=== PATIENT | female | born 2005 | race Caucasian/White ===

== ENCOUNTER → 2024-01-04 | Emergency (ER) | payer SELFPAY ==
[~2024-01-04] MED LIST: POTASSIUM 25 MEQ EFFERV TAB ONE
--- OUTSIDE RECORDS SUMMARY | 2024-01-04 23:36 | XMS REPORT | Continuity of Care Document ---
Author Name Unknown Address [address] [facility]. [address] [place] [address] [facility] thconnect Address [address] [facility]. [address] [place] [address] Care Team Providers Care Sericulturist Name Role Phone Pcp, Patient Does Not Have A Primary Care Physic elsy MELISSA PHAM Attending Clinician Unavailable TYRONE JAMA Attending Clinician Unavailable Tyrone Jama MD Attending Clinician [phone] Melissa Pham MD Attending Clinician [phone] Doctor Unassigned, [place] Attending Clinician U ANABEL Hood Attending Clinician UnavailAnabel Marquez Attending Clinician + [phone] Benjamin Johnson Attending Clinician [phone] BENJAMIN DELAROSA Attending Clinician Unavailable AMILCAR CHAVARRIA Attending Clinician Unavailable Amilcar Chavarria MD Attending Clinician [phone] SACHA AGUSTIN Attending Clinician Unavailable Sacha Brunson Attending Clinician [phone] ASHLEY MELENDEZ Attending Clinician Unavailab idpika Melendez MD, Ashley Attending Clinician + [phone] BALBINA MATTSON Attending Clinician UnavailBALBINA Lemus Attending Clinician UnavailFRANNY Marie Attending Clinician Unavailab Franny Cheek DO Attending Clinician + [phone] HALLIE MELISSA S Attending Clinician Unavailable Hallie Waggoner S Attending Clinician [phone] MERY LOZADA Attending Clinician Unavailable Jan Smith MD Attending Clinician [phone] Ultrasound, [facility] Attending Clinician Unavailkeith Medina MD, Diamond Attending Clinician + DIAMOND ANDERSON Attending Clinician Mery Graves PA-C Attending Clinician [phone], [facility] Attending Clinician Unavailable BITA RUSSO Attending Clinician BITA West Attending Clinician Mariel Ruvalcaba RN Attending Clinician Unavailabl EMILY Stephenson Attending Clinician Unavailable Emily Davila MD Attending Clinician [phone] WENDY GARCIA Attending Clinician Unavailable Wendy Garcia MD Attending Clinician [phone], [facility] Attending Clinician UnavailSINDY Higuera Attending Clinician Unavailabl e 1, [facility] Attending Clinician UnavailSindy Higuera MD Attending Clinician [phone] Carmita Washington RN Attending Clinician Unavailab ADRIANA Benavides Attending Clinician Unavailab Adriana Morrow Attending Clinician + [phone] Unknown, Attending Attending Clinician Unavailab MARIEL Bruce Attending Clinician Unavailable MARIEL STONE Attending Clinician Unavailable Mariel Stone MD Attending Clinician [phone] aGvin BYRD, Constance Attending Clinician Unavailabl Lyn Hernandez RN Attending Clinician Unavail able STU HERRERA Attending Clinician Unavailable Herrera MARINE STEWARD, Stu Attending Clinician [phone] Kaelyn Conner MD Attending Clinician + [phone] KAELYN CONNER Attending Clinician Unavailable Garret Diamond MD Attending Clinician [phone] [facility], [facility] Eeg Attending Clinician Unavailable GARRET DIAMOND Attending Clinician Unavail able GARRET DIAMOND Attending Clinician Unavail able Randall PRODUCT DEVELOPMENT ECOLOGIST, Radha Beyer Attending Clinician + [phone] SALDIVAR, Sendil K.H. Attending Clinician + [phone] FRANCIS ALVAREZ K.H. Attending Clinician Unavaila Iván Ortega MD Attending Clinician [phone] Ping SALDIVAR, Nathan Nelson Attending Clinician [phone] NATHAN CRESPO Attending Clinician Unavailab dipika Elena, [facility] Attending Clinician Un available THANG CONTRERAS Attending Clinician Unavaila bry ELIAS, Mary Ann Beyer Attending Clinician + [phone] MARY ANN CAMEJO Attending Clinician Unavailable Care, Julia [facility]gent Attending Clinician Unavailable UNKNOWN, ATTENDING Attending Clinician Unavailab Deya Spears PA-C Attending Clinician + [phone] DEYA SALAZAR Attending Clinician Unavailable Wilfrid Stone DO Attending Clinician [phone] OMAR RICHARDS Attending Clinician Unavailable Rodri Rodriguez MD Attending Clinician [phone] Neli Koroma Attending Clinician [phone] EMILY DAVILA Admitting Clinician Unavailable ANABEL CARD Admitting Clinician Unavaila ASHLEY Rider Admitting Clinician Unavailab MELISSA Alejandro Admitting Clinician Unavailable Melissa Pham MD Admitting Clinician [phone] BITA RUSSO Admitting Clinician Emily Castano MD Admitting Clinician [phone] STU HERRERA Admitting Clinician Unavailable AMILCAR CHAVARRIA Admitting Clinician Unavailable Payers Payer Name Policy Type Policy Number Effective Date Expirati on Date Source [facility] [id number] 2022 00:00:00 [facility] MED[facility] [id number] 2020 00:00:00 [facility] [id number] 2019 00:00:00 Problems Condition Name Condition Details Condition Category Status Onset Date Resolution Date Last Treatment Date Treating Clinician Comments Source Upper respirator y tract infection, unspecifie d type Upper respirator y tract infection, unspecifie d type Disease Active 9-06 00:00: 00 [facility] Anxiety disorder, unspecifie d type Anxiety disorder, unspecifie d type Disease Active 7-10 00:00: 00 [facility] Overweight with body mass index (BMI) of 29 to 29.9 in adult Overweight with body mass index (BMI) of 29 to 29.9 in adult Disease Active 3-30 00:00: 00 [facility] Positive depression screening Positive depression screening Disease Active 3-30 00:00: 00 [facility] Routine follow-up Routine follow-up Disease Active 3-30 00:00: 00 [facility] Moderate episode of recurrent major depressive disorder Moderate episode of recurrent major depressive disorder Disease Active 3-09 00:00: 00 [facility] Liveborn , of [place] , born in hospital by vaginal delivery Liveborn , of [place] , born in hospital by vaginal delivery Disease Active 2-15 00:00: 00 [facility] Full-term premature rupture of membranes with onset of labor within 24 hours of rupture Full-term premature rupture of membranes with onset of labor within 24 hours of rupture Disease Active 2-14 00:00: 00 [facility] 39 weeks gestation of 39 weeks gestation of Disease Active 0 2-14 00:00: 00 [facility] Decreased movements in third trimester Decreased movements in third trimester Disease Active 1-08 00:00: 00 [facility] Obesity (BMI 30-39.9) Obesity (BMI 30-39.9) Disease Active 2021-10 2-28 00:00: 00 [facility] 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 Disease Active 2021-10 2-08 00:00: 00 [facility] Round ligament pain Round ligament pain Disease Active 9-27 00:00: 00 [facility] High risk , antepartum High risk , antepartum Disease Active 7- 00:00: 00 [facility] History of anxiety History of anxiety Disease Active 7- 00:00: 00 [facility] History of depression History of depression Disease Active 7 00:00: 00 [facility] Migraine equivalent syndrome Migraine equivalent syndrome Disease Active 407 00:00: 00 [facility] Exposure to SARS-assoc iated coronaviru s Exposure to SARS-assoc iated coronaviru s Disease Active 4-07 00:00: 00 [facility] Acne vulgaris Acne vulgaris Disease Active 4 00:00: 00 [facility] Asthma Asthma Disease Active 4-13 00:00: 00 Overview: Formattin g of this note might be different from the original. ICD10 Diagnosis Term Christmas Bell Ringer Utility [facility] Allergies, Adverse Reactions, Alerts Allergy Name Allergy Type Status Severity Reaction(s) Onset Date Inactive Date Treating Clinician Comments Source NO KNOWN ALLERGIE S Drug Class Active [facility] Social History Social Habit Start Date Stop Date Quantity Comments Source ASSERTION 2022-03-28 00:00:00 [facility] History SDOH Alcohol Comment [facility] History of tobacco use Passive smoker [facility] Alcohol intake 2023-12-09 00:00:00 2023-12-09 00:00:00 Lifetime non-drinker (finding) [facility] History of Social function 2023-07-04 00:00:00 2023-07-04 00:00:00 [facility] Exposure to SARS-CoV-2 (event) 2023-03-02 00:00:00 2023-03-12 23:04:00 Not sure [facility] Tobacco use and exposure 2022-06-27 00:00:00 2022-06-27 00:00:00 Smokeless tobacco non-user [facility] Tobacco Comment 2022-06-27 00:00:00 2022-06-27 00:00:00 parents smoke outside [facility] History SDOH Alcohol Frequency 2020-11-05 00:00:00 2020-11-05 00:00:00 1 [facility] History SDOH Alcohol Std Drinks 2020-11-05 00:00:00 2020-11-05 00:00:00 99 [facility] History SDOH Alcohol Binge 2020-11-05 00:00:00 2020-11-05 00:00:00 1 [facility] Sex Assigned At 2005 00:00:00 2005 00:00:00 [facility] Smoking Status Start Date Stop Date Source Never smoked tobacco [facility] Medications Ordered Medication Name Filled Medication Name Start Date Stop Date Current Medication? Ordering Clinician Indication Dosage Frequency Signature (SIG) Comments Components Source Ibuprofen 200 mg capsule 2022-10 15:29: 16 Yes Take by mouth. [facility] Ibuprofen 200 mg capsule 2022-10 15:29: 16 Yes Take by mouth. [facility] Ibuprofen 200 mg capsule 2022-10 15:29: 16 Yes Take by mouth. [facility] Ibuprofen 200 mg capsule 2022-10 15:29: 16 Yes Take by mouth. [facility] iopamidol (ISOVUE 370-500 mL) injection 80 mL 2022-10 02:00: 00 09-13 02:00 :00 No [id number] 80mL 80 mL, Intravenou s, ONCE, 1 dose, On Sun09/12/23 at 2000, Routine [facility] NaCl 0.9% (NS) bolus infusion 1,000 mL 2022-10 00:15: 00 09-13 02:06 :00 No 1000mL at 999 mL/hr, 1,000 mL, IV Infusion, ONCE, 1 dose, On Sun09/12/23 at 1815, ADELA [facility] ondansetron (ZOFRAN-ODT ) disintegrat ing tablet 4 mg 2022-10 23:59: 00 09-13 00:09 :00 No 4mg 4 mg, Oral, ONCE, 1 dose, On Sun09/12/23 at 1800, Routine [facility] ondansetron 4 mg disintegrat ing tablet 2022-10 00:00: 00 Yes [id number] 4mg Take 1 tablet by mouth every 8 (eight) hours as needed for Nausea and Vomiting (N/V). [facility] ondansetron 4 mg disintegrat ing tablet 2022-10 00:00: 00 Yes [id number] 4mg Take 1 tablet by mouth every 8 (eight) hours as needed for Nausea and Vomiting (N/V). [facility] ondansetron 4 mg disintegrat ing tablet 2022-10 00:00: 00 Yes [id number] 4mg Take 1 tablet by mouth every 8 (eight) hours as needed for Nausea and Vomiting (N/V). [facility] ondansetron 4 mg disintegrat ing tablet 2022-10 00:00: 00 Yes [id number] 4mg Take 1 tablet by mouth every 8 (eight) hours as needed for Nausea and Vomiting (N/V). [facility] ondansetron 4 mg disintegrat ing tablet 2022-10 00:00: 00 Yes [id number] 4mg Take 1 tablet by mouth every 8 (eight) hours as needed for Nausea and Vomiting (N/V). [facility] ondansetron 4 mg disintegrat ing tablet 2022-10 00:00: 00 Yes [id number] 4mg Take 1 tablet by mouth every 8 (eight) hours as needed for Nausea and Vomiting (N/V). [facility] Ibuprofen 200 mg capsule 9 13:25: 02 Yes Take by mouth. [facility] Ibuprofen 200 mg capsule 2022-0 9- 13:25: 02 Yes Take by mouth. [facility] Ibuprofen 200 mg capsule 2022-07-04 13:25: 02 Yes Take by mouth. [facility] Ibuprofen 200 mg capsule 07-04 13:25: 02 Yes Take by mouth. [facility] buPROPion SR (WELLBUTRIN SR) 100 mg SR tablet 07-04 00:00: 00 Yes [id number] 100mg Take 1 tablet by mouth in the morning and 1 tablet in the evening. [facility] busPIRone 7.5 mg tablet 07-04 00:00: 00 Yes [id number] 7.5mg Take 1 tablet by mouth in the morning and 1 tablet in the evening. [facility] buPROPion SR (WELLBUTRIN SR) 100 mg SR tablet 07-04 00:00: 00 Yes [id number] 100mg Take 1 tablet by mouth in the morning and 1 tablet in the evening. [facility] busPIRone 7.5 mg tablet 07-04 00:00: 00 Yes [id number] 7.5mg Take 1 tablet by mouth in the morning and 1 tablet in the evening. [facility] buPROPion SR (WELLBUTRIN SR) 100 mg SR tablet 07-04 00:00: 00 Yes [id number] 100mg Take 1 tablet by mouth in the morning and 1 tablet in the evening. [facility] busPIRone 7.5 mg tablet 07-04 00:00: 00 Yes [id number] 7.5mg Take 1 tablet by mouth in the morning and 1 tablet in the evening. [facility] AZITHROMYCI N 250 mg tablet 07-04 00:00: 00 Yes [id number] 500MG on day 1, then 250mg days 2-5 [facility] buPROPion SR (WELLBUTRIN SR) 100 mg SR tablet 07-04 00:00: 00 Yes [id number] 100mg Take 1 tablet by mouth in the morning and 1 tablet in the evening. [facility] busPIRone 7.5 mg tablet 07-04 00:00: 00 Yes [id number] 7.5mg Take 1 tablet by mouth in the morning and 1 tablet in the evening. [facility] AZITHROMYCI N 250 mg tablet 07-04 00:00: 00 Yes [id number] 500MG on day 1, then 250mg days 2-5 [facility] buPROPion SR (WELLBUTRIN SR) 100 mg SR tablet 07-04 00:00: 00 Yes [id number] 100mg Take 1 tablet by mouth in the morning and 1 tablet in the evening. [facility] busPIRone 7.5 mg tablet 07-04 00:00: 00 Yes [id number] 7.5mg Take 1 tablet by mouth in the morning and 1 tablet in the evening. [facility] buPROPion SR (WELLBUTRIN SR) 100 mg SR tablet 07-04 00:00: 00 Yes [id number] 100mg Take 1 tablet by mouth in the morning and 1 tablet in the evening. [facility] busPIRone 7.5 mg tablet 07-04 00:00: 00 Yes [id number] 7.5mg Take 1 tablet by mouth in the morning and 1 tablet in the evening. [facility] buPROPion SR (WELLBUTRIN SR) 100 mg SR tablet 07-04 00:00: 00 Yes [id number] 100mg Take 1 tablet by mouth in the morning and 1 tablet in the evening. [facility] busPIRone 7.5 mg tablet 07-04 00:00: 00 Yes [id number] 7.5mg Take 1 tablet by mouth in the morning and 1 tablet in the evening. [facility] buPROPion SR (WELLBUTRIN SR) 100 mg SR tablet 07-04 00:00: 00 Yes [id number] 100mg Take 1 tablet by mouth in the morning and 1 tablet in the evening. [facility] busPIRone 7.5 mg tablet 07-04 00:00: 00 Yes [id number] 7.5mg Take 1 tablet by mouth in the morning and 1 tablet in the evening. [facility] buPROPion SR (WELLBUTRIN SR) 100 mg SR tablet 07-04 00:00: 00 Yes [id number] 100mg Take 1 tablet by mouth in the morning and 1 tablet in the evening. [facility] busPIRone 7.5 mg tablet 07-04 00:00: 00 Yes [id number] 7.5mg Take 1 tablet by mouth in the morning and 1 tablet in the evening. [facility] buPROPion SR (WELLBUTRIN SR) 100 mg SR tablet 07-04 00:00: 00 Yes [id number] 100mg Take 1 tablet by mouth in the morning and 1 tablet in the evening. [facility] busPIRone 7.5 mg tablet 07-04 00:00: 00 Yes [id number] 7.5mg Take 1 tablet by mouth in the morning and 1 tablet in the evening. [facility] AZITHROMYCI N 250 mg tablet 07-04 00:00: 00 09-12 00:00 :00 No [id number] 500MG on day 1, then 250mg days 2-5 [facility] bromphenira mine-pseudo ephedrine-D M (BROMFED DM) 2-30-10 mg/5 mL syrup 07-04 00:00: 00 07-15 04:59 :00 No [id number] 10mL Take 10 mL by mouth 4 (four) times daily as needed for Congestion /Allergies for up to 10 days. [facility] bromphenira mine-pseudo ephedrine-D M (BROMFED DM) 2-30-10 mg/5 mL syrup 07-04 00:00: 00 07-15 04:59 :00 No [id number] 10mL Take 10 mL by mouth 4 (four) times daily as needed for Congestion /Allergies for up to 10 days. [facility] ibuprofen 800 mg tablet 06-26 00:00: 00 Yes [id number] 800mg Take 1 tablet by mouth every 8 (eight) hours as needed for Pain (scale 4-6) or Temp > 38.5 C. [facility] ondansetron (ZOFRAN) 4 mg tablet 06-26 00:00: 00 Yes [id number] 4mg Take 1 tablet by mouth every 8 (eight) hours as needed for Nausea and Vomiting (N/V). [facility] ibuprofen 800 mg tablet 06-26 00:00: 00 07-04 00:00 :00 No [id number] 800mg Take 1 tablet by mouth every 8 (eight) hours as needed for Pain (scale 4-6) or Temp > 38.5 C. [facility] ondansetron (ZOFRAN) 4 mg tablet 06-26 00:00: 00 07-04 00:00 :00 No [id number] 4mg Take 1 tablet by mouth every 8 (eight) hours as needed for Nausea and Vomiting (N/V). [facility] ibuprofen 800 mg tablet 06-26 00:00: 00 07-04 00:00 :00 No [id number] 800mg Take 1 tablet by mouth every 8 (eight) hours as needed for Pain (scale 4-6) or Temp > 38.5 C. [facility] ondansetron (ZOFRAN) 4 mg tablet 06-26 00:00: 00 07-04 00:00 :00 No [id number] 4mg Take 1 tablet by mouth every 8 (eight) hours as needed for Nausea and Vomiting (N/V). [facility] busPIRone 7.5 mg tablet 05-07 00:00: 00 Yes [id number] 7.5mg Take 1 tablet by mouth in the morning and 1 tablet in the evening. [facility] buPROPion SR (WELLBUTRIN SR) 100 mg SR tablet 05-07 00:00: 00 Yes [id number] 100mg Take 1 tablet by mouth in the morning and 1 tablet in the evening. [facility] busPIRone 7.5 mg tablet 05-07 00:00: 00 Yes [id number] 7.5mg Take 1 tablet by mouth in the morning and 1 tablet in the evening. [facility] buPROPion SR (WELLBUTRIN SR) 100 mg SR tablet 2023-0 7-10 00:00: 00 Yes [id number] 100mg Take 1 tablet by mouth in the morning and 1 tablet in the evening. [facility] busPIRone 7.5 mg tablet 2022-0 7-10 00:00: 00 Yes [id number] 7.5mg Take 1 tablet by mouth in the morning and 1 tablet in the evening. [facility] buPROPion SR (WELLBUTRIN SR) 100 mg SR tablet 2022-0 7-10 00:00: 00 Yes [id number] 100mg Take 1 tablet by mouth in the morning and 1 tablet in the evening. [facility] busPIRone 7.5 mg tablet 2022-0 7-10 00:00: 00 Yes [id number] 7.5mg Take 1 tablet by mouth in the morning and 1 tablet in the evening. [facility] buPROPion SR (WELLBUTRIN SR) 100 mg SR tablet 2022-0 7-10 00:00: 00 Yes [id number] 100mg Take 1 tablet by mouth in the morning and 1 tablet in the evening. [facility] busPIRone 7.5 mg tablet 2022-0 7-10 00:00: 00 07-04 00:00 :00 No [id number] 7.5mg Take 1 tablet by mouth in the morning and 1 tablet in the evening. [facility] buPROPion SR (WELLBUTRIN SR) 100 mg SR tablet 0 7-10 00:00: 00 07-04 00:00 :00 No [id number] 100mg Take 1 tablet by mouth in the morning and 1 tablet in the evening. [facility] busPIRone 7.5 mg tablet 2022-0 7-10 00:00: 00 07-04 00:00 :00 No [id number] 7.5mg Take 1 tablet by mouth in the morning and 1 tablet in the evening. [facility] buPROPion SR (WELLBUTRIN SR) 100 mg SR tablet 2022-0 7-10 00:00: 00 07-04 00:00 :00 No [id number] 100mg Take 1 tablet by mouth in the morning and 1 tablet in the evening. [facility] predniSONE (DELTASONE) tablet 60 mg 05-01 02:45: 00 05-01 02:45 :00 No 60mg 60 mg, Oral, ONCE, 1 dose, On Sun04/30/23 at 2145, [facility] predniSONE 20 mg tablet 04-30 00:00: 00 05-04 04:59 :00 No [id number] 40mg Take 2 tablets by mouth in the morning for 3 days. [facility] predniSONE 20 mg tablet 04-30 00:00: 00 05-04 04:59 :00 No [id number] 40mg Take 2 tablets by mouth in the morning for 3 days. [facility] ketorolac (TORADOL) injection 30 mg 03-13 06:00: 00 03-13 05:17 :00 No 30mg 30 mg, Slow IV Push, ONCE, 1 dose, On Sun03/13/23 at 0100, [facility] NaCl 0.9% (NS) bolus infusion 1,000 mL 03-13 05:45: 00 03-13 06:59 :00 No 1000mL at 999 mL/hr, 1,000 mL, IV Infusion, ONCE, 1 dose, On Sun03/13/23 at 0045, [facility] diphenhydrA MINE (BENADRYL) injection 25 mg 03-13 05:00: 00 03-13 05:16 :00 No 25mg 25 mg, Slow IV Push, ONCE, 1 dose, On Sun03/13/23 at 0000, STAT [facility] metoclopram nii HCl (REGLAN) injection 10 mg 03-13 05:00: 00 03-13 05:15 :00 No 10mg 10 mg, Slow IV Push, ONCE, 1 dose, On Sun03/13/23 at 0000, [facility] famotidine (PEPCID (PF)) injection 20 mg 03-13 05:00: 00 03-13 05:16 :00 No 20mg 20 mg, Slow IV Push, ONCE, 1 dose, On Sun03/13/23 at 0000, ADELA [facility] buPROPion 200 mg 12 hr tablet 3-0 4-21 00:00: 00 Yes [id number] 200mg Take 1 tablet by mouth in the morning and 1 tablet in the evening. [facility] buPROPion 200 mg 12 hr tablet 3-0 4-21 00:00: 00 Yes [id number] 200mg Take 1 tablet by mouth in the morning and 1 tablet in the evening. [facility] buPROPion 200 mg 12 hr tablet 3-0 4-21 00:00: 00 Yes [id number] 200mg Take 1 tablet by mouth in the morning and 1 tablet in the evening. [facility] buPROPion 200 mg 12 hr tablet 3-0 4-21 00:00: 00 Yes [id number] 200mg Take 1 tablet by mouth in the morning and 1 tablet in the evening. [facility] buPROPion 200 mg 12 hr tablet 3-0 4-21 00:00: 00 Yes [id number] 200mg Take 1 tablet by mouth in the morning and 1 tablet in the evening. [facility] buPROPion 200 mg 12 hr tablet 3-0 -21 00:00: 00 Yes [id number] 200mg Take 1 tablet by mouth in the morning and 1 tablet in the evening. [facility] buPROPion 200 mg 12 hr tablet 3-0 421 00:00: 00 Yes [id number] 200mg Take 1 tablet by mouth in the morning and 1 tablet in the evening. [facility] buPROPion 200 mg 12 hr tablet 3-0 4-21 00:00: 00 05-07 00:00 :00 No [id number] 200mg Take 1 tablet by mouth in the morning and 1 tablet in the evening. [facility] buPROPion 200 mg 12 hr tablet 3-0 4-21 00:00: 00 05-07 00:00 :00 No [id number] 200mg Take 1 tablet by mouth in the morning and 1 tablet in the evening. [facility] buPROPion 200 mg 12 hr tablet 3 00:00: 00 Yes [id number] 200mg Take 1 tablet by mouth in the morning and 1 tablet in the evening. [facility] buPROPion 200 mg 12 hr tablet 30 00:00: 00 02-16 00:00 :00 No [id number] 200mg Take 1 tablet by mouth in the morning and 1 tablet in the evening. [facility] buPROPion 200 mg 12 hr tablet 01-25 00:00: 00 02-16 00:00 :00 No [id number] 200mg Take 1 tablet by mouth in the morning and 1 tablet in the evening. [facility] acetaminoph en (TYLENOL) tablet 650 mg 3 06:15: 00 12-31 06:11 :00 No 650mg 650 mg, Oral, ONCE, 1 dose, On 12/31/22 at 0015, ADELA [facility] buPROPion SR (WELLBUTRIN SR) 100 mg SR tablet 24 00:00: 00 Yes [id number] 100mg Take 1 tablet by mouth in the morning and 1 tablet in the evening. [facility] buPROPion SR (WELLBUTRIN SR) 100 mg SR tablet 224 00:00: 00 Yes [id number] 100mg Take 1 tablet by mouth in the morning and 1 tablet in the evening. [facility] buPROPion SR (WELLBUTRIN SR) 100 mg SR tablet 2-24 00:00: 00 Yes [id number] 100mg Take 1 tablet by mouth in the morning and 1 tablet in the evening. [facility] buPROPion SR (WELLBUTRIN SR) 100 mg SR tablet 24 00:00: 00 01-25 00:00 :00 No [id number] 100mg Take 1 tablet by mouth in the morning and 1 tablet in the evening. [facility] dicyclomine (BENTYL) tablet 20 mg 12-15 17:45: 00 12-15 17:02 :00 No 20mg 20 mg, Oral, ONCE, 1 dose, On Sun12/15/22 at 1145, Routine [facility] NaCl 0.9% (NS) bolus infusion 1,000 mL 12-15 17:45: 00 12-15 18:16 :00 No 1000mL at 999 mL/hr, 1,000 mL, IV Infusion, ONCE, 1 dose, On Sun12/15/22 at 1145, STAT [facility] ondansetron (ZOFRAN (PF)) injection 4 mg 12-15 16:45: 00 12-15 17:00 :00 No 4mg 4 mg, Slow IV Push, ONCE, 1 dose, On Sun12/15/22 at 1045, ADELA [facility] dicyclomine 10 mg capsule 12-15 00:00: 00 Yes [id number] 10mg Take 1 capsule by mouth 4 (four) times daily as needed for Abdominal pain. [facility] ondansetron 4 mg disintegrat ing tablet 12-15 00:00: 00 Yes [id number] 4mg Take 1 tablet by mouth every 8 (eight) hours as needed for Nausea and Vomiting (N/V). [facility] dicyclomine 10 mg capsule 0 12-15 00:00: 00 Yes [id number] 10mg Take 1 capsule by mouth 4 (four) times daily as needed for Abdominal pain. [facility] ondansetron 4 mg disintegrat ing tablet 0 12-15 00:00: 00 Yes [id number] 4mg Take 1 tablet by mouth every 8 (eight) hours as needed for Nausea and Vomiting (N/V). [facility] dicyclomine 10 mg capsule 0 12-15 00:00: 00 Yes [id number] 10mg Take 1 capsule by mouth 4 (four) times daily as needed for Abdominal pain. [facility] ondansetron 4 mg disintegrat ing tablet 2022-0 12-15 00:00: 00 Yes [id number] 4mg Take 1 tablet by mouth every 8 (eight) hours as needed for Nausea and Vomiting (N/V). [facility] dicyclomine 10 mg capsule 3-0 2-17 00:00: 00 Yes [id number] 10mg Take 1 capsule by mouth 4 (four) times daily as needed for Abdominal pain. [facility] ondansetron 4 mg disintegrat ing tablet 2022-0 2-17 00:00: 00 Yes [id number] 4mg Take 1 tablet by mouth every 8 (eight) hours as needed for Nausea and Vomiting (N/V). [facility] dicyclomine 10 mg capsule 2022-0 2-17 00:00: 00 Yes [id number] 10mg Take 1 capsule by mouth 4 (four) times daily as needed for Abdominal pain. [facility] ondansetron 4 mg disintegrat ing tablet 2022-0 2-17 00:00: 00 Yes [id number] 4mg Take 1 tablet by mouth every 8 (eight) hours as needed for Nausea and Vomiting (N/V). [facility] dicyclomine 10 mg capsule 2022-0 2-17 00:00: 00 02-16 00:00 :00 No [id number] 10mg Take 1 capsule by mouth 4 (four) times daily as needed for Abdominal pain. [facility] ondansetron 4 mg disintegrat ing tablet 2022-0 2-17 00:00: 00 02-16 00:00 :00 No [id number] 4mg Take 1 tablet by mouth every 8 (eight) hours as needed for Nausea and Vomiting (N/V). [facility] dicyclomine 10 mg capsule 2022-0 2-17 00:00: 00 02-16 00:00 :00 No [id number] 10mg Take 1 capsule by mouth 4 (four) times daily as needed for Abdominal pain. [facility] ondansetron 4 mg disintegrat ing tablet 2022-0 2-17 00:00: 00 02-16 00:00 :00 No [id number] 4mg Take 1 tablet by mouth every 8 (eight) hours as needed for Nausea and Vomiting (N/V). [facility] topiramate 25 mg tablet 12-14 07:49: 13 12-14 00:00 :00 No 25mg Take 25 mg by mouth. [facility] 25/iron fum/folic/d [place] (-1 ORAL) 16 07:49: 13 12-14 00:00 :00 No Take by mouth. [facility] vitamin w/FA tablet 12-14 00:00: 00 Yes [id number] 1{tbl} Take 1 tablet by mouth in the morning. [facility] docusate 100 mg capsule 12-14 00:00: 00 Yes [id number] 200mg Take 2 capsules by mouth once daily as needed for Constipati on. [facility] ferrous sulfate 325 mg (65 mg iron) tablet 12-14 00:00: 00 Yes [id number] 325mg Take 1 tablet by mouth in the morning and 1 tablet in the evening. [facility] ibuprofen 600 mg tablet 12-14 00:00: 00 Yes [id number] 600mg Take 1 tablet by mouth every 6 (six) hours as needed (Pain). Take with food or milk. [facility] vitamin w/FA tablet 12-14 00:00: 00 Yes [id number] 1{tbl} Take 1 tablet by mouth in the morning. [facility] docusate 100 mg capsule 12-14 00:00: 00 Yes [id number] 200mg Take 2 capsules by mouth once daily as needed for Constipati on. [facility] ferrous sulfate 325 mg (65 mg iron) tablet 12-14 00:00: 00 Yes [id number] 325mg Take 1 tablet by mouth in the morning and 1 tablet in the evening. [facility] ibuprofen 600 mg tablet 12-14 00:00: 00 Yes [id number] 600mg Take 1 tablet by mouth every 6 (six) hours as needed (Pain). Take with food or milk. [facility] vitamin w/FA tablet 16 00:00: 00 Yes [id number] 1{tbl} Take 1 tablet by mouth in the morning. [facility] docusate 100 mg capsule 2022-0 2-16 00:00: 00 Yes [id number] 200mg Take 2 capsules by mouth once daily as needed for Constipati on. [facility] ferrous sulfate 325 mg (65 mg iron) tablet 2022-0 2-16 00:00: 00 Yes [id number] 325mg Take 1 tablet by mouth in the morning and 1 tablet in the evening. [facility] ibuprofen 600 mg tablet 2022-0 2-16 00:00: 00 Yes [id number] 600mg Take 1 tablet by mouth every 6 (six) hours as needed (Pain). Take with food or milk. [facility] vitamin w/FA tablet 2022-0 2-16 00:00: 00 Yes [id number] 1{tbl} Take 1 tablet by mouth in the morning. [facility] docusate 100 mg capsule 2022-0 2-16 00:00: 00 Yes [id number] 200mg Take 2 capsules by mouth once daily as needed for Constipati on. [facility] ferrous sulfate 325 mg (65 mg iron) tablet 2022-0 2-16 00:00: 00 Yes [id number] 325mg Take 1 tablet by mouth in the morning and 1 tablet in the evening. [facility] ibuprofen 600 mg tablet 2022-0 2-16 00:00: 00 Yes [id number] 600mg Take 1 tablet by mouth every 6 (six) hours as needed (Pain). Take with food or milk. [facility] vitamin w/FA tablet 2022-0 2-16 00:00: 00 Yes [id number] 1{tbl} Take 1 tablet by mouth in the morning. [facility] docusate 100 mg capsule 2022-0 2-16 00:00: 00 Yes [id number] 200mg Take 2 capsules by mouth once daily as needed for Constipati on. [facility] ferrous sulfate 325 mg (65 mg iron) tablet 3-0 2-16 00:00: 00 Yes [id number] 325mg Take 1 tablet by mouth in the morning and 1 tablet in the evening. [facility] ibuprofen 600 mg tablet 2022-0 2-16 00:00: 00 Yes [id number] 600mg Take 1 tablet by mouth every 6 (six) hours as needed (Pain). Take with food or milk. [facility] vitamin w/FA tablet 3-0 2-16 00:00: 00 Yes [id number] 1{tbl} Take 1 tablet by mouth in the morning. [facility] docusate 100 mg capsule 2022-0 2-16 00:00: 00 Yes [id number] 200mg Take 2 capsules by mouth once daily as needed for Constipati on. [facility] ferrous sulfate 325 mg (65 mg iron) tablet 2022-0 2-16 00:00: 00 Yes [id number] 325mg Take 1 tablet by mouth in the morning and 1 tablet in the evening. [facility] ibuprofen 600 mg tablet 2022-0 2-16 00:00: 00 Yes [id number] 600mg Take 1 tablet by mouth every 6 (six) hours as needed (Pain). Take with food or milk. [facility] vitamin w/FA tablet 2022-0 2-16 00:00: 00 Yes [id number] 1{tbl} Take 1 tablet by mouth in the morning. [facility] docusate 100 mg capsule 2022-0 2-16 00:00: 00 Yes [id number] 200mg Take 2 capsules by mouth once daily as needed for Constipati on. [facility] ferrous sulfate 325 mg (65 mg iron) tablet 2022-0 2-16 00:00: 00 Yes [id number] 325mg Take 1 tablet by mouth in the morning and 1 tablet in the evening. [facility] ibuprofen 600 mg tablet 3-0 2-16 00:00: 00 Yes [id number] 600mg Take 1 tablet by mouth every 6 (six) hours as needed (Pain). Take with food or milk. [facility] vitamin w/FA tablet 3-0 2-16 00:00: 00 Yes [id number] 1{tbl} Take 1 tablet by mouth in the morning. [facility] ferrous sulfate 325 mg (65 mg iron) tablet 2022-0 2-16 00:00: 00 Yes [id number] 325mg Take 1 tablet by mouth in the morning and 1 tablet in the evening. [facility] vitamin w/FA tablet 2022-0 2-16 00:00: 00 Yes [id number] 1{tbl} Take 1 tablet by mouth in the morning. [facility] ferrous sulfate 325 mg (65 mg iron) tablet 2022-0 2-16 00:00: 00 Yes [id number] 325mg Take 1 tablet by mouth in the morning and 1 tablet in the evening. [facility] vitamin w/FA tablet 2022-0 2-16 00:00: 00 Yes [id number] 1{tbl} Take 1 tablet by mouth in the morning. [facility] ferrous sulfate 325 mg (65 mg iron) tablet 2022-0 2-16 00:00: 00 Yes [id number] 325mg Take 1 tablet by mouth in the morning and 1 tablet in the evening. [facility] vitamin w/FA tablet 2022-0 2-16 00:00: 00 Yes [id number] 1{tbl} Take 1 tablet by mouth in the morning. [facility] ferrous sulfate 325 mg (65 mg iron) tablet 0 2-16 00:00: 00 Yes [id number] 325mg Take 1 tablet by mouth in the morning and 1 tablet in the evening. [facility] vitamin w/FA tablet 2022-0 2-16 00:00: 00 Yes [id number] 1{tbl} Take 1 tablet by mouth in the morning. [facility] ferrous sulfate 325 mg (65 mg iron) tablet 2022-0 2-16 00:00: 00 Yes [id number] 325mg Take 1 tablet by mouth in the morning and 1 tablet in the evening. [facility] vitamin w/FA tablet 2022-0 2-16 00:00: 00 Yes [id number] 1{tbl} Take 1 tablet by mouth in the morning. [facility] ferrous sulfate 325 mg (65 mg iron) tablet 2022-0 2-16 00:00: 00 Yes [id number] 325mg Take 1 tablet by mouth in the morning and 1 tablet in the evening. [facility] vitamin w/FA tablet 2022-0 2-16 00:00: 00 Yes [id number] 1{tbl} Take 1 tablet by mouth in the morning. [facility] ferrous sulfate 325 mg (65 mg iron) tablet 2022-0 2-16 00:00: 00 Yes [id number] 325mg Take 1 tablet by mouth in the morning and 1 tablet in the evening. [facility] vitamin w/FA tablet 2022-0 2-16 00:00: 00 Yes [id number] 1{tbl} Take 1 tablet by mouth in the morning. [facility] ferrous sulfate 325 mg (65 mg iron) tablet 2022-0 -16 00:00: 00 Yes [id number] 325mg Take 1 tablet by mouth in the morning and 1 tablet in the evening. [facility] vitamin w/FA tablet 2022-0 2-16 00:00: 00 Yes [id number] 1{tbl} Take 1 tablet by mouth in the morning. [facility] ferrous sulfate 325 mg (65 mg iron) tablet 2022-0 2-16 00:00: 00 Yes [id number] 325mg Take 1 tablet by mouth in the morning and 1 tablet in the evening. [facility] vitamin w/FA tablet 2022-0 2-16 00:00: 00 Yes [id number] 1{tbl} Take 1 tablet by mouth in the morning. [facility] ferrous sulfate 325 mg (65 mg iron) tablet 2022-0 2-16 00:00: 00 Yes [id number] 325mg Take 1 tablet by mouth in the morning and 1 tablet in the evening. [facility] vitamin w/FA tablet 2022-0 2-16 00:00: 00 Yes [id number] 1{tbl} Take 1 tablet by mouth in the morning. [facility] ferrous sulfate 325 mg (65 mg iron) tablet 2022-0 2-16 00:00: 00 Yes [id number] 325mg Take 1 tablet by mouth in the morning and 1 tablet in the evening. [facility] vitamin w/FA tablet 2-16 00:00: 00 07-04 00:00 :00 No [id number] 1{tbl} Take 1 tablet by mouth in the morning. [facility] ferrous sulfate 325 mg (65 mg iron) tablet 216 00:00: 00 07-04 00:00 :00 No [id number] 325mg Take 1 tablet by mouth in the morning and 1 tablet in the evening. [facility] vitamin w/FA tablet 16 00:00: 00 07-04 00:00 :00 No [id number] 1{tbl} Take 1 tablet by mouth in the morning. [facility] ferrous sulfate 325 mg (65 mg iron) tablet 16 00:00: 00 07-04 00:00 :00 No [id number] 325mg Take 1 tablet by mouth in the morning and 1 tablet in the evening. [facility] docusate 100 mg capsule 16 00:00: 00 02-16 00:00 :00 No [id number] 200mg Take 2 capsules by mouth once daily as needed for Constipati on. [facility] ibuprofen 600 mg tablet 16 00:00: 00 02-16 00:00 :00 No [id number] 600mg Take 1 tablet by mouth every 6 (six) hours as needed (Pain). Take with food or milk. [facility] docusate 100 mg capsule 16 00:00: 00 02-16 00:00 :00 No [id number] 200mg Take 2 capsules by mouth once daily as needed for Constipati on. [facility] ibuprofen 600 mg tablet -16 00:00: 00 02-16 00:00 :00 No [id number] 600mg Take 1 tablet by mouth every 6 (six) hours as needed (Pain). Take with food or milk. [facility] methylergon ovine (METHERGINE ) injection 0.2 mg 12-13 10:00: 00 12-13 09:16 :10 No .2mg 0.2 mg, Intramuscu lar, Q4H, First dose on Sun12/13/22 at 0400, Until Discontinu ed, Routine [facility] ceFAZolin (ANCEF) 2,000 mg in NaCl 0.9% (NS) 100 mL MINI-BAG 12-13 09:52: 00 12-13 10:24 :00 No 2000mg 2,000 mg, IV Piggyback, ONCE, 1 dose, On Sun12/13/22 at 0400, Administer over 30 Minutes, 100 mL
Reas on for Anti-Infec tive: Empiric Non-Surgic al Prophylaxi s
Durat ion of therapy: 72 hours [facility] tranexamic acid (CYKLOKAPRO N) 1,000 mg in NaCl 0.9% (NS) 250 mL piggyback 12-13 09:45: 00 12-13 09:16 :10 No 1000mg 1,000 mg, IV Piggyback, ONCE, 1 dose, On Sun12/13/22 at 0345, Administer over 60 Minutes, 250 mL [facility] rho(D) immune globulin (RHOGAM) syringe 300 mcg 12-13 09:16: 12 Yes 300ug 300 mcg, Intramuscu lar, ONCE, For 1 dose, Conditiona l, Routine [facility] witch Oswald (TUCKS) 50 % topical pad 12-13 09:16: 07 Yes Topical, Q4HPRN, Starting on Sun12/13/22 at 0316, Until Discontinu ed, Routine, rectal/hem orrhoidal [facility] HYDROcodone -acetaminop hen (NORCO 5) 5-325 mg tablet 1 tablet 12-13 09:16: 07 Yes 1{tbl} 1 tablet, Oral, Q6HPRN, Starting on Sun12/13/22 at 0316, Until Discontinu ed, Routine, Pain (scale 7-10) [facility] ibuprofen (IBU) tablet 600 mg 12-13 09:16: 07 Yes 600mg 600 mg, Oral, Q6HPRN, Starting on Sun12/13/22 at 315, Until Discontinu ed, Routine, Pain (scale 4-6) [facility] acetaminoph en (TYLENOL) tablet 650 mg 12-13 09:16: 07 Yes 650mg 650 mg, Oral, Q6HPRN, Starting on Sun12/13/22 at 315, Until Discontinu ed, Routine, Pain (scale 1-3) [facility] diphenhydrA MINE (BENADRYL) tablet 25 mg 12-13 09:16: 07 Yes 25mg 25 mg, Oral, Q6HPRN, Starting on Sun12/13/22 at 315, Until Discontinu ed, Routine, Sleep, Itching [facility] ondansetron (ZOFRAN (PF)) injection 4 mg 12-13 09:16: 07 Yes 4mg 4 mg, Slow IV Push, Q8HPRN, Starting on Sun12/13/22 at 315, Until Discontinu ed, Routine, Nausea and Vomiting (N/V) [facility] simethicone (GAS RELIEF (SIMETHICON E)) chewable tablet 160 mg 12-13 09:16: 07 Yes 160mg 160 mg, Oral, PC+HSPRN, Starting on Sun12/13/22 at 315, Until Discontinu ed, Routine, Gas [facility] docusate (COLACE) capsule 200 mg 12-13 09:16: 07 Yes 200mg 200 mg, Oral, QDAILYPRN, Starting on Sun12/13/22 at 315, Until Discontinu ed, Routine, Constipati on [facility] magnesium hydroxide (MILK OF MAGNESIA) 400 mg/5 mL suspension 30 mL 12-13 09:16: 07 Yes 30mL 30 mL, Oral, QDAILYPRN, Starting on Sun12/13/22 at 315, Until Discontinu ed, Routine, Constipati on [facility] benzocaine- menthol (DERMOPLAST ) 20-0.5 % topical spray 12-13 09:16: 07 Yes Topical, PRN, Starting on Sun12/13/22 at 0316, Until Discontinu ed, Routine, Perineum discomfort [facility] diphenhydrA MINE (BENADRYL) injection 25 mg 12-13 05:24: 19 12-13 09:16 :10 No 25mg 25 mg, Intravenou s, Q6HPRN, Starting on Sun12/12/22 at 2324, Until Sun12/13/22 at 0316, Routine, Itching [facility] topiramate 25 mg tablet 12-13 03:01: 01 Yes 25mg Take 25 mg by mouth. [facility] 25/iron fum/folic/d [place] (-1 ORAL) 12-13 03:01: 01 Yes Take by mouth. [facility] fentaNYL-ro pivacaine 2 mcg/mL-0.1 % (PF) in NS 200 mL epidural infusion RTU 12-13 02:43: 00 12-13 15:36 :30 No Epidural, CONTINUOUS PRN, Starting on Sun12/12/22 at 2043, Until Sun12/13/22 at 0936, Routine, Intra-op [facility] lidocaine-e pinephrine (XYLOCAINE W/EPINEPHRI NE) 1.5 %-1:200,000 injection 12-13 02:38: 00 12-13 15:36 :30 No Intraderma l, ONCE INTRA PROCEDURE, Starting on Sun12/12/22 at 2038, Until Sun12/13/22 at 0936, Routine, Intra-op [facility] oxytocin (PITOCIN) 30 units in NS 500 mL IV infusion 12-12 22:41: 57 12-13 09:16 :10 No 2mU/min at 2-40 mL/hr, IV Infusion, TITRATE, Starting on Sun12/12/22 at 1641, Until Sun12/13/22 at 0316, ADELA [facility] proMETHazin e (PHENERGAN) 25 mg in NaCl 0.9% (NS) 50 mL IV piggyback 12-12 20:04: 17 12-13 09:16 :10 No 25mg 25 mg, IV Piggyback, Q4HPRN, Starting on Sun12/12/22 at 1404, Until Sun12/13/22 at 0316, Routine, Nausea and Vomiting (N/V) [facility] FENTanyl PF (SUBLIMAZE (PF)) injection 100 mcg 12-12 20:03: 50 12-13 09:16 :10 No 100ug 100 mcg, Slow IV Push, Q1HPRN, Starting on Sun12/12/22 at 1403, Until Sun12/13/22 at 0316, Routine, Pain (scale 4-6) [facility] lactated ringers IV infusion 500 mL 12-12 17:35: 06 12-13 09:16 :10 No 500mL at 999 mL/hr, 500 mL, IV Infusion, PRN - SEE INSTRUCTIO NS, Starting on Sun12/12/22 at 1135, Until Sun12/13/22 at 0316, Routine [facility] D5W-LR IV infusion 1,000 mL 12-12 17:35: 06 12-13 09:16 :10 No 1000mL at 1-125 mL/hr, IV Infusion, TITRATE, Starting on Sun12/12/22 at 1135, Until Sun12/13/22 at 0316, Routine [facility] topiramate 25 mg tablet 12-07 13:22: 36 Yes 25mg Take 25 mg by mouth. [facility] topiramate 25 mg tablet 12-07 13:22: 36 Yes 25mg Take 25 mg by mouth. [facility] cephALEXin 500 mg capsule 12-07 00:00: 00 12-15 05:59 :00 No [id number] 500mg Take 1 capsule by mouth 4 (four) times daily for 7 days. [facility] cephALEXin 500 mg capsule 12-07 00:00: 00 12-15 05:59 :00 No [id number] 500mg Take 1 capsule by mouth 4 (four) times daily for 7 days. [facility] cephALEXin 500 mg capsule 2022-0 2-09 00:00: 00 12-15 05:59 :00 No [id number] 500mg Take 1 capsule by mouth 4 (four) times daily for 7 days. [facility] cephALEXin 500 mg capsule 2022-0 2-09 00:00: 00 12-14 00:00 :00 No [id number] 500mg Take 1 capsule by mouth 4 (four) times daily for 7 days. [facility] topiramate 25 mg tablet 2022-0 2- 13:49: 43 Yes 25mg Take 25 mg by mouth. [facility] famotidine 20 mg tablet 2022-0 -12 00:00: 00 Yes [id number] 20mg Take 1 tablet by mouth in the morning and 1 tablet in the evening. [facility] famotidine 20 mg tablet 3-0 -12 00:00: 00 Yes [id number] 20mg Take 1 tablet by mouth in the morning and 1 tablet in the evening. [facility] famotidine 20 mg tablet 3-0 -12 00:00: 00 Yes [id number] 20mg Take 1 tablet by mouth in the morning and 1 tablet in the evening. [facility] famotidine 20 mg tablet 3-0 -12 00:00: 00 Yes [id number] 20mg Take 1 tablet by mouth in the morning and 1 tablet in the evening. [facility] famotidine 20 mg tablet 3-0 -12 00:00: 00 Yes [id number] 20mg Take 1 tablet by mouth in the morning and 1 tablet in the evening. [facility] famotidine 20 mg tablet 3-0 -12 00:00: 00 Yes [id number] 20mg Take 1 tablet by mouth in the morning and 1 tablet in the evening. [facility] famotidine 20 mg tablet 3-0 -12 00:00: 00 Yes [id number] 20mg Take 1 tablet by mouth in the morning and 1 tablet in the evening. [facility] famotidine 20 mg tablet 11-09 00:00: 00 Yes [id number] 20mg Take 1 tablet by mouth in the morning and 1 tablet in the evening. [facility] famotidine 20 mg tablet 11-09 00:00: 00 Yes [id number] 20mg Take 1 tablet by mouth in the morning and 1 tablet in the evening. [facility] famotidine 20 mg tablet 11-09 00:00: 00 12-14 00:00 :00 No [id number] 20mg Take 1 tablet by mouth in the morning and 1 tablet in the evening. [facility] polycarboph il (FIBERCON) 625 mg tablet 11-06 00:00: 00 Yes [id number] 625mg Take 1 tablet by mouth in the morning. [facility] docusate (COLACE) 100 mg capsule 11-06 00:00: 00 Yes [id number] 100mg Take 1 capsule by mouth once daily as needed for Constipati on. [facility] polyethylen e glycol 3350 (MIRALAX) 17 gram/dose powder 11-06 00:00: 00 Yes [id number] 17g Take 17 g by mouth as needed for Constipati on. [facility] ferrous sulfate (IRON, FERROUS SULFATE,) 325 mg (65 mg iron) tablet 11-06 00:00: 00 Yes [id number] 325mg Take 1 tablet by mouth in the morning and 1 tablet in the evening. [facility] polycarboph il (FIBERCON) 625 mg tablet 11-06 00:00: 00 Yes [id number] 625mg Take 1 tablet by mouth in the morning. [facility] docusate (COLACE) 100 mg capsule 11-06 00:00: 00 Yes [id number] 100mg Take 1 capsule by mouth once daily as needed for Constipati on. [facility] polyethylen e glycol 3350 (MIRALAX) 17 gram/dose powder 11-06 00:00: 00 Yes [id number] 17g Take 17 g by mouth as needed for Constipati on. [facility] ferrous sulfate (IRON, FERROUS SULFATE,) 325 mg (65 mg iron) tablet 11-06 00:00: 00 Yes [id number] 325mg Take 1 tablet by mouth in the morning and 1 tablet in the evening. [facility] polycarboph il (FIBERCON) 625 mg tablet 11-06 00:00: 00 Yes [id number] 625mg Take 1 tablet by mouth in the morning. [facility] docusate (COLACE) 100 mg capsule 11-06 00:00: 00 Yes [id number] 100mg Take 1 capsule by mouth once daily as needed for Constipati on. [facility] polyethylen e glycol 3350 (MIRALAX) 17 gram/dose powder 11-06 00:00: 00 Yes [id number] 17g Take 17 g by mouth as needed for Constipati on. [facility] ferrous sulfate (IRON, FERROUS SULFATE,) 325 mg (65 mg iron) tablet 11-06 00:00: 00 Yes [id number] 325mg Take 1 tablet by mouth in the morning and 1 tablet in the evening. [facility] polycarboph il (FIBERCON) 625 mg tablet 11-06 00:00: 00 Yes [id number] 625mg Take 1 tablet by mouth in the morning. [facility] docusate (COLACE) 100 mg capsule 11-06 00:00: 00 Yes [id number] 100mg Take 1 capsule by mouth once daily as needed for Constipati on. [facility] polyethylen e glycol 3350 (MIRALAX) 17 gram/dose powder 11-06 00:00: 00 Yes [id number] 17g Take 17 g by mouth as needed for Constipati on. [facility] ferrous sulfate (IRON, FERROUS SULFATE,) 325 mg (65 mg iron) tablet 11-06 00:00: 00 Yes [id number] 325mg Take 1 tablet by mouth in the morning and 1 tablet in the evening. [facility] polycarboph il (FIBERCON) 625 mg tablet 11-06 00:00: 00 Yes [id number] 625mg Take 1 tablet by mouth in the morning. [facility] docusate (COLACE) 100 mg capsule 11-06 00:00: 00 Yes [id number] 100mg Take 1 capsule by mouth once daily as needed for Constipati on. [facility] polyethylen e glycol 3350 (MIRALAX) 17 gram/dose powder 11-06 00:00: 00 Yes [id number] 17g Take 17 g by mouth as needed for Constipati on. [facility] ferrous sulfate (IRON, FERROUS SULFATE,) 325 mg (65 mg iron) tablet 11-06 00:00: 00 Yes [id number] 325mg Take 1 tablet by mouth in the morning and 1 tablet in the evening. [facility] polycarboph il (FIBERCON) 625 mg tablet 11-06 00:00: 00 Yes [id number] 625mg Take 1 tablet by mouth in the morning. [facility] docusate (COLACE) 100 mg capsule 11-06 00:00: 00 Yes [id number] 100mg Take 1 capsule by mouth once daily as needed for Constipati on. [facility] polyethylen e glycol 3350 (MIRALAX) 17 gram/dose powder 11-06 00:00: 00 Yes [id number] 17g Take 17 g by mouth as needed for Constipati on. [facility] ferrous sulfate (IRON, FERROUS SULFATE,) 325 mg (65 mg iron) tablet 11-06 00:00: 00 Yes [id number] 325mg Take 1 tablet by mouth in the morning and 1 tablet in the evening. [facility] polycarboph il (FIBERCON) 625 mg tablet 11-06 00:00: 00 Yes [id number] 625mg Take 1 tablet by mouth in the morning. [facility] docusate (COLACE) 100 mg capsule 11-06 00:00: 00 Yes [id number] 100mg Take 1 capsule by mouth once daily as needed for Constipati on. [facility] polyethylen e glycol 3350 (MIRALAX) 17 gram/dose powder 11-06 00:00: 00 Yes [id number] 17g Take 17 g by mouth as needed for Constipati on. [facility] ferrous sulfate (IRON, FERROUS SULFATE,) 325 mg (65 mg iron) tablet 11-06 00:00: 00 Yes [id number] 325mg Take 1 tablet by mouth in the morning and 1 tablet in the evening. [facility] polycarboph il (FIBERCON) 625 mg tablet 11-06 00:00: 00 Yes [id number] 625mg Take 1 tablet by mouth in the morning. [facility] docusate (COLACE) 100 mg capsule 11-06 00:00: 00 Yes [id number] 100mg Take 1 capsule by mouth once daily as needed for Constipati on. [facility] polyethylen e glycol 3350 (MIRALAX) 17 gram/dose powder 11-06 00:00: 00 Yes [id number] 17g Take 17 g by mouth as needed for Constipati on. [facility] ferrous sulfate (IRON, FERROUS SULFATE,) 325 mg (65 mg iron) tablet 11-06 00:00: 00 Yes [id number] 325mg Take 1 tablet by mouth in the morning and 1 tablet in the evening. [facility] polycarboph il (FIBERCON) 625 mg tablet 11-06 00:00: 00 Yes [id number] 625mg Take 1 tablet by mouth in the morning. [facility] docusate (COLACE) 100 mg capsule 11-06 00:00: 00 Yes [id number] 100mg Take 1 capsule by mouth once daily as needed for Constipati on. [facility] polyethylen e glycol 3350 (MIRALAX) 17 gram/dose powder 11-06 00:00: 00 Yes [id number] 17g Take 17 g by mouth as needed for Constipati on. [facility] ferrous sulfate (IRON, FERROUS SULFATE,) 325 mg (65 mg iron) tablet 11-06 00:00: 00 Yes [id number] 325mg Take 1 tablet by mouth in the morning and 1 tablet in the evening. [facility] polycarboph il (FIBERCON) 625 mg tablet 11-06 00:00: 00 Yes [id number] 625mg Take 1 tablet by mouth in the morning. [facility] docusate (COLACE) 100 mg capsule 11-06 00:00: 00 Yes [id number] 100mg Take 1 capsule by mouth once daily as needed for Constipati on. [facility] polyethylen e glycol 3350 (MIRALAX) 17 gram/dose powder 11-06 00:00: 00 Yes [id number] 17g Take 17 g by mouth as needed for Constipati on. [facility] ferrous sulfate (IRON, FERROUS SULFATE,) 325 mg (65 mg iron) tablet 11-06 00:00: 00 Yes [id number] 325mg Take 1 tablet by mouth in the morning and 1 tablet in the evening. [facility] polycarboph il (FIBERCON) 625 mg tablet 11-06 00:00: 00 Yes [id number] 625mg Take 1 tablet by mouth in the morning. [facility] docusate (COLACE) 100 mg capsule 11-06 00:00: 00 Yes [id number] 100mg Take 1 capsule by mouth once daily as needed for Constipati on. [facility] polyethylen e glycol 3350 (MIRALAX) 17 gram/dose powder 11-06 00:00: 00 Yes [id number] 17g Take 17 g by mouth as needed for Constipati on. [facility] ferrous sulfate (IRON, FERROUS SULFATE,) 325 mg (65 mg iron) tablet 11-06 00:00: 00 Yes [id number] 325mg Take 1 tablet by mouth in the morning and 1 tablet in the evening. [facility] polycarboph il (FIBERCON) 625 mg tablet 11-06 00:00: 00 Yes [id number] 625mg Take 1 tablet by mouth in the morning. [facility] docusate (COLACE) 100 mg capsule 11-06 00:00: 00 Yes [id number] 100mg Take 1 capsule by mouth once daily as needed for Constipati on. [facility] polyethylen e glycol 3350 (MIRALAX) 17 gram/dose powder 11-06 00:00: 00 Yes [id number] 17g Take 17 g by mouth as needed for Constipati on. [facility] ferrous sulfate (IRON, FERROUS SULFATE,) 325 mg (65 mg iron) tablet 11-06 00:00: 00 Yes [id number] 325mg Take 1 tablet by mouth in the morning and 1 tablet in the evening. [facility] polycarboph il (FIBERCON) 625 mg tablet 11-06 00:00: 00 12-14 00:00 :00 No [id number] 625mg Take 1 tablet by mouth in the morning. [facility] docusate (COLACE) 100 mg capsule 11-06 00:00: 00 12-14 00:00 :00 No [id number] 100mg Take 1 capsule by mouth once daily as needed for Constipati on. [facility] polyethylen e glycol 3350 (MIRALAX) 17 gram/dose powder 11-06 00:00: 00 12-14 00:00 :00 No [id number] 17g Take 17 g by mouth as needed for Constipati on. [facility] ferrous sulfate (IRON, FERROUS SULFATE,) 325 mg (65 mg iron) tablet 11-06 00:00: 00 12-14 00:00 :00 No [id number] 325mg Take 1 tablet by mouth in the morning and 1 tablet in the evening. [facility] topiramate 25 mg tablet 11-05 01:37: 16 Yes 25mg Take 25 mg by mouth. [facility] 25/iron fum/folic/d [place] (-1 ORAL) 11-05 01:37: 16 Yes Take by mouth. [facility] topiramate 25 mg tablet 11-05 01:37: 16 Yes 25mg Take 25 mg by mouth. [facility] 25/iron fum/folic/d [place] (-1 ORAL) 11-05 01:37: 16 Yes Take by mouth. [facility] topiramate 25 mg tablet 11-05 01:37: 16 Yes 25mg Take 25 mg by mouth. [facility] 25/iron fum/folic/d [place] (-1 ORAL) 11-05 01:37: 16 Yes Take by mouth. [facility] 11-05 01:37: 16 Yes 25mg Take 25 mg by mouth. [facility] 25/iron fum/folic/d [place] (-1 ORAL) 11-05 01:37: 16 Yes Take by mouth. [facility] top[facility] mg tablet 11-05 01:37: 16 Yes 25mg Take 25 mg by mouth. [facility] 25/iron fum/folic/d [place] (-1 ORAL) 11-05 01:37: 16 Yes Take by mouth. [facility] topiramate 25 mg tablet 11-05 01:37: 16 Yes 25mg Take 25 mg by mouth. [facility] 25/iron fum/folic/d [place] (-1 ORAL) 11-05 01:37: 16 Yes Take by mouth. [facility] topiramate 25 mg tablet 11-05 01:37: 16 Yes 25mg Take 25 mg by mouth. [facility] 25/iron fum/folic/d [place] (-1 ORAL) 11-05 01:37: 16 Yes Take by mouth. [facility] topiramate 25 mg tablet 11-05 01:37: 16 Yes 25mg Take 25 mg by mouth. [facility] 25/iron fum/folic/d [place] (-1 ORAL) 11-05 01:37: 16 Yes Take by mouth. [facility] topiramate 25 mg tablet 11-05 01:37: 16 Yes 25mg Take 25 mg by mouth. [facility] 25/iron fum/folic/d [place] (-1 ORAL) 11-05 01:37: 16 Yes Take by mouth. [facility] 25/iron fum/folic/d [place] (-1 ORAL) 11-05 01:37: 16 Yes Take by mouth. [facility] 25/iron fum/folic/d [place] (-1 ORAL) 11-05 01:37: 16 Yes Take by mouth. [facility] 25/iron fum/folic/d [place] (-1 ORAL) 11-05 01:37: 16 Yes Take by mouth. [facility] fluconazole 200 mg tablet 10-30 00:00: 00 11-01 05:59 :00 No [id number] 200mg Take 1 tablet by mouth in the morning for 1 day. [facility] topiramate 25 mg tablet 2021-10 21:48: 41 Yes 25mg Take 25 mg by mouth. [facility] 25/iron fum/folic/d [place] (-1 ORAL) 2021-10 21:48: 41 Yes Take by mouth. [facility] topiramate 25 mg tablet 2021-10 21:48: 41 Yes 25mg Take 25 mg by mouth. [facility] 25/iron fum/folic/d [place] (-1 ORAL) 2021-10 21:48: 41 Yes Take by mouth. [facility] topiramate 25 mg tablet 2021-10 21:48: 41 Yes 25mg Take 25 mg by mouth. [facility] 25/iron fum/folic/d [place] (-1 ORAL) 2021-10 21:48: 41 Yes Take by mouth. [facility] topiramate 25 mg tablet 2021-10 21:48: 41 Yes 25mg Take 25 mg by mouth. [facility] 25/iron fum/folic/d [place] (-1 ORAL) 2021-10 21:48: 41 Yes Take by mouth. [facility] topiramate 25 mg tablet 2021-10 21:48: 41 Yes 25mg Take 25 mg by mouth. [facility] 25/iron fum/folic/d [place] (-1 ORAL) 2021-10 21:48: 41 Yes Take by mouth. [facility] topiramate 25 mg tablet 2021-10 21:48: 41 Yes 25mg Take 25 mg by mouth. [facility] 25/iron fum/folic/d [place] (-1 ORAL) 2021-10 21:48: 41 Yes Take by mouth. [facility] topiramate 25 mg tablet 2021-10 21:48: 41 Yes 25mg Take 25 mg by mouth. [facility] 25/iron fum/folic/d [place] (-1 ORAL) 2021-10 21:48: 41 Yes Take by mouth. [facility] 25/iron fum/folic/d [place] (-1 ORAL) 2021-10 15:04: 45 Yes Take by mouth. [facility] 25/iron fum/folic/d [place] (-1 ORAL) 2021-10 15:04: 45 Yes Take by mouth. [facility] 25/iron fum/folic/d [place] (-1 ORAL) 2021-10 15:04: 45 Yes Take by mouth. [facility] 25/iron fum/folic/d [place] (-1 ORAL) 2021-10 15:04: 45 Yes Take by mouth. [facility] topiramate 25 mg tablet 2021-10 15:03: 21 Yes 25mg Take 25 mg by mouth. [facility] topiramate 25 mg tablet 2021-10 15:03: 21 Yes 25mg Take 25 mg by mouth. [facility] topiramate 25 mg tablet 2021-10 15:03: 21 Yes 25mg Take 25 mg by mouth. [facility] topiramate 25 mg tablet 2021-10 15:03: 21 Yes 25mg Take 25 mg by mouth. [facility] 25/iron fum/folic/d [place] (-1 ORAL) 2021-10 14:44: 38 09-20 00:00 :00 No Take by mouth. [facility] guaifenesin (COUGH SYRUP ORAL) 2021-10 14:44: 32 09-20 00:00 :00 No Take by mouth. [facility] ferrous sulfate (IRON, FERROUS SULFATE,) 325 mg (65 mg iron) tablet 2021-10 00:00: 00 Yes [id number] 325mg Take 1 tablet by mouth in the morning and 1 tablet in the evening. [facility] ferrous sulfate (IRON, FERROUS SULFATE,) 325 mg (65 mg iron) tablet 2021-10 00:00: 00 Yes [id number] 325mg Take 1 tablet by mouth in the morning and 1 tablet in the evening. [facility] ferrous sulfate (IRON, FERROUS SULFATE,) 325 mg (65 mg iron) tablet 2021-10 00:00: 00 Yes [id number] 325mg Take 1 tablet by mouth in the morning and 1 tablet in the evening. [facility] ferrous sulfate (IRON, FERROUS SULFATE,) 325 mg (65 mg iron) tablet 2021-10 00:00: 00 Yes [id number] 325mg Take 1 tablet by mouth in the morning and 1 tablet in the evening. [facility] ferrous sulfate (IRON, FERROUS SULFATE,) 325 mg (65 mg iron) tablet 2021-10 00:00: 00 Yes [id number] 325mg Take 1 tablet by mouth in the morning and 1 tablet in the evening. [facility] ferrous sulfate (IRON, FERROUS SULFATE,) 325 mg (65 mg iron) tablet 2021-10 00:00: 00 Yes [id number] 325mg Take 1 tablet by mouth in the morning and 1 tablet in the evening. [facility] ferrous sulfate (IRON, FERROUS SULFATE,) 325 mg (65 mg iron) tablet 2021-10 00:00: 00 Yes [id number] 325mg Take 1 tablet by mouth in the morning and 1 tablet in the evening. [facility] ferrous sulfate (IRON, FERROUS SULFATE,) 325 mg (65 mg iron) tablet 2021-10 00:00: 00 Yes [id number] 325mg Take 1 tablet by mouth in the morning and 1 tablet in the evening. [facility] ferrous sulfate (IRON, FERROUS SULFATE,) 325 mg (65 mg iron) tablet 2021-10 00:00: 00 Yes [id number] 325mg Take 1 tablet by mouth in the morning and 1 tablet in the evening. [facility] ferrous sulfate (IRON, FERROUS SULFATE,) 325 mg (65 mg iron) tablet 2021-10 00:00: 00 Yes [id number] 325mg Take 1 tablet by mouth in the morning and 1 tablet in the evening. [facility] ferrous sulfate (IRON, FERROUS SULFATE,) 325 mg (65 mg iron) tablet 2021-10 00:00: 00 Yes [id number] 325mg Take 1 tablet by mouth in the morning and 1 tablet in the evening. [facility] ferrous sulfate (IRON, FERROUS SULFATE,) 325 mg (65 mg iron) tablet 2021-10 00:00: 00 Yes [id number] 325mg Take 1 tablet by mouth in the morning and 1 tablet in the evening. [facility] ferrous sulfate (IRON, FERROUS SULFATE,) 325 mg (65 mg iron) tablet 2021-10 00:00: 00 Yes [id number] 325mg Take 1 tablet by mouth in the morning and 1 tablet in the evening. [facility] ferrous sulfate (IRON, FERROUS SULFATE,) 325 mg (65 mg iron) tablet 2021-10 00:00: 00 Yes [id number] 325mg Take 1 tablet by mouth in the morning and 1 tablet in the evening. [facility] ferrous sulfate (IRON, FERROUS SULFATE,) 325 mg (65 mg iron) tablet 2021-10 00:00: 00 Yes [id number] 325mg Take 1 tablet by mouth in the morning and 1 tablet in the evening. [facility] ferrous sulfate (IRON, FERROUS SULFATE,) 325 mg (65 mg iron) tablet 2021-10 00:00: 00 Yes [id number] 325mg Take 1 tablet by mouth in the morning and 1 tablet in the evening. [facility] ferrous sulfate (IRON, FERROUS SULFATE,) 325 mg (65 mg iron) tablet 2021-10 00:00: 00 Yes [id number] 325mg Take 1 tablet by mouth in the morning and 1 tablet in the evening. [facility] ferrous sulfate (IRON, FERROUS SULFATE,) 325 mg (65 mg iron) tablet 2021-10 00:00: 00 Yes [id number] 325mg Take 1 tablet by mouth in the morning and 1 tablet in the evening. [facility] ferrous sulfate (IRON, FERROUS SULFATE,) 325 mg (65 mg iron) tablet 2021-10 00:00: 00 11-02 00:00 :00 No [id number] 325mg Take 1 tablet by mouth in the morning and 1 tablet in the evening. [facility] guaifenesin (COUGH SYRUP ORAL) 2021-10 0 11:11: 15 Yes Take by mouth. [facility] guaifenesin (COUGH SYRUP ORAL) 2021-10 0 11:11: 15 Yes Take by mouth. [facility] guaifenesin (COUGH SYRUP ORAL) 2021-10 0 11:11: 15 Yes Take by mouth. [facility] guaifenesin (COUGH SYRUP ORAL) 2021-10 0 11:11: 15 Yes Take by mouth. [facility] guaifenesin (COUGH SYRUP ORAL) 2021-10 0 11:11: 15 Yes Take by mouth. [facility] guaifenesin (COUGH SYRUP ORAL) 2021-10 0 11:11: 15 Yes Take by mouth. [facility] guaifenesin (COUGH SYRUP ORAL) 2021-10 0 11:11: 15 Yes Take by mouth. [facility] guaifenesin (COUGH SYRUP ORAL) 2021-10 0 11:11: 15 Yes Take by mouth. [facility] 25/iron fum/folic/d [place] (-1 ORAL) 2021-10 0-16 19:06: 18 Yes Take by mouth. [facility] 25/iron fum/folic/d [place] (-1 ORAL) 2021-10 0-16 19:06: 18 Yes Take by mouth. [facility] 25/iron fum/folic/d [place] (-1 ORAL) 2021-10 0-16 19:06: 18 Yes Take by mouth. [facility] 25/iron fum/folic/d [place] (-1 ORAL) 2021-10 0-16 19:06: 18 Yes Take by mouth. [facility] 25/iron fum/folic/d [place] (-1 ORAL) 2021-10 0-16 19:06: 18 Yes Take by mouth. [facility] 25/iron fum/folic/d [place] (-1 ORAL) 2021-10 0-16 19:06: 18 Yes Take by mouth. [facility] 25/iron fum/folic/d [place] (-1 ORAL) 2021-10 016 19:06: 18 Yes Take by mouth. [facility] 25/iron fum/folic/d [place] (-1 ORAL) 2021-10 0-16 19:06: 18 Yes Take by mouth. [facility] 25/iron fum/folic/d [place] (-1 ORAL) 2021-10 0-16 19:06: 18 Yes Take by mouth. [facility] 25/iron fum/folic/d [place] (-1 ORAL) 2021-10 0-16 19:06: 18 Yes Take by mouth. [facility] 25/iron fum/folic/d [place] (-1 ORAL) 2021-10 0-16 19:06: 18 Yes Take by mouth. [facility] 25/iron fum/folic/d [place] (-1 ORAL) 2021-10 0-16 19:06: 18 Yes Take by mouth. [facility] polycarboph il (FIBERCON) 625 mg tablet 9 00:00: 00 Yes [id number] 625mg Take 1 tablet by mouth in the morning. [facility] docusate (COLACE) 100 mg capsule 07-25 00:00: 00 Yes [id number] 100mg Take 1 capsule by mouth once daily as needed for Constipati on. [facility] polyethylen e glycol 3350 (MIRALAX) 17 gram/dose powder 07-25 00:00: 00 Yes [id number] 17g Take 17 g by mouth as needed for Constipati on. [facility] polycarboph il (FIBERCON) 625 mg tablet 07-25 00:00: 00 Yes [id number] 625mg Take 1 tablet by mouth in the morning. [facility] docusate (COLACE) 100 mg capsule 07-25 00:00: 00 Yes [id number] 100mg Take 1 capsule by mouth once daily as needed for Constipati on. [facility] polyethylen e glycol 3350 (MIRALAX) 17 gram/dose powder 07-25 00:00: 00 Yes [id number] 17g Take 17 g by mouth as needed for Constipati on. [facility] polycarboph il (FIBERCON) 625 mg tablet 07-25 00:00: 00 Yes [id number] 625mg Take 1 tablet by mouth in the morning. [facility] docusate (COLACE) 100 mg capsule 07-25 00:00: 00 Yes [id number] 100mg Take 1 capsule by mouth once daily as needed for Constipati on. [facility] polyethylen e glycol 3350 (MIRALAX) 17 gram/dose powder 07-25 00:00: 00 Yes [id number] 17g Take 17 g by mouth as needed for Constipati on. [facility] polycarboph il (FIBERCON) 625 mg tablet 0 07-25 00:00: 00 Yes [id number] 625mg Take 1 tablet by mouth in the morning. [facility] docusate (COLACE) 100 mg capsule 0 07-25 00:00: 00 Yes [id number] 100mg Take 1 capsule by mouth once daily as needed for Constipati on. [facility] polyethylen e glycol 3350 (MIRALAX) 17 gram/dose powder 07-25 00:00: 00 Yes [id number] 17g Take 17 g by mouth as needed for Constipati on. [facility] polycarboph il (FIBERCON) 625 mg tablet 07-25 00:00: 00 Yes [id number] 625mg Take 1 tablet by mouth in the morning. [facility] docusate (COLACE) 100 mg capsule 07-25 00:00: 00 Yes [id number] 100mg Take 1 capsule by mouth once daily as needed for Constipati on. [facility] polyethylen e glycol 3350 (MIRALAX) 17 gram/dose powder 07-25 00:00: 00 Yes [id number] 17g Take 17 g by mouth as needed for Constipati on. [facility] polycarboph il (FIBERCON) 625 mg tablet 07-25 00:00: 00 Yes [id number] 625mg Take 1 tablet by mouth in the morning. [facility] docusate (COLACE) 100 mg capsule 07-25 00:00: 00 Yes [id number] 100mg Take 1 capsule by mouth once daily as needed for Constipati on. [facility] polyethylen e glycol 3350 (MIRALAX) 17 gram/dose powder 07-25 00:00: 00 Yes [id number] 17g Take 17 g by mouth as needed for Constipati on. [facility] polycarboph il (FIBERCON) 625 mg tablet 07-25 00:00: 00 Yes [id number] 625mg Take 1 tablet by mouth in the morning. [facility] docusate (COLACE) 100 mg capsule 0 07-25 00:00: 00 Yes [id number] 100mg Take 1 capsule by mouth once daily as needed for Constipati on. [facility] polyethylen e glycol 3350 (MIRALAX) 17 gram/dose powder 0 07-25 00:00: 00 Yes [id number] 17g Take 17 g by mouth as needed for Constipati on. [facility] polycarboph il (FIBERCON) 625 mg tablet 07-25 00:00: 00 Yes [id number] 625mg Take 1 tablet by mouth in the morning. [facility] docusate (COLACE) 100 mg capsule 07-25 00:00: 00 Yes [id number] 100mg Take 1 capsule by mouth once daily as needed for Constipati on. [facility] polyethylen e glycol 3350 (MIRALAX) 17 gram/dose powder 07-25 00:00: 00 Yes [id number] 17g Take 17 g by mouth as needed for Constipati on. [facility] polycarboph il (FIBERCON) 625 mg tablet 07-25 00:00: 00 Yes [id number] 625mg Take 1 tablet by mouth in the morning. [facility] docusate (COLACE) 100 mg capsule 07-25 00:00: 00 Yes [id number] 100mg Take 1 capsule by mouth once daily as needed for Constipati on. [facility] polyethylen e glycol 3350 (MIRALAX) 17 gram/dose powder 07-25 00:00: 00 Yes [id number] 17g Take 17 g by mouth as needed for Constipati on. [facility] polycarboph il (FIBERCON) 625 mg tablet 07-25 00:00: 00 Yes [id number] 625mg Take 1 tablet by mouth in the morning. [facility] docusate (COLACE) 100 mg capsule 07-25 00:00: 00 Yes [id number] 100mg Take 1 capsule by mouth once daily as needed for Constipati on. [facility] polyethylen e glycol 3350 (MIRALAX) 17 gram/dose powder 07-25 00:00: 00 Yes [id number] 17g Take 17 g by mouth as needed for Constipati on. [facility] polycarboph il (FIBERCON) 625 mg tablet 07-25 00:00: 00 Yes [id number] 625mg Take 1 tablet by mouth in the morning. [facility] docusate (COLACE) 100 mg capsule 07-25 00:00: 00 Yes [id number] 100mg Take 1 capsule by mouth once daily as needed for Constipati on. [facility] polyethylen e glycol 3350 (MIRALAX) 17 gram/dose powder 07-25 00:00: 00 Yes [id number] 17g Take 17 g by mouth as needed for Constipati on. [facility] polycarboph il (FIBERCON) 625 mg tablet 07-25 00:00: 00 Yes [id number] 625mg Take 1 tablet by mouth in the morning. [facility] docusate (COLACE) 100 mg capsule 07-25 00:00: 00 Yes [id number] 100mg Take 1 capsule by mouth once daily as needed for Constipati on. [facility] polyethylen e glycol 3350 (MIRALAX) 17 gram/dose powder 07-25 00:00: 00 Yes [id number] 17g Take 17 g by mouth as needed for Constipati on. [facility] polycarboph il (FIBERCON) 625 mg tablet 07-25 00:00: 00 Yes [id number] 625mg Take 1 tablet by mouth in the morning. [facility] docusate (COLACE) 100 mg capsule 07-25 00:00: 00 Yes [id number] 100mg Take 1 capsule by mouth once daily as needed for Constipati on. [facility] polyethylen e glycol 3350 (MIRALAX) 17 gram/dose powder 07-25 00:00: 00 Yes [id number] 17g Take 17 g by mouth as needed for Constipati on. [facility] polycarboph il (FIBERCON) 625 mg tablet 07-25 00:00: 00 Yes [id number] 625mg Take 1 tablet by mouth in the morning. [facility] docusate (COLACE) 100 mg capsule 07-25 00:00: 00 Yes [id number] 100mg Take 1 capsule by mouth once daily as needed for Constipati on. [facility] polyethylen e glycol 3350 (MIRALAX) 17 gram/dose powder 07-25 00:00: 00 Yes [id number] 17g Take 17 g by mouth as needed for Constipati on. [facility] polycarboph il (FIBERCON) 625 mg tablet 07-25 00:00: 00 Yes [id number] 625mg Take 1 tablet by mouth in the morning. [facility] docusate (COLACE) 100 mg capsule 07-25 00:00: 00 Yes [id number] 100mg Take 1 capsule by mouth once daily as needed for Constipati on. [facility] polyethylen e glycol 3350 (MIRALAX) 17 gram/dose powder 07-25 00:00: 00 Yes [id number] 17g Take 17 g by mouth as needed for Constipati on. [facility] polycarboph il (FIBERCON) 625 mg tablet 07-25 00:00: 00 Yes [id number] 625mg Take 1 tablet by mouth in the morning. [facility] docusate (COLACE) 100 mg capsule 07-25 00:00: 00 Yes [id number] 100mg Take 1 capsule by mouth once daily as needed for Constipati on. [facility] polyethylen e glycol 3350 (MIRALAX) 17 gram/dose powder 07-25 00:00: 00 Yes [id number] 17g Take 17 g by mouth as needed for Constipati on. [facility] polycarboph il (FIBERCON) 625 mg tablet 07-25 00:00: 00 Yes [id number] 625mg Take 1 tablet by mouth in the morning. [facility] docusate (COLACE) 100 mg capsule 07-25 00:00: 00 Yes [id number] 100mg Take 1 capsule by mouth once daily as needed for Constipati on. [facility] polyethylen e glycol 3350 (MIRALAX) 17 gram/dose powder 07-25 00:00: 00 Yes [id number] 17g Take 17 g by mouth as needed for Constipati on. [facility] polycarboph il (FIBERCON) 625 mg tablet 07-25 00:00: 00 Yes [id number] 625mg Take 1 tablet by mouth in the morning. [facility] docusate (COLACE) 100 mg capsule 0 07-25 00:00: 00 Yes [id number] 100mg Take 1 capsule by mouth once daily as needed for Constipati on. [facility] polyethylen e glycol 3350 (MIRALAX) 17 gram/dose powder 0 07-25 00:00: 00 Yes [id number] 17g Take 17 g by mouth as needed for Constipati on. [facility] polycarboph il (FIBERCON) 625 mg tablet 07-25 00:00: 00 Yes [id number] 625mg Take 1 tablet by mouth in the morning. [facility] docusate (COLACE) 100 mg capsule 07-25 00:00: 00 Yes [id number] 100mg Take 1 capsule by mouth once daily as needed for Constipati on. [facility] polyethylen e glycol 3350 (MIRALAX) 17 gram/dose powder 07-25 00:00: 00 Yes [id number] 17g Take 17 g by mouth as needed for Constipati on. [facility] polycarboph il (FIBERCON) 625 mg tablet 07-25 00:00: 00 Yes [id number] 625mg Take 1 tablet by mouth in the morning. [facility] docusate (COLACE) 100 mg capsule 07-25 00:00: 00 Yes [id number] 100mg Take 1 capsule by mouth once daily as needed for Constipati on. [facility] polyethylen e glycol 3350 (MIRALAX) 17 gram/dose powder 0 07-25 00:00: 00 Yes [id number] 17g Take 17 g by mouth as needed for Constipati on. [facility] polycarboph il (FIBERCON) 625 mg tablet 07-25 00:00: 00 Yes [id number] 625mg Take 1 tablet by mouth in the morning. [facility] docusate (COLACE) 100 mg capsule 0 07-25 00:00: 00 Yes [id number] 100mg Take 1 capsule by mouth once daily as needed for Constipati on. [facility] polyethylen e glycol 3350 (MIRALAX) 17 gram/dose powder 0 07-25 00:00: 00 Yes [id number] 17g Take 17 g by mouth as needed for Constipati on. [facility] polycarboph il (FIBERCON) 625 mg tablet 07-25 00:00: 00 Yes [id number] 625mg Take 1 tablet by mouth in the morning. [facility] docusate (COLACE) 100 mg capsule 07-25 00:00: 00 Yes [id number] 100mg Take 1 capsule by mouth once daily as needed for Constipati on. [facility] polyethylen e glycol 3350 (MIRALAX) 17 gram/dose powder 07-25 00:00: 00 Yes [id number] 17g Take 17 g by mouth as needed for Constipati on. [facility] polycarboph il (FIBERCON) 625 mg tablet 07-25 00:00: 00 Yes [id number] 625mg Take 1 tablet by mouth in the morning. [facility] docusate (COLACE) 100 mg capsule 0 07-25 00:00: 00 Yes [id number] 100mg Take 1 capsule by mouth once daily as needed for Constipati on. [facility] polyethylen e glycol 3350 (MIRALAX) 17 gram/dose powder 07-25 00:00: 00 Yes [id number] 17g Take 17 g by mouth as needed for Constipati on. [facility] polycarboph il (FIBERCON) 625 mg tablet 0 07-25 00:00: 00 Yes [id number] 625mg Take 1 tablet by mouth in the morning. [facility] docusate (COLACE) 100 mg capsule 0 07-25 00:00: 00 Yes [id number] 100mg Take 1 capsule by mouth once daily as needed for Constipati on. [facility] polyethylen e glycol 3350 (MIRALAX) 17 gram/dose powder 0 07-25 00:00: 00 Yes [id number] 17g Take 17 g by mouth as needed for Constipati on. [facility] polycarboph il (FIBERCON) 625 mg tablet 07-25 00:00: 00 Yes [id number] 625mg Take 1 tablet by mouth in the morning. [facility] docusate (COLACE) 100 mg capsule 07-25 00:00: 00 Yes [id number] 100mg Take 1 capsule by mouth once daily as needed for Constipati on. [facility] polyethylen e glycol 3350 (MIRALAX) 17 gram/dose powder 07-25 00:00: 00 Yes [id number] 17g Take 17 g by mouth as needed for Constipati on. [facility] polycarboph il (FIBERCON) 625 mg tablet 07-25 00:00: 00 Yes [id number] 625mg Take 1 tablet by mouth in the morning. [facility] docusate (COLACE) 100 mg capsule 07-25 00:00: 00 Yes [id number] 100mg Take 1 capsule by mouth once daily as needed for Constipati on. [facility] polyethylen e glycol 3350 (MIRALAX) 17 gram/dose powder 07-25 00:00: 00 Yes [id number] 17g Take 17 g by mouth as needed for Constipati on. [facility] polycarboph il (FIBERCON) 625 mg tablet 07-25 00:00: 00 11-02 00:00 :00 No [id number] 625mg Take 1 tablet by mouth in the morning. [facility] docusate (COLACE) 100 mg capsule 07-25 00:00: 00 11-02 00:00 :00 No [id number] 100mg Take 1 capsule by mouth once daily as needed for Constipati on. [facility] polyethylen e glycol 3350 (MIRALAX) 17 gram/dose powder 07-25 00:00: 00 11-02 00:00 :00 No [id number] 17g Take 17 g by mouth as needed for Constipati on. [facility] polycarboph il (FIBERCON) 625 mg tablet 07-25 00:00: 07-25 00:00 :00 No [id number] 625mg Take 1 tablet by mouth in the morning. [facility] polyethylen e glycol 3350 (MIRALAX) 17 gram powder 07-25 00:00: 00 07-25 00:00 :00 No [id number] 1{packe t} Take 1 Packet by mouth as needed for Constipati on. [facility] docusate (COLACE) 100 mg capsule 07-25 00:00: 00 07-25 00:00 :00 No [id number] 100mg Take 1 capsule by mouth once daily as needed for Constipati on. [facility] NaCl 0.9% (NS) bolus infusion 1,000 mL 06-25 23:30: 00 06-25 23:25 :00 No 1000mL at 999 mL/hr, 1,000 mL, IV Infusion, ONCE, 1 dose, On Sun06/25/22 at 1830, ADELA [facility] maalox:diph enhydrAMINE :lidocaine 2 % viscous 1:1:1 (FIRST-MOUT HWASH BLM) oral suspension 15 mL 06-25 23:30: 00 06-25 23:25 :00 No 15mL 15 mL, Oral, ONCE, 1 dose, On Sun06/25/22 at 1830, Routine [facility] NaCl 0.9% (NS) bolus infusion 1,000 mL 06-25 20:45: 00 06-25 22:49 :00 No 1000mL at 999 mL/hr, 1,000 mL, IV Infusion, ONCE, 1 dose, On Sun06/25/22 at 1545, ADELA [facility] proMETHazin e (PHENERGAN) 12.5 mg in NaCl 0.9% (NS) 50 mL IV piggyback 06-25 20:00: 00 06-25 20:45 :00 No 12.5mg 12.5 mg, IV Piggyback, ONCE, 1 dose, On Sun06/25/22 at 1500, ADELA [facility] proMETHazin e 25 mg suppository 06-25 00:00: 00 Yes [id number] 25mg Insert 1 Suppositor y into rectum every 4 (four) hours as needed for Nausea and Vomiting (N/V). [facility] proMETHazin e 25 mg suppository 06-25 00:00: 00 Yes [id number] 25mg Insert 1 Suppositor y into rectum every 4 (four) hours as needed for Nausea and Vomiting (N/V). [facility] proMETHazin e 25 mg suppository 06-25 00:00: 00 Yes [id number] 25mg Insert 1 Suppositor y into rectum every 4 (four) hours as needed for Nausea and Vomiting (N/V). [facility] proMETHazin e 25 mg suppository 06-25 00:00: 00 Yes [id number] 25mg Insert 1 Suppositor y into rectum every 4 (four) hours as needed for Nausea and Vomiting (N/V). [facility] proMETHazin e 25 mg suppository 06-25 00:00: 00 Yes [id number] 25mg Insert 1 Suppositor y into rectum every 4 (four) hours as needed for Nausea and Vomiting (N/V). [facility] proMETHazin e 25 mg suppository 06-25 00:00: 00 Yes [id number] 25mg Insert 1 Suppositor y into rectum every 4 (four) hours as needed for Nausea and Vomiting (N/V). [facility] proMETHazin e 25 mg suppository 06-25 00:00: 00 Yes [id number] 25mg Insert 1 Suppositor y into rectum every 4 (four) hours as needed for Nausea and Vomiting (N/V). [facility] proMETHazin e 25 mg suppository 06-25 00:00: 00 Yes [id number] 25mg Insert 1 Suppositor y into rectum every 4 (four) hours as needed for Nausea and Vomiting (N/V). [facility] proMETHazin e 25 mg suppository 06-25 00:00: 00 Yes [id number] 25mg Insert 1 Suppositor y into rectum every 4 (four) hours as needed for Nausea and Vomiting (N/V). [facility] proMETHazin e 25 mg suppository 06-25 00:00: 00 Yes [id number] 25mg Insert 1 Suppositor y into rectum every 4 (four) hours as needed for Nausea and Vomiting (N/V). [facility] proMETHazin e 25 mg suppository 06-25 00:00: 00 Yes [id number] 25mg Insert 1 Suppositor y into rectum every 4 (four) hours as needed for Nausea and Vomiting (N/V). [facility] proMETHazin e 25 mg suppository 06-25 00:00: 00 Yes [id number] 25mg Insert 1 Suppositor y into rectum every 4 (four) hours as needed for Nausea and Vomiting (N/V). [facility] proMETHazin e 25 mg suppository 06-25 00:00: 00 Yes [id number] 25mg Insert 1 Suppositor y into rectum every 4 (four) hours as needed for Nausea and Vomiting (N/V). [facility] proMETHazin e 25 mg suppository 06-25 00:00: 00 Yes [id number] 25mg Insert 1 Suppositor y into rectum every 4 (four) hours as needed for Nausea and Vomiting (N/V). [facility] proMETHazin e 25 mg suppository 06-25 00:00: 00 Yes [id number] 25mg Insert 1 Suppositor y into rectum every 4 (four) hours as needed for Nausea and Vomiting (N/V). [facility] proMETHazin e 25 mg suppository 06-25 00:00: 00 Yes [id number] 25mg Insert 1 Suppositor y into rectum every 4 (four) hours as needed for Nausea and Vomiting (N/V). [facility] proMETHazin e 25 mg suppository 06-25 00:00: 00 Yes [id number] 25mg Insert 1 Suppositor y into rectum every 4 (four) hours as needed for Nausea and Vomiting (N/V). [facility] proMETHazin e 25 mg suppository 06-25 00:00: 00 Yes [id number] 25mg Insert 1 Suppositor y into rectum every 4 (four) hours as needed for Nausea and Vomiting (N/V). [facility] proMETHazin e 25 mg suppository 06-25 00:00: 00 09-20 00:00 :00 No [id number] 25mg Insert 1 Suppositor y into rectum every 4 (four) hours as needed for Nausea and Vomiting (N/V). [facility] proMETHazin e 25 mg tablet 06-17 00:00: 00 Yes [id number] 25mg Take 1 tablet by mouth every 6 (six) hours as needed for Nausea and Vomiting (N/V). [facility] proMETHazin e 25 mg tablet 06-17 00:00: 00 06-25 00:00 :00 No [id number] 25mg Take 1 tablet by mouth every 6 (six) hours as needed for Nausea and Vomiting (N/V). [facility] 25/iron fum/folic/d [place] (-1 ORAL) 8 09:47: 32 Yes Take by mouth. [facility] 25/iron fum/folic/d [place] (-1 ORAL) 802 09:47: 32 Yes Take by mouth. [facility] 25/iron fum/folic/d [place] (-1 ORAL) 802 09:47: 32 Yes Take by mouth. [facility] 25/iron fum/folic/d [place] (-1 ORAL) 8 09:47: 32 Yes Take by mouth. [facility] 25/iron fum/folic/d [place] (-1 ORAL) 8-02 09:47: 32 Yes Take by mouth. [facility] 25/iron fum/folic/d [place] (-1 ORAL) 802 09:47: 32 Yes Take by mouth. [facility] 25/iron fum/folic/d [place] (-1 ORAL) 8 09:47: 32 Yes Take by mouth. [facility] 25/iron fum/folic/d [place] (-1 ORAL) 8 09:47: 32 Yes Take by mouth. [facility] ondansetron (ZOFRAN) 4 mg tablet 01-26 00:00: 00 Yes [id number] 4mg Take 1 tablet by mouth every 8 (eight) hours as needed for Nausea and Vomiting (N/V). [facility] ondansetron (ZOFRAN) 4 mg tablet 01-26 00:00: 00 Yes [id number] 4mg Take 1 tablet by mouth every 8 (eight) hours as needed for Nausea and Vomiting (N/V). [facility] ondansetron (ZOFRAN) 4 mg tablet 01-26 00:00: 00 Yes [id number] 4mg Take 1 tablet by mouth every 8 (eight) hours as needed for Nausea and Vomiting (N/V). [facility] ondansetron (ZOFRAN) 4 mg tablet 01-26 00:00: 00 Yes [id number] 4mg Take 1 tablet by mouth every 8 (eight) hours as needed for Nausea and Vomiting (N/V). [facility] ondansetron (ZOFRAN) 4 mg tablet 01-26 00:00: 00 Yes [id number] 4mg Take 1 tablet by mouth every 8 (eight) hours as needed for Nausea and Vomiting (N/V). [facility] ondansetron (ZOFRAN) 4 mg tablet 01-26 00:00: 00 Yes [id number] 4mg Take 1 tablet by mouth every 8 (eight) hours as needed for Nausea and Vomiting (N/V). [facility] ondansetron (ZOFRAN) 4 mg tablet 01-26 00:00: 00 Yes [id number] 4mg Take 1 tablet by mouth every 8 (eight) hours as needed for Nausea and Vomiting (N/V). [facility] ondansetron (ZOFRAN) 4 mg tablet 01-26 00:00: 00 Yes [id number] 4mg Take 1 tablet by mouth every 8 (eight) hours as needed for Nausea and Vomiting (N/V). [facility] ondansetron (ZOFRAN) 4 mg tablet 01-26 00:00: 00 Yes [id number] 4mg Take 1 tablet by mouth every 8 (eight) hours as needed for Nausea and Vomiting (N/V). [facility] ondansetron (ZOFRAN) 4 mg tablet 01-26 00:00: 00 Yes [id number] 4mg Take 1 tablet by mouth every 8 (eight) hours as needed for Nausea and Vomiting (N/V). [facility] ondansetron (ZOFRAN) 4 mg tablet 01-26 00:00: 00 Yes [id number] 4mg Take 1 tablet by mouth every 8 (eight) hours as needed for Nausea and Vomiting (N/V). [facility] ondansetron (ZOFRAN) 4 mg tablet 01-26 00:00: 00 Yes [id number] 4mg Take 1 tablet by mouth every 8 (eight) hours as needed for Nausea and Vomiting (N/V). [facility] ondansetron (ZOFRAN) 4 mg tablet 01-26 00:00: 00 Yes [id number] 4mg Take 1 tablet by mouth every 8 (eight) hours as needed for Nausea and Vomiting (N/V). [facility] ondansetron (ZOFRAN) 4 mg tablet 0 01-26 00:00: 00 Yes [id number] 4mg Take 1 tablet by mouth every 8 (eight) hours as needed for Nausea and Vomiting (N/V). [facility] ondansetron (ZOFRAN) 4 mg tablet 2021-0 01-26 00:00: 00 Yes [id number] 4mg Take 1 tablet by mouth every 8 (eight) hours as needed for Nausea and Vomiting (N/V). [facility] ondansetron (ZOFRAN) 4 mg tablet 01-26 00:00: 00 Yes [id number] 4mg Take 1 tablet by mouth every 8 (eight) hours as needed for Nausea and Vomiting (N/V). [facility] ondansetron (ZOFRAN) 4 mg tablet 01-26 00:00: 00 Yes [id number] 4mg Take 1 tablet by mouth every 8 (eight) hours as needed for Nausea and Vomiting (N/V). [facility] ondansetron (ZOFRAN) 4 mg tablet 01-26 00:00: 00 Yes [id number] 4mg Take 1 tablet by mouth every 8 (eight) hours as needed for Nausea and Vomiting (N/V). [facility] ondansetron (ZOFRAN) 4 mg tablet 01-26 00:00: 00 Yes [id number] 4mg Take 1 tablet by mouth every 8 (eight) hours as needed for Nausea and Vomiting (N/V). [facility] ondansetron (ZOFRAN) 4 mg tablet 01-26 00:00: 00 Yes [id number] 4mg Take 1 tablet by mouth every 8 (eight) hours as needed for Nausea and Vomiting (N/V). [facility] ondansetron (ZOFRAN) 4 mg tablet 01-26 00:00: 00 09-20 00:00 :00 No [id number] 4mg Take 1 tablet by mouth every 8 (eight) hours as needed for Nausea and Vomiting (N/V). [facility] topiramate 25 mg tablet 2020-10 2- 00:00: 00 Yes [id number] TAKE 1 TABLET BY MOUTH TWICE DAILY FOR 7 DAYS THEN TAKE 2 TABLETS BY MOUTH TWICE DAILY THEREAFTER [facility] topiramate 25 mg tablet 2020-10 2-15 00:00: 00 Yes [id number] TAKE 1 TABLET BY MOUTH TWICE DAILY FOR 7 DAYS THEN TAKE 2 TABLETS BY MOUTH TWICE DAILY THEREAFTER [facility] topiramate 25 mg tablet 2020-10 2-15 00:00: 00 Yes [id number] TAKE 1 TABLET BY MOUTH TWICE DAILY FOR 7 DAYS THEN TAKE 2 TABLETS BY MOUTH TWICE DAILY [facility]AFTER [facility] topiramate 25 mg tablet 2020- 2-15 00:00: 00 Yes [id number] TAKE 1 TABLET BY MOUTH TWICE DAILY FOR 7 DAYS THEN TAKE 2 TABLETS BY MOUTH TWICE DAILY THEREAFTER [facility] topiramate 25 mg tablet 2020- 2-15 00:00: 00 Yes [id number] TAKE 1 TABLET BY MOUTH TWICE DAILY FOR 7 DAYS THEN TAKE 2 TABLETS BY MOUTH TWICE DAILY THEREAFTER [facility] topiramate 25 mg tablet 2020- 2-15 00:00: 00 Yes [id number] TAKE 1 TABLET BY MOUTH TWICE DAILY FOR 7 DAYS THEN TAKE 2 TABLETS BY MOUTH TWICE DAILY [facility]- 2-15 00:00: 00 Yes [id number] TAKE 1 TABLET BY MOUTH TWICE DAILY FOR 7 DAYS THEN TAKE 2 TABLETS BY MOUTH TWICE DAILY [facility]AFTER [facility] 2020- 2-15 00:00: 00 Yes [id number] TAKE 1 TABLET BY MOUTH TWICE DAILY FOR 7 DAYS THEN TAKE 2 TABLETS BY MOUTH TWICE DAILY [facility]TER [facility] 2020- 2-15 00:00: 00 Yes [id number] TAKE 1 TABLET BY MOUTH TWICE DAILY FOR 7 DAYS THEN TAKE 2 TABLETS BY MOUTH TWICE DAILY [facility]TER [facility] tablet 2020- 2-15 00:00: 00 Yes [id number] TAKE 1 TABLET BY MOUTH TWICE DAILY FOR 7 DAYS THEN TAKE 2 TABLETS BY MOUTH TWICE DAILY THEREAFTER [facility] topiramate 25 mg tablet 2020- 2-15 00:00: 00 Yes [id number] TAKE 1 TABLET BY MOUTH TWICE DAILY FOR 7 DAYS THEN TAKE 2 TABLETS BY MOUTH TWICE DAILY THEREAFTER [facility] topiramate 25 mg tablet 2020- 2-15 00:00: 00 Yes [id number] TAKE 1 TABLET BY MOUTH TWICE DAILY FOR 7 DAYS THEN TAKE 2 TABLETS BY MOUTH TWICE DAILY [facility] 2020- 2-15 00:00: 00 Yes [id number] TAKE 1 TABLET BY MOUTH TWICE DAILY FOR 7 DAYS THEN TAKE 2 TABLETS BY MOUTH TWICE DAILY THEREAFTER [facility] topiramate 25 mg tablet 2020- 2-15 00:00: 00 Yes [id number] TAKE 1 TABLET BY MOUTH TWICE DAILY FOR 7 DAYS THEN TAKE 2 TABLETS BY MOUTH TWICE DAILY [facility] 2020-10 2-15 00:00: 00 Yes [id number] TAKE 1 TABLET BY MOUTH TWICE DAILY FOR 7 DAYS THEN TAKE 2 TABLETS BY MOUTH TWICE DAILY THEREAFTER [facility] topiramate 25 mg tablet 2020-10 2-15 00:00: 00 Yes [id number] TAKE 1 TABLET BY MOUTH TWICE DAILY FOR 7 DAYS THEN TAKE 2 TABLETS BY MOUTH TWICE DAILY THEREAFTER [facility] topiramate 25 mg tablet 2020-10 2-15 00:00: 00 Yes [id number] TAKE 1 TABLET BY MOUTH TWICE DAILY FOR 7 DAYS THEN TAKE 2 TABLETS BY MOUTH TWICE DAILY THEREAFTER [facility] topiramate 25 mg tablet 2020-10 2- 00:00: 00 Yes [id number] TAKE 1 TABLET BY MOUTH TWICE DAILY FOR 7 DAYS THEN TAKE 2 TABLETS BY MOUTH TWICE DAILY THEREAFTER [facility] topiramate 25 mg tablet 2020-10 2-15 00:00: 00 Yes [id number] TAKE 1 TABLET BY MOUTH TWICE DAILY FOR 7 DAYS THEN TAKE 2 TABLETS BY MOUTH TWICE DAILY THEREAFTER [facility] topiramate 25 mg tablet 2020-10 2-15 00:00: 00 Yes [id number] TAKE 1 TABLET BY MOUTH TWICE DAILY FOR 7 DAYS THEN TAKE 2 TABLETS BY MOUTH TWICE DAILY THEREAFTER [facility] topiramate 25 mg tablet 2020-10 2-15 00:00: 00 09-20 00:00 :00 No [id number] TAKE 1 TABLET BY MOUTH TWICE DAILY FOR 7 DAYS THEN TAKE 2 TABLETS BY MOUTH TWICE DAILY THEREAFTER [facility] PROAIR HFA 90 mcg/actuati on inhaler 2020-10 0-04 00:00: 00 Yes [id number] 2{puff} Inhale 2 Puffs every 4 (four) hours as needed for Wheezing or Shortness of Breath. [facility] mcg/actuati on inhaler 2020-10 0-04 00:00: 00 Yes [id number] 2{puff} Inhale 2 Puffs every 4 (four) hours as needed for Wheezing or Shortness of Breath. [facility] PROAIR HFA 90 mcg/actuati on inhaler 2020-10 0-04 00:00: 00 Yes [id number] 2{puff} Inhale 2 Puffs every 4 (four) hours as needed for Wheezing or Shortness of Breath. [facility] PROAIR HFA 90 mcg/actuati on inhaler 2020-10 0-04 00:00: 00 Yes [id number] 2{puff} Inhale 2 Puffs every 4 (four) hours as needed for Wheezing or Shortness of Breath. [facility] PROAIR HFA 90 mcg/actuati on inhaler 2020-10 0-04 00:00: 00 Yes [id number] 2{puff} Inhale 2 Puffs every 4 (four) hours as needed for Wheezing or Shortness of Breath. [facility] PROAIR HFA 90 mcg/actuati on inhaler 2020-10 0-04 00:00: 00 Yes [id number] 2{puff} Inhale 2 Puffs every 4 (four) hours as needed for Wheezing or Shortness of Breath. [facility] PROAIR HFA 90 mcg/actuati on inhaler 2020-10 0-04 00:00: 00 Yes [id number] 2{puff} Inhale 2 Puffs every 4 (four) hours as needed for Wheezing or Shortness of Breath. [facility] PROAIR HFA 90 mcg/actuati on inhaler 2020-10 0-04 00:00: 00 Yes [id number] 2{puff} Inhale 2 Puffs every 4 (four) hours as needed for Wheezing or Shortness of Breath. [facility] PROAIR HFA 90 mcg/actuati on inhaler 2020-10 0-04 00:00: 00 Yes [id number] 2{puff} Inhale 2 Puffs every 4 (four) hours as needed for Wheezing or Shortness of Breath. [facility] PROAIR HFA 90 mcg/actuati on inhaler 2020-10 0-04 00:00: 00 Yes [id number] 2{puff} Inhale 2 Puffs every 4 (four) hours as needed for Wheezing or Shortness of Breath. [facility] PROAIR HFA 90 mcg/actuati on inhaler 2020-10 0-04 00:00: 00 Yes [id number] 2{puff} Inhale 2 Puffs every 4 (four) hours as needed for Wheezing or Shortness of Breath. [facility] PROAIR HFA 90 mcg/actuati on inhaler 2020-10 0-04 00:00: 00 Yes [id number] 2{puff} Inhale 2 Puffs every 4 (four) hours as needed for Wheezing or Shortness of Breath. [facility] PROAIR HFA 90 mcg/actuati on inhaler 2020-10 0-04 00:00: 00 Yes [id number] 2{puff} Inhale 2 Puffs every 4 (four) hours as needed for Wheezing or Shortness of Breath. [facility] PROAIR HFA 90 mcg/actuati on inhaler 2020-10 0-04 00:00: 00 Yes [id number] 2{puff} Inhale 2 Puffs every 4 (four) hours as needed for Wheezing or Shortness of Breath. [facility] PROAIR HFA 90 mcg/actuati on inhaler 2020-10 0-04 00:00: 00 Yes [id number] 2{puff} Inhale 2 Puffs every 4 (four) hours as needed for Wheezing or Shortness of Breath. [facility] PROAIR HFA 90 mcg/actuati on inhaler 2020-10 0-04 00:00: 00 Yes [id number] 2{puff} Inhale 2 Puffs every 4 (four) hours as needed for Wheezing or Shortness of Breath. [facility] PROAIR HFA 90 mcg/actuati on inhaler 2020-10 0-04 00:00: 00 Yes [id number] 2{puff} Inhale 2 Puffs every 4 (four) hours as needed for Wheezing or Shortness of Breath. [facility] PROAIR HFA 90 mcg/actuati on inhaler 2020-10 0-04 00:00: 00 Yes [id number] 2{puff} Inhale 2 Puffs every 4 (four) hours as needed for Wheezing or Shortness of Breath. [facility] PROAIR HFA 90 mcg/actuati on inhaler 2020-10 0-04 00:00: 00 Yes [id number] 2{puff} Inhale 2 Puffs every 4 (four) hours as needed for Wheezing or Shortness of Breath. [facility] PROAIR HFA 90 mcg/actuati on inhaler 2020-10 004 00:00: 00 Yes [id number] 2{puff} Inhale 2 Puffs every 4 (four) hours as needed for Wheezing or Shortness of Breath. [facility] PROAIR HFA 90 mcg/actuati on inhaler 2020-10 0 00:00: 00 09-20 00:00 :00 No [id number] 2{puff} Inhale 2 Puffs every 4 (four) hours as needed for Wheezing or Shortness of Breath. [facility] Immunizations Ordered Immunization Name Filled Immunization Name Date Status Comments Source Influenza Virus Vaccine Quad .5 mL IM 6+ MO 2020-11-05 00:00:00 Completed [facility] Meningococcal Polysaccharide (groups A, C, Y and W-135) conjugate vaccine (MCV4P) 2020-11-05 00:00:00 Completed [facility] Meningococcal B, OMV 2020-11-05 00:00:00 Completed [facility] Influenza Virus Vaccine Quad .5 mL IM 6+ MO 2020-11-05 00:00:00 Completed [facility] Meningococcal Polysaccharide (groups A, C, Y and W-135) conjugate vaccine (MCV4P) 2020-11-05 00:00:00 Completed [facility] Meningococcal B, OMV 2020-11-05 00:00:00 Completed [facility] Influenza Virus Vaccine Quad .5 mL IM 6+ MO 2020-11-05 00:00:00 Completed [facility] Meningococcal Polysaccharide (groups A, C, Y and W-135) conjugate vaccine (MCV4P) 2020-11-05 00:00:00 Completed [facility] Meningococcal B, OMV 2020-11-05 00:00:00 Completed [facility] Influenza Virus Vaccine Quad .5 mL IM 6+ MO 2020-11-05 00:00:00 Completed [facility] Meningococcal Polysaccharide (groups A, C, Y and W-135) conjugate vaccine (MCV4P) 2020-11-05 00:00:00 Completed [facility] Meningococcal B, OMV 2020-11-05 00:00:00 Completed [facility] Influenza Virus Vaccine Quad .5 mL IM 6+ MO 2020-11-05 00:00:00 Completed [facility] Meningococcal Polysaccharide (groups A, C, Y and W-135) conjugate vaccine (MCV4P) 2020-11-05 00:00:00 Completed [facility] Meningococcal B, OMV 2020-11-05 00:00:00 Completed [facility] Influenza Virus Vaccine Quad .5 mL IM 6+ MO 2020-11-05 00:00:00 Completed [facility] Meningococcal Polysaccharide (groups A, C, Y and W-135) conjugate vaccine (MCV4P) 2020-11-05 00:00:00 Completed [facility] Meningococcal B, OMV 2020-11-05 00:00:00 Completed [facility] Influenza Virus Vaccine Quad .5 mL IM 6+ MO 2020-11-05 00:00:00 Completed [facility] Meningococcal Polysaccharide (groups A, C, Y and W-135) conjugate vaccine (MCV4P) 2020-11-05 00:00:00 Completed [facility] Meningococcal B, OMV 2020-11-05 00:00:00 Completed [facility] Influenza Virus Vaccine Quad .5 mL IM 6+ MO 2020-11-05 00:00:00 Completed [facility] Meningococcal Polysaccharide (groups A, C, Y and W-135) conjugate vaccine (MCV4P) 2020-11-05 00:00:00 Completed [facility] Meningococcal B, OMV 2020-11-05 00:00:00 Completed [facility] Influenza Virus Vaccine Quad .5 mL IM 6+ MO 2020-11-05 00:00:00 Completed [facility] Meningococcal Polysaccharide (groups A, C, Y and W-135) conjugate vaccine (MCV4P) 2020-11-05 00:00:00 Completed [facility] Meningococcal B, OMV 2020-11-05 00:00:00 Completed [facility] Influenza Virus Vaccine Quad .5 mL IM 6+ MO 2020-11-05 00:00:00 Completed [facility] Meningococcal Polysaccharide (groups A, C, Y and W-135) conjugate vaccine (MCV4P) 2020-11-05 00:00:00 Completed [facility] Meningococcal B, OMV 2020-11-05 00:00:00 Completed [facility] Influenza Virus Vaccine Quad .5 mL IM 6+ MO 2020-11-05 00:00:00 Completed [facility] Meningococcal Polysaccharide (groups A, C, Y and W-135) conjugate vaccine (MCV4P) 2020-11-05 00:00:00 Completed [facility] Meningococcal B, OMV 2020-11-05 00:00:00 Completed [facility] Influenza Virus Vaccine Quad .5 mL IM 6+ MO 2020-11-05 00:00:00 Completed [facility] Meningococcal Polysaccharide (groups A, C, Y and W-135) conjugate vaccine (MCV4P) 2020-11-05 00:00:00 Completed [facility] Meningococcal B, OMV 2020-11-05 00:00:00 Completed [facility] Influenza Virus Vaccine Quad .5 mL IM 6+ MO 2020-11-05 00:00:00 Completed [facility] Meningococcal Polysaccharide (groups A, C, Y and W-135) conjugate vaccine (MCV4P) 2020-11-05 00:00:00 Completed [facility] Meningococcal B, OMV 2020-11-05 00:00:00 Completed [facility] Influenza Virus Vaccine Quad .5 mL IM 6+ MO 2020-11-05 00:00:00 Completed [facility] Meningococcal Polysaccharide (groups A, C, Y and W-135) conjugate vaccine (MCV4P) 2020-11-05 00:00:00 Completed [facility] Meningococcal B, OMV 2020-11-05 00:00:00 Completed [facility] Influenza Virus Vaccine Quad .5 mL IM 6+ MO 2020-11-05 00:00:00 Completed [facility] Meningococcal Polysaccharide (groups A, C, Y and W-135) conjugate vaccine (MCV4P) 2020-11-05 00:00:00 Completed [facility] Meningococcal B, OMV 2020-11-05 00:00:00 Completed [facility] Influenza Virus Vaccine Quad .5 mL IM 6+ MO 2020-11-05 00:00:00 Completed [facility] Meningococcal Polysaccharide (groups A, C, Y and W-135) conjugate vaccine (MCV4P) 2020-11-05 00:00:00 Completed [facility] Meningococcal B, OMV 2020-11-05 00:00:00 Completed [facility] Influenza Virus Vaccine Quad .5 mL IM 6+ MO 2020-11-05 00:00:00 Completed [facility] Meningococcal Polysaccharide (groups A, C, Y and W-135) conjugate vaccine (MCV4P) 2020-11-05 00:00:00 Completed [facility] Meningococcal B, OMV 2020-11-05 00:00:00 Completed [facility] Influenza Virus Vaccine Quad .5 mL IM 6+ MO 2020-11-05 00:00:00 Completed [facility] Meningococcal Polysaccharide (groups A, C, Y and W-135) conjugate vaccine (MCV4P) 2020-11-05 00:00:00 Completed [facility] Meningococcal B, OMV 2020-11-05 00:00:00 Completed [facility] Influenza Virus Vaccine Quad .5 mL IM 6+ MO 2020-11-05 00:00:00 Completed [facility] Meningococcal Polysaccharide (groups A, C, Y and W-135) conjugate vaccine (MCV4P) 2020-11-05 00:00:00 Completed [facility] Meningococcal B, OMV 2020-11-05 00:00:00 Completed [facility] Influenza Virus Vaccine Quad .5 mL IM 6+ MO 2020-11-05 00:00:00 Completed [facility] Meningococcal Polysaccharide (groups A, C, Y and W-135) conjugate vaccine (MCV4P) 2020-11-05 00:00:00 Completed [facility] Meningococcal B, OMV 2020-11-05 00:00:00 Completed [facility] Influenza Virus Vaccine Quad .5 mL IM 6+ MO 2020-11-05 00:00:00 Completed [facility] Meningococcal Polysaccharide (groups A, C, Y and W-135) conjugate vaccine (MCV4P) 2020-11-05 00:00:00 Completed [facility] Meningococcal B, OMV 2020-11-05 00:00:00 Completed [facility] Influenza Virus Vaccine Quad .5 mL IM 6+ MO 2020-11-05 00:00:00 Completed [facility] Meningococcal Polysaccharide (groups A, C, Y and W-135) conjugate vaccine (MCV4P) 2020-11-05 00:00:00 Completed [facility] Meningococcal B, OMV 2020-11-05 00:00:00 Completed [facility] Influenza Virus Vaccine Quad .5 mL IM 6+ MO 2020-11-05 00:00:00 Completed [facility] Meningococcal Polysaccharide (groups A, C, Y and W-135) conjugate vaccine (MCV4P) 2020-11-05 00:00:00 Completed [facility] Meningococcal B, OMV 2020-11-05 00:00:00 Completed [facility] Influenza Virus Vaccine Quad .5 mL IM 6+ MO 2020-11-05 00:00:00 Completed [facility] Meningococcal Polysaccharide (groups A, C, Y and W-135) conjugate vaccine (MCV4P) 2020-11-05 00:00:00 Completed [facility] Meningococcal B, OMV 2020-11-05 00:00:00 Completed [facility] Influenza Virus Vaccine Quad .5 mL IM 6+ MO 2020-11-05 00:00:00 Completed [facility] Meningococcal Polysaccharide (groups A, C, Y and W-135) conjugate vaccine (MCV4P) 2020-11-05 00:00:00 Completed [facility] Meningococcal B, OMV 2020-11-05 00:00:00 Completed [facility] Influenza Virus Vaccine Quad .5 mL IM 6+ MO 2020-11-05 00:00:00 Completed [facility] Meningococcal Polysaccharide (groups A, C, Y and W-135) conjugate vaccine (MCV4P) 2020-11-05 00:00:00 Completed [facility] Meningococcal B, OMV 2020-11-05 00:00:00 Completed [facility] Influenza Virus Vaccine Quad .5 mL IM 6+ MO 2020-11-05 00:00:00 Completed [facility] Meningococcal Polysaccharide (groups A, C, Y and W-135) conjugate vaccine (MCV4P) 2020-11-05 00:00:00 Completed [facility] Meningococcal B, OMV 2020-11-05 00:00:00 Completed [facility] Influenza Virus Vaccine Quad .5 mL IM 6+ MO 2020-11-05 00:00:00 Completed [facility] Meningococcal Polysaccharide (groups A, C, Y and W-135) conjugate vaccine (MCV4P) 2020-11-05 00:00:00 Completed [facility] Meningococcal B, OMV 2020-11-05 00:00:00 Completed [facility] Influenza Virus Vaccine Quad .5 mL IM 6+ MO 2020-11-05 00:00:00 Completed [facility] Meningococcal Polysaccharide (groups A, C, Y and W-135) conjugate vaccine (MCV4P) 2020-11-05 00:00:00 Completed [facility] Meningococcal B, OMV 2020-11-05 00:00:00 Completed [facility] Influenza Virus Vaccine Quad .5 mL IM 6+ MO 2020-11-05 00:00:00 Completed [facility] Meningococcal Polysaccharide (groups A, C, Y and W-135) conjugate vaccine (MCV4P) 2020-11-05 00:00:00 Completed [facility] Meningococcal B, OMV 2020-11-05 00:00:00 Completed [facility] Influenza Virus Vaccine Quad .5 mL IM 6+ MO 2020-11-05 00:00:00 Completed [facility] Meningococcal Polysaccharide (groups A, C, Y and W-135) conjugate vaccine (MCV4P) 2020-11-05 00:00:00 Completed [facility] Meningococcal B, OMV 2020-11-05 00:00:00 Completed [facility] Influenza Virus Vaccine Quad .5 mL IM 6+ MO 2020-11-05 00:00:00 Completed [facility] Meningococcal Polysaccharide (groups A, C, Y and W-135) conjugate vaccine (MCV4P) 2020-11-05 00:00:00 Completed [facility] Meningococcal B, OMV 2020-11-05 00:00:00 Completed [facility] Influenza Virus Vaccine Quad .5 mL IM 6+ MO 2020-11-05 00:00:00 Completed [facility] Meningococcal Polysaccharide (groups A, C, Y and W-135) conjugate vaccine (MCV4P) 2020-11-05 00:00:00 Completed [facility] Meningococcal B, OMV 2020-11-05 00:00:00 Completed [facility] Influenza Virus Vaccine Quad .5 mL IM 6+ MO 2020-11-05 00:00:00 Completed [facility] Meningococcal Polysaccharide (groups A, C, Y and W-135) conjugate vaccine (MCV4P) 2020-11-05 00:00:00 Completed [facility] Meningococcal B, OMV 2020-11-05 00:00:00 Completed [facility] Influenza Virus Vaccine Quad .5 mL IM 6+ MO 2020-11-05 00:00:00 Completed [facility] Meningococcal Polysaccharide (groups A, C, Y and W-135) conjugate vaccine (MCV4P) 2020-11-05 00:00:00 Completed [facility] Meningococcal B, OMV 2020-11-05 00:00:00 Completed [facility] Influenza Virus Vaccine Quad .5 mL IM 6+ MO 2020-11-05 00:00:00 Completed [facility] Meningococcal Polysaccharide (groups A, C, Y and W-135) conjugate vaccine (MCV4P) 2020-11-05 00:00:00 Completed [facility] Meningococcal B, OMV 2020-11-05 00:00:00 Completed [facility] Influenza Virus Vaccine Quad .5 mL IM 6+ MO 2020-11-05 00:00:00 Completed [facility] Meningococcal Polysaccharide (groups A, C, Y and W-135) conjugate vaccine (MCV4P) 2020-11-05 00:00:00 Completed [facility] Meningococcal B, OMV 2020-11-05 00:00:00 Completed [facility] Influenza Virus Vaccine Quad .5 mL IM 6+ MO 2020-11-05 00:00:00 Completed [facility] Meningococcal Polysaccharide (groups A, C, Y and W-135) conjugate vaccine (MCV4P) 2020-11-05 00:00:00 Completed [facility] Meningococcal B, OMV 2020-11-05 00:00:00 Completed [facility] Influenza Virus Vaccine Quad .5 mL IM 6+ MO 2020-11-05 00:00:00 Completed [facility] Meningococcal Polysaccharide (groups A, C, Y and W-135) conjugate vaccine (MCV4P) 2020-11-05 00:00:00 Completed [facility] Meningococcal B, OMV 2020-11-05 00:00:00 Completed [facility] Influenza Virus Vaccine Quad .5 mL IM 6+ MO 2020-11-05 00:00:00 Completed [facility] Meningococcal Polysaccharide (groups A, C, Y and W-135) conjugate vaccine (MCV4P) 2020-11-05 00:00:00 Completed [facility] Meningococcal B, OMV 2020-11-05 00:00:00 Completed [facility] Influenza Virus Vaccine Quad .5 mL IM 6+ MO 2020-11-05 00:00:00 Completed [facility] Meningococcal Polysaccharide (groups A, C, Y and W-135) conjugate vaccine (MCV4P) 2020-11-05 00:00:00 Completed [facility] Meningococcal B, OMV 2020-11-05 00:00:00 Completed [facility] Influenza Virus Vaccine Quad .5 mL IM 6+ MO 2020-11-05 00:00:00 Completed [facility] Meningococcal Polysaccharide (groups A, C, Y and W-135) conjugate vaccine (MCV4P) 2020-11-05 00:00:00 Completed [facility] Meningococcal B, OMV 2020-11-05 00:00:00 Completed [facility] Influenza Virus Vaccine Quad .5 mL IM 6+ MO 2020-11-05 00:00:00 Completed [facility] Meningococcal Polysaccharide (groups A, C, Y and W-135) conjugate vaccine (MCV4P) 2020-11-05 00:00:00 Completed [facility] Meningococcal B, OMV 2020-11-05 00:00:00 Completed [facility] Influenza Virus Vaccine Quad .5 mL IM 6+ MO 2020-11-05 00:00:00 Completed [facility] Meningococcal Polysaccharide (groups A, C, Y and W-135) conjugate vaccine (MCV4P) 2020-11-05 00:00:00 Completed [facility] Meningococcal B, OMV 2020-11-05 00:00:00 Completed [facility] Influenza Virus Vaccine Quad .5 mL IM 6+ MO 2020-11-05 00:00:00 Completed [facility] Meningococcal Polysaccharide (groups A, C, Y and W-135) conjugate vaccine (MCV4P) 2020-11-05 00:00:00 Completed [facility] Meningococcal B, OMV 2020-11-05 00:00:00 Completed [facility] Influenza Virus Vaccine Quad .5 mL IM 6+ MO 2020-11-05 00:00:00 Completed [facility] Meningococcal Polysaccharide (groups A, C, Y and W-135) conjugate vaccine (MCV4P) 2020-11-05 00:00:00 Completed [facility] Meningococcal B, OMV 2020-11-05 00:00:00 Completed [facility] Influenza Virus Vaccine Quad .5 mL IM 6+ MO 2020-11-05 00:00:00 Completed [facility] Meningococcal Polysaccharide (groups A, C, Y and W-135) conjugate vaccine (MCV4P) 2020-11-05 00:00:00 Completed [facility] Meningococcal B, OMV 2020-11-05 00:00:00 Completed [facility] Influenza Virus Vaccine Quad .5 mL IM 6+ MO 2020-11-05 00:00:00 Completed [facility] Meningococcal Polysaccharide (groups A, C, Y and W-135) conjugate vaccine (MCV4P) 2020-11-05 00:00:00 Completed [facility] Meningococcal B, OMV 2020-11-05 00:00:00 Completed [facility] Influenza Virus Vaccine Quad .5 mL IM 6+ MO 2020-11-05 00:00:00 Completed [facility] Meningococcal Polysaccharide (groups A, C, Y and W-135) conjugate vaccine (MCV4P) 2020-11-05 00:00:00 Completed [facility] Meningococcal B, OMV 2020-11-05 00:00:00 Completed [facility] Influenza Virus Vaccine Quad .5 mL IM 6+ MO 2020-11-05 00:00:00 Completed [facility] Meningococcal Polysaccharide (groups A, C, Y and W-135) conjugate vaccine (MCV4P) 2020-11-05 00:00:00 Completed [facility] Meningococcal B, OMV 2020-11-05 00:00:00 Completed [facility] Influenza Virus Vaccine Quad .5 mL IM 6+ MO 2020-11-05 00:00:00 Completed [facility] Meningococcal Polysaccharide (groups A, C, Y and W-135) conjugate vaccine (MCV4P) 2020-11-05 00:00:00 Completed [facility] Meningococcal B, OMV 2020-11-05 00:00:00 Completed [facility] Influenza Virus Vaccine Quad .5 mL IM 6+ MO 2020-11-05 00:00:00 Completed [facility] Meningococcal Polysaccharide (groups A, C, Y and W-135) conjugate vaccine (MCV4P) 2020-11-05 00:00:00 Completed [facility] Meningococcal B, OMV 2020-11-05 00:00:00 Completed [facility] Influenza Virus Vaccine Quad .5 mL IM 6+ MO 2020-11-05 00:00:00 Completed [facility] Meningococcal Polysaccharide (groups A, C, Y and W-135) conjugate vaccine (MCV4P) 2020-11-05 00:00:00 Completed [facility] Meningococcal B, OMV 2020-11-05 00:00:00 Completed [facility] Influenza Virus Vaccine Quad .5 mL IM 6+ MO 2020-11-05 00:00:00 Completed [facility] Meningococcal Polysaccharide (groups A, C, Y and W-135) conjugate vaccine (MCV4P) 2020-11-05 00:00:00 Completed [facility] Meningococcal B, OMV 2020-11-05 00:00:00 Completed [facility] Influenza Virus Vaccine Quad .5 mL IM 6+ MO 2020-11-05 00:00:00 Completed [facility] Meningococcal Polysaccharide (groups A, C, Y and W-135) conjugate vaccine (MCV4P) 2020-11-05 00:00:00 Completed [facility] Meningococcal B, OMV 2020-11-05 00:00:00 Completed [facility] Influenza Virus Vaccine Quad .5 mL IM 6+ MO 2020-11-05 00:00:00 Completed [facility] Meningococcal Polysaccharide (groups A, C, Y and W-135) conjugate vaccine (MCV4P) 2020-11-05 00:00:00 Completed [facility] Meningococcal B, OMV 2020-11-05 00:00:00 Completed [facility] Influenza Virus Vaccine Quad .5 mL IM 6+ MO 2020-11-05 00:00:00 Completed [facility] Meningococcal Polysaccharide (groups A, C, Y and W-135) conjugate vaccine (MCV4P) 2020-11-05 00:00:00 Completed [facility] Meningococcal B, OMV 2020-11-05 00:00:00 Completed [facility] Influenza Virus Vaccine Quad .5 mL IM 6+ MO 2020-11-05 00:00:00 Completed [facility] Meningococcal Polysaccharide (groups A, C, Y and W-135) conjugate vaccine (MCV4P) 2020-11-05 00:00:00 Completed [facility] Meningococcal B, OMV 2020-11-05 00:00:00 Completed [facility] Influenza Virus Vaccine Quad .5 mL IM 6+ MO 2020-11-05 00:00:00 Completed [facility] Meningococcal Polysaccharide (groups A, C, Y and W-135) conjugate vaccine (MCV4P) 2020-11-05 00:00:00 Completed [facility] Meningococcal B, OMV 2020-11-05 00:00:00 Completed [facility] Influenza Virus Vaccine Quad .5 mL IM 6+ MO 2020-11-05 00:00:00 Completed [facility] Meningococcal Polysaccharide (groups A, C, Y and W-135) conjugate vaccine (MCV4P) 2020-11-05 00:00:00 Completed [facility] Meningococcal B, OMV 2020-11-05 00:00:00 Completed [facility] Influenza Virus Vaccine Quad .5 mL IM 6+ MO 2020-11-05 00:00:00 Completed [facility] Meningococcal Polysaccharide (groups A, C, Y and W-135) conjugate vaccine (MCV4P) 2020-11-05 00:00:00 Completed [facility] Meningococcal B, OMV 2020-11-05 00:00:00 Completed [facility] Influenza Virus Vaccine Quad .5 mL IM 6+ MO 2020-11-05 00:00:00 Completed [facility] Meningococcal Polysaccharide (groups A, C, Y and W-135) conjugate vaccine (MCV4P) 2020-11-05 00:00:00 Completed [facility] Meningococcal B, OMV 2020-11-05 00:00:00 Completed [facility] Influenza Virus Vaccine Quad .5 mL IM 6+ MO (FLUZONE/FLULAVAL/FLU ARIX) 2020-11-05 00:00:00 Completed [facility] Meningococcal Polysaccharide (groups A, C, Y and W-135) conjugate vaccine (MCV4P) 2020-11-05 00:00:00 Completed [facility] Meningococcal B, OMV 2020-11-05 00:00:00 Completed [facility] Influenza Virus Vaccine Quad .5 mL IM 6+ MO (FLUZONE/FLULAVAL/FLU ARIX) 2020-11-05 00:00:00 Completed [facility] Meningococcal Polysaccharide (groups A, C, Y and W-135) conjugate vaccine (MCV4P) 2020-11-05 00:00:00 Completed [facility] Meningococcal B, OMV 2020-11-05 00:00:00 Completed [facility] Influenza Virus Vaccine Quad .5 mL IM 6+ MO (FLUZONE/FLULAVAL/FLU ARIX) 2020-11-05 00:00:00 Completed [facility] Meningococcal Polysaccharide (groups A, C, Y and W-135) conjugate vaccine (MCV4P) 2020-11-05 00:00:00 Completed [facility] Meningococcal B, OMV 2020-11-05 00:00:00 Completed [facility] Influenza Virus Vaccine Quad .5 mL IM 6+ MO (FLUZONE/FLULAVAL/FLU ARIX) 2020-11-05 00:00:00 Completed [facility] Meningococcal Polysaccharide (groups A, C, Y and W-135) conjugate vaccine (MCV4P) 2020-11-05 00:00:00 Completed [facility] Meningococcal B, OMV 2020-11-05 00:00:00 Completed [facility] TDAP 2014-05-18 00:00:00 Completed [facility] Meningococcal Oligosaccharide (groups A, C, Y and W-135) conjugate vaccine (MCV4O) 2014-05-18 00:00:00 Completed [facility] TDAP 2014-05-18 00:00:00 Completed [facility] Meningococcal Oligosaccharide (groups A, C, Y and W-135) conjugate vaccine (MCV4O) 2014-05-18 00:00:00 Completed [facility] TDAP 2014-05-18 00:00:00 Completed [facility] Meningococcal Oligosaccharide (groups A, C, Y and W-135) conjugate vaccine (MCV4O) 2014-05-18 00:00:00 Completed [facility] TDAP 2014-05-18 00:00:00 Completed [facility] Meningococcal Oligosaccharide (groups A, C, Y and W-135) conjugate vaccine (MCV4O) 2014-05-18 00:00:00 Completed [facility] TDAP 2014-05-18 00:00:00 Completed [facility] Meningococcal Oligosaccharide (groups A, C, Y and W-135) conjugate vaccine (MCV4O) 2014-05-18 00:00:00 Completed [facility] TDAP 2014-05-18 00:00:00 Completed [facility] Meningococcal Oligosaccharide (groups A, C, Y and W-135) conjugate vaccine (MCV4O) 2014-05-18 00:00:00 Completed [facility] TDAP 2014-05-18 00:00:00 Completed [facility] Meningococcal Oligosaccharide (groups A, C, Y and W-135) conjugate vaccine (MCV4O) 2014-05-18 00:00:00 Completed [facility] TDAP 2014-05-18 00:00:00 Completed [facility] Meningococcal Oligosaccharide (groups A, C, Y and W-135) conjugate vaccine (MCV4O) 2014-05-18 00:00:00 Completed [facility] TDAP 2014-05-18 00:00:00 Completed [facility] Meningococcal Oligosaccharide (groups A, C, Y and W-135) conjugate vaccine (MCV4O) 2014-05-18 00:00:00 Completed [facility] TDAP 2014-05-18 00:00:00 Completed [facility] Meningococcal Oligosaccharide (groups A, C, Y and W-135) conjugate vaccine (MCV4O) 2014-05-18 00:00:00 Completed [facility] TDAP 2014-05-18 00:00:00 Completed [facility] Meningococcal Oligosaccharide (groups A, C, Y and W-135) conjugate vaccine (MCV4O) 2014-05-18 00:00:00 Completed [facility] TDAP 2014-05-18 00:00:00 Completed [facility] Meningococcal Oligosaccharide (groups A, C, Y and W-135) conjugate vaccine (MCV4O) 2014-05-18 00:00:00 Completed [facility] TDAP 2014-05-18 00:00:00 Completed [facility] Meningococcal Oligosaccharide (groups A, C, Y and W-135) conjugate vaccine (MCV4O) 2014-05-18 00:00:00 Completed [facility] TDAP 2014-05-18 00:00:00 Completed [facility] Meningococcal Oligosaccharide (groups A, C, Y and W-135) conjugate vaccine (MCV4O) 2014-05-18 00:00:00 Completed [facility] TDAP 2014-05-18 00:00:00 Completed [facility] Meningococcal Oligosaccharide (groups A, C, Y and W-135) conjugate vaccine (MCV4O) 2014-05-18 00:00:00 Completed [facility] TDAP 2014-05-18 00:00:00 Completed [facility] Meningococcal Oligosaccharide (groups A, C, Y and W-135) conjugate vaccine (MCV4O) 2014-05-18 00:00:00 Completed [facility] TDAP 2014-05-18 00:00:00 Completed [facility] Meningococcal Oligosaccharide (groups A, C, Y and W-135) conjugate vaccine (MCV4O) 2014-05-18 00:00:00 Completed [facility] TDAP 2014-05-18 00:00:00 Completed [facility] Meningococcal Oligosaccharide (groups A, C, Y and W-135) conjugate vaccine (MCV4O) 2014-05-18 00:00:00 Completed [facility] TDAP 2014-05-18 00:00:00 Completed [facility] Meningococcal Oligosaccharide (groups A, C, Y and W-135) conjugate vaccine (MCV4O) 2014-05-18 00:00:00 Completed [facility] TDAP 2014-05-18 00:00:00 Completed [facility] Meningococcal Oligosaccharide (groups A, C, Y and W-135) conjugate vaccine (MCV4O) 2014-05-18 00:00:00 Completed [facility] TDAP 2014-05-18 00:00:00 Completed [facility] Meningococcal Oligosaccharide (groups A, C, Y and W-135) conjugate vaccine (MCV4O) 2014-05-18 00:00:00 Completed [facility] TDAP 2014-05-18 00:00:00 Completed [facility] Meningococcal Oligosaccharide (groups A, C, Y and W-135) conjugate vaccine (MCV4O) 2014-05-18 00:00:00 Completed [facility] TDAP 2014-05-18 00:00:00 Completed [facility] Meningococcal Oligosaccharide (groups A, C, Y and W-135) conjugate vaccine (MCV4O) 2014-05-18 00:00:00 Completed [facility] TDAP 2014-05-18 00:00:00 Completed [facility] Meningococcal Oligosaccharide (groups A, C, Y and W-135) conjugate vaccine (MCV4O) 2014-05-18 00:00:00 Completed [facility] TDAP 2014-05-18 00:00:00 Completed [facility] Meningococcal Oligosaccharide (groups A, C, Y and W-135) conjugate vaccine (MCV4O) 2014-05-18 00:00:00 Completed [facility] TDAP 2014-05-18 00:00:00 Completed [facility] Meningococcal Oligosaccharide (groups A, C, Y and W-135) conjugate vaccine (MCV4O) 2014-05-18 00:00:00 Completed [facility] TDAP 2014-05-18 00:00:00 Completed [facility] Meningococcal Oligosaccharide (groups A, C, Y and W-135) conjugate vaccine (MCV4O) 2014-05-18 00:00:00 Completed [facility] TDAP 2014-05-18 00:00:00 Completed [facility] Meningococcal Oligosaccharide (groups A, C, Y and W-135) conjugate vaccine (MCV4O) 2014-05-18 00:00:00 Completed [facility] TDAP 2014-05-18 00:00:00 Completed [facility] Meningococcal Oligosaccharide (groups A, C, Y and W-135) conjugate vaccine (MCV4O) 2014-05-18 00:00:00 Completed [facility] TDAP 2014-05-18 00:00:00 Completed [facility] Meningococcal Oligosaccharide (groups A, C, Y and W-135) conjugate vaccine (MCV4O) 2014-05-18 00:00:00 Completed [facility] TDAP 2014-05-18 00:00:00 Completed [facility] Meningococcal Oligosaccharide (groups A, C, Y and W-135) conjugate vaccine (MCV4O) 2014-05-18 00:00:00 Completed [facility] TDAP 2014-05-18 00:00:00 Completed [facility] Meningococcal Oligosaccharide (groups A, C, Y and W-135) conjugate vaccine (MCV4O) 2014-05-18 00:00:00 Completed [facility] TDAP 2014-05-18 00:00:00 Completed [facility] Meningococcal Oligosaccharide (groups A, C, Y and W-135) conjugate vaccine (MCV4O) 2014-05-18 00:00:00 Completed [facility] TDAP 2014-05-18 00:00:00 Completed [facility] Meningococcal Oligosaccharide (groups A, C, Y and W-135) conjugate vaccine (MCV4O) 2014-05-18 00:00:00 Completed [facility] TDAP 2014-05-18 00:00:00 Completed [facility] Meningococcal Oligosaccharide (groups A, C, Y and W-135) conjugate vaccine (MCV4O) 2014-05-18 00:00:00 Completed [facility] TDAP 2014-05-18 00:00:00 Completed [facility] Meningococcal Oligosaccharide (groups A, C, Y and W-135) conjugate vaccine (MCV4O) 2014-05-18 00:00:00 Completed [facility] TDAP 2014-05-18 00:00:00 Completed [facility] Meningococcal Oligosaccharide (groups A, C, Y and W-135) conjugate vaccine (MCV4O) 2014-05-18 00:00:00 Completed [facility] TDAP 2014-05-18 00:00:00 Completed [facility] Meningococcal Oligosaccharide (groups A, C, Y and W-135) conjugate vaccine (MCV4O) 2014-05-18 00:00:00 Completed [facility] TDAP 2014-05-18 00:00:00 Completed [facility] Meningococcal Oligosaccharide (groups A, C, Y and W-135) conjugate vaccine (MCV4O) 2014-05-18 00:00:00 Completed [facility] TDAP 2014-05-18 00:00:00 Completed [facility] Meningococcal Oligosaccharide (groups A, C, Y and W-135) conjugate vaccine (MCV4O) 2014-05-18 00:00:00 Completed [facility] TDAP 2014-05-18 00:00:00 Completed [facility] Meningococcal Oligosaccharide (groups A, C, Y and W-135) conjugate vaccine (MCV4O) 2014-05-18 00:00:00 Completed [facility] TDAP 2014-05-18 00:00:00 Completed [facility] Meningococcal Oligosaccharide (groups A, C, Y and W-135) conjugate vaccine (MCV4O) 2014-05-18 00:00:00 Completed [facility] TDAP 2014-05-18 00:00:00 Completed [facility] Meningococcal Oligosaccharide (groups A, C, Y and W-135) conjugate vaccine (MCV4O) 2014-05-18 00:00:00 Completed [facility] TDAP 2014-05-18 00:00:00 Completed [facility] Meningococcal Oligosaccharide (groups A, C, Y and W-135) conjugate vaccine (MCV4O) 2014-05-18 00:00:00 Completed [facility] TDAP 2014-05-18 00:00:00 Completed [facility] Meningococcal Oligosaccharide (groups A, C, Y and W-135) conjugate vaccine (MCV4O) 2014-05-18 00:00:00 Completed [facility] TDAP 2014-05-18 00:00:00 Completed [facility] Meningococcal Oligosaccharide (groups A, C, Y and W-135) conjugate vaccine (MCV4O) 2014-05-18 00:00:00 Completed [facility] TDAP 2014-05-18 00:00:00 Completed [facility] Meningococcal Oligosaccharide (groups A, C, Y and W-135) conjugate vaccine (MCV4O) 2014-05-18 00:00:00 Completed [facility] TDAP 2014-05-18 00:00:00 Completed [facility] Meningococcal Oligosaccharide (groups A, C, Y and W-135) conjugate vaccine (MCV4O) 2014-05-18 00:00:00 Completed [facility] TDAP 2014-05-18 00:00:00 Completed [facility] Meningococcal Oligosaccharide (groups A, C, Y and W-135) conjugate vaccine (MCV4O) 2014-05-18 00:00:00 Completed [facility] TDAP 2014-05-18 00:00:00 Completed [facility] Meningococcal Oligosaccharide (groups A, C, Y and W-135) conjugate vaccine (MCV4O) 2014-05-18 00:00:00 Completed [facility] TDAP 2014-05-18 00:00:00 Completed [facility] Meningococcal Oligosaccharide (groups A, C, Y and W-135) conjugate vaccine (MCV4O) 2014-05-18 00:00:00 Completed [facility] TDAP 2014-05-18 00:00:00 Completed [facility] Meningococcal Oligosaccharide (groups A, C, Y and W-135) conjugate vaccine (MCV4O) 2014-05-18 00:00:00 Completed [facility] TDAP 2014-05-18 00:00:00 Completed [facility] Meningococcal Oligosaccharide (groups A, C, Y and W-135) conjugate vaccine (MCV4O) 2014-05-18 00:00:00 Completed [facility] TDAP 2014-05-18 00:00:00 Completed [facility] Meningococcal Oligosaccharide (groups A, C, Y and W-135) conjugate vaccine (MCV4O) 2014-05-18 00:00:00 Completed [facility] TDAP 2014-05-18 00:00:00 Completed [facility] Meningococcal Oligosaccharide (groups A, C, Y and W-135) conjugate vaccine (MCV4O) 2014-05-18 00:00:00 Completed [facility] Meningococcal Polysaccharide (groups A, C, Y and W-135) conjugate vaccine (MCV4P) 2014-05-18 00:00:00 Completed [facility] TDAP 2014-05-18 00:00:00 Completed [facility] Meningococcal Oligosaccharide (groups A, C, Y and W-135) conjugate vaccine (MCV4O) 2014-05-18 00:00:00 Completed [facility] Meningococcal Polysaccharide (groups A, C, Y and W-135) conjugate vaccine (MCV4P) 2014-05-18 00:00:00 Completed [facility] TDAP 2014-05-18 00:00:00 Completed [facility] Meningococcal Oligosaccharide (groups A, C, Y and W-135) conjugate vaccine (MCV4O) 2014-05-18 00:00:00 Completed [facility] Meningococcal Polysaccharide (groups A, C, Y and W-135) conjugate vaccine (MCV4P) 2014-05-18 00:00:00 Completed [facility] TDAP 2014-05-18 00:00:00 Completed [facility] Meningococcal Oligosaccharide (groups A, C, Y and W-135) conjugate vaccine (MCV4O) 2014-05-18 00:00:00 Completed [facility] Meningococcal Polysaccharide (groups A, C, Y and W-135) conjugate vaccine (MCV4P) 2014-05-18 00:00:00 Completed [facility] TDAP 2014-05-18 00:00:00 Completed [facility] Meningococcal Oligosaccharide (groups A, C, Y and W-135) conjugate vaccine (MCV4O) 2014-05-18 00:00:00 Completed [facility] Meningococcal Polysaccharide (groups A, C, Y and W-135) conjugate vaccine (MCV4P) 2014-05-18 00:00:00 Completed [facility] TDAP 2014-05-18 00:00:00 Completed [facility] Meningococcal Oligosaccharide (groups A, C, Y and W-135) conjugate vaccine (MCV4O) 2014-05-18 00:00:00 Completed [facility] Meningococcal Polysaccharide (groups A, C, Y and W-135) conjugate vaccine (MCV4P) 2014-05-18 00:00:00 Completed [facility] TDAP 2014-05-18 00:00:00 Completed [facility] Meningococcal Oligosaccharide (groups A, C, Y and W-135) conjugate vaccine (MCV4O) 2014-05-18 00:00:00 Completed [facility] Meningococcal Polysaccharide (groups A, C, Y and W-135) conjugate vaccine (MCV4P) 2014-05-18 00:00:00 Completed [facility] TDAP 2014-05-18 00:00:00 Completed [facility] Meningococcal Oligosaccharide (groups A, C, Y and W-135) conjugate vaccine (MCV4O) 2014-05-18 00:00:00 Completed [facility] Meningococcal Polysaccharide (groups A, C, Y and W-135) conjugate vaccine (MCV4P) 2014-05-18 00:00:00 Completed [facility] TDAP 2014-05-18 00:00:00 Completed [facility] Meningococcal Oligosaccharide (groups A, C, Y and W-135) conjugate vaccine (MCV4O) 2014-05-18 00:00:00 Completed [facility] Meningococcal Polysaccharide (groups A, C, Y and W-135) conjugate vaccine (MCV4P) 2014-05-18 00:00:00 Completed [facility] TDAP 2014-05-18 00:00:00 Completed [facility] Meningococcal Oligosaccharide (groups A, C, Y and W-135) conjugate vaccine (MCV4O) 2014-05-18 00:00:00 Completed [facility] Meningococcal Polysaccharide (groups A, C, Y and W-135) conjugate vaccine (MCV4P) 2014-05-18 00:00:00 Completed [facility] TDAP 2014-05-18 00:00:00 Completed [facility] Meningococcal Oligosaccharide (groups A, C, Y and W-135) conjugate vaccine (MCV4O) 2014-05-18 00:00:00 Completed [facility] Meningococcal Polysaccharide (groups A, C, Y and W-135) conjugate vaccine (MCV4P) 2014-05-18 00:00:00 Completed [facility] TDAP 2014-05-18 00:00:00 Completed [facility] Meningococcal Oligosaccharide (groups A, C, Y and W-135) conjugate vaccine (MCV4O) 2014-05-18 00:00:00 Completed [facility] Meningococcal Polysaccharide (groups A, C, Y and W-135) conjugate vaccine (MCV4P) 2014-05-18 00:00:00 Completed [facility] Varicella (varivax)(chicken pox) 2011-08-16 00:00:00 Completed [facility] Varicella (varivax)(chicken pox) 2011-08-16 00:00:00 Completed [facility] Varicella (varivax)(chicken pox) 2011-08-16 00:00:00 Completed [facility] Varicella (varivax)(chicken pox) 2011-08-16 00:00:00 Completed [facility] Varicella (varivax)(chicken pox) 2011-08-16 00:00:00 Completed [facility] Varicella (varivax)(chicken pox) 2011-08-16 00:00:00 Completed [facility] Varicella (varivax)(chicken pox) 2011-08-16 00:00:00 Completed [facility] Varicella (varivax)(chicken pox) 2011-08-16 00:00:00 Completed [facility] Varicella (varivax)(chicken pox) 2011-08-16 00:00:00 Completed [facility] Varicella (varivax)(chicken pox) 2011-08-16 00:00:00 Completed [facility] Varicella (varivax)(chicken pox) 2011-08-16 00:00:00 Completed [facility] Varicella (varivax)(chicken pox) 2011-08-16 00:00:00 Completed [facility] Varicella (varivax)(chicken pox) 2011-08-16 00:00:00 Completed [facility] Varicella (varivax)(chicken pox) 2011-08-16 00:00:00 Completed [facility] Varicella (varivax)(chicken pox) 2011-08-16 00:00:00 Completed [facility] Varicella (varivax)(chicken pox) 2011-08-16 00:00:00 Completed [facility] Varicella (varivax)(chicken pox) 2011-08-16 00:00:00 Completed [facility] Varicella (varivax)(chicken pox) 2011-08-16 00:00:00 Completed [facility] Varicella (varivax)(chicken pox) 2011-08-16 00:00:00 Completed [facility] Varicella (varivax)(chicken pox) 2011-08-16 00:00:00 Completed [facility] Varicella (varivax)(chicken pox) 2011-08-16 00:00:00 Completed [facility] Varicella (varivax)(chicken pox) 2011-08-16 00:00:00 Completed [facility] Varicella (varivax)(chicken pox) 2011-08-16 00:00:00 Completed [facility] Varicella (varivax)(chicken pox) 2011-08-16 00:00:00 Completed [facility] Varicella (varivax)(chicken pox) 2011-08-16 00:00:00 Completed [facility] Varicella (varivax)(chicken pox) 2011-08-16 00:00:00 Completed [facility] Varicella (varivax)(chicken pox) 2011-08-16 00:00:00 Completed [facility] Varicella (varivax)(chicken pox) 2011-08-16 00:00:00 Completed [facility] Varicella (varivax)(chicken pox) 2011-08-16 00:00:00 Completed [facility] Varicella (varivax)(chicken pox) 2011-08-16 00:00:00 Completed [facility] Varicella (varivax)(chicken pox) 2011-08-16 00:00:00 Completed [facility] Varicella (varivax)(chicken pox) 2011-08-16 00:00:00 Completed [facility] Varicella (varivax)(chicken pox) 2011-08-16 00:00:00 Completed [facility] Varicella (varivax)(chicken pox) 2011-08-16 00:00:00 Completed [facility] Varicella (varivax)(chicken pox) 2011-08-16 00:00:00 Completed [facility] Varicella (varivax)(chicken pox) 2011-08-16 00:00:00 Completed [facility] Varicella (varivax)(chicken pox) 2011-08-16 00:00:00 Completed [facility] Varicella (varivax)(chicken pox) 2011-08-16 00:00:00 Completed [facility] Varicella (varivax)(chicken pox) 2011-08-16 00:00:00 Completed [facility] Varicella (varivax)(chicken pox) 2011-08-16 00:00:00 Completed [facility] Varicella (varivax)(chicken pox) 2011-08-16 00:00:00 Completed [facility] Varicella (varivax)(chicken pox) 2011-08-16 00:00:00 Completed [facility] Varicella (varivax)(chicken pox) 2011-08-16 00:00:00 Completed [facility] Varicella (varivax)(chicken pox) 2011-08-16 00:00:00 Completed [facility] Varicella (varivax)(chicken pox) 2011-08-16 00:00:00 Completed [facility] Varicella (varivax)(chicken pox) 2011-08-16 00:00:00 Completed [facility] Varicella (varivax)(chicken pox) 2011-08-16 00:00:00 Completed [facility] Varicella (varivax)(chicken pox) 2011-08-16 00:00:00 Completed [facility] Varicella (varivax)(chicken pox) 2011-08-16 00:00:00 Completed [facility] Varicella (varivax)(chicken pox) 2011-08-16 00:00:00 Completed [facility] Varicella (varivax)(chicken pox) 2011-08-16 00:00:00 Completed [facility] Varicella (varivax)(chicken pox) 2011-08-16 00:00:00 Completed [facility] Varicella (varivax)(chicken pox) 2011-08-16 00:00:00 Completed [facility] Varicella (varivax)(chicken pox) 2011-08-16 00:00:00 Completed [facility] Varicella (varivax)(chicken pox) 2011-08-16 00:00:00 Completed [facility] Varicella (varivax)(chicken pox) 2011-08-16 00:00:00 Completed [facility] Varicella (varivax)(chicken pox) 2011-08-16 00:00:00 Completed [facility] Varicella (varivax)(chicken pox) 2011-08-16 00:00:00 Completed [facility] Varicella (varivax)(chicken pox) 2011-08-16 00:00:00 Completed [facility] Varicella (varivax)(chicken pox) 2011-08-16 00:00:00 Completed [facility] Varicella (varivax)(chicken pox) 2011-08-16 00:00:00 Completed [facility] Varicella (varivax)(chicken pox) 2011-08-16 00:00:00 Completed [facility] Varicella (varivax)(chicken pox) 2011-08-16 00:00:00 Completed [facility] Varicella (varivax)(chicken pox) 2011-08-16 00:00:00 Completed [facility] Varicella (varivax)(chicken pox) 2011-08-16 00:00:00 Completed [facility] Varicella (varivax)(chicken pox) 2011-08-16 00:00:00 Completed [facility] DTAP 2010-04-26 00:00:00 Completed [facility] MMR 2010-04-26 00:00:00 Completed [facility] Polio (IPV/OPV) 2010-04-26 00:00:00 Completed [facility] Varicella (varivax)(chicken pox) 2010-04-26 00:00:00 Completed [facility] DTAP 2010-04-26 00:00:00 Completed [facility] MMR 2010-04-26 00:00:00 Completed [facility] Polio (IPV/OPV) 2010-04-26 00:00:00 Completed [facility] Varicella (varivax)(chicken pox) 2010-04-26 00:00:00 Completed [facility] DTAP 2010-04-26 00:00:00 Completed [facility] MMR 2010-04-26 00:00:00 Completed [facility] Polio (IPV/OPV) 2010-04-26 00:00:00 Completed [facility] Varicella (varivax)(chicken pox) 2010-04-26 00:00:00 Completed [facility] DTAP 2010-04-26 00:00:00 Com[facility] [place] [facility] 2010-04-26 00:00:00 Completed [facility] Polio (IPV/OPV) 2010-04-26 00:00:00 Completed [facility] Varicella (varivax)(chicken pox) 2010-04-26 00:00:00 Completed [facility] DTAP 2010-04-26 00:00:00 Completed [facility] MMR 2010-04-26 00:00:00 Completed [facility] Polio (IPV/OPV) 2010-04-26 00:00:00 Completed [facility] Varicella (varivax)(chicken pox) 2010-04-26 00:00:00 Completed [facility] DTAP 2010-04-26 00:00:00 Completed [facility] MMR 2010-04-26 00:00:00 Completed [facility] Polio (IPV/OPV) 2010-04-26 00:00:00 Completed [facility] Varicella (varivax)(chicken pox) 2010-04-26 00:00:00 Completed [facility] DTAP 2010-04-26 00:00:00 Completed [facility] MMR 2010-04-26 00:00:00 Completed [facility] Polio (IPV/OPV) 2010-04-26 00:00:00 Completed [facility] Varicella (varivax)(chicken pox) 2010-04-26 00:00:00 Completed [facility] DTAP 2010-04-26 00:00:00 Completed [facility] MMR 2010-04-26 00:00:00 Completed [facility] Polio (IPV/OPV) 2010-04-26 00:00:00 Completed [facility] Varicella (varivax)(chicken pox) 2010-04-26 00:00:00 Completed [facility] DTAP 2010-04-26 00:00:00 Completed [facility] MMR 2010-04-26 00:00:00 Completed [facility] Polio (IPV/OPV) 2010-04-26 00:00:00 Completed [facility] Varicella (varivax)(chicken pox) 2010-04-26 00:00:00 Completed [facility] DTAP 2010-04-26 00:00:00 Completed [facility] MMR 2010-04-26 00:00:00 Completed [facility] Polio (IPV/OPV) 2010-04-26 00:00:00 Completed [facility] Varicella (varivax)(chicken pox) 2010-04-26 00:00:00 Completed [facility] DTAP 2010-04-26 00:00:00 Completed [facility] MMR 2010-04-26 00:00:00 Completed [facility] Polio (IPV/OPV) 2010-04-26 00:00:00 Completed [facility] Varicella (varivax)(chicken pox) 2010-04-26 00:00:00 Completed [facility] DTAP 2010-04-26 00:00:00 Completed [facility] MMR 2010-04-26 00:00:00 Completed [facility] Polio (IPV/OPV) 2010-04-26 00:00:00 Completed [facility] Varicella (varivax)(chicken pox) 2010-04-26 00:00:00 Completed [facility] DTAP 2010-04-26 00:00:00 Completed [facility] MMR 2010-04-26 00:00:00 Completed [facility] Polio (IPV/OPV) 2010-04-26 00:00:00 Completed [facility] Varicella (varivax)(chicken pox) 2010-04-26 00:00:00 Completed [facility] DTAP 2010-04-26 00:00:00 Completed [facility] MMR 2010-04-26 00:00:00 Completed [facility] Polio (IPV/OPV) 2010-04-26 00:00:00 Completed [facility] Varicella (varivax)(chicken pox) 2010-04-26 00:00:00 Completed [facility] DTAP 2010-04-26 00:00:00 Completed [facility] MMR 2010-04-26 00:00:00 Completed [facility] Polio (IPV/OPV) 2010-04-26 00:00:00 Completed [facility] Varicella (varivax)(chicken pox) 2010-04-26 00:00:00 Completed [facility] DTAP 2010-04-26 00:00:00 Completed [facility] MMR 2010-04-26 00:00:00 Completed [facility] Polio (IPV/OPV) 2010-04-26 00:00:00 Completed [facility] Varicella (varivax)(chicken pox) 2010-04-26 00:00:00 Completed [facility] DTAP 2010-04-26 00:00:00 Completed [facility] MMR 2010-04-26 00:00:00 Completed [facility] Polio (IPV/OPV) 2010-04-26 00:00:00 Completed [facility] Varicella (varivax)(chicken pox) 2010-04-26 00:00:00 Completed [facility] DTAP 2010-04-26 00:00:00 Completed [facility] MMR 2010-04-26 00:00:00 Completed [facility] Polio (IPV/OPV) 2010-04-26 00:00:00 Completed [facility] Varicella (varivax)(chicken pox) 2010-04-26 00:00:00 Completed [facility] DTAP 2010-04-26 00:00:00 Completed [facility] MMR 2010-04-26 00:00:00 Completed [facility] Polio (IPV/OPV) 2010-04-26 00:00:00 Completed [facility] Varicella (varivax)(chicken pox) 2010-04-26 00:00:00 Completed [facility] DTAP 2010-04-26 00:00:00 Completed [facility] MMR 2010-04-26 00:00:00 Completed [facility] Polio (IPV/OPV) 2010-04-26 00:00:00 Completed [facility] Varicella (varivax)(chicken pox) 2010-04-26 00:00:00 Completed [facility] DTAP 2010-04-26 00:00:00 Completed [facility] MMR 2010-04-26 00:00:00 Completed [facility] Polio (IPV/OPV) 2010-04-26 00:00:00 Completed [facility] Varicella (varivax)(chicken pox) 2010-04-26 00:00:00 Completed [facility] DTAP 2010-04-26 00:00:00 Completed [facility] MMR 2010-04-26 00:00:00 Completed [facility] Polio (IPV/OPV) 2010-04-26 00:00:00 Completed [facility] Varicella (varivax)(chicken pox) 2010-04-26 00:00:00 Completed [facility] DTAP 2010-04-26 00:00:00 Completed [facility] MMR 2010-04-26 00:00:00 Completed [facility] Polio (IPV/OPV) 2010-04-26 00:00:00 Completed [facility] Varicella (varivax)(chicken pox) 2010-04-26 00:00:00 Completed [facility] DTAP 2010-04-26 00:00:00 Completed [facility] MMR 2010-04-26 00:00:00 Completed [facility] Polio (IPV/OPV) 2010-04-26 00:00:00 Completed [facility] Varicella (varivax)(chicken pox) 2010-04-26 00:00:00 Completed [facility] DTAP 2010-04-26 00:00:00 Completed [facility] MMR 2010-04-26 00:00:00 Completed [facility] Polio (IPV/OPV) 2010-04-26 00:00:00 Completed [facility] Varicella (varivax)(chicken pox) 2010-04-26 00:00:00 Completed [facility] DTAP 2010-04-26 00:00:00 Completed [facility] MMR 2010-04-26 00:00:00 Completed [facility] Polio (IPV/OPV) 2010-04-26 00:00:00 Completed [facility] Varicella (varivax)(chicken pox) 2010-04-26 00:00:00 Completed [facility] DTAP 2010-04-26 00:00:00 Completed [facility] MMR 2010-04-26 00:00:00 Completed [facility] Polio (IPV/OPV) 2010-04-26 00:00:00 Completed [facility] Varicella (varivax)(chicken pox) 2010-04-26 00:00:00 Completed [facility] DTAP 2010-04-26 00:00:00 Completed [facility] MMR 2010-04-26 00:00:00 Completed [facility] Polio (IPV/OPV) 2010-04-26 00:00:00 Completed [facility] Varicella (varivax)(chicken pox) 2010-04-26 00:00:00 Completed [facility] DTAP 2010-04-26 00:00:00 Completed [facility] MMR 2010-04-26 00:00:00 Completed [facility] Polio (IPV/OPV) 2010-04-26 00:00:00 Completed [facility] Varicella (varivax)(chicken pox) 2010-04-26 00:00:00 Completed [facility] DTAP 2010-04-26 00:00:00 Completed [facility] MMR 2010-04-26 00:00:00 Completed [facility] Polio (IPV/OPV) 2010-04-26 00:00:00 Completed [facility] Varicella (varivax)(chicken pox) 2010-04-26 00:00:00 Completed [facility] DTAP 2010-04-26 00:00:00 Completed [facility] MMR 2010-04-26 00:00:00 Completed [facility] Polio (IPV/OPV) 2010-04-26 00:00:00 Completed [facility] Varicella (varivax)(chicken pox) 2010-04-26 00:00:00 Completed [facility] DTAP 2010-04-26 00:00:00 Completed [facility] MMR 2010-04-26 00:00:00 Completed [facility] Polio (IPV/OPV) 2010-04-26 00:00:00 Completed [facility] Varicella (varivax)(chicken pox) 2010-04-26 00:00:00 Completed [facility] DTAP 2010-04-26 00:00:00 Completed [facility] MMR 2010-04-26 00:00:00 Completed [facility] Polio (IPV/OPV) 2010-04-26 00:00:00 Completed [facility] Varicella (varivax)(chicken pox) 2010-04-26 00:00:00 Completed [facility] DTAP 2010-04-26 00:00:00 Completed [facility] MMR 2010-04-26 00:00:00 Completed [facility] Polio (IPV/OPV) 2010-04-26 00:00:00 Completed [facility] Varicella (varivax)(chicken pox) 2010-04-26 00:00:00 Completed [facility] DTAP 2010-04-26 00:00:00 Completed [facility] MMR 2010-04-26 00:00:00 Completed [facility] Polio (IPV/OPV) 2010-04-26 00:00:00 Completed [facility] Varicella (varivax)(chicken pox) 2010-04-26 00:00:00 Completed [facility] DTAP 2010-04-26 00:00:00 Completed [facility] MMR 2010-04-26 00:00:00 Completed [facility] Polio (IPV/OPV) 2010-04-26 00:00:00 Completed [facility] Varicella (varivax)(chicken pox) 2010-04-26 00:00:00 Completed [facility] DTAP 2010-04-26 00:00:00 Completed [facility] MMR 2010-04-26 00:00:00 Completed [facility] Polio (IPV/OPV) 2010-04-26 00:00:00 Completed [facility] Varicella (varivax)(chicken pox) 2010-04-26 00:00:00 Completed [facility] DTAP 2010-04-26 00:00:00 Completed [facility] MMR 2010-04-26 00:00:00 Completed [facility] Polio (IPV/OPV) 2010-04-26 00:00:00 Completed [facility] Varicella (varivax)(chicken pox) 2010-04-26 00:00:00 Completed [facility] DTAP 2010-04-26 00:00:00 Completed [facility] MMR 2010-04-26 00:00:00 Completed [facility] Polio (IPV/OPV) 2010-04-26 00:00:00 Completed [facility] Varicella (varivax)(chicken pox) 2010-04-26 00:00:00 Completed [facility] DTAP 2010-04-26 00:00:00 Completed [facility] MMR 2010-04-26 00:00:00 Completed [facility] Polio (IPV/OPV) 2010-04-26 00:00:00 Completed [facility] Varicella (varivax)(chicken pox) 2010-04-26 00:00:00 Completed [facility] DTAP 2010-04-26 00:00:00 Completed [facility] MMR 2010-04-26 00:00:00 Completed [facility] Polio (IPV/OPV) 2010-04-26 00:00:00 Completed [facility] Varicella (varivax)(chicken pox) 2010-04-26 00:00:00 Completed [facility] DTAP 2010-04-26 00:00:00 Completed [facility] MMR 2010-04-26 00:00:00 Completed [facility] Polio (IPV/OPV) 2010-04-26 00:00:00 Completed [facility] Varicella (varivax)(chicken pox) 2010-04-26 00:00:00 Completed [facility] DTAP 2010-04-26 00:00:00 Completed [facility] MMR 2010-04-26 00:00:00 Completed [facility] Polio (IPV/OPV) 2010-04-26 00:00:00 Completed [facility] Varicella (varivax)(chicken pox) 2010-04-26 00:00:00 Completed [facility] DTAP 2010-04-26 00:00:00 Completed [facility] MMR 2010-04-26 00:00:00 Completed [facility] Polio (IPV/OPV) 2010-04-26 00:00:00 Completed [facility] Varicella (varivax)(chicken pox) 2010-04-26 00:00:00 Completed [facility] DTAP 2010-04-26 00:00:00 Completed [facility] MMR 2010-04-26 00:00:00 Completed [facility] Polio (IPV/OPV) 2010-04-26 00:00:00 Completed [facility] Varicella (varivax)(chicken pox) 2010-04-26 00:00:00 Completed [facility] DTAP 2010-04-26 00:00:00 Completed [facility] MMR 2010-04-26 00:00:00 Completed [facility] Polio (IPV/OPV) 2010-04-26 00:00:00 Completed [facility] Varicella (varivax)(chicken pox) 2010-04-26 00:00:00 Completed [facility] DTAP 2010-04-26 00:00:00 Completed [facility] MMR 2010-04-26 00:00:00 Completed [facility] Polio (IPV/OPV) 2010-04-26 00:00:00 Completed [facility] Varicella (varivax)(chicken pox) 2010-04-26 00:00:00 Completed [facility] DTAP 2010-04-26 00:00:00 Completed [facility] MMR 2010-04-26 00:00:00 Completed [facility] Polio (IPV/OPV) 2010-04-26 00:00:00 Completed [facility] Varicella (varivax)(chicken pox) 2010-04-26 00:00:00 Completed [facility] DTAP 2010-04-26 00:00:00 Completed [facility] MMR 2010-04-26 00:00:00 Completed [facility] Polio (IPV/OPV) 2010-04-26 00:00:00 Completed [facility] Varicella (varivax)(chicken pox) 2010-04-26 00:00:00 Completed [facility] DTAP 2010-04-26 00:00:00 Completed [facility] MMR 2010-04-26 00:00:00 Completed [facility] Polio (IPV/OPV) 2010-04-26 00:00:00 Completed [facility] Varicella (varivax)(chicken pox) 2010-04-26 00:00:00 Completed [facility] DTAP 2010-04-26 00:00:00 Completed [facility] MMR 2010-04-26 00:00:00 Completed [facility] Polio (IPV/OPV) 2010-04-26 00:00:00 Completed [facility] Varicella (varivax)(chicken pox) 2010-04-26 00:00:00 Completed [facility] DTAP 2010-04-26 00:00:00 Completed [facility] MMR 2010-04-26 00:00:00 Completed [facility] Polio (IPV/OPV) 2010-04-26 00:00:00 Completed [facility] Varicella (varivax)(chicken pox) 2010-04-26 00:00:00 Completed [facility] DTAP 2010-04-26 00:00:00 Completed [facility] MMR 2010-04-26 00:00:00 Completed [facility] Polio (IPV/OPV) 2010-04-26 00:00:00 Completed [facility] Varicella (varivax)(chicken pox) 2010-04-26 00:00:00 Completed [facility] DTAP 2010-04-26 00:00:00 Completed [facility] MMR 2010-04-26 00:00:00 Completed [facility] Polio (IPV/OPV) 2010-04-26 00:00:00 Completed [facility] Varicella (varivax)(chicken pox) 2010-04-26 00:00:00 Completed [facility] DTAP 2010-04-26 00:00:00 Completed [facility] MMR 2010-04-26 00:00:00 Completed [facility] Polio (IPV/OPV) 2010-04-26 00:00:00 Completed [facility] Varicella (varivax)(chicken pox) 2010-04-26 00:00:00 Completed [facility] DTaP, Unspecified Formulation 2010-04-26 00:00:00 Completed [facility] IPV 2010-04-26 00:00:00 Completed [facility] DTAP 2010-04-26 00:00:00 Completed [facility] MMR 2010-04-26 00:00:00 Completed [facility] Polio (IPV/OPV) 2010-04-26 00:00:00 Completed [facility] Varicella (varivax)(chicken pox) 2010-04-26 00:00:00 Completed [facility] DTaP, Unspecified Formulation 2010-04-26 00:00:00 Completed [facility] IPV 2010-04-26 00:00:00 Completed [facility] DTAP 2010-04-26 00:00:00 Completed [facility] MMR 2010-04-26 00:00:00 Completed [facility] Polio (IPV/OPV) 2010-04-26 00:00:00 Completed [facility] Varicella (varivax)(chicken pox) 2010-04-26 00:00:00 Completed [facility] DTaP, Unspecified Formulation 2010-04-26 00:00:00 Completed [facility] IPV 2010-04-26 00:00:00 Completed [facility] DTAP 2010-04-26 00:00:00 Completed [facility] MMR 2010-04-26 00:00:00 Completed [facility] Polio (IPV/OPV) 2010-04-26 00:00:00 Completed [facility] Varicella (varivax)(chicken pox) 2010-04-26 00:00:00 Completed [facility] DTaP, Unspecified Formulation 2010-04-26 00:00:00 Completed [facility] IPV 2010-04-26 00:00:00 Completed [facility] DTAP 2010-04-26 00:00:00 Completed [facility] MMR 2010-04-26 00:00:00 Completed [facility] Polio (IPV/OPV) 2010-04-26 00:00:00 Completed [facility] Varicella (varivax)(chicken pox) 2010-04-26 00:00:00 Completed [facility] DTaP, Unspecified Formulation 2010-04-26 00:00:00 Completed [facility] IPV 2010-04-26 00:00:00 Completed [facility] DTAP 2010-04-26 00:00:00 Completed [facility] MMR 2010-04-26 00:00:00 Completed [facility] Polio (IPV/OPV) 2010-04-26 00:00:00 Completed [facility] Varicella (varivax)(chicken pox) 2010-04-26 00:00:00 Completed [facility] DTaP, Unspecified Formulation 2010-04-26 00:00:00 Completed [facility] IPV 2010-04-26 00:00:00 Completed [facility] DTAP 2010-04-26 00:00:00 Completed [facility] MMR 2010-04-26 00:00:00 Completed [facility] Polio (IPV/OPV) 2010-04-26 00:00:00 Completed [facility] Varicella (varivax)(chicken pox) 2010-04-26 00:00:00 Completed [facility] DTaP, Unspecified Formulation 2010-04-26 00:00:00 Completed [facility] IPV 2010-04-26 00:00:00 Completed [facility] DTAP 2010-04-26 00:00:00 Completed [facility] MMR 2010-04-26 00:00:00 Completed [facility] Polio (IPV/OPV) 2010-04-26 00:00:00 Completed [facility] Varicella (varivax)(chicken pox) 2010-04-26 00:00:00 Completed [facility] DTaP, Unspecified Formulation 2010-04-26 00:00:00 Completed [facility] IPV 2010-04-26 00:00:00 Completed [facility] DTAP 2010-04-26 00:00:00 Completed [facility] MMR 2010-04-26 00:00:00 Completed [facility] Polio (IPV/OPV) 2010-04-26 00:00:00 Completed [facility] Varicella (varivax)(chicken pox) 2010-04-26 00:00:00 Completed [facility] DTaP, Unspecified Formulation 2010-04-26 00:00:00 Completed [facility] IPV 2010-04-26 00:00:00 Completed [facility] DTAP 2010-04-26 00:00:00 Completed [facility] MMR 2010-04-26 00:00:00 Completed [facility] Polio (IPV/OPV) 2010-04-26 00:00:00 Completed [facility] Varicella (varivax)(chicken pox) 2010-04-26 00:00:00 Completed [facility] DTaP, Unspecified Formulation 2010-04-26 00:00:00 Completed [facility] IPV 2010-04-26 00:00:00 Completed [facility] DTAP 2010-04-26 00:00:00 Completed [facility] MMR 2010-04-26 00:00:00 Completed [facility] Polio (IPV/OPV) 2010-04-26 00:00:00 Completed [facility] Varicella (varivax)(chicken pox) 2010-04-26 00:00:00 Completed [facility] DTaP, Unspecified Formulation 2010-04-26 00:00:00 Completed [facility] IPV 2010-04-26 00:00:00 Completed [facility] DTAP 2010-04-26 00:00:00 Completed [facility] MMR 2010-04-26 00:00:00 Completed [facility] Polio (IPV/OPV) 2010-04-26 00:00:00 Completed [facility] Varicella (varivax)(chicken pox) 2010-04-26 00:00:00 Completed [facility] DTaP, Unspecified Formulation 2010-04-26 00:00:00 Completed [facility] IPV 2010-04-26 00:00:00 Completed [facility] DTAP 2007-06-13 00:00:00 Completed [facility] MMR 2007-06-13 00:00:00 Completed [facility] Polio (IPV/OPV) 2007-06-13 00:00:00 Completed [facility] DTAP 2007-06-13 00:00:00 Completed [facility] MMR 2007-06-13 00:00:00 Completed [facility] Polio (IPV/OPV) 2007-06-13 00:00:00 Completed [facility] DTAP 2007-06-13 00:00:00 Completed [facility] MMR 2007-06-13 00:00:00 Completed [facility] Polio (IPV/OPV) 2007-06-13 00:00:00 Completed [facility] DTAP 2007-06-13 00:00:00 Completed [facility] MMR 2007-06-13 00:00:00 Completed [facility] Polio (IPV/OPV) 2007-06-13 00:00:00 Completed [facility] DTAP 2007-06-13 00:00:00 Completed [facility] MMR 2007-06-13 00:00:00 Completed [facility] Polio (IPV/OPV) 2007-06-13 00:00:00 Completed [facility] DTAP 2007-06-13 00:00:00 Completed [facility] MMR 2007-06-13 00:00:00 Completed [facility] Polio (IPV/OPV) 2007-06-13 00:00:00 Completed [facility] DTAP 2007-06-13 00:00:00 Completed [facility] MMR 2007-06-13 00:00:00 Completed [facility] Polio (IPV/OPV) 2007-06-13 00:00:00 Completed [facility] DTAP 2007-06-13 00:00:00 Completed [facility] MMR 2007-06-13 00:00:00 Completed [facility] Polio (IPV/OPV) 2007-06-13 00:00:00 Completed [facility] DTAP 2007-06-13 00:00:00 Completed [facility] MMR 2007-06-13 00:00:00 Completed [facility] Polio (IPV/OPV) 2007-06-13 00:00:00 Completed [facility] DTAP 2007-06-13 00:00:00 Completed [facility] MMR 2007-06-13 00:00:00 Completed [facility] Polio (IPV/OPV) 2007-06-13 00:00:00 Completed [facility] DTAP 2007-06-13 00:00:00 Completed [facility] MMR 2007-06-13 00:00:00 Completed [facility] Polio (IPV/OPV) 2007-06-13 00:00:00 Completed [facility] DTAP 2007-06-13 00:00:00 Completed [facility] MMR 2007-06-13 00:00:00 Completed [facility] Polio (IPV/OPV) 2007-06-13 00:00:00 Completed [facility] DTAP 2007-06-13 00:00:00 Completed [facility] MMR 2007-06-13 00:00:00 Completed [facility] Polio (IPV/OPV) 2007-06-13 00:00:00 Completed [facility] DTAP 2007-06-13 00:00:00 Completed [facility] MMR 2007-06-13 00:00:00 Completed [facility] Polio (IPV/OPV) 2007-06-13 00:00:00 Completed [facility] DTAP 2007-06-13 00:00:00 Completed [facility] MMR 2007-06-13 00:00:00 Completed [facility] Polio (IPV/OPV) 2007-06-13 00:00:00 Completed [facility] DTAP 2007-06-13 00:00:00 Completed [facility] MMR 2007-06-13 00:00:00 Completed [facility] Polio (IPV/OPV) 2007-06-13 00:00:00 Completed [facility] DTAP 2007-06-13 00:00:00 Completed [facility] MMR 2007-06-13 00:00:00 Completed [facility] Polio (IPV/OPV) 2007-06-13 00:00:00 Completed [facility] DTAP 2007-06-13 00:00:00 Completed [facility] MMR 2007-06-13 00:00:00 Completed [facility] Polio (IPV/OPV) 2007-06-13 00:00:00 Completed [facility] DTAP 2007-06-13 00:00:00 Completed [facility] MMR 2007-06-13 00:00:00 Completed [facility] Polio (IPV/OPV) 2007-06-13 00:00:00 Completed [facility] DTAP 2007-06-13 00:00:00 Completed [facility] MMR 2007-06-13 00:00:00 Completed [facility] Polio (IPV/OPV) 2007-06-13 00:00:00 Completed [facility] DTAP 2007-06-13 00:00:00 Completed [facility] MMR 2007-06-13 00:00:00 Completed [facility] Polio (IPV/OPV) 2007-06-13 00:00:00 Completed [facility] DTAP 2007-06-13 00:00:00 Completed [facility] MMR 2007-06-13 00:00:00 Completed [facility] Polio (IPV/OPV) 2007-06-13 00:00:00 Completed [facility] DTAP 2007-06-13 00:00:00 Completed [facility] MMR 2007-06-13 00:00:00 Completed [facility] Polio (IPV/OPV) 2007-06-13 00:00:00 Completed [facility] DTAP 2007-06-13 00:00:00 Completed [facility] MMR 2007-06-13 00:00:00 Completed [facility] Polio (IPV/OPV) 2007-06-13 00:00:00 Completed [facility] DTAP 2007-06-13 00:00:00 Completed [facility] MMR 2007-06-13 00:00:00 Completed [facility] Polio (IPV/OPV) 2007-06-13 00:00:00 Completed [facility] DTAP 2007-06-13 00:00:00 Completed [facility] MMR 2007-06-13 00:00:00 Completed [facility] Polio (IPV/OPV) 2007-06-13 00:00:00 Completed [facility] DTAP 2007-06-13 00:00:00 Completed [facility] MMR 2007-06-13 00:00:00 Completed [facility] Polio (IPV/OPV) 2007-06-13 00:00:00 Completed [facility] DTAP 2007-06-13 00:00:00 Completed [facility] MMR 2007-06-13 00:00:00 Completed [facility] Polio (IPV/OPV) 2007-06-13 00:00:00 Completed [facility] DTAP 2007-06-13 00:00:00 Completed [facility] MMR 2007-06-13 00:00:00 Completed [facility] Polio (IPV/OPV) 2007-06-13 00:00:00 Completed [facility] DTAP 2007-06-13 00:00:00 Completed [facility] MMR 2007-06-13 00:00:00 Completed [facility] Polio (IPV/OPV) 2007-06-13 00:00:00 Completed [facility] DTAP 2007-06-13 00:00:00 Completed [facility] MMR 2007-06-13 00:00:00 Completed [facility] Polio (IPV/OPV) 2007-06-13 00:00:00 Completed [facility] DTAP 2007-06-13 00:00:00 Completed [facility] MMR 2007-06-13 00:00:00 Completed [facility] Polio (IPV/OPV) 2007-06-13 00:00:00 Completed [facility] DTAP 2007-06-13 00:00:00 Completed [facility] MMR 2007-06-13 00:00:00 Completed [facility] Polio (IPV/OPV) 2007-06-13 00:00:00 Completed [facility] DTAP 2007-06-13 00:00:00 Completed [facility] MMR 2007-06-13 00:00:00 Completed [facility] Polio (IPV/OPV) 2007-06-13 00:00:00 Completed [facility] DTAP 2007-06-13 00:00:00 Completed [facility] MMR 2007-06-13 00:00:00 Completed [facility] Polio (IPV/OPV) 2007-06-13 00:00:00 Completed [facility] DTAP 2007-06-13 00:00:00 Completed [facility] MMR 2007-06-13 00:00:00 Completed [facility] Polio (IPV/OPV) 2007-06-13 00:00:00 Completed [facility] DTAP 2007-06-13 00:00:00 Completed [facility] MMR 2007-06-13 00:00:00 Completed [facility] Polio (IPV/OPV) 2007-06-13 00:00:00 Completed [facility] DTAP 2007-06-13 00:00:00 Completed [facility] MMR 2007-06-13 00:00:00 Completed [facility] Polio (IPV/OPV) 2007-06-13 00:00:00 Completed [facility] DTAP 2007-06-13 00:00:00 Completed [facility] MMR 2007-06-13 00:00:00 Completed [facility] Polio (IPV/OPV) 2007-06-13 00:00:00 Completed [facility] DTAP 2007-06-13 00:00:00 Completed [facility] MMR 2007-06-13 00:00:00 Completed [facility] Polio (IPV/OPV) 2007-06-13 00:00:00 Completed [facility] DTAP 2007-06-13 00:00:00 Completed [facility] MMR 2007-06-13 00:00:00 Completed [facility] Polio (IPV/OPV) 2007-06-13 00:00:00 Completed [facility] DTAP 2007-06-13 00:00:00 Completed [facility] MMR 2007-06-13 00:00:00 Completed [facility] Polio (IPV/OPV) 2007-06-13 00:00:00 Completed [facility] DTAP 2007-06-13 00:00:00 Completed [facility] MMR 2007-06-13 00:00:00 Completed [facility] Polio (IPV/OPV) 2007-06-13 00:00:00 Completed [facility] DTAP 2007-06-13 00:00:00 Completed [facility] MMR 2007-06-13 00:00:00 Completed [facility] Polio (IPV/OPV) 2007-06-13 00:00:00 Completed [facility] DTAP 2007-06-13 00:00:00 Completed [facility] MMR 2007-06-13 00:00:00 Completed [facility] Polio (IPV/OPV) 2007-06-13 00:00:00 Completed [facility] DTAP 2007-06-13 00:00:00 Completed [facility] MMR 2007-06-13 00:00:00 Completed [facility] Polio (IPV/OPV) 2007-06-13 00:00:00 Completed [facility] DTAP 2007-06-13 00:00:00 Completed [facility] MMR 2007-06-13 00:00:00 Completed [facility] Polio (IPV/OPV) 2007-06-13 00:00:00 Completed [facility] DTAP 2007-06-13 00:00:00 Completed [facility] MMR 2007-06-13 00:00:00 Completed [facility] Polio (IPV/OPV) 2007-06-13 00:00:00 Completed [facility] DTAP 2007-06-13 00:00:00 Completed [facility] MMR 2007-06-13 00:00:00 Completed [facility] Polio (IPV/OPV) 2007-06-13 00:00:00 Completed [facility] DTAP 2007-06-13 00:00:00 Completed [facility] MMR 2007-06-13 00:00:00 Completed [facility] Polio (IPV/OPV) 2007-06-13 00:00:00 Completed [facility] DTAP 2007-06-13 00:00:00 Completed [facility] MMR 2007-06-13 00:00:00 Completed [facility] Polio (IPV/OPV) 2007-06-13 00:00:00 Completed [facility] DTAP 2007-06-13 00:00:00 Completed [facility] MMR 2007-06-13 00:00:00 Completed [facility] Polio (IPV/OPV) 2007-06-13 00:00:00 Completed [facility] DTAP 2007-06-13 00:00:00 Completed [facility] MMR 2007-06-13 00:00:00 Completed [facility] Polio (IPV/OPV) 2007-06-13 00:00:00 Completed [facility] DTAP 2007-06-13 00:00:00 Completed [facility] MMR 2007-06-13 00:00:00 Completed [facility] Polio (IPV/OPV) 2007-06-13 00:00:00 Completed [facility] DTAP 2007-06-13 00:00:00 Completed [facility] MMR 2007-06-13 00:00:00 Completed [facility] Polio (IPV/OPV) 2007-06-13 00:00:00 Completed [facility] DTaP, Unspecified Formulation 2007-06-13 00:00:00 Completed [facility] IPV 2007-06-13 00:00:00 Completed [facility] DTAP 2007-06-13 00:00:00 Completed [facility] MMR 2007-06-13 00:00:00 Completed [facility] Polio (IPV/OPV) 2007-06-13 00:00:00 Completed [facility] DTaP, Unspecified Formulation 2007-06-13 00:00:00 Completed [facility] IPV 2007-06-13 00:00:00 Completed [facility] DTAP 2007-06-13 00:00:00 Completed [facility] MMR 2007-06-13 00:00:00 Completed [facility] Polio (IPV/OPV) 2007-06-13 00:00:00 Completed [facility] DTaP, Unspecified Formulation 2007-06-13 00:00:00 Completed [facility] IPV 2007-06-13 00:00:00 Completed [facility] DTAP 2007-06-13 00:00:00 Completed [facility] MMR 2007-06-13 00:00:00 Completed [facility] Polio (IPV/OPV) 2007-06-13 00:00:00 Completed [facility] DTaP, Unspecified Formulation 2007-06-13 00:00:00 Completed [facility] IPV 2007-06-13 00:00:00 Completed [facility] DTAP 2007-06-13 00:00:00 Completed [facility] MMR 2007-06-13 00:00:00 Completed [facility] Polio (IPV/OPV) 2007-06-13 00:00:00 Completed [facility] DTaP, Unspecified Formulation 2007-06-13 00:00:00 Completed [facility] IPV 2007-06-13 00:00:00 Completed [facility] DTAP 2007-06-13 00:00:00 Completed [facility] MMR 2007-06-13 00:00:00 Completed [facility] Polio (IPV/OPV) 2007-06-13 00:00:00 Completed [facility] DTaP, Unspecified Formulation 2007-06-13 00:00:00 Completed [facility] IPV 2007-06-13 00:00:00 Completed [facility] DTAP 2007-06-13 00:00:00 Completed [facility] MMR 2007-06-13 00:00:00 Completed [facility] Polio (IPV/OPV) 2007-06-13 00:00:00 Completed [facility] DTaP, Unspecified Formulation 2007-06-13 00:00:00 Completed [facility] IPV 2007-06-13 00:00:00 Completed [facility] DTAP 2007-06-13 00:00:00 Completed [facility] MMR 2007-06-13 00:00:00 Completed [facility] Polio (IPV/OPV) 2007-06-13 00:00:00 Completed [facility] DTaP, Unspecified Formulation 2007-06-13 00:00:00 Completed [facility] IPV 2007-06-13 00:00:00 Completed [facility] DTAP 2007-06-13 00:00:00 Completed [facility] MMR 2007-06-13 00:00:00 Completed [facility] Polio (IPV/OPV) 2007-06-13 00:00:00 Completed [facility] DTaP, Unspecified Formulation 2007-06-13 00:00:00 Completed [facility] IPV 2007-06-13 00:00:00 Completed [facility] DTAP 2007-06-13 00:00:00 Completed [facility] MMR 2007-06-13 00:00:00 Completed [facility] Polio (IPV/OPV) 2007-06-13 00:00:00 Completed [facility] DTaP, Unspecified Formulation 2007-06-13 00:00:00 Completed [facility] IPV 2007-06-13 00:00:00 Completed [facility] DTAP 2007-06-13 00:00:00 Completed [facility] MMR 2007-06-13 00:00:00 Completed [facility] Polio (IPV/OPV) 2007-06-13 00:00:00 Completed [facility] DTaP, Unspecified Formulation 2007-06-13 00:00:00 Completed [facility] IPV 2007-06-13 00:00:00 Completed [facility] DTAP 2007-06-13 00:00:00 Completed [facility] MMR 2007-06-13 00:00:00 Completed [facility] Polio (IPV/OPV) 2007-06-13 00:00:00 Completed [facility] DTaP, Unspecified Formulation 2007-06-13 00:00:00 Completed [facility] IPV 2007-06-13 00:00:00 Completed [facility] HEPATITIS A 2006-12-10 00:00:00 Completed [facility] HEPATITIS A 2006-12-10 00:00:00 Completed [facility] HEPATITIS A 2006-12-10 00:00:00 Completed [facility] HEPATITIS A 2006-12-10 00:00:00 Completed [facility] HEPATITIS A 2006-12-10 00:00:00 Completed [facility] HEPATITIS A 2006-12-10 00:00:00 Completed [facility] HEPATITIS A 2006-12-10 00:00:00 Completed [facility] HEPATITIS A 2006-12-10 00:00:00 Completed [facility] HEPATITIS A 2006-12-10 00:00:00 Completed [facility] HEPATITIS A 2006-12-10 00:00:00 Completed [facility] HEPATITIS A 2006-12-10 00:00:00 Completed [facility] HEPATITIS A 2006-12-10 00:00:00 Completed [facility] HEPATITIS A 2006-12-10 00:00:00 Completed [facility] HEPATITIS A 2006-12-10 00:00:00 Completed [facility] HEPATITIS A 2006-12-10 00:00:00 Completed [facility] HEPATITIS A 2006-12-10 00:00:00 Completed [facility] HEPATITIS A 2006-12-10 00:00:00 Completed [facility] HEPATITIS A 2006-12-10 00:00:00 Completed [facility] HEPATITIS A 2006-12-10 00:00:00 Completed [facility] HEPATITIS A 2006-12-10 00:00:00 Completed [facility] HEPATITIS A 2006-12-10 00:00:00 Completed [facility] HEPATITIS A 2006-12-10 00:00:00 Completed [facility] HEPATITIS A 2006-12-10 00:00:00 Completed [facility] HEPATITIS A 2006-12-10 00:00:00 Completed [facility] HEPATITIS A 2006-12-10 00:00:00 Completed [facility] HEPATITIS A 2006-12-10 00:00:00 Completed [facility] HEPATITIS A 2006-12-10 00:00:00 Completed [facility] HEPATITIS A 2006-12-10 00:00:00 Completed [facility] HEPATITIS A 2006-12-10 00:00:00 Completed [facility] HEPATITIS A 2006-12-10 00:00:00 Completed [facility] HEPATITIS A 2006-12-10 00:00:00 Completed [facility] HEPATITIS A 2006-12-10 00:00:00 Completed [facility] HEPATITIS A 2006-12-10 00:00:00 Completed [facility] HEPATITIS A 2006-12-10 00:00:00 Completed [facility] HEPATITIS A 2006-12-10 00:00:00 Completed [place] [facility] HEPATITIS A 2006-12-10 00:00:00 Completed [facility] HEPATITIS A 2006-12-10 00:00:00 Completed [facility] HEPATITIS A 2006-12-10 00:00:00 Completed [facility] HEPATITIS A 2006-12-10 00:00:00 Completed [facility] HEPATITIS A 2006-12-10 00:00:00 Completed [facility] HEPATITIS A 2006-12-10 00:00:00 Completed [facility] HEPATITIS A 2006-12-10 00:00:00 Completed [facility] HEPATITIS A 2006-12-10 00:00:00 Completed [facility] HEPATITIS A 2006-12-10 00:00:00 Completed [facility] HEPATITIS A 2006-12-10 00:00:00 Completed [facility] HEPATITIS A 2006-12-10 00:00:00 Completed [facility] HEPATITIS A 2006-12-10 00:00:00 Completed [facility] HEPATITIS A 2006-12-10 00:00:00 Completed [facility] HEPATITIS A 2006-12-10 00:00:00 Completed [facility] HEPATITIS A 2006-12-10 00:00:00 Completed [facility] HEPATITIS A 2006-12-10 00:00:00 Completed [facility] HEPATITIS A 2006-12-10 00:00:00 Completed [facility] HEPATITIS A 2006-12-10 00:00:00 Completed [facility] HEPATITIS A 2006-12-10 00:00:00 Completed [facility] HEPATITIS A 2006-12-10 00:00:00 Completed [facility] HEPATITIS A 2006-12-10 00:00:00 Completed [facility] HEPATITIS A 2006-12-10 00:00:00 Completed [facility] HEPATITIS A 2006-12-10 00:00:00 Completed [facility] HEPATITIS A 2006-12-10 00:00:00 Completed [facility] HEPATITIS A 2006-12-10 00:00:00 Completed [facility] HEPATITIS A 2006-12-10 00:00:00 Completed [facility] HEPATITIS A 2006-12-10 00:00:00 Completed [facility] HEPATITIS A 2006-12-10 00:00:00 Completed [facility] HEPATITIS A 2006-12-10 00:00:00 Completed [facility] HEPATITIS A 2006-12-10 00:00:00 Completed [facility] HEPATITIS A 2006-12-10 00:00:00 Completed [facility] HEPATITIS A 2006-04-17 00:00:00 Completed [facility] HEPATITIS A 2006-04-17 00:00:00 Completed [facility] HEPATITIS A 2006-04-17 00:00:00 Completed [facility] HEPATITIS A 2006-04-17 00:00:00 Completed [facility] HEPATITIS A 2006-04-17 00:00:00 Completed [facility] HEPATITIS A 2006-04-17 00:00:00 Completed [facility] HEPATITIS A 2006-04-17 00:00:00 Completed [facility] HEPATITIS A 2006-04-17 00:00:00 Completed [facility] HEPATITIS A 2006-04-17 00:00:00 Completed [facility] HEPATITIS A 2006-04-17 00:00:00 Completed [facility] HEPATITIS A 2006-04-17 00:00:00 Completed [facility] HEPATITIS A 2006-04-17 00:00:00 Completed [facility] HEPATITIS A 2006-04-17 00:00:00 Completed [facility] HEPATITIS A 2006-04-17 00:00:00 Completed [facility] HEPATITIS A 2006-04-17 00:00:00 Completed [facility] HEPATITIS A 2006-04-17 00:00:00 Completed [facility] HEPATITIS A 2006-04-17 00:00:00 Completed [facility] HEPATITIS A 2006-04-17 00:00:00 Completed [facility] HEPATITIS A 2006-04-17 00:00:00 Completed [facility] HEPATITIS A 2006-04-17 00:00:00 Completed [facility] HEPATITIS A 2006-04-17 00:00:00 Completed [facility] HEPATITIS A 2006-04-17 00:00:00 Completed [facility] HEPATITIS A 2006-04-17 00:00:00 Completed [facility] HEPATITIS A 2006-04-17 00:00:00 Completed [facility] HEPATITIS A 2006-04-17 00:00:00 Completed [facility] HEPATITIS A 2006-04-17 00:00:00 Completed [facility] HEPATITIS A 2006-04-17 00:00:00 Completed [facility] HEPATITIS A 2006-04-17 00:00:00 Completed [facility] HEPATITIS A 2006-04-17 00:00:00 Completed [facility] HEPATITIS A 2006-04-17 00:00:00 Completed [facility] HEPATITIS A 2006-04-17 00:00:00 Completed [facility] HEPATITIS A 2006-04-17 00:00:00 Completed [facility] HEPATITIS A 2006-04-17 00:00:00 Completed [facility] HEPATITIS A 2006-04-17 00:00:00 Completed [facility] HEPATITIS A 2006-04-17 00:00:00 Completed [facility] HEPATITIS A 2006-04-17 00:00:00 Completed [facility] HEPATITIS A 2006-04-17 00:00:00 Completed [facility] HEPATITIS A 2006-04-17 00:00:00 Completed [facility] HEPATITIS A 2006-04-17 00:00:00 Completed [facility] HEPATITIS A 2006-04-17 00:00:00 Completed [facility] HEPATITIS A 2006-04-17 00:00:00 Completed [facility] HEPATITIS A 2006-04-17 00:00:00 Completed [facility] HEPATITIS A 2006-04-17 00:00:00 Completed [facility] HEPATITIS A 2006-04-17 00:00:00 Completed [facility] HEPATITIS A 2006-04-17 00:00:00 Completed [facility] HEPATITIS A 2006-04-17 00:00:00 Completed [facility] HEPATITIS A 2006-04-17 00:00:00 Completed [facility] HEPATITIS A 2006-04-17 00:00:00 Completed [facility] HEPATITIS A 2006-04-17 00:00:00 Completed [facility] HEPATITIS A 2006-04-17 00:00:00 Completed [facility] HEPATITIS A 2006-04-17 00:00:00 Completed [facility] HEPATITIS A 2006-04-17 00:00:00 Completed [facility] HEPATITIS A 2006-04-17 00:00:00 Completed [facility] HEPATITIS A 2006-04-17 00:00:00 Completed [facility] HEPATITIS A 2006-04-17 00:00:00 Completed [facility] HEPATITIS A 2006-04-17 00:00:00 Completed [facility] HEPATITIS A 2006-04-17 00:00:00 Completed [facility] HEPATITIS A 2006-04-17 00:00:00 Completed [facility] HEPATITIS A 2006-04-17 00:00:00 Completed [facility] HEPATITIS A 2006-04-17 00:00:00 Completed [facility] HEPATITIS A 2006-04-17 00:00:00 Completed [facility] HEPATITIS A 2006-04-17 00:00:00 Completed [facility] HEPATITIS A 2006-04-17 00:00:00 Completed [facility] HEPATITIS A 2006-04-17 00:00:00 Completed [facility] HEPATITIS A 2006-04-17 00:00:00 Completed [facility] HEPATITIS A 2006-04-17 00:00:00 Completed [facility] DTAP 2004-10-06 00:00:00 Completed [facility] HIB 4 Dose Schedule 2004-10-06 00:00:00 Completed [facility] MMR 2004-10-06 00:00:00 Completed [facility] Pneumococcal 7 Conjugate, PCV7 (Prevnar7) 2004-10-06 00:00:00 Completed [facility] Varicella (varivax)(chicken pox) 2004-10-06 00:00:00 Completed [facility] DTAP 2004-10-06 00:00:00 Completed [facility] HIB 4 Dose Schedule 2004-10-06 00:00:00 Completed [facility] MMR 2004-10-06 00:00:00 Completed [facility] Pneumococcal 7 Conjugate, PCV7 (Prevnar7) 2004-10-06 00:00:00 Completed [facility] Varicella (varivax)(chicken pox) 2004-10-06 00:00:00 Completed [facility] DTAP 2004-10-06 00:00:00 Completed [facility] HIB 4 Dose Schedule 2004-10-06 00:00:00 Completed [facility] MMR 2004-10-06 00:00:00 Completed [facility] Pneumococcal 7 Conjugate, PCV7 (Prevnar7) 2004-10-06 00:00:00 Completed [facility] Varicella (varivax)(chicken pox) 2004-10-06 00:00:00 Completed [facility] DTAP 2004-10-06 00:00:00 Completed [facility] HIB 4 Dose Schedule 2004-10-06 00:00:00 Completed [facility] MMR 2004-10-06 00:00:00 Completed [facility] Pneumococcal 7 Conjugate, PCV7 (Prevnar7) 2004-10-06 00:00:00 Completed [facility] Varicella (varivax)(chicken pox) 2004-10-06 00:00:00 Completed [facility] DTAP 2004-10-06 00:00:00 Completed [facility] HIB 4 Dose Schedule 2004-10-06 00:00:00 Completed [facility] MMR 2004-10-06 00:00:00 Completed [facility] Pneumococcal 7 Conjugate, PCV7 (Prevnar7) 2004-10-06 00:00:00 Completed [facility] Varicella (varivax)(chicken pox) 2004-10-06 00:00:00 Completed [facility] DTAP 2004-10-06 00:00:00 Completed [facility] HIB 4 Dose Schedule 2004-10-06 00:00:00 Completed [facility] MMR 2004-10-06 00:00:00 Completed [facility] Pneumococcal 7 Conjugate, PCV7 (Prevnar7) 2004-10-06 00:00:00 Completed [facility] Varicella (varivax)(chicken pox) 2004-10-06 00:00:00 Completed [facility] DTAP 2004-10-06 00:00:00 Completed [facility] HIB 4 Dose Schedule 2004-10-06 00:00:00 Completed [facility] MMR 2004-10-06 00:00:00 Completed [facility] Pneumococcal 7 Conjugate, PCV7 (Prevnar7) 2004-10-06 00:00:00 Completed [facility] Varicella (varivax)(chicken pox) 2004-10-06 00:00:00 Completed [facility] DTAP 2004-10-06 00:00:00 Completed [facility] HIB 4 Dose Schedule 2004-10-06 00:00:00 Completed [facility] MMR 2004-10-06 00:00:00 Completed [facility] Pneumococcal 7 Conjugate, PCV7 (Prevnar7) 2004-10-06 00:00:00 Completed [facility] Varicella (varivax)(chicken pox) 2004-10-06 00:00:00 Completed [facility] DTAP 2004-10-06 00:00:00 Completed [facility] HIB 4 Dose Schedule 2004-10-06 00:00:00 Completed [facility] MMR 2004-10-06 00:00:00 Completed [facility] Pneumococcal 7 Conjugate, PCV7 (Prevnar7) 2004-10-06 00:00:00 Completed [facility] Varicella (varivax)(chicken pox) 2004-10-06 00:00:00 Completed [facility] DTAP 2004-10-06 00:00:00 Completed [facility] HIB 4 Dose Schedule 2004-10-06 00:00:00 Completed [facility] MMR 2004-10-06 00:00:00 Completed [facility] Pneumococcal 7 Conjugate, PCV7 (Prevnar7) 2004-10-06 00:00:00 Completed [facility] Varicella (varivax)(chicken pox) 2004-10-06 00:00:00 Completed [facility] DTAP 2004-10-06 00:00:00 Completed [facility] HIB 4 Dose Schedule 2004-10-06 00:00:00 Completed [facility] MMR 2004-10-06 00:00:00 Completed [facility] Pneumococcal 7 Conjugate, PCV7 (Prevnar7) 2004-10-06 00:00:00 Completed [facility] Varicella (varivax)(chicken pox) 2004-10-06 00:00:00 Completed [facility] DTAP 2004-10-06 00:00:00 Completed [facility] HIB 4 Dose Schedule 2004-10-06 00:00:00 Completed [facility] MMR 2004-10-06 00:00:00 Completed [facility] Pneumococcal 7 Conjugate, PCV7 (Prevnar7) 2004-10-06 00:00:00 Completed [facility] Varicella (varivax)(chicken pox) 2004-10-06 00:00:00 Completed [facility] DTAP 2004-10-06 00:00:00 Completed [facility] HIB 4 Dose Schedule 2004-10-06 00:00:00 Completed [facility] MMR 2004-10-06 00:00:00 Completed [facility] Pneumococcal 7 Conjugate, PCV7 (Prevnar7) 2004-10-06 00:00:00 Completed [facility] Varicella (varivax)(chicken pox) 2004-10-06 00:00:00 Completed [facility] DTAP 2004-10-06 00:00:00 Completed [facility] HIB 4 Dose Schedule 2004-10-06 00:00:00 Completed [facility] MMR 2004-10-06 00:00:00 Completed [facility] Pneumococcal 7 Conjugate, PCV7 (Prevnar7) 2004-10-06 00:00:00 Completed [facility] Varicella (varivax)(chicken pox) 2004-10-06 00:00:00 Completed [facility] DTAP 2004-10-06 00:00:00 Completed [facility] HIB 4 Dose Schedule 2004-10-06 00:00:00 Completed [facility] MMR 2004-10-06 00:00:00 Completed [facility] Pneumococcal 7 Conjugate, PCV7 (Prevnar7) 2004-10-06 00:00:00 Completed [facility] Varicella (varivax)(chicken pox) 2004-10-06 00:00:00 Completed [facility] DTAP 2004-10-06 00:00:00 Completed [facility] HIB 4 Dose Schedule 2004-10-06 00:00:00 Completed [facility] MMR 2004-10-06 00:00:00 Completed [facility] Pneumococcal 7 Conjugate, PCV7 (Prevnar7) 2004-10-06 00:00:00 Completed [facility] Varicella (varivax)(chicken pox) 2004-10-06 00:00:00 Completed [facility] DTAP 2004-10-06 00:00:00 Completed [facility] HIB 4 Dose Schedule 2004-10-06 00:00:00 Completed [facility] MMR 2004-10-06 00:00:00 Completed [facility] Pneumococcal 7 Conjugate, PCV7 (Prevnar7) 2004-10-06 00:00:00 Completed [facility] Varicella (varivax)(chicken pox) 2004-10-06 00:00:00 Completed [facility] DTAP 2004-10-06 00:00:00 Completed [facility] HIB 4 Dose Schedule 2004-10-06 00:00:00 Completed [facility] MMR 2004-10-06 00:00:00 Completed [facility] Pneumococcal 7 Conjugate, PCV7 (Prevnar7) 2004-10-06 00:00:00 Completed [facility] Varicella (varivax)(chicken pox) 2004-10-06 00:00:00 Completed [facility] DTAP 2004-10-06 00:00:00 Completed [facility] HIB 4 Dose Schedule 2004-10-06 00:00:00 Completed [facility] MMR 2004-10-06 00:00:00 Completed [facility] Pneumococcal 7 Conjugate, PCV7 (Prevnar7) 2004-10-06 00:00:00 Completed [facility] Varicella (varivax)(chicken pox) 2004-10-06 00:00:00 Completed [facility] DTAP 2004-10-06 00:00:00 Completed [facility] HIB 4 Dose Schedule 2004-10-06 00:00:00 Completed [facility] MMR 2004-10-06 00:00:00 Completed [facility] Pneumococcal 7 Conjugate, PCV7 (Prevnar7) 2004-10-06 00:00:00 Completed [facility] Varicella (varivax)(chicken pox) 2004-10-06 00:00:00 Completed [facility] DTAP 2004-10-06 00:00:00 Completed [facility] HIB 4 Dose Schedule 2004-10-06 00:00:00 Completed [facility] MMR 2004-10-06 00:00:00 Completed [facility] Pneumococcal 7 Conjugate, PCV7 (Prevnar7) 2004-10-06 00:00:00 Completed [facility] Varicella (varivax)(chicken pox) 2004-10-06 00:00:00 Completed [facility] DTAP 2004-10-06 00:00:00 Completed [facility] HIB 4 Dose Schedule 2004-10-06 00:00:00 Completed [facility] MMR 2004-10-06 00:00:00 Completed [facility] Pneumococcal 7 Conjugate, PCV7 (Prevnar7) 2004-10-06 00:00:00 Completed [facility] Varicella (varivax)(chicken pox) 2004-10-06 00:00:00 Completed [facility] DTAP 2004-10-06 00:00:00 Completed [facility] HIB 4 Dose Schedule 2004-10-06 00:00:00 Completed [facility] MMR 2004-10-06 00:00:00 Completed [facility] Pneumococcal 7 Conjugate, PCV7 (Prevnar7) 2004-10-06 00:00:00 Completed [facility] Varicella (varivax)(chicken pox) 2004-10-06 00:00:00 Completed [facility] DTAP 2004-10-06 00:00:00 Completed [facility] HIB 4 Dose Schedule 2004-10-06 00:00:00 Completed [facility] MMR 2004-10-06 00:00:00 Completed [facility] Pneumococcal 7 Conjugate, PCV7 (Prevnar7) 2004-10-06 00:00:00 Completed [facility] Varicella (varivax)(chicken pox) 2004-10-06 00:00:00 Completed [facility] DTAP 2004-10-06 00:00:00 Completed [facility] HIB 4 Dose Schedule 2004-10-06 00:00:00 Completed [facility] MMR 2004-10-06 00:00:00 Completed [facility] Pneumococcal 7 Conjugate, PCV7 (Prevnar7) 2004-10-06 00:00:00 Completed [facility] Varicella (varivax)(chicken pox) 2004-10-06 00:00:00 Completed [facility] DTAP 2004-10-06 00:00:00 Completed [facility] HIB 4 Dose Schedule 2004-10-06 00:00:00 Completed [facility] MMR 2004-10-06 00:00:00 Completed [facility] Pneumococcal 7 Conjugate, PCV7 (Prevnar7) 2004-10-06 00:00:00 Completed [facility] Varicella (varivax)(chicken pox) 2004-10-06 00:00:00 Completed [facility] DTAP 2004-10-06 00:00:00 Completed [facility] HIB 4 Dose Schedule 2004-10-06 00:00:00 Completed [facility] MMR 2004-10-06 00:00:00 Completed [facility] Pneumococcal 7 Conjugate, PCV7 (Prevnar7) 2004-10-06 00:00:00 Completed [facility] Varicella (varivax)(chicken pox) 2004-10-06 00:00:00 Completed [facility] DTAP 2004-10-06 00:00:00 Completed [facility] HIB 4 Dose Schedule 2004-10-06 00:00:00 Completed [facility] MMR 2004-10-06 00:00:00 Completed [facility] Pneumococcal 7 Conjugate, PCV7 (Prevnar7) 2004-10-06 00:00:00 Completed [facility] Varicella (varivax)(chicken pox) 2004-10-06 00:00:00 Completed [facility] DTAP 2004-10-06 00:00:00 Completed [facility] HIB 4 Dose Schedule 2004-10-06 00:00:00 Completed [facility] MMR 2004-10-06 00:00:00 Completed [facility] Pneumococcal 7 Conjugate, PCV7 (Prevnar7) 2004-10-06 00:00:00 Completed [facility] Varicella (varivax)(chicken pox) 2004-10-06 00:00:00 Completed [facility] DTAP 2004-10-06 00:00:00 Completed [facility] HIB 4 Dose Schedule 2004-10-06 00:00:00 Completed [facility] MMR 2004-10-06 00:00:00 Completed [facility] Pneumococcal 7 Conjugate, PCV7 (Prevnar7) 2004-10-06 00:00:00 Completed [facility] Varicella (varivax)(chicken pox) 2004-10-06 00:00:00 Completed [facility] DTAP 2004-10-06 00:00:00 Completed [facility] HIB 4 Dose Schedule 2004-10-06 00:00:00 Completed [facility] MMR 2004-10-06 00:00:00 Completed [facility] Pneumococcal 7 Conjugate, PCV7 (Prevnar7) 2004-10-06 00:00:00 Completed [facility] Varicella (varivax)(chicken pox) 2004-10-06 00:00:00 Completed [facility] DTAP 2004-10-06 00:00:00 Completed [facility] HIB 4 Dose Schedule 2004-10-06 00:00:00 Completed [facility] MMR 2004-10-06 00:00:00 Completed [facility] Pneumococcal 7 Conjugate, PCV7 (Prevnar7) 2004-10-06 00:00:00 Completed [facility] Varicella (varivax)(chicken pox) 2004-10-06 00:00:00 Completed [facility] DTAP 2004-10-06 00:00:00 Completed [facility] HIB 4 Dose Schedule 2004-10-06 00:00:00 Completed [facility] MMR 2004-10-06 00:00:00 Completed [facility] Pneumococcal 7 Conjugate, PCV7 (Prevnar7) 2004-10-06 00:00:00 Completed [facility] Varicella (varivax)(chicken pox) 2004-10-06 00:00:00 Completed [facility] DTAP 2004-10-06 00:00:00 Completed [facility] HIB 4 Dose Schedule 2004-10-06 00:00:00 Completed [facility] MMR 2004-10-06 00:00:00 Completed [facility] Pneumococcal 7 Conjugate, PCV7 (Prevnar7) 2004-10-06 00:00:00 Completed [facility] Varicella (varivax)(chicken pox) 2004-10-06 00:00:00 Completed [facility] DTAP 2004-10-06 00:00:00 Completed [facility] HIB 4 Dose Schedule 2004-10-06 00:00:00 Completed [facility] MMR 2004-10-06 00:00:00 Completed [facility] Pneumococcal 7 Conjugate, PCV7 (Prevnar7) 2004-10-06 00:00:00 Completed [facility] Varicella (varivax)(chicken pox) 2004-10-06 00:00:00 Completed [facility] DTAP 2004-10-06 00:00:00 Completed [facility] HIB 4 Dose Schedule 2004-10-06 00:00:00 Completed [facility] MMR 2004-10-06 00:00:00 Completed [facility] Pneumococcal 7 Conjugate, PCV7 (Prevnar7) 2004-10-06 00:00:00 Completed [facility] Varicella (varivax)(chicken pox) 2004-10-06 00:00:00 Completed [facility] DTAP 2004-10-06 00:00:00 Completed [facility] HIB 4 Dose Schedule 2004-10-06 00:00:00 Completed [facility] MMR 2004-10-06 00:00:00 Completed [facility] Pneumococcal 7 Conjugate, PCV7 (Prevnar7) 2004-10-06 00:00:00 Completed [facility] Varicella (varivax)(chicken pox) 2004-10-06 00:00:00 Completed [facility] DTAP 2004-10-06 00:00:00 Completed [facility] HIB 4 Dose Schedule 2004-10-06 00:00:00 Completed [facility] MMR 2004-10-06 00:00:00 Completed [facility] Pneumococcal 7 Conjugate, PCV7 (Prevnar7) 2004-10-06 00:00:00 Completed [facility] Varicella (varivax)(chicken pox) 2004-10-06 00:00:00 Completed [facility] DTAP 2004-10-06 00:00:00 Completed [facility] HIB 4 Dose Schedule 2004-10-06 00:00:00 Completed [facility] MMR 2004-10-06 00:00:00 Completed [facility] Pneumococcal 7 Conjugate, PCV7 (Prevnar7) 2004-10-06 00:00:00 Completed [facility] Varicella (varivax)(chicken pox) 2004-10-06 00:00:00 Completed [facility] DTAP 2004-10-06 00:00:00 Completed [facility] HIB 4 Dose Schedule 2004-10-06 00:00:00 Completed [facility] MMR 2004-10-06 00:00:00 Completed [facility] Pneumococcal 7 Conjugate, PCV7 (Prevnar7) 2004-10-06 00:00:00 Completed [facility] Varicella (varivax)(chicken pox) 2004-10-06 00:00:00 Completed [facility] DTAP 2004-10-06 00:00:00 Completed [facility] HIB 4 Dose Schedule 2004-10-06 00:00:00 Completed [facility] MMR 2004-10-06 00:00:00 Completed [facility] Pneumococcal 7 Conjugate, PCV7 (Prevnar7) 2004-10-06 00:00:00 Completed [facility] Varicella (varivax)(chicken pox) 2004-10-06 00:00:00 Completed [facility] DTAP 2004-10-06 00:00:00 Completed [facility] HIB 4 Dose Schedule 2004-10-06 00:00:00 Completed [facility] MMR 2004-10-06 00:00:00 Completed [facility] Pneumococcal 7 Conjugate, PCV7 (Prevnar7) 2004-10-06 00:00:00 Completed [facility] Varicella (varivax)(chicken pox) 2004-10-06 00:00:00 Completed [facility] DTAP 2004-10-06 00:00:00 Completed [facility] HIB 4 Dose Schedule 2004-10-06 00:00:00 Completed [facility] MMR 2004-10-06 00:00:00 Completed [facility] Pneumococcal 7 Conjugate, PCV7 (Prevnar7) 2004-10-06 00:00:00 Completed [facility] Varicella (varivax)(chicken pox) 2004-10-06 00:00:00 Completed [facility] DTAP 2004-10-06 00:00:00 Completed [facility] HIB 4 Dose Schedule 2004-10-06 00:00:00 Completed [facility] MMR 2004-10-06 00:00:00 Completed [facility] Pneumococcal 7 Conjugate, PCV7 (Prevnar7) 2004-10-06 00:00:00 Completed [facility] Varicella (varivax)(chicken pox) 2004-10-06 00:00:00 Completed [facility] DTAP 2004-10-06 00:00:00 Completed [facility] HIB 4 Dose Schedule 2004-10-06 00:00:00 Completed [facility] MMR 2004-10-06 00:00:00 Completed [facility] Pneumococcal 7 Conjugate, PCV7 (Prevnar7) 2004-10-06 00:00:00 Completed [facility] Varicella (varivax)(chicken pox) 2004-10-06 00:00:00 Completed [facility] DTAP 2004-10-06 00:00:00 Completed [facility] HIB 4 Dose Schedule 2004-10-06 00:00:00 Completed [facility] MMR 2004-10-06 00:00:00 Completed [facility] Pneumococcal 7 Conjugate, PCV7 (Prevnar7) 2004-10-06 00:00:00 Completed [facility] Varicella (varivax)(chicken pox) 2004-10-06 00:00:00 Completed [facility] DTAP 2004-10-06 00:00:00 Completed [facility] HIB 4 Dose Schedule 2004-10-06 00:00:00 Completed [facility] MMR 2004-10-06 00:00:00 Completed [facility] Pneumococcal 7 Conjugate, PCV7 (Prevnar7) 2004-10-06 00:00:00 Completed [facility] Varicella (varivax)(chicken pox) 2004-10-06 00:00:00 Completed [facility] DTAP 2004-10-06 00:00:00 Completed [facility] HIB 4 Dose Schedule 2004-10-06 00:00:00 Completed [facility] MMR 2004-10-06 00:00:00 Completed [facility] Pneumococcal 7 Conjugate, PCV7 (Prevnar7) 2004-10-06 00:00:00 Completed [facility] Varicella (varivax)(chicken pox) 2004-10-06 00:00:00 Completed [facility] DTAP 2004-10-06 00:00:00 Completed [facility] HIB 4 Dose Schedule 2004-10-06 00:00:00 Completed [facility] MMR 2004-10-06 00:00:00 Completed [facility] Pneumococcal 7 Conjugate, PCV7 (Prevnar7) 2004-10-06 00:00:00 Completed [facility] Varicella (varivax)(chicken pox) 2004-10-06 00:00:00 Completed [facility] DTAP 2004-10-06 00:00:00 Completed [facility] HIB 4 Dose Schedule 2004-10-06 00:00:00 Completed [facility] MMR 2004-10-06 00:00:00 Completed [facility] Pneumococcal 7 Conjugate, PCV7 (Prevnar7) 2004-10-06 00:00:00 Completed [facility] Varicella (varivax)(chicken pox) 2004-10-06 00:00:00 Completed [facility] DTAP 2004-10-06 00:00:00 Completed [facility] HIB 4 Dose Schedule 2004-10-06 00:00:00 Completed [facility] MMR 2004-10-06 00:00:00 Completed [facility] Pneumococcal 7 Conjugate, PCV7 (Prevnar7) 2004-10-06 00:00:00 Completed [facility] Varicella (varivax)(chicken pox) 2004-10-06 00:00:00 Completed [facility] DTAP 2004-10-06 00:00:00 Completed [facility] HIB 4 Dose Schedule 2004-10-06 00:00:00 Completed [facility] MMR 2004-10-06 00:00:00 Completed [facility] Pneumococcal 7 Conjugate, PCV7 (Prevnar7) 2004-10-06 00:00:00 Completed [facility] Varicella (varivax)(chicken pox) 2004-10-06 00:00:00 Completed [facility] DTAP 2004-10-06 00:00:00 Completed [facility] HIB 4 Dose Schedule 2004-10-06 00:00:00 Completed [facility] MMR 2004-10-06 00:00:00 Completed [facility] Pneumococcal 7 Conjugate, PCV7 (Prevnar7) 2004-10-06 00:00:00 Completed [facility] Varicella (varivax)(chicken pox) 2004-10-06 00:00:00 Completed [facility] DTAP 2004-10-06 00:00:00 Completed [facility] HIB 4 Dose Schedule 2004-10-06 00:00:00 Completed [facility] MMR 2004-10-06 00:00:00 Completed [facility] Pneumococcal 7 Conjugate, PCV7 (Prevnar7) 2004-10-06 00:00:00 Completed [facility] Varicella (varivax)(chicken pox) 2004-10-06 00:00:00 Completed [facility] DTAP 2004-10-06 00:00:00 Completed [facility] HIB 4 Dose Schedule 2004-10-06 00:00:00 Completed [facility] MMR 2004-10-06 00:00:00 Completed [facility] Pneumococcal 7 Conjugate, PCV7 (Prevnar7) 2004-10-06 00:00:00 Completed [facility] Varicella (varivax)(chicken pox) 2004-10-06 00:00:00 Completed [facility] DTaP, Unspecified Formulation 2004-10-06 00:00:00 Completed [facility] DTAP 2004-10-06 00:00:00 Completed [facility] HIB 4 Dose Schedule 2004-10-06 00:00:00 Completed [facility] MMR 2004-10-06 00:00:00 Completed [facility] Pneumococcal 7 Conjugate, PCV7 (Prevnar7) 2004-10-06 00:00:00 Completed [facility] Varicella (varivax)(chicken pox) 2004-10-06 00:00:00 Completed [facility] DTaP, Unspecified Formulation 2004-10-06 00:00:00 Completed [facility] DTAP 2004-10-06 00:00:00 Completed [facility] HIB 4 Dose Schedule 2004-10-06 00:00:00 Completed [facility] MMR 2004-10-06 00:00:00 Completed [facility] Pneumococcal 7 Conjugate, PCV7 (Prevnar7) 2004-10-06 00:00:00 Completed [facility] Varicella (varivax)(chicken pox) 2004-10-06 00:00:00 Completed [facility] DTaP, Unspecified Formulation 2004-10-06 00:00:00 Completed [facility] DTAP 2004-10-06 00:00:00 Completed [facility] HIB 4 Dose Schedule 2004-10-06 00:00:00 Completed [facility] MMR 2004-10-06 00:00:00 Completed [facility] Pneumococcal 7 Conjugate, PCV7 (Prevnar7) 2004-10-06 00:00:00 Completed [facility] Varicella (varivax)(chicken pox) 2004-10-06 00:00:00 Completed [facility] DTaP, Unspecified Formulation 2004-10-06 00:00:00 Completed [facility] DTAP 2004-10-06 00:00:00 Completed [facility] HIB 4 Dose Schedule 2004-10-06 00:00:00 Completed [facility] MMR 2004-10-06 00:00:00 Completed [facility] Pneumococcal 7 Conjugate, PCV7 (Prevnar7) 2004-10-06 00:00:00 Completed [facility] Varicella (varivax)(chicken pox) 2004-10-06 00:00:00 Completed [facility] DTaP, Unspecified Formulation 2004-10-06 00:00:00 Completed [facility] DTAP 2004-10-06 00:00:00 Completed [facility] HIB 4 Dose Schedule 2004-10-06 00:00:00 Completed [facility] MMR 2004-10-06 00:00:00 Completed [facility] Pneumococcal 7 Conjugate, PCV7 (Prevnar7) 2004-10-06 00:00:00 Completed [facility] Varicella (varivax)(chicken pox) 2004-10-06 00:00:00 Completed [facility] DTaP, Unspecified Formulation 2004-10-06 00:00:00 Completed [facility] DTAP 2004-10-06 00:00:00 Completed [facility] HIB 4 Dose Schedule 2004-10-06 00:00:00 Completed [facility] MMR 2004-10-06 00:00:00 Completed [facility] Pneumococcal 7 Conjugate, PCV7 (Prevnar7) 2004-10-06 00:00:00 Completed [facility] Varicella (varivax)(chicken pox) 2004-10-06 00:00:00 Completed [facility] DTaP, Unspecified Formulation 2004-10-06 00:00:00 Completed [facility] DTAP 2004-10-06 00:00:00 Completed [facility] HIB 4 Dose Schedule 2004-10-06 00:00:00 Completed [facility] MMR 2004-10-06 00:00:00 Completed [facility] Pneumococcal 7 Conjugate, PCV7 (Prevnar7) 2004-10-06 00:00:00 Completed [facility] Varicella (varivax)(chicken pox) 2004-10-06 00:00:00 Completed [facility] DTaP, Unspecified Formulation 2004-10-06 00:00:00 Completed [facility] DTAP 2004-10-06 00:00:00 Completed [facility] HIB 4 Dose Schedule 2004-10-06 00:00:00 Completed [facility] MMR 2004-10-06 00:00:00 Completed [facility] Pneumococcal 7 Conjugate, PCV7 (Prevnar7) 2004-10-06 00:00:00 Completed [facility] Varicella (varivax)(chicken pox) 2004-10-06 00:00:00 Completed [facility] DTaP, Unspecified Formulation 2004-10-06 00:00:00 Completed [facility] DTAP 2004-10-06 00:00:00 Completed [facility] HIB 4 Dose Schedule 2004-10-06 00:00:00 Completed [facility] MMR 2004-10-06 00:00:00 Completed [facility] Pneumococcal 7 Conjugate, PCV7 (Prevnar7) 2004-10-06 00:00:00 Completed [facility] Varicella (varivax)(chicken pox) 2004-10-06 00:00:00 Completed [facility] DTaP, Unspecified Formulation 2004-10-06 00:00:00 Completed [facility] DTAP 2004-10-06 00:00:00 Completed [facility] HIB 4 Dose Schedule 2004-10-06 00:00:00 Completed [facility] MMR 2004-10-06 00:00:00 Completed [facility] Pneumococcal 7 Conjugate, PCV7 (Prevnar7) 2004-10-06 00:00:00 Completed [facility] Varicella (varivax)(chicken pox) 2004-10-06 00:00:00 Completed [facility] DTaP, Unspecified Formulation 2004-10-06 00:00:00 Completed [facility] DTAP 2004-10-06 00:00:00 Completed [facility] HIB 4 Dose Schedule 2004-10-06 00:00:00 Completed [facility] MMR 2004-10-06 00:00:00 Completed [facility] Pneumococcal 7 Conjugate, PCV7 (Prevnar7) 2004-10-06 00:00:00 Completed [facility] Varicella (varivax)(chicken pox) 2004-10-06 00:00:00 Completed [facility] DTaP, Unspecified Formulation 2004-10-06 00:00:00 Completed [facility] DTAP 2003 00:00:00 Completed [facility] HIB 4 Dose Schedule 2003 00:00:00 Completed [facility] Hep B, Adol or Pedi Dosage 2003 00:00:00 Completed [facility] Pneumococcal 7 Conjugate, PCV7 (Prevnar7) 2003 00:00:00 Completed [facility] Polio (IPV/OPV) 2003 00:00:00 Completed [facility] DTAP 2003 00:00:00 Completed [facility] HIB 4 Dose Schedule 2003 00:00:00 Completed [facility] Hep B, Adol or Pedi Dosage 2003 00:00:00 Completed [facility] Pneumococcal 7 Conjugate, PCV7 (Prevnar7) 2003 00:00:00 Completed [facility] Polio (IPV/OPV) 2003 00:00:00 Completed [facility] DTAP 2003 00:00:00 Completed [facility] HIB 4 Dose Schedule 2003 00:00:00 Completed [facility] Hep B, Adol or Pedi Dosage 2003 00:00:00 Completed [facility] Pneumococcal 7 Conjugate, PCV7 (Prevnar7) 2003 00:00:00 Completed [facility] Polio (IPV/OPV) 2003 00:00:00 Completed [facility] DTAP 2003 00:00:00 Completed [facility] HIB 4 Dose Schedule 2003 00:00:00 Completed [facility] Hep B, Adol or Pedi Dosage 2003 00:00:00 Completed [facility] Pneumococcal 7 Conjugate, PCV7 (Prevnar7) 2003 00:00:00 Completed [facility] Polio (IPV/OPV) 2003 00:00:00 Completed [facility] DTAP 2003 00:00:00 Completed [facility] HIB 4 Dose Schedule 2003 00:00:00 Completed [facility] Hep B, Adol or Pedi Dosage 2003 00:00:00 Completed [facility] Pneumococcal 7 Conjugate, PCV7 (Prevnar7) 2003 00:00:00 Completed [facility] Polio (IPV/OPV) 2003 00:00:00 Completed [facility] DTAP 2003 00:00:00 Completed [facility] HIB 4 Dose Schedule 2003 00:00:00 Completed [facility] Hep B, Adol or Pedi Dosage 2003 00:00:00 Completed [facility] Pneumococcal 7 Conjugate, PCV7 (Prevnar7) 2003 00:00:00 Completed [facility] Polio (IPV/OPV) 2003 00:00:00 Completed [facility] DTAP 2003 00:00:00 Completed [facility] HIB 4 Dose Schedule 2003 00:00:00 Completed [facility] Hep B, Adol or Pedi Dosage 2003 00:00:00 Completed [facility] Pneumococcal 7 Conjugate, PCV7 (Prevnar7) 2003 00:00:00 Completed [facility] Polio (IPV/OPV) 2003 00:00:00 Completed [facility] DTAP 2003 00:00:00 Completed [facility] HIB 4 Dose Schedule 2003 00:00:00 Completed [facility] Hep B, Adol or Pedi Dosage 2003 00:00:00 Completed [facility] Pneumococcal 7 Conjugate, PCV7 (Prevnar7) 2003 00:00:00 Completed [facility] Polio (IPV/OPV) 2003 00:00:00 Completed [facility] DTAP 2003 00:00:00 Completed [facility] HIB 4 Dose Schedule 2003 00:00:00 Completed [facility] Hep B, Adol or Pedi Dosage 2003 00:00:00 Completed [facility] Pneumococcal 7 Conjugate, PCV7 (Prevnar7) 2003 00:00:00 Completed [facility] Polio (IPV/OPV) 2003 00:00:00 Completed [facility] DTAP 2003 00:00:00 Completed [facility] HIB 4 Dose Schedule 2003 00:00:00 Completed [facility] Hep B, Adol or Pedi Dosage 2003 00:00:00 Completed [facility] Pneumococcal 7 Conjugate, PCV7 (Prevnar7) 2003 00:00:00 Completed [facility] Polio (IPV/OPV) 2003 00:00:00 Completed [facility] DTAP 2003 00:00:00 Completed [facility] HIB 4 Dose Schedule 2003 00:00:00 Completed [facility] Hep B, Adol or Pedi Dosage 2003 00:00:00 Completed [facility] Pneumococcal 7 Conjugate, PCV7 (Prevnar7) 2003 00:00:00 Completed [facility] Polio (IPV/OPV) 2003 00:00:00 Completed [facility] DTAP 2003 00:00:00 Completed [facility] HIB 4 Dose Schedule 2003 00:00:00 [facility] [facility] Hep B, Adol or Pedi Dosage 2003 00:00:00 Completed [facility] Pneumococcal 7 Conjugate, PCV7 (Prevnar7) 2003 00:00:00 Completed [facility] Polio (IPV/OPV) 2003 00:00:00 Completed [facility] DTAP 2003 00:00:00 Completed [facility] HIB 4 Dose Schedule 2003 00:00:00 Completed [facility] Hep B, Adol or Pedi Dosage 2003 00:00:00 Completed [facility] Pneumococcal 7 Conjugate, PCV7 (Prevnar7) 2003 00:00:00 Completed [facility] Polio (IPV/OPV) 2003 00:00:00 Completed [facility] DTAP 2003 00:00:00 Completed [facility] HIB 4 Dose Schedule 2003 00:00:00 Completed [facility] Hep B, Adol or Pedi Dosage 2003 00:00:00 Completed [facility] Pneumococcal 7 Conjugate, PCV7 (Prevnar7) 2003 00:00:00 Completed [facility] Polio (IPV/OPV) 2003 00:00:00 Completed [facility] DTAP 2003 00:00:00 Completed [facility] HIB 4 Dose Schedule 2003 00:00:00 Completed [facility] Hep B, Adol or Pedi Dosage 2003 00:00:00 Completed [facility] Pneumococcal 7 Conjugate, PCV7 (Prevnar7) 2003 00:00:00 Completed [facility] Polio (IPV/OPV) 2003 00:00:00 Completed [facility] DTAP 2003 00:00:00 Completed [facility] HIB 4 Dose Schedule 2003 00:00:00 Completed [facility] Hep B, Adol or Pedi Dosage 2003 00:00:00 Completed [facility] Pneumococcal 7 Conjugate, PCV7 (Prevnar7) 2003 00:00:00 Completed [facility] Polio (IPV/OPV) 2003 00:00:00 Completed [facility] DTAP 2003 00:00:00 Completed [facility] HIB 4 Dose Schedule 2003 00:00:00 Completed [facility] Hep B, Adol or Pedi Dosage 2003 00:00:00 Completed [facility] Pneumococcal 7 Conjugate, PCV7 (Prevnar7) 2003 00:00:00 Completed [facility] Polio (IPV/OPV) 2003 00:00:00 Completed [facility] DTAP 2003 00:00:00 Completed [facility] HIB 4 Dose Schedule 2003 00:00:00 Completed [facility] Hep B, Adol or Pedi Dosage 2003 00:00:00 Completed [facility] Pneumococcal 7 Conjugate, PCV7 (Prevnar7) 2003 00:00:00 Completed [facility] Polio (IPV/OPV) 2003 00:00:00 Completed [facility] DTAP 2003 00:00:00 Completed [facility] HIB 4 Dose Schedule 2003 00:00:00 Completed [facility] Hep B, Adol or Pedi Dosage 2003 00:00:00 Completed [facility] Pneumococcal 7 Conjugate, PCV7 (Prevnar7) 2003 00:00:00 Completed [facility] Polio (IPV/OPV) 2003 00:00:00 Completed [facility] DTAP 2003 00:00:00 Completed [facility] HIB 4 Dose Schedule 2003 00:00:00 Completed [facility] Hep B, Adol or Pedi Dosage 2003 00:00:00 Completed [facility] Pneumococcal 7 Conjugate, PCV7 (Prevnar7) 2003 00:00:00 Completed [facility] Polio (IPV/OPV) 2003 00:00:00 Completed [facility] DTAP 2003 00:00:00 Completed [facility] HIB 4 Dose Schedule 2003 00:00:00 Completed [facility] Hep B, Adol or Pedi Dosage 2003 00:00:00 Completed [facility] Pneumococcal 7 Conjugate, PCV7 (Prevnar7) 2003 00:00:00 Completed [facility] Polio (IPV/OPV) 2003 00:00:00 Completed [facility] DTAP 2003 00:00:00 Completed [facility] HIB 4 Dose Schedule 2003 00:00:00 Completed [facility] Hep B, Adol or Pedi Dosage 2003 00:00:00 Completed [facility] Pneumococcal 7 Conjugate, PCV7 (Prevnar7) 2003 00:00:00 Completed [facility] Polio (IPV/OPV) 2003 00:00:00 Completed [facility] DTAP 2003 00:00:00 Completed [facility] HIB 4 Dose Schedule 2003 00:00:00 Completed [facility] Hep B, Adol or Pedi Dosage 2003 00:00:00 Completed [facility] Pneumococcal 7 Conjugate, PCV7 (Prevnar7) 2003 00:00:00 Completed [facility] Polio (IPV/OPV) 2003 00:00:00 Completed [facility] DTAP 2003 00:00:00 Completed [facility] HIB 4 Dose Schedule 2003 00:00:00 Completed [facility] Hep B, Adol or Pedi Dosage 2003 00:00:00 Completed [facility] Pneumococcal 7 Conjugate, PCV7 (Prevnar7) 2003 00:00:00 Completed [facility] Polio (IPV/OPV) 2003 00:00:00 Completed [facility] DTAP 2003 00:00:00 Completed [facility] HIB 4 Dose Schedule 2003 00:00:00 Completed [facility] Hep B, Adol or Pedi Dosage 2003 00:00:00 Completed [facility] Pneumococcal 7 Conjugate, PCV7 (Prevnar7) 2003 00:00:00 Completed [facility] Polio (IPV/OPV) 2003 00:00:00 Completed [facility] DTAP 2003 00:00:00 Completed [facility] HIB 4 Dose Schedule 2003 00:00:00 Completed [facility] Hep B, Adol or Pedi Dosage 2003 00:00:00 Completed [facility] Pneumococcal 7 Conjugate, PCV7 (Prevnar7) 2003 00:00:00 Completed [facility] Polio (IPV/OPV) 2003 00:00:00 Completed [facility] DTAP 2003 00:00:00 Completed [facility] HIB 4 Dose Schedule 2003 00:00:00 Completed [facility] Hep B, Adol or Pedi Dosage 2003 00:00:00 Completed [facility] Pneumococcal 7 Conjugate, PCV7 (Prevnar7) 2003 00:00:00 Completed [facility] Polio (IPV/OPV) 2003 00:00:00 Completed [facility] DTAP 2003 00:00:00 Completed [facility] HIB 4 Dose Schedule 2003 00:00:00 Completed [facility] Hep B, Adol or Pedi Dosage 2003 00:00:00 Completed [facility] Pneumococcal 7 Conjugate, PCV7 (Prevnar7) 2003 00:00:00 Completed [facility] Polio (IPV/OPV) 2003 00:00:00 Completed [facility] DTAP 2003 00:00:00 Completed [facility] HIB 4 Dose Schedule 2003 00:00:00 Completed [facility] Hep B, Adol or Pedi Dosage 2003 00:00:00 Completed [facility] Pneumococcal 7 Conjugate, PCV7 (Prevnar7) 2003 00:00:00 Completed [facility] Polio (IPV/OPV) 2003 00:00:00 Completed [facility] DTAP 2003 00:00:00 Completed [facility] HIB 4 Dose Schedule 2003 00:00:00 Completed [facility] Hep B, Adol or Pedi Dosage 2003 00:00:00 Completed [facility] Pneumococcal 7 Conjugate, PCV7 (Prevnar7) 2003 00:00:00 Completed [facility] Polio (IPV/OPV) 2003 00:00:00 Completed [facility] DTAP 2003 00:00:00 Completed [facility] HIB 4 Dose Schedule 2003 00:00:00 Completed [facility] Hep B, Adol or Pedi Dosage 2003 00:00:00 Completed [facility] Pneumococcal 7 Conjugate, PCV7 (Prevnar7) 2003 00:00:00 Completed [facility] Polio (IPV/OPV) 2003 00:00:00 Completed [facility] DTAP 2003 00:00:00 Completed [facility] HIB 4 Dose Schedule 2003 00:00:00 Completed [facility] Hep B, Adol or Pedi Dosage 2003 00:00:00 Completed [facility] Pneumococcal 7 Conjugate, PCV7 (Prevnar7) 2003 00:00:00 Completed [facility] Polio (IPV/OPV) 2003 00:00:00 Completed [facility] DTAP 2003 00:00:00 Completed [facility] HIB 4 Dose Schedule 2003 00:00:00 Completed [facility] Hep B, Adol or Pedi Dosage 2003 00:00:00 Completed [facility] Pneumococcal 7 Conjugate, PCV7 (Prevnar7) 2003 00:00:00 Completed [facility] Polio (IPV/OPV) 2003 00:00:00 Completed [facility] DTAP 2003 00:00:00 Completed [facility] HIB 4 Dose Schedule 2003 00:00:00 Completed [facility] Hep B, Adol or Pedi Dosage 2003 00:00:00 Completed [facility] Pneumococcal 7 Conjugate, PCV7 (Prevnar7) 2003 00:00:00 Completed [facility] Polio (IPV/OPV) 2003 00:00:00 Completed [facility] DTAP 2003 00:00:00 Completed [facility] HIB 4 Dose Schedule 2003 00:00:00 Completed [facility] Hep B, Adol or Pedi Dosage 2003 00:00:00 Completed [facility] Pneumococcal 7 Conjugate, PCV7 (Prevnar7) 2003 00:00:00 Completed [facility] Polio (IPV/OPV) 2003 00:00:00 Completed [facility] DTAP 2003 00:00:00 Completed [facility] HIB 4 Dose Schedule 2003 00:00:00 Completed [facility] Hep B, Adol or Pedi Dosage 2003 00:00:00 Completed [facility] Pneumococcal 7 Conjugate, PCV7 (Prevnar7) 2003 00:00:00 Completed [facility] Polio (IPV/OPV) 2003 00:00:00 Completed [facility] DTAP 2003 00:00:00 Completed [facility] HIB 4 Dose Schedule 2003 00:00:00 Completed [facility] Hep B, Adol or Pedi Dosage 2003 00:00:00 Completed [facility] Pneumococcal 7 Conjugate, PCV7 (Prevnar7) 2003 00:00:00 Completed [facility] Polio (IPV/OPV) 2003 00:00:00 Completed [facility] DTAP 2003 00:00:00 Completed [facility] HIB 4 Dose Schedule 2003 00:00:00 Completed [facility] Hep B, Adol or Pedi Dosage 2003 00:00:00 Completed [facility] Pneumococcal 7 Conjugate, PCV7 (Prevnar7) 2003 00:00:00 Completed [facility] Polio (IPV/OPV) 2003 00:00:00 Completed [facility] DTAP 2003 00:00:00 Completed [facility] HIB 4 Dose Schedule 2003 00:00:00 Completed [facility] Hep B, Adol or Pedi Dosage 2003 00:00:00 Completed [facility] Pneumococcal 7 Conjugate, PCV7 (Prevnar7) 2003 00:00:00 Completed [facility] Polio (IPV/OPV) 2003 00:00:00 Completed [facility] DTAP 2003 00:00:00 Completed [facility] HIB 4 Dose Schedule 2003 00:00:00 Completed [facility] Hep B, Adol or Pedi Dosage 2003 00:00:00 Completed [facility] Pneumococcal 7 Conjugate, PCV7 (Prevnar7) 2003 00:00:00 Completed [facility] Polio (IPV/OPV) 2003 00:00:00 Completed [facility] DTAP 2003 00:00:00 Completed [facility] HIB 4 Dose Schedule 2003 00:00:00 Completed [facility] Hep B, Adol or Pedi Dosage 2003 00:00:00 Completed [facility] Pneumococcal 7 Conjugate, PCV7 (Prevnar7) 2003 00:00:00 Completed [facility] Polio (IPV/OPV) 2003 00:00:00 Completed [facility] DTAP 2003 00:00:00 Completed [facility] HIB 4 Dose Schedule 2003 00:00:00 Completed [facility] Hep B, Adol or Pedi Dosage 2003 00:00:00 Completed [facility] Pneumococcal 7 Conjugate, PCV7 (Prevnar7) 2003 00:00:00 Completed [facility] Polio (IPV/OPV) 2003 00:00:00 Completed [facility] DTAP 2003 00:00:00 Completed [facility] HIB 4 Dose Schedule 2003 00:00:00 Completed [facility] Hep B, Adol or Pedi Dosage 2003 00:00:00 Completed [facility] Pneumococcal 7 Conjugate, PCV7 (Prevnar7) 2003 00:00:00 Completed [facility] Polio (IPV/OPV) 2003 00:00:00 Completed [facility] DTAP 2003 00:00:00 Completed [facility] HIB 4 Dose Schedule 2003 00:00:00 Completed [facility] Hep B, Adol or Pedi Dosage 2003 00:00:00 Completed [facility] Pneumococcal 7 Conjugate, PCV7 (Prevnar7) 2003 00:00:00 Completed [facility] Polio (IPV/OPV) 2003 00:00:00 Completed [facility] DTAP 2003 00:00:00 Completed [facility] HIB 4 Dose Schedule 2003 00:00:00 Completed [facility] Hep B, Adol or Pedi Dosage 2003 00:00:00 Completed [facility] Pneumococcal 7 Conjugate, PCV7 (Prevnar7) 2003 00:00:00 Completed [facility] Polio (IPV/OPV) 2003 00:00:00 Completed [facility] DTAP 2003 00:00:00 Completed [facility] HIB 4 Dose Schedule 2003 00:00:00 Completed [facility] Hep B, Adol or Pedi Dosage 2003 00:00:00 Completed [facility] Pneumococcal 7 Conjugate, PCV7 (Prevnar7) 2003 00:00:00 Completed [facility] Polio (IPV/OPV) 2003 00:00:00 Completed [facility] DTAP 2003 00:00:00 Completed [facility] HIB 4 Dose Schedule 2003 00:00:00 Completed [facility] Hep B, Adol or Pedi Dosage 2003 00:00:00 Completed [facility] Pneumococcal 7 Conjugate, PCV7 (Prevnar7) 2003 00:00:00 Completed [facility] Polio (IPV/OPV) 2003 00:00:00 Completed [facility] DTAP 2003 00:00:00 Completed [facility] HIB 4 Dose Schedule 2003 00:00:00 Completed [facility] Hep B, Adol or Pedi Dosage 2003 00:00:00 Completed [facility] Pneumococcal 7 Conjugate, PCV7 (Prevnar7) 2003 00:00:00 Completed [facility] Polio (IPV/OPV) 2003 00:00:00 Completed [facility] DTAP 2003 00:00:00 Completed [facility] HIB 4 Dose Schedule 2003 00:00:00 Completed [facility] Hep B, Adol or Pedi Dosage 2003 00:00:00 Completed [facility] Pneumococcal 7 Conjugate, PCV7 (Prevnar7) 2003 00:00:00 Completed [facility] Polio (IPV/OPV) 2003 00:00:00 Completed [facility] DTAP 2003 00:00:00 Completed [facility] HIB 4 Dose Schedule 2003 00:00:00 Completed [facility] Hep B, Adol or Pedi Dosage 2003 00:00:00 Completed [facility] Pneumococcal 7 Conjugate, PCV7 (Prevnar7) 2003 00:00:00 Completed [facility] Polio (IPV/OPV) 2003 00:00:00 Completed [facility] DTAP 2003 00:00:00 Completed [facility] HIB 4 Dose Schedule 2003 00:00:00 Completed [facility] Hep B, Adol or Pedi Dosage 2003 00:00:00 Completed [facility] Pneumococcal 7 Conjugate, PCV7 (Prevnar7) 2003 00:00:00 Completed [facility] Polio (IPV/OPV) 2003 00:00:00 Completed [facility] DTAP 2003 00:00:00 Completed [facility] HIB 4 Dose Schedule 2003 00:00:00 Completed [facility] Hep B, Adol or Pedi Dosage 2003 00:00:00 Completed [facility] Pneumococcal 7 Conjugate, PCV7 (Prevnar7) 2003 00:00:00 Completed [facility] Polio (IPV/OPV) 2003 00:00:00 Completed [facility] DTAP 2003 00:00:00 Completed [facility] HIB 4 Dose Schedule 2003 00:00:00 Completed [facility] Hep B, Adol or Pedi Dosage 2003 00:00:00 Completed [facility] Pneumococcal 7 Conjugate, PCV7 (Prevnar7) 2003 00:00:00 Completed [facility] Polio (IPV/OPV) 2003 00:00:00 Completed [facility] DTAP 2003 00:00:00 Completed [facility] HIB 4 Dose Schedule 2003 00:00:00 Completed [facility] Hep B, Adol or Pedi Dosage 2003 00:00:00 Completed [facility] Pneumococcal 7 Conjugate, PCV7 (Prevnar7) 2003 00:00:00 Completed [facility] Polio (IPV/OPV) 2003 00:00:00 Completed [facility] DTAP 2003 00:00:00 Completed [facility] HIB 4 Dose Schedule 2003 00:00:00 Completed [facility] Hep B, Adol or Pedi Dosage 2003 00:00:00 Completed [facility] Pneumococcal 7 Conjugate, PCV7 (Prevnar7) 2003 00:00:00 Completed [facility] Polio (IPV/OPV) 2003 00:00:00 Completed [facility] DTaP, Unspecified Formulation 2003 00:00:00 Completed [facility] IPV 2003 00:00:00 Completed [facility] DTAP 2003 00:00:00 Completed [facility] HIB 4 Dose Schedule 2003 00:00:00 Completed [facility] Hep B, Adol or Pedi Dosage 2003 00:00:00 Completed [facility] Pneumococcal 7 Conjugate, PCV7 (Prevnar7) 2003 00:00:00 Completed [facility] Polio (IPV/OPV) 2003 00:00:00 Completed [facility] DTaP, Unspecified Formulation 2003 00:00:00 Completed [facility] IPV 2003 00:00:00 Completed [facility] DTAP 2003 00:00:00 Completed [facility] HIB 4 Dose Schedule 2003 00:00:00 Completed [facility] Hep B, Adol or Pedi Dosage 2003 00:00:00 Completed [facility] Pneumococcal 7 Conjugate, PCV7 (Prevnar7) 2003 00:00:00 Completed [facility] Polio (IPV/OPV) 2003 00:00:00 Completed [facility] DTaP, Unspecified Formulation 2003 00:00:00 Completed [facility] IPV 2003 00:00:00 Completed [facility] DTAP 2003 00:00:00 Completed [facility] HIB 4 Dose Schedule 2003 00:00:00 Completed [facility] Hep B, Adol or Pedi Dosage 2003 00:00:00 Completed [facility] Pneumococcal 7 Conjugate, PCV7 (Prevnar7) 2003 00:00:00 Completed [facility] Polio (IPV/OPV) 2003 00:00:00 Completed [facility] DTaP, Unspecified Formulation 2003 00:00:00 Completed [facility] IPV 2003 00:00:00 Completed [facility] DTAP 2003 00:00:00 Completed [facility] HIB 4 Dose Schedule 2003 00:00:00 Completed [facility] Hep B, Adol or Pedi Dosage 2003 00:00:00 Completed [facility] Pneumococcal 7 Conjugate, PCV7 (Prevnar7) 2003 00:00:00 Completed [facility] Polio (IPV/OPV) 2003 00:00:00 Completed [facility] DTaP, Unspecified Formulation 2003 00:00:00 Completed [facility] IPV 2003 00:00:00 Completed [facility] DTAP 2003 00:00:00 Completed [facility] HIB 4 Dose Schedule 2003 00:00:00 Completed [facility] Hep B, Adol or Pedi Dosage 2003 00:00:00 Completed [facility] Pneumococcal 7 Conjugate, PCV7 (Prevnar7) 2003 00:00:00 Completed [facility] Polio (IPV/OPV) 2003 00:00:00 Completed [facility] DTaP, Unspecified Formulation 2003 00:00:00 Completed [facility] IPV 2003 00:00:00 Completed [facility] DTAP 2003 00:00:00 Completed [place] [facility] HIB 4 Dose Schedule 2003 00:00:00 Completed [facility] Hep B, Adol or Pedi Dosage 2003 00:00:00 Completed [facility] Pneumococcal 7 Conjugate, PCV7 (Prevnar7) 2003 00:00:00 Completed [facility] Polio (IPV/OPV) 2003 00:00:00 Completed [facility] DTaP, Unspecified Formulation 2003 00:00:00 Completed [facility] IPV 2003 00:00:00 Completed [facility] DTAP 2003 00:00:00 Completed [facility] HIB 4 Dose Schedule 2003 00:00:00 Completed [facility] Hep B, Adol or Pedi Dosage 2003 00:00:00 Completed [facility] Pneumococcal 7 Conjugate, PCV7 (Prevnar7) 2003 00:00:00 Completed [facility] Polio (IPV/OPV) 2003 00:00:00 Completed [facility] DTaP, Unspecified Formulation 2003 00:00:00 Completed [facility] IPV 2003 00:00:00 Completed [facility] DTAP 2003 00:00:00 Completed [facility] HIB 4 Dose Schedule 2003 00:00:00 Completed [facility] Hep B, Adol or Pedi Dosage 2003 00:00:00 Completed [facility] Pneumococcal 7 Conjugate, PCV7 (Prevnar7) 2003 00:00:00 Completed [facility] Polio (IPV/OPV) 2003 00:00:00 Completed [facility] DTaP, Unspecified Formulation 2003 00:00:00 Completed [facility] IPV 2003 00:00:00 Completed [facility] DTAP 2003 00:00:00 Completed [facility] HIB 4 Dose Schedule 2003 00:00:00 Completed [facility] Hep B, Adol or Pedi Dosage 2003 00:00:00 Completed [facility] Pneumococcal 7 Conjugate, PCV7 (Prevnar7) 2003 00:00:00 Completed [facility] Polio (IPV/OPV) 2003 00:00:00 Completed [facility] DTaP, Unspecified Formulation 2003 00:00:00 Completed [facility] IPV 2003 00:00:00 Completed [facility] DTAP 2003 00:00:00 Completed [facility] HIB 4 Dose Schedule 2003 00:00:00 Completed [facility] Hep B, Adol or Pedi Dosage 2003 00:00:00 Completed [facility] Pneumococcal 7 Conjugate, PCV7 (Prevnar7) 2003 00:00:00 Completed [facility] Polio (IPV/OPV) 2003 00:00:00 Completed [facility] DTaP, Unspecified Formulation 2003 00:00:00 Completed [facility] IPV 2003 00:00:00 Completed [facility] DTAP 2003 00:00:00 Completed [facility] HIB 4 Dose Schedule 2003 00:00:00 Completed [facility] Hep B, Adol or Pedi Dosage 2003 00:00:00 Completed [facility] Pneumococcal 7 Conjugate, PCV7 (Prevnar7) 2003 00:00:00 Completed [facility] Polio (IPV/OPV) 2003 00:00:00 Completed [facility] DTaP, Unspecified Formulation 2003 00:00:00 Completed [facility] IPV 2003 00:00:00 Completed [facility] DTAP 2003 00:00:00 Completed [facility] HIB 4 Dose Schedule 2003 00:00:00 Completed [facility] Pneumococcal 7 Conjugate, PCV7 (Prevnar7) 2003 00:00:00 Completed [facility] Polio (IPV/OPV) 2003 00:00:00 Completed [facility] DTaP, Unspecified Formulation 2003 00:00:00 Completed [facility] IPV 2003 00:00:00 Completed [facility] DTaP, Unspecified Formulation 2003 00:00:00 Completed [facility] IPV 2003 00:00:00 Completed [facility] DTaP, Unspecified Formulation 2003 00:00:00 Completed [facility] IPV 2003 00:00:00 Completed [facility] DTaP, Unspecified Formulation 2003 00:00:00 Completed [facility] IPV 2003 00:00:00 Completed [facility] DTaP, Unspecified Formulation 2003 00:00:00 Completed [facility] IPV 2003 00:00:00 Completed [facility] DTaP, Unspecified Formulation 2003 00:00:00 Completed [facility] IPV 2003 00:00:00 Completed [facility] DTaP, Unspecified Formulation 2003 00:00:00 Completed [facility] IPV 2003 00:00:00 Completed [facility] DTaP, Unspecified Formulation 2003 00:00:00 Completed [facility] IPV 2003 00:00:00 Completed [facility] DTaP, Unspecified Formulation 2003 00:00:00 Completed [facility] IPV 2003 00:00:00 Completed [facility] DTaP, Unspecified Formulation 2003 00:00:00 Completed [facility] IPV 2003 00:00:00 Completed [facility] DTaP, Unspecified Formulation 2003 00:00:00 Completed [facility] IPV 2003 00:00:00 Completed [facility] DTaP, Unspecified Formulation 2003 00:00:00 Completed [facility] IPV 2003 00:00:00 Completed [facility] DTAP 2003 00:00:00 Completed [facility] HIB 4 Dose Schedule 2003 00:00:00 Completed [facility] Hep B, Adol or Pedi Dosage 2003 00:00:00 Completed [facility] Pneumococcal 7 Conjugate, PCV7 (Prevnar7) 2003 00:00:00 Completed [facility] Polio (IPV/OPV) 2003 00:00:00 Completed [facility] DTAP 2003 00:00:00 Completed [facility] HIB 4 Dose Schedule 2003 00:00:00 Completed [facility] Hep B, Adol or Pedi Dosage 2003 00:00:00 Completed [facility] Pneumococcal 7 Conjugate, PCV7 (Prevnar7) 2003 00:00:00 Completed [facility] Polio (IPV/OPV) 2003 00:00:00 Completed [facility] DTAP 2003 00:00:00 Completed [facility] HIB 4 Dose Schedule 2003 00:00:00 Completed [facility] Hep B, Adol or Pedi Dosage 2003 00:00:00 Completed [facility] Pneumococcal 7 Conjugate, PCV7 (Prevnar7) 2003 00:00:00 Completed [facility] Polio (IPV/OPV) 2003 00:00:00 Completed [facility] DTAP 2003 00:00:00 Completed [facility] HIB 4 Dose Schedule 2003 00:00:00 Completed [facility] Hep B, Adol or Pedi Dosage 2003 00:00:00 Completed [facility] Pneumococcal 7 Conjugate, PCV7 (Prevnar7) 2003 00:00:00 Completed [facility] Polio (IPV/OPV) 2003 00:00:00 Completed [facility] DTAP 2003 00:00:00 Completed [facility] HIB 4 Dose Schedule 2003 00:00:00 Completed [facility] Hep B, Adol or Pedi Dosage 2003 00:00:00 Completed [facility] Pneumococcal 7 Conjugate, PCV7 (Prevnar7) 2003 00:00:00 Completed [facility] Polio (IPV/OPV) 2003 00:00:00 Completed [facility] DTAP 2003 00:00:00 Completed [facility] HIB 4 Dose Schedule 2003 00:00:00 Completed [facility] Hep B, Adol or Pedi Dosage 2003 00:00:00 Completed [facility] Pneumococcal 7 Conjugate, PCV7 (Prevnar7) 2003 00:00:00 Completed [facility] Polio (IPV/OPV) 2003 00:00:00 Completed [facility] DTAP 2003 00:00:00 Completed [facility] HIB 4 Dose Schedule 2003 00:00:00 Completed [facility] Hep B, Adol or Pedi Dosage 2003 00:00:00 Completed [facility] Pneumococcal 7 Conjugate, PCV7 (Prevnar7) 2003 00:00:00 Completed [facility] Polio (IPV/OPV) 2003 00:00:00 Completed [facility] DTAP 2003 00:00:00 Completed [facility] HIB 4 Dose Schedule 2003 00:00:00 Completed [facility] Hep B, Adol or Pedi Dosage 2003 00:00:00 Completed [facility] Pneumococcal 7 Conjugate, PCV7 (Prevnar7) 2003 00:00:00 Completed [facility] Polio (IPV/OPV) 2003 00:00:00 Completed [facility] DTAP 2003 00:00:00 Completed [facility] HIB 4 Dose Schedule 2003 00:00:00 Completed [facility] Hep B, Adol or Pedi Dosage 2003 00:00:00 Completed [facility] Pneumococcal 7 Conjugate, PCV7 (Prevnar7) 2003 00:00:00 Completed [facility] Polio (IPV/OPV) 2003 00:00:00 Completed [facility] DTAP 2003 00:00:00 Completed [facility] HIB 4 Dose Schedule 2003 00:00:00 Completed [facility] Hep B, Adol or Pedi Dosage 2003 00:00:00 Completed [facility] Pneumococcal 7 Conjugate, PCV7 (Prevnar7) 2003 00:00:00 Completed [facility] Polio (IPV/OPV) 2003 00:00:00 Completed [facility] DTAP 2003 00:00:00 Completed [facility] HIB 4 Dose Schedule 2003 00:00:00 Completed [facility] Hep B, Adol or Pedi Dosage 2003 00:00:00 Completed [facility] Pneumococcal 7 Conjugate, PCV7 (Prevnar7) 2003 00:00:00 Completed [facility] Polio (IPV/OPV) 2003 00:00:00 Completed [facility] DTAP 2003 00:00:00 Completed [facility] HIB 4 Dose Schedule 2003 00:00:00 Completed [facility] Hep B, Adol or Pedi Dosage 2003 00:00:00 Completed [facility] Pneumococcal 7 Conjugate, PCV7 (Prevnar7) 2003 00:00:00 Completed [facility] Polio (IPV/OPV) 2003 00:00:00 Completed [facility] DTAP 2003 00:00:00 Completed [facility] HIB 4 Dose Schedule 2003 00:00:00 Completed [facility] Hep B, Adol or Pedi Dosage 2003 00:00:00 Completed [facility] Pneumococcal 7 Conjugate, PCV7 (Prevnar7) 2003 00:00:00 Completed [facility] Polio (IPV/OPV) 2003 00:00:00 Completed [facility] DTAP 2003 00:00:00 Completed [facility] HIB 4 Dose Schedule 2003 00:00:00 Completed [facility] Hep B, Adol or Pedi Dosage 2003 00:00:00 Completed [facility] Pneumococcal 7 Conjugate, PCV7 (Prevnar7) 2003 00:00:00 Completed [facility] Polio (IPV/OPV) 2003 00:00:00 Completed [facility] DTAP 2003 00:00:00 Completed [facility] HIB 4 Dose Schedule 2003 00:00:00 Completed [facility] Hep B, Adol or Pedi Dosage 2003 00:00:00 Completed [facility] Pneumococcal 7 Conjugate, PCV7 (Prevnar7) 2003 00:00:00 Completed [facility] Polio (IPV/OPV) 2003 00:00:00 Completed [facility] DTAP 2003 00:00:00 Completed [facility] HIB 4 Dose Schedule 2003 00:00:00 Completed [facility] Hep B, Adol or Pedi Dosage 2003 00:00:00 Completed [facility] Pneumococcal 7 Conjugate, PCV7 (Prevnar7) 2003 00:00:00 Completed [facility] Polio (IPV/OPV) 2003 00:00:00 Completed [facility] DTAP 2003 00:00:00 Completed [facility] HIB 4 Dose Schedule 2003 00:00:00 Completed [facility] Hep B, Adol or Pedi Dosage 2003 00:00:00 Completed [facility] Pneumococcal 7 Conjugate, PCV7 (Prevnar7) 2003 00:00:00 Completed [facility] Polio (IPV/OPV) 2003 00:00:00 Completed [facility] DTAP 2003 00:00:00 Completed [facility] HIB 4 Dose Schedule 2003 00:00:00 Completed [facility] Hep B, Adol or Pedi Dosage 2003 00:00:00 Completed [facility] Pneumococcal 7 Conjugate, PCV7 (Prevnar7) 2003 00:00:00 Completed [facility] Polio (IPV/OPV) 2003 00:00:00 Completed [facility] DTAP 2003 00:00:00 Completed [facility] HIB 4 Dose Schedule 2003 00:00:00 Completed [facility] Hep B, Adol or Pedi Dosage 2003 00:00:00 Completed [facility] Pneumococcal 7 Conjugate, PCV7 (Prevnar7) 2003 00:00:00 Completed [facility] Polio (IPV/OPV) 2003 00:00:00 Completed [facility] DTAP 2003 00:00:00 Completed [facility] HIB 4 Dose Schedule 2003 00:00:00 Completed [facility] Hep B, Adol or Pedi Dosage 2003 00:00:00 Completed [facility] Pneumococcal 7 Conjugate, PCV7 (Prevnar7) 2003 00:00:00 Completed [facility] Polio (IPV/OPV) 2003 00:00:00 Completed [facility] DTAP 2003 00:00:00 Completed [facility] HIB 4 Dose Schedule 2003 00:00:00 Completed [facility] Hep B, Adol or Pedi Dosage 2003 00:00:00 Completed [facility] Pneumococcal 7 Conjugate, PCV7 (Prevnar7) 2003 00:00:00 Completed [facility] Polio (IPV/OPV) 2003 00:00:00 Completed [facility] DTAP 2003 00:00:00 Completed [facility] HIB 4 Dose Schedule 2003 00:00:00 Completed [facility] Hep B, Adol or Pedi Dosage 2003 00:00:00 Completed [facility] Pneumococcal 7 Conjugate, PCV7 (Prevnar7) 2003 00:00:00 Completed [facility] Polio (IPV/OPV) 2003 00:00:00 Completed [facility] DTAP 2003 00:00:00 Completed [facility] HIB 4 Dose Schedule 2003 00:00:00 Completed [facility] Hep B, Adol or Pedi Dosage 2003 00:00:00 Completed [facility] Pneumococcal 7 Conjugate, PCV7 (Prevnar7) 2003 00:00:00 Completed [facility] Polio (IPV/OPV) 2003 00:00:00 Completed [facility] DTAP 2003 00:00:00 Completed [facility] HIB 4 Dose Schedule 2003 00:00:00 Completed [facility] Hep B, Adol or Pedi Dosage 2003 00:00:00 Completed [facility] Pneumococcal 7 Conjugate, PCV7 (Prevnar7) 2003 00:00:00 Completed [facility] Polio (IPV/OPV) 2003 00:00:00 Completed [facility] DTAP 2003 00:00:00 Completed [facility] HIB 4 Dose Schedule 2003 00:00:00 Completed [facility] Hep B, Adol or Pedi Dosage 2003 00:00:00 Completed [facility] Pneumococcal 7 Conjugate, PCV7 (Prevnar7) 2003 00:00:00 Completed [facility] Polio (IPV/OPV) 2003 00:00:00 Completed [facility] DTAP 2003 00:00:00 Completed [facility] HIB 4 Dose Schedule 2003 00:00:00 Completed [facility] Hep B, Adol or Pedi Dosage 2003 00:00:00 Completed [facility] Pneumococcal 7 Conjugate, PCV7 (Prevnar7) 2003 00:00:00 Completed [facility] Polio (IPV/OPV) 2003 00:00:00 Completed [facility] DTAP 2003 00:00:00 Completed [facility] HIB 4 Dose Schedule 2003 00:00:00 Completed [facility] Hep B, Adol or Pedi Dosage 2003 00:00:00 Completed [facility] Pneumococcal 7 Conjugate, PCV7 (Prevnar7) 2003 00:00:00 Completed [facility] Polio (IPV/OPV) 2003 00:00:00 Completed [facility] DTAP 2003 00:00:00 Completed [facility] HIB 4 Dose Schedule 2003 00:00:00 Completed [facility] Hep B, Adol or Pedi Dosage 2003 00:00:00 Completed [facility] Pneumococcal 7 Conjugate, PCV7 (Prevnar7) 2003 00:00:00 Completed [facility] Polio (IPV/OPV) 2003 00:00:00 Completed [facility] DTAP 2003 00:00:00 Completed [facility] HIB 4 Dose Schedule 2003 00:00:00 Completed [facility] Hep B, Adol or Pedi Dosage 2003 00:00:00 Completed [facility] Pneumococcal 7 Conjugate, PCV7 (Prevnar7) 2003 00:00:00 Completed [facility] Polio (IPV/OPV) 2003 00:00:00 Completed [facility] DTAP 2003 00:00:00 Completed [facility] HIB 4 Dose Schedule 2003 00:00:00 Completed [facility] Hep B, Adol or Pedi Dosage 2003 00:00:00 Completed [facility] Pneumococcal 7 Conjugate, PCV7 (Prevnar7) 2003 00:00:00 Completed [facility] Polio (IPV/OPV) 2003 00:00:00 Completed [facility] DTAP 2003 00:00:00 Completed [facility] HIB 4 Dose Schedule 2003 00:00:00 Completed [facility] Hep B, Adol or Pedi Dosage 2003 00:00:00 Completed [facility] Pneumococcal 7 Conjugate, PCV7 (Prevnar7) 2003 00:00:00 Completed [facility] Polio (IPV/OPV) 2003 00:00:00 Completed [facility] DTAP 2003 00:00:00 Completed [facility] HIB 4 Dose Schedule 2003 00:00:00 Completed [facility] Hep B, Adol or Pedi Dosage 2003 00:00:00 Completed [facility] Pneumococcal 7 Conjugate, PCV7 (Prevnar7) 2003 00:00:00 Completed [facility] Polio (IPV/OPV) 2003 00:00:00 Completed [facility] DTAP 2003 00:00:00 Completed [facility] HIB 4 Dose Schedule 2003 00:00:00 Completed [facility] Hep B, Adol or Pedi Dosage 2003 00:00:00 Completed [facility] Pneumococcal 7 Conjugate, PCV7 (Prevnar7) 2003 00:00:00 Completed [facility] Polio (IPV/OPV) 2003 00:00:00 Completed [facility] DTAP 2003 00:00:00 Completed [facility] HIB 4 Dose Schedule 2003 00:00:00 Completed [facility] Hep B, Adol or Pedi Dosage 2003 00:00:00 Completed [facility] Pneumococcal 7 Conjugate, PCV7 (Prevnar7) 2003 00:00:00 Completed [facility] Polio (IPV/OPV) 2003 00:00:00 Completed [facility] DTAP 2003 00:00:00 Completed [facility] HIB 4 Dose Schedule 2003 00:00:00 Completed [facility] Hep B, Adol or Pedi Dosage 2003 00:00:00 Completed [facility] Pneumococcal 7 Conjugate, PCV7 (Prevnar7) 2003 00:00:00 Completed [facility] Polio (IPV/OPV) 2003 00:00:00 Completed [facility] DTAP 2003 00:00:00 Completed [facility] HIB 4 Dose Schedule 2003 00:00:00 Completed [facility] Hep B, Adol or Pedi Dosage 2003 00:00:00 Completed [facility] Pneumococcal 7 Conjugate, PCV7 (Prevnar7) 2003 00:00:00 Completed [facility] Polio (IPV/OPV) 2003 00:00:00 Completed [facility] DTAP 2003 00:00:00 Completed [facility] HIB 4 Dose Schedule 2003 00:00:00 Completed [facility] Hep B, Adol or Pedi Dosage 2003 00:00:00 Completed [facility] Pneumococcal 7 Conjugate, PCV7 (Prevnar7) 2003 00:00:00 Completed [facility] Polio (IPV/OPV) 2003 00:00:00 Completed [facility] DTAP 2003 00:00:00 Completed [facility] HIB 4 Dose Schedule 2003 00:00:00 Completed [facility] Hep B, Adol or Pedi Dosage 2003 00:00:00 [facility] [facility] Pneumococcal 7 Conjugate, PCV7 (Prevnar7) 2003 00:00:00 Completed [facility] Polio (IPV/OPV) 2003 00:00:00 Completed [facility] DTAP 2003 00:00:00 Completed [facility] HIB 4 Dose Schedule 2003 00:00:00 Completed [facility] Hep B, Adol or Pedi Dosage 2003 00:00:00 Completed [facility] Pneumococcal 7 Conjugate, PCV7 (Prevnar7) 2003 00:00:00 Completed [facility] Polio (IPV/OPV) 2003 00:00:00 Completed [facility] DTAP 2003 00:00:00 Completed [facility] HIB 4 Dose Schedule 2003 00:00:00 Completed [facility] Hep B, Adol or Pedi Dosage 2003 00:00:00 Completed [facility] Pneumococcal 7 Conjugate, PCV7 (Prevnar7) 2003 00:00:00 Completed [facility] Polio (IPV/OPV) 2003 00:00:00 Completed [facility] DTAP 2003 00:00:00 Completed [facility] HIB 4 Dose Schedule 2003 00:00:00 Completed [facility] Hep B, Adol or Pedi Dosage 2003 00:00:00 Completed [facility] Pneumococcal 7 Conjugate, PCV7 (Prevnar7) 2003 00:00:00 Completed [facility] Polio (IPV/OPV) 2003 00:00:00 Completed [facility] DTAP 2003 00:00:00 Completed [facility] HIB 4 Dose Schedule 2003 00:00:00 Completed [facility] Hep B, Adol or Pedi Dosage 2003 00:00:00 Completed [facility] Pneumococcal 7 Conjugate, PCV7 (Prevnar7) 2003 00:00:00 Completed [facility] Polio (IPV/OPV) 2003 00:00:00 Completed [facility] DTAP 2003 00:00:00 Completed [facility] HIB 4 Dose Schedule 2003 00:00:00 Completed [facility] Hep B, Adol or Pedi Dosage 2003 00:00:00 Completed [facility] Pneumococcal 7 Conjugate, PCV7 (Prevnar7) 2003 00:00:00 Completed [facility] Polio (IPV/OPV) 2003 00:00:00 Completed [facility] DTAP 2003 00:00:00 Completed [facility] HIB 4 Dose Schedule 2003 00:00:00 Completed [facility] Hep B, Adol or Pedi Dosage 2003 00:00:00 Completed [facility] Pneumococcal 7 Conjugate, PCV7 (Prevnar7) 2003 00:00:00 Completed [facility] Polio (IPV/OPV) 2003 00:00:00 Completed [facility] DTAP 2003 00:00:00 Completed [facility] HIB 4 Dose Schedule 2003 00:00:00 Completed [facility] Hep B, Adol or Pedi Dosage 2003 00:00:00 Completed [facility] Pneumococcal 7 Conjugate, PCV7 (Prevnar7) 2003 00:00:00 Completed [facility] Polio (IPV/OPV) 2003 00:00:00 Completed [facility] DTAP 2003 00:00:00 Completed [facility] HIB 4 Dose Schedule 2003 00:00:00 Completed [facility] Hep B, Adol or Pedi Dosage 2003 00:00:00 Completed [facility] Pneumococcal 7 Conjugate, PCV7 (Prevnar7) 2003 00:00:00 Completed [facility] Polio (IPV/OPV) 2003 00:00:00 Completed [facility] DTAP 2003 00:00:00 Completed [facility] HIB 4 Dose Schedule 2003 00:00:00 Completed [facility] Hep B, Adol or Pedi Dosage 2003 00:00:00 Completed [facility] Pneumococcal 7 Conjugate, PCV7 (Prevnar7) 2003 00:00:00 Completed [facility] Polio (IPV/OPV) 2003 00:00:00 Completed [facility] DTAP 2003 00:00:00 Completed [facility] HIB 4 Dose Schedule 2003 00:00:00 Completed [facility] Hep B, Adol or Pedi Dosage 2003 00:00:00 Completed [facility] Pneumococcal 7 Conjugate, PCV7 (Prevnar7) 2003 00:00:00 Completed [facility] Polio (IPV/OPV) 2003 00:00:00 Completed [facility] DTAP 2003 00:00:00 Completed [facility] HIB 4 Dose Schedule 2003 00:00:00 Completed [facility] Hep B, Adol or Pedi Dosage 2003 00:00:00 Completed [facility] Pneumococcal 7 Conjugate, PCV7 (Prevnar7) 2003 00:00:00 Completed [facility] Polio (IPV/OPV) 2003 00:00:00 Completed [facility] DTAP 2003 00:00:00 Completed [facility] HIB 4 Dose Schedule 2003 00:00:00 Completed [facility] Hep B, Adol or Pedi Dosage 2003 00:00:00 Completed [facility] Pneumococcal 7 Conjugate, PCV7 (Prevnar7) 2003 00:00:00 Completed [facility] Polio (IPV/OPV) 2003 00:00:00 Completed [facility] DTAP 2003 00:00:00 Completed [facility] HIB 4 Dose Schedule 2003 00:00:00 Completed [facility] Hep B, Adol or Pedi Dosage 2003 00:00:00 Completed [facility] Pneumococcal 7 Conjugate, PCV7 (Prevnar7) 2003 00:00:00 Completed [facility] Polio (IPV/OPV) 2003 00:00:00 Completed [facility] DTAP 2003 00:00:00 Completed [facility] HIB 4 Dose Schedule 2003 00:00:00 Completed [facility] Hep B, Adol or Pedi Dosage 2003 00:00:00 Completed [facility] Pneumococcal 7 Conjugate, PCV7 (Prevnar7) 2003 00:00:00 Completed [facility] Polio (IPV/OPV) 2003 00:00:00 Completed [facility] DTAP 2003 00:00:00 Completed [facility] HIB 4 Dose Schedule 2003 00:00:00 Completed [facility] Hep B, Adol or Pedi Dosage 2003 00:00:00 Completed [facility] [place] Pneumococcal 7 Conjugate, PCV7 (Prevnar7) 2003 00:00:00 Completed [facility] Polio (IPV/OPV) 2003 00:00:00 Completed [facility] DTAP 2003 00:00:00 Completed [facility] HIB 4 Dose Schedule 2003 00:00:00 Completed [facility] Hep B, Adol or Pedi Dosage 2003 00:00:00 Completed [facility] [place] Pneumococcal 7 Conjugate, PCV7 (Prevnar7) 2003 00:00:00 Completed [facility] [place] Polio (IPV/OPV) 2003 00:00:00 Completed [facility] DTAP 2003 00:00:00 Completed [facility] HIB 4 Dose Schedule 2003 00:00:00 Completed [facility] Hep B, Adol or Pedi Dosage 2003 00:00:00 Completed [facility] Pneumococcal 7 Conjugate, PCV7 (Prevnar7) 2003 00:00:00 Completed [facility] Polio (IPV/OPV) 2003 00:00:00 Completed [facility] DTaP, Unspecified Formulation 2003 00:00:00 Completed [facility] IPV 2003 00:00:00 Completed [facility] DTAP 2003 00:00:00 Completed [facility] HIB 4 Dose Schedule 2003 00:00:00 Completed [facility] Hep B, Adol or Pedi Dosage 2003 00:00:00 Completed [facility] Pneumococcal 7 Conjugate, PCV7 (Prevnar7) 2003 00:00:00 Completed [facility] Polio (IPV/OPV) 2003 00:00:00 Completed [facility] DTaP, Unspecified Formulation 2003 00:00:00 Completed [facility] IPV 2003 00:00:00 Completed [facility] DTAP 2003 00:00:00 Completed [facility] HIB 4 Dose Schedule 2003 00:00:00 Completed [facility] Hep B, Adol or Pedi Dosage 2003 00:00:00 Completed [facility] [place] Pneumococcal 7 Conjugate, PCV7 (Prevnar7) 2003 00:00:00 Completed [facility] Polio (IPV/OPV) 2003 00:00:00 Completed [facility] DTaP, Unspecified Formulation 2003 00:00:00 Completed [facility] IPV 2003 00:00:00 Completed [facility] DTAP 2003 00:00:00 Completed [facility] [place] HIB 4 Dose Schedule 2003 00:00:00 Completed [facility] Hep B, Adol or Pedi Dosage 2003 00:00:00 Completed [facility] Pneumococcal 7 Conjugate, PCV7 (Prevnar7) 2003 00:00:00 Completed [facility] Polio (IPV/OPV) 2003 00:00:00 Completed [facility] DTaP, Unspecified Formulation 2003 00:00:00 Completed [facility] IPV 2003 00:00:00 Completed [facility] DTAP 2003 00:00:00 Completed [facility] [place] HIB 4 Dose Schedule 2003 00:00:00 Completed [facility] Hep B, Adol or Pedi Dosage 2003 00:00:00 Completed [facility] [place] Pneumococcal 7 Conjugate, PCV7 (Prevnar7) 2003 00:00:00 Completed [facility] Polio (IPV/OPV) 2003 00:00:00 Completed [facility] DTaP, Unspecified Formulation 2003 00:00:00 Completed [facility] IPV 2003 00:00:00 Completed [facility] DTAP 2003 00:00:00 Completed [facility] [place] HIB 4 Dose Schedule 2003 00:00:00 Completed [facility] Hep B, Adol or Pedi Dosage 2003 00:00:00 Completed [facility] [place] Pneumococcal 7 Conjugate, PCV7 (Prevnar7) 2003 00:00:00 Completed [facility] [place] Polio (IPV/OPV) 2003 00:00:00 Completed [facility] DTaP, Unspecified Formulation 2003 00:00:00 Completed [facility] IPV 2003 00:00:00 Completed [facility] DTAP 2003 00:00:00 Completed [facility] [place] HIB 4 Dose Schedule 2003 00:00:00 Completed [facility] [place] Hep B, Adol or Pedi Dosage 2003 00:00:00 Completed [facility] [place] Pneumococcal 7 Conjugate, PCV7 (Prevnar7) 2003 00:00:00 Completed [facility] [place] Polio (IPV/OPV) 2003 00:00:00 Completed [facility] DTaP, Unspecified Formulation 2003 00:00:00 Completed [facility] IPV 2003 00:00:00 Completed [facility] DTAP 2003 00:00:00 Completed [facility] [place] HIB 4 Dose Schedule 2003 00:00:00 Completed [facility] [place] Hep B, Adol or Pedi Dosage 2003 00:00:00 Completed [facility] Pneumococcal 7 Conjugate, PCV7 (Prevnar7) 2003 00:00:00 Completed [facility] Polio (IPV/OPV) 2003 00:00:00 Completed [facility] DTaP, Unspecified Formulation 2003 00:00:00 Completed [facility] IPV 2003 00:00:00 Completed [facility] DTAP 2003 00:00:00 Completed [facility] HIB 4 Dose Schedule 2003 00:00:00 Completed [facility] [place] Hep B, Adol or Pedi Dosage 2003 00:00:00 Completed [facility] Pneumococcal 7 Conjugate, PCV7 (Prevnar7) 2003 00:00:00 Completed [facility] Polio (IPV/OPV) 2003 00:00:00 Completed [facility] DTaP, Unspecified Formulation 2003 00:00:00 Completed [facility] IPV 2003 00:00:00 Completed [facility] DTAP 2003 00:00:00 Completed [facility] HIB 4 Dose Schedule 2003 00:00:00 Completed [facility] Hep B, Adol or Pedi Dosage 2003 00:00:00 Completed [facility] Pneumococcal 7 Conjugate, PCV7 (Prevnar7) 2003 00:00:00 Completed [facility] Polio (IPV/OPV) 2003 00:00:00 Completed [facility] DTaP, Unspecified Formulation 2003 00:00:00 Completed [facility] IPV 2003 00:00:00 Completed [facility] DTAP 2003 00:00:00 Completed [facility] HIB 4 Dose Schedule 2003 00:00:00 Completed [facility] Hep B, Adol or Pedi Dosage 2003 00:00:00 Completed [facility] Pneumococcal 7 Conjugate, PCV7 (Prevnar7) 2003 00:00:00 Completed [facility] Polio (IPV/OPV) 2003 00:00:00 Completed [facility] DTaP, Unspecified Formulation 2003 00:00:00 Completed [facility] IPV 2003 00:00:00 Completed [facility] DTAP 2003 00:00:00 Completed [facility] HIB 4 Dose Schedule 2003 00:00:00 Completed [facility] Hep B, Adol or Pedi Dosage 2003 00:00:00 Completed [facility] Pneumococcal 7 Conjugate, PCV7 (Prevnar7) 2003 00:00:00 Completed [facility] Polio (IPV/OPV) 2003 00:00:00 Completed [facility] DTaP, Unspecified Formulation 2003 00:00:00 Completed [facility] [place] IPV 2003 00:00:00 Completed [facility] Hep B, Adol or Pedi Dosage 2003 00:00:00 Completed [facility] Hep B, Adol or Pedi Dosage 2003 00:00:00 Completed [facility] Hep B, Adol or Pedi Dosage 2003 00:00:00 Completed [facility] Hep B, Adol or Pedi Dosage 2003 00:00:00 Completed [facility] Hep B, Adol or Pedi Dosage 2003 00:00:00 Completed [facility] [place] Hep B, Adol or Pedi Dosage 2003 00:00:00 Completed [facility] Hep B, Adol or Pedi Dosage 2003 00:00:00 Completed [facility] [place] Hep B, Adol or Pedi Dosage 2003 00:00:00 Completed [facility] [place] Hep B, Adol or Pedi Dosage 2003 00:00:00 Completed [facility] [place] Hep B, Adol or Pedi Dosage 2003 00:00:00 Completed [facility] Hep B, Adol or Pedi Dosage 2003 00:00:00 Completed [facility] Hep B, Adol or Pedi Dosage 2003 00:00:00 Completed [facility] [place] Hep B, Adol or Pedi Dosage 2003 00:00:00 Completed [facility] [place] Hep B, Adol or Pedi Dosage 2003 00:00:00 Completed [facility] [place] Hep B, Adol or Pedi Dosage 2003 00:00:00 Completed [facility] [place] Hep B, Adol or Pedi Dosage 2003 00:00:00 Completed [facility] [place] Hep B, Adol or Pedi Dosage 2003 00:00:00 Completed [facility] [place] Hep B, Adol or Pedi Dosage 2003 00:00:00 Completed [facility] [place] Hep B, Adol or Pedi Dosage 2003 00:00:00 Completed [facility] Hep B, Adol or Pedi Dosage 2003 00:00:00 Completed [facility] Hep B, Adol or Pedi Dosage 2003 00:00:00 Completed [facility] Hep B, Adol or Pedi Dosage 2003 00:00:00 Completed [facility] Hep B, Adol or Pedi Dosage 2003 00:00:00 Completed [facility] [place] Hep B, Adol or Pedi Dosage 2003 00:00:00 Completed [facility] Hep B, Adol or Pedi Dosage 2003 00:00:00 Completed [facility] [place] Hep B, Adol or Pedi Dosage 2003 00:00:00 Completed [facility] Hep B, Adol or Pedi Dosage 2003 00:00:00 Completed [facility] [place] Hep B, Adol or Pedi Dosage 2003 00:00:00 Completed [facility] Hep B, Adol or Pedi Dosage 2003 00:00:00 Completed [facility] Hep B, Adol or Pedi Dosage 2003 00:00:00 Completed [facility] Hep B, Adol or Pedi Dosage 2003 00:00:00 Completed [facility] [place] Hep B, Adol or Pedi Dosage 2003 00:00:00 Completed [facility] [place] Hep B, Adol or Pedi Dosage 2003 00:00:00 Completed [facility] [place] Hep B, Adol or Pedi Dosage 2003 00:00:00 Completed [facility] [place] Hep B, Adol or Pedi Dosage 2003 00:00:00 Completed [facility] [place] Hep B, Adol or Pedi Dosage 2003 00:00:00 Completed [facility] Hep B, Adol or Pedi Dosage 2003 00:00:00 Completed [facility] Hep B, Adol or Pedi Dosage 2003 00:00:00 Completed [facility] Hep B, Adol or Pedi Dosage 2003 00:00:00 Completed [facility] Hep B, Adol or Pedi Dosage 2003 00:00:00 Completed [facility] [place] Hep B, Adol or Pedi Dosage 2003 00:00:00 Completed [facility] Hep B, Adol or Pedi Dosage 2003 00:00:00 Completed [facility] Hep B, Adol or Pedi Dosage 2003 00:00:00 Completed [facility] Hep B, Adol or Pedi Dosage 2003 00:00:00 Completed [facility] Hep B, Adol or Pedi Dosage 2003 00:00:00 Completed [facility] Hep B, Adol or Pedi Dosage 2003 00:00:00 Completed [facility] [place] Hep B, Adol or Pedi Dosage 2003 00:00:00 Completed [facility] Hep B, Adol or Pedi Dosage 2003 00:00:00 Completed [facility] Hep B, Adol or Pedi Dosage 2003 00:00:00 Completed [facility] [place] Hep B, Adol or Pedi Dosage 2003 00:00:00 Completed [facility] Hep B, Adol or Pedi Dosage 2003 00:00:00 Completed [facility] Hep B, Adol or Pedi Dosage 2003 00:00:00 Completed [facility] [place] Hep B, Adol or Pedi Dosage 2003 00:00:00 Completed [facility] Hep B, Adol or Pedi Dosage 2003 00:00:00 Completed [facility] Hep B, Adol or Pedi Dosage 2003 00:00:00 Completed [facility] Hep B, Adol or Pedi Dosage 2003 00:00:00 Completed [facility] Hep B, Adol or Pedi Dosage 2003 00:00:00 Completed [facility] Hep B, Adol or Pedi Dosage 2003 00:00:00 Completed [facility] Hep B, Adol or Pedi Dosage 2003 00:00:00 Completed [facility] [place] Hep B, Adol or Pedi Dosage 2003 00:00:00 Completed [facility] [place] Hep B, Adol or Pedi Dosage 2003 00:00:00 Completed [facility] [place] Hep B, Adol or Pedi Dosage 2003 00:00:00 Completed [facility] Hep B, Adol or Pedi Dosage 2003 00:00:00 Completed [facility] [place] Hep B, Adol or Pedi Dosage 2003 00:00:00 Completed [facility] [place] Hep B, Adol or Pedi Dosage 2003 00:00:00 Completed [facility] Hep B, Adol or Pedi Dosage 2003 00:00:00 Completed [facility] [place] DTAP Unknown Completed [facility] DTAP Unknown Completed [facility] [place] DTAP Unknown Completed [facility] [place] HIB 4 Dose Schedule Unknown Completed [facility] [place] HIB 4 Dose Schedule Unknown Completed [facility] HIB 4 Dose Schedule Unknown Completed [facility] [place] Hep B, Adol or Pedi Dosage Unknown Completed [facility] [place] Hep B, Adol or Pedi Dosage Unknown Completed [facility] [place] Hep B, Adol or Pedi Dosage Unknown Completed [facility] MMR Unknown Completed [facility] [place] Pneumococcal 7 Conjugate, PCV7 (Prevnar7) Unknown Completed [facility] [place] Pneumococcal 7 Conjugate, PCV7 (Prevnar7) Unknown Completed [facility] [place] Pneumococcal 7 Conjugate, PCV7 (Prevnar7) Unknown Completed [facility] [place] Polio (IPV/OPV) Unknown Completed [facility] Polio (IPV/OPV) Unknown Completed [facility] Varicella (varivax)(chicken pox) Unknown Completed [facility] HEPATITIS A Unknown Completed [facility] HEPATITIS A Unknown Completed [facility] DTAP Unknown Completed [facility] MMR Unknown Completed [facility] [place] Polio (IPV/OPV) Unknown Completed [facility] Varicella (varivax)(chicken pox) Unknown Completed [facility] [place] DTAP Unknown Completed [facility] [place] MMR Unknown Completed [facility] Polio (IPV/OPV) Unknown Completed [facility] Varicella (varivax)(chicken pox) Unknown Completed [facility] TDAP Unknown Completed [facility] Meningococcal Oligosaccharide (groups A, C, Y and W-135) conjugate vaccine (MCV4O) Unknown Completed [facility] Influenza Virus Vaccine Quad .5 mL IM 6+ MO (FLUZONE/FLULAVAL/FLU ARIX) Unknown Completed [facility] Meningococcal Polysaccharide (groups A, C, Y and W-135) conjugate vaccine (MCV4P) Unknown Completed [facility] Meningococcal B, OMV Unknown Completed [facility] DTaP, Unspecified Formulation Unknown Completed [facility] DTaP, Unspecified Formulation Unknown Completed [facility] DTaP, Unspecified Formulation Unknown Completed [facility] DTaP, Unspecified Formulation Unknown Completed [facility] DTaP, Unspecified Formulation Unknown Completed [facility] DTaP, Unspecified Formulation Unknown Completed [facility] Meningococcal Polysaccharide (groups A, C, Y and W-135) conjugate vaccine (MCV4P) Unknown Completed [facility] IPV Unknown Completed [facility] IPV Unknown Completed [facility] IPV Unknown Completed [facility] IPV Unknown Completed [facility] IPV Unknown Completed [facility] DTAP Unknown Completed [facility] DTAP Unknown Completed [facility] DTAP Unknown Completed [facility] HIB 4 Dose Schedule Unknown Completed [facility] HIB 4 Dose Schedule Unknown Completed [facility] HIB 4 Dose Schedule Unknown Completed [facility] Hep B, Adol or Pedi Dosage Unknown Completed [facility] Hep B, Adol or Pedi Dosage Unknown Completed [facility] Hep B, Adol or Pedi Dosage Unknown Completed [facility] MMR Unknown Completed [facility] Pneumococcal 7 Conjugate, PCV7 (Prevnar7) Unknown Completed [facility] Pneumococcal 7 Conjugate, PCV7 (Prevnar7) Unknown Completed [facility] Pneumococcal 7 Conjugate, PCV7 (Prevnar7) Unknown Completed [facility] Polio (IPV/OPV) Unknown Completed [facility] Polio (IPV/OPV) Unknown Completed [facility] Varicella (varivax)(chicken pox) Unknown Completed [facility] HEPATITIS A Unknown Completed [facility] HEPATITIS A Unknown Completed [facility] DTAP Unknown Completed [facility] MMR Unknown Completed [facility] Polio (IPV/OPV) Unknown Completed [facility] Varicella (varivax)(chicken pox) Unknown Completed [facility] DTAP Unknown Completed [facility] MMR Unknown Completed [facility] Polio (IPV/OPV) Unknown Completed [facility] Varicella (varivax)(chicken pox) Unknown Completed [facility] TDAP Unknown Completed [facility] Meningococcal Oligosaccharide (groups A, C, Y and W-135) conjugate vaccine (MCV4O) Unknown Completed [facility] Influenza Virus Vaccine Quad .5 mL IM 6+ MO (FLUZONE/FLULAVAL/FLU ARIX) Unknown Completed [facility] Meningococcal Polysaccharide (groups A, C, Y and W-135) conjugate vaccine (MCV4P) Unknown Completed [facility] Meningococcal B, OMV Unknown Completed [facility] DTaP, Unspecified Formulation Unknown Completed [facility] DTaP, Unspecified Formulation Unknown Completed [facility] DTaP, Unspecified Formulation Unknown Completed [facility] DTaP, Unspecified Formulation Unknown Completed [facility] DTaP, Unspecified Formulation Unknown Completed [facility] DTaP, Unspecified Formulation Unknown Completed [facility] Meningococcal Polysaccharide (groups A, C, Y and W-135) conjugate vaccine (MCV4P) Unknown Completed [facility] IPV Unknown Completed [facility] IPV Unknown Completed [facility] IPV Unknown Completed [facility] IPV Unknown Completed [facility] IPV Unknown Completed [facility] DTAP Unknown Completed [facility] DTAP Unknown Completed [facility] DTAP Unknown Completed [facility] HIB 4 Dose Schedule Unknown Completed [facility] HIB 4 Dose Schedule Unknown Completed [facility] HIB 4 Dose Schedule Unknown Completed [facility] Hep B, Adol or Pedi Dosage Unknown Completed [facility] Hep B, Adol or Pedi Dosage Unknown Completed [facility] Hep B, Adol or Pedi Dosage Unknown Completed [facility] MMR Unknown Completed [facility] Pneumococcal 7 Conjugate, PCV7 (Prevnar7) Unknown Completed [facility] Pneumococcal 7 Conjugate, PCV7 (Prevnar7) Unknown Completed [facility] Pneumococcal 7 Conjugate, PCV7 (Prevnar7) Unknown Completed [facility] Polio (IPV/OPV) Unknown Completed [facility] Polio (IPV/OPV) Unknown Completed [facility] Varicella (varivax)(chicken pox) Unknown Completed [facility] HEPATITIS A Unknown Completed [facility] HEPATITIS A Unknown Completed [facility] DTAP Unknown Completed [facility] MMR Unknown Completed [facility] Polio (IPV/OPV) Unknown Completed [facility] Varicella (varivax)(chicken pox) Unknown Completed [facility] DTAP Unknown Completed [facility] MMR Unknown Completed [facility] Polio (IPV/OPV) Unknown Completed [facility] Varicella (varivax)(chicken pox) Unknown Completed [facility] TDAP Unknown Completed [facility] Meningococcal Oligosaccharide (groups A, C, Y and W-135) conjugate vaccine (MCV4O) Unknown Completed [facility] Influenza Virus Vaccine Quad .5 mL IM 6+ MO (FLUZONE/FLULAVAL/FLU ARIX) Unknown Completed [facility] Meningococcal Polysaccharide (groups A, C, Y and W-135) conjugate vaccine (MCV4P) Unknown Completed [facility] Meningococcal B, OMV Unknown Completed [facility] DTaP, Unspecified Formulation Unknown Completed [facility] DTaP, Unspecified Formulation Unknown Completed [facility] DTaP, Unspecified Formulation Unknown Completed [facility] DTaP, Unspecified Formulation Unknown Completed [facility] DTaP, Unspecified Formulation Unknown Completed [facility] DTaP, Unspecified Formulation Unknown Completed [facility] Meningococcal Polysaccharide (groups A, C, Y and W-135) conjugate vaccine (MCV4P) Unknown Completed [facility] IPV Unknown Completed [facility] IPV Unknown Completed [facility] IPV Unknown Completed [facility] IPV Unknown Completed [facility] IPV Unknown Completed [facility] DTAP Unknown Completed [facility] DTAP Unknown Completed [facility] DTAP Unknown Completed [facility] HIB 4 Dose Schedule Unknown Completed [facility] HIB 4 Dose Schedule Unknown Completed [facility] HIB 4 Dose Schedule Unknown Completed [facility] Hep B, Adol or Pedi Dosage Unknown Completed [facility] Hep B, Adol or Pedi Dosage Unknown Completed [facility] Hep B, Adol or Pedi Dosage Unknown Completed [facility] MMR Unknown Completed [facility] Pneumococcal 7 Conjugate, PCV7 (Prevnar7) Unknown Completed [facility] Pneumococcal 7 Conjugate, PCV7 (Prevnar7) Unknown Completed [facility] Pneumococcal 7 Conjugate, PCV7 (Prevnar7) Unknown Completed [facility] Polio (IPV/OPV) Unknown Completed [facility] Polio (IPV/OPV) Unknown Completed [facility] Varicella (varivax)(chicken pox) Unknown Completed [facility] HEPATITIS A Unknown Completed [facility] HEPATITIS A Unknown Completed [facility] DTAP Unknown Completed [facility] MMR Unknown Completed [facility] Polio (IPV/OPV) Unknown Com[facility] Varicella (varivax)(chicken pox) Unknown Completed [facility] DTAP Unknown Completed [facility] MMR Unknown Completed [facility] Polio (IPV/OPV) Unknown Completed [facility] Varicella (varivax)(chicken pox) Unknown Completed [facility] TDAP Unknown Completed [facility] Meningococcal Oligosaccharide (groups A, C, Y and W-135) conjugate vaccine (MCV4O) Unknown Completed [facility] Influenza Virus Vaccine Quad .5 mL IM 6+ MO (FLUZONE/FLULAVAL/FLU ARIX) Unknown Completed [facility] Meningococcal Polysaccharide (groups A, C, Y and W-135) conjugate vaccine (MCV4P) Unknown Completed [facility] Meningococcal B, OMV Unknown Completed [facility] DTaP, Unspecified Formulation Unknown Completed [facility] DTaP, Unspecified Formulation Unknown Completed [facility] DTaP, Unspecified Formulation Unknown Completed [facility] DTaP, Unspecified Formulation Unknown Completed [facility] DTaP, Unspecified Formulation Unknown Completed [facility] DTaP, Unspecified Formulation Unknown Completed [facility] Meningococcal Polysaccharide (groups A, C, Y and W-135) conjugate vaccine (MCV4P) Unknown Completed [facility] IPV Unknown Completed [facility] IPV Unknown Completed [facility] IPV Unknown Completed [facility] IPV Unknown Completed [facility] IPV Unknown Completed [facility] DTAP Unknown Completed [facility] DTAP Unknown Completed [facility] DTAP Unknown Completed [facility] HIB 4 Dose Schedule Unknown Completed [facility] HIB 4 Dose Schedule Unknown Completed [facility] HIB 4 Dose Schedule Unknown Completed [facility] Hep B, Adol or Pedi Dosage Unknown Completed [facility] Hep B, Adol or Pedi Dosage Unknown Completed [facility] Hep B, Adol or Pedi Dosage Unknown Completed [facility] MMR Unknown Completed [facility] Pneumococcal 7 Conjugate, PCV7 (Prevnar7) Unknown Completed [facility] Pneumococcal 7 Conjugate, PCV7 (Prevnar7) Unknown Completed [facility] Pneumococcal 7 Conjugate, PCV7 (Prevnar7) Unknown Completed [facility] Polio (IPV/OPV) Unknown Completed [facility] Polio (IPV/OPV) Unknown Completed [facility] Varicella (varivax)(chicken pox) Unknown Completed [facility] HEPATITIS A Unknown Completed [facility] HEPATITIS A Unknown Completed [facility] DTAP Unknown Completed [facility] MMR Unknown Completed [facility] Polio (IPV/OPV) Unknown Completed [facility] Varicella (varivax)(chicken pox) Unknown Completed [facility] DTAP Unknown Completed [facility] MMR Unknown Completed [facility] Polio (IPV/OPV) Unknown Completed [facility] Varicella (varivax)(chicken pox) Unknown Completed [facility] TDAP Unknown Completed [facility] Meningococcal Oligosaccharide (groups A, C, Y and W-135) conjugate vaccine (MCV4O) Unknown Completed [facility] Influenza Virus Vaccine Quad .5 mL IM 6+ MO (FLUZONE/FLULAVAL/FLU ARIX) Unknown Completed [facility] Meningococcal Polysaccharide (groups A, C, Y and W-135) conjugate vaccine (MCV4P) Unknown Completed [facility] Meningococcal B, OMV Unknown Completed [facility] DTaP, Unspecified Formulation Unknown Completed [facility] DTaP, Unspecified Formulation Unknown Completed [facility] DTaP, Unspecified Formulation Unknown Completed [facility] DTaP, Unspecified Formulation Unknown Completed [facility] DTaP, Unspecified Formulation Unknown Completed [facility] DTaP, Unspecified Formulation Unknown Completed [facility] Meningococcal Polysaccharide (groups A, C, Y and W-135) conjugate vaccine (MCV4P) Unknown Completed [facility] IPV Unknown Completed [facility] IPV Unknown Completed [facility] IPV Unknown Completed [facility] IPV Unknown Completed [facility] IPV Unknown Completed [facility] DTAP Unknown Completed [facility] DTAP Unknown Completed [facility] DTAP Unknown Completed [facility] HIB 4 Dose Schedule Unknown Completed [facility] HIB 4 Dose Schedule Unknown Completed [facility] HIB 4 Dose Schedule Unknown Completed [facility] Hep B, Adol or Pedi Dosage Unknown Completed [facility] Hep B, Adol or Pedi Dosage Unknown Completed [facility] Hep B, Adol or Pedi Dosage Unknown Completed [facility] MMR Unknown Completed [facility] Pneumococcal 7 Conjugate, PCV7 (Prevnar7) Unknown Completed [facility] Pneumococcal 7 Conjugate, PCV7 (Prevnar7) Unknown Completed [facility] Pneumococcal 7 Conjugate, PCV7 (Prevnar7) Unknown Completed [facility] Polio (IPV/OPV) Unknown Completed [facility] Polio (IPV/OPV) Unknown Completed [facility] Varicella (varivax)(chicken pox) Unknown Completed [facility] HEPATITIS A Unknown Completed [facility] HEPATITIS A Unknown Completed [facility] DTAP Unknown Completed [facility] MMR Unknown Completed [facility] Polio (IPV/OPV) Unknown Completed [facility] Varicella (varivax)(chicken pox) Unknown Completed [facility] DTAP Unknown Completed [facility] MMR Unknown Completed [facility] Polio (IPV/OPV) Unknown Completed [facility] Varicella (varivax)(chicken pox) Unknown Completed [facility] TDAP Unknown Completed [facility] Meningococcal Oligosaccharide (groups A, C, Y and W-135) conjugate vaccine (MCV4O) Unknown Completed [facility] Influenza Virus Vaccine Quad .5 mL IM 6+ MO (FLUZONE/FLULAVAL/FLU ARIX) Unknown Completed [facility] Meningococcal Polysaccharide (groups A, C, Y and W-135) conjugate vaccine (MCV4P) Unknown Completed [facility] Meningococcal B, OMV Unknown Completed [facility] DTaP, Unspecified Formulation Unknown Completed [facility] DTaP, Unspecified Formulation Unknown Completed [facility] DTaP, Unspecified Formulation Unknown Completed [facility] DTaP, Unspecified Formulation Unknown Completed [facility] DTaP, Unspecified Formulation Unknown Completed [facility] DTaP, Unspecified Formulation Unknown Completed [facility] Meningococcal Polysaccharide (groups A, C, Y and W-135) conjugate vaccine (MCV4P) Unknown Completed [facility] IPV Unknown Completed [facility] IPV Unknown Completed [facility] IPV Unknown Completed [facility] IPV Unknown Completed [facility] IPV Unknown Completed [facility] DTAP Unknown Completed [facility] DTAP Unknown Completed [facility] DTAP Unknown Completed [facility] HIB 4 Dose Schedule Unknown Completed [facility] HIB 4 Dose Schedule Unknown Completed [facility] HIB 4 Dose Schedule Unknown Completed [facility] Hep B, Adol or Pedi Dosage Unknown Completed [facility] Hep B, Adol or Pedi Dosage Unknown Completed [facility] Hep B, Adol or Pedi Dosage Unknown Completed [facility] MMR Unknown Completed [facility] Pneumococcal 7 Conjugate, PCV7 (Prevnar7) Unknown Completed [facility] Pneumococcal 7 Conjugate, PCV7 (Prevnar7) Unknown Completed [facility] Pneumococcal 7 Conjugate, PCV7 (Prevnar7) Unknown Completed [facility] Polio (IPV/OPV) Unknown Completed [facility] Polio (IPV/OPV) Unknown Completed [facility] Varicella (varivax)(chicken pox) Unknown Completed [facility] HEPATITIS A Unknown Completed [facility] HEPATITIS A Unknown Completed [facility] DTAP Unknown Completed [facility] MMR Unknown Completed [facility] Polio (IPV/OPV) Unknown Completed [facility] Varicella (varivax)(chicken pox) Unknown Completed [facility] DTAP Unknown Completed [facility] MMR Unknown Completed [facility] Polio (IPV/OPV) Unknown Completed [facility] Varicella (varivax)(chicken pox) Unknown Completed [facility] TDAP Unknown Completed [facility] Meningococcal Oligosaccharide (groups A, C, Y and W-135) conjugate vaccine (MCV4O) Unknown Completed [facility] Influenza Virus Vaccine Quad .5 mL IM 6+ MO (FLUZONE/FLULAVAL/FLU ARIX) Unknown Completed [facility] Meningococcal Polysaccharide (groups A, C, Y and W-135) conjugate vaccine (MCV4P) Unknown Completed [facility] Meningococcal B, OMV Unknown Completed [facility] DTaP, Unspecified Formulation Unknown Completed [facility] DTaP, Unspecified Formulation Unknown Completed [facility] DTaP, Unspecified Formulation Unknown Completed [facility] DTaP, Unspecified Formulation Unknown Completed [facility] DTaP, Unspecified Formulation Unknown Completed [facility] DTaP, Unspecified Formulation Unknown Completed [facility] Meningococcal Polysaccharide (groups A, C, Y and W-135) conjugate vaccine (MCV4P) Unknown Completed [facility] IPV Unknown Completed [facility] IPV Unknown Completed [facility] IPV Unknown Completed [facility] [place] Unknown Completed [facility] IPV Unknown Completed [facility] Vital Signs Vital Name Observation Time Observation Value Comments S ource Systolic blood pressure 2023-12-09 09:30:00 135 mm[Hg] [facility] Diastolic blood pressure 2023-12-09 09:30:00 90 mm[Hg] [facility] Heart rate 2023-12-09 09:30:00 74 /min [facility] Body temperature 2023-12-09 09:30:00 37.11 Birdie [facility] Respiratory rate 2023-12-09 09:30:00 12 /min [facility] Body height 2023-12-09 09:30:00 160 cm [facility] Body weight 2023-12-09 09:30:00 82.419 kg [facility] BMI 2023-12-09 09:30:00 32.19 kg/m2 [facility] Oxygen saturation in Arterial blood by Pulse oximetry 2023-12-09 09:30:00 98 /min [facility] Systolic blood pressure 2023-10-11 21:28:00 115 mm[Hg] [facility] Diastolic blood pressure 2023-10-11 21:28:00 63 mm[Hg] [facility] Heart rate 2023-10-11 21:28:00 76 /min [facility] Body temperature 2023-10-11 21:28:00 36.78 Birdie [facility] Respiratory rate 2023-10-11 21:28:00 18 /min [facility] Body height 2023-10-11 21:28:00 160 cm [facility] Body weight 2023-10-11 21:28:00 78.472 kg [facility] BMI 2023-10-11 21:28:00 30.65 kg/m2 [facility] Systolic blood pressure 2023-09-13 02:00:00 113 mm[Hg] [facility] Diastolic blood pressure 2023-09-13 02:00:00 71 mm[Hg] [facility] Heart rate 2023-09-13 02:00:00 82 /min [facility] Respiratory rate 2023-09-13 02:00:00 13 /min [facility] Oxygen saturation in Arterial blood by Pulse oximetry 2023-09-13 02:00:00 99 /min [facility] Body temperature 2023-09-12 23:22:00 37.72 Birdie [facility] Body height 2023-09-12 23:22:00 160 cm [facility] Body weight 2023-09-12 23:22:00 75.524 kg [facility] BMI 2023-09-12 23:22:00 29.49 kg/m2 [facility] Systolic blood pressure 2023-07-04 18:21:00 112 mm[Hg] [facility] Diastolic blood pressure 2023-07-04 18:21:00 78 mm[Hg] [facility] Heart rate 2023-07-04 18:21:00 82 /min [facility] Body temperature 2023-07-04 18:21:00 37.11 Birdie [facility] Body height 2023-07-04 18:21:00 160 cm [facility] Body weight 2023-07-04 18:21:00 75.751 kg [facility] BMI 2023-07-04 18:21:00 29.58 kg/m2 [facility] Oxygen saturation in Arterial blood by Pulse oximetry 2023-07-04 18:21:00 99 /min [facility] Systolic blood pressure 2023-07-04 14:00:00 116 mm[Hg] [facility] Diastolic blood pressure 2023-07-04 14:00:00 76 mm[Hg] [facility] Heart rate 2023-07-04 14:00:00 71 /min [facility] Respiratory rate 2023-07-04 14:00:00 18 /min [facility] Body height 2023-07-04 14:00:00 160 cm [facility] Body weight 2023-07-04 14:00:00 76.386 kg [facility] BMI 2023-07-04 14:00:00 29.83 kg/m2 [facility] Oxygen saturation in Arterial blood by Pulse oximetry 2023-07-04 14:00:00 99 /min [facility] Systolic blood pressure 2023-06-26 11:20:00 122 mm[Hg] [facility] Diastolic blood pressure 2023-06-26 11:20:00 87 mm[Hg] [facility] Heart rate 2023-06-26 11:20:00 80 /min [facility] Body temperature 2023-06-26 11:20:00 37 Birdie [facility] Respiratory rate 2023-06-26 11:20:00 15 /min [facility] Body height 2023-06-26 11:20:00 160 cm [facility] Body weight 2023-06-26 11:20:00 73.936 kg [facility] BMI 2023-06-26 11:20:00 28.87 kg/m2 [facility] Oxygen saturation in Arterial blood by Pulse oximetry 2023-06-26 11:20:00 98 /min [facility] Systolic blood pressure 2023-06-04 02:45:00 119 mm[Hg] [facility] Diastolic blood pressure 2023-06-04 02:45:00 79 mm[Hg] [facility] Heart rate 2023-06-04 02:45:00 75 /min [facility] Body temperature 2023-06-04 02:45:00 36.94 Birdie [facility] Respiratory rate 2023-06-04 02:45:00 15 /min [facility] Body height 2023-06-04 02:45:00 160 cm [facility] Body weight 2023-06-04 02:45:00 73.936 kg [facility] BMI 2023-06-04 02:45:00 28.87 kg/m2 [facility] Oxygen saturation in Arterial blood by Pulse oximetry 2023-06-04 02:45:00 99 /min [facility] Systolic blood pressure 2023-05-07 13:59:00 107 mm[Hg] [facility] Diastolic blood pressure 2023-05-07 13:59:00 74 mm[Hg] [facility] Heart rate 2023-05-07 13:59:00 86 /min [facility] Body temperature 2023-05-07 13:59:00 36.67 Birdie [facility] Respiratory rate 2023-05-07 13:59:00 18 /min [facility] Body height 2023-05-07 13:59:00 160 cm [facility] Body weight 2023-05-07 13:59:00 72.938 kg [facility] BMI 2023-05-07 13:59:00 28.48 kg/m2 [facility] Oxygen saturation in Arterial blood by Pulse oximetry 2023-05-07 13:59:00 98 /min [facility] Systolic blood pressure 2023-05-01 02:38:00 131 mm[Hg] [facility] Diastolic blood pressure 2023-05-01 02:38:00 84 mm[Hg] [facility] Heart rate 2023-05-01 02:38:00 76 /min [facility] Body temperature 2023-05-01 02:38:00 37.28 Birdie [facility] Respiratory rate 2023-05-01 02:38:00 14 /min [facility] Body height 2023-05-01 02:38:00 160 cm [facility] Body weight 2023-05-01 02:38:00 73.074 kg [facility] BMI 2023-05-01 02:38:00 28.54 kg/m2 [facility] Oxygen saturation in Arterial blood by Pulse oximetry 2023-05-01 02:38:00 100 /min [facility] Systolic blood pressure 2023-03-13 05:19:04 121 mm[Hg] [facility] Diastolic blood pressure 2023-03-13 05:19:04 85 mm[Hg] [facility] Heart rate 2023-03-13 05:19:04 66 /min [facility] Respiratory rate 2023-03-13 05:19:04 18 /min [facility] Oxygen saturation in Arterial blood by Pulse oximetry 2023-03-13 05:19:04 99 /min [facility] Body temperature 2023-03-13 04:04:00 37.28 Birdie [facility] Body height 2023-03-13 04:04:00 160 cm [facility] Body weight 2023-03-13 04:04:00 75.751 kg [facility] BMI 2023-03-13 04:04:00 29.58 kg/m2 [facility] Systolic blood pressure 2023-02-16 19:00:00 95 mm[Hg] [facility] Diastolic blood pressure 2023-02-16 19:00:00 61 mm[Hg] [facility] Heart rate 2023-02-16 19:00:00 68 /min [facility] Body weight 2023-02-16 19:00:00 73.12 kg [facility] Systolic blood pressure 2023-01-25 20:11:00 109 mm[Hg] [facility] Diastolic blood pressure 2023-01-25 20:11:00 70 mm[Hg] [facility] Heart rate 2023-01-25 20:11:00 75 /min [facility] Respiratory rate 2023-01-25 20:11:00 18 /min [facility] Body height 2023-01-25 20:11:00 160 cm [facility] Body weight 2023-01-25 20:11:00 75.297 kg [facility] BMI 2023-01-25 20:11:00 29.41 kg/m2 [facility] Systolic blood pressure 2023-01-04 21:52:00 114 mm[Hg] [facility] Diastolic blood pressure 2023-01-04 21:52:00 73 mm[Hg] [facility] Heart rate 2023-01-04 21:52:00 79 /min [facility] Body temperature 2023-01-04 21:52:00 36.94 Birdie [facility] Body height 2023-01-04 21:52:00 160 cm [facility] Body weight 2023-01-04 21:52:00 74.299 kg [facility] BMI 2023-01-04 21:52:00 29.02 kg/m2 [facility] Systolic blood pressure 2022-12-31 05:50:00 115 mm[Hg] [facility] Diastolic blood pressure 2022-12-31 05:50:00 80 mm[Hg] [facility] Heart rate 2022-12-31 05:50:00 76 /min [facility] Body temperature 2022-12-31 05:50:00 37.22 Birdie [facility] Respiratory rate 2022-12-31 05:50:00 16 /min [facility] Body height 2022-12-31 05:50:00 160 cm [facility] Body weight 2022-12-31 05:50:00 75.751 kg [facility] BMI 2022-12-31 05:50:00 29.58 kg/m2 [facility] Oxygen saturation in Arterial blood by Pulse oximetry 2022-12-31 05:50:00 99 /min [facility] Systolic blood pressure 2022-12-22 22:08:00 107 mm[Hg] [facility] Diastolic blood pressure 2022-12-22 22:08:00 61 mm[Hg] [facility] Heart rate 2022-12-22 22:08:00 82 /min [facility] Body temperature 2022-12-22 22:08:00 36.72 Birdie [facility] Respiratory rate 2022-12-22 22:08:00 16 /min [facility] Body height 2022-12-22 22:08:00 160 cm [facility] Body weight 2022-12-22 22:08:00 75.796 kg [facility] BMI 2022-12-22 22:08:00 29.60 kg/m2 [facility] Systolic blood pressure 2022-12-15 18:00:00 129 mm[Hg] [facility] Diastolic blood pressure 2022-12-15 18:00:00 82 mm[Hg] [facility] Heart rate 2022-12-15 18:00:00 85 /min [facility] Respiratory rate 2022-12-15 18:00:00 16 /min [facility] Oxygen saturation in Arterial blood by Pulse oximetry 2022-12-15 18:00:00 97 /min [facility] Body temperature 2022-12-15 16:10:00 37.39 Birdie [facility] Body height 2022-12-15 16:10:00 160 cm [facility] Body weight 2022-12-15 16:10:00 79.833 kg [facility] BMI 2022-12-15 16:10:00 31.18 kg/m2 [facility] Systolic blood pressure 2022-12-14 13:00:00 100 mm[Hg] [facility] Diastolic blood pressure 2022-12-14 13:00:00 53 mm[Hg] [facility] Heart rate 2022-12-14 13:00:00 82 /min [facility] Body temperature 2022-12-14 13:00:00 36.78 Birdie [facility] Respiratory rate 2022-12-14 13:00:00 17 /min [facility] Oxygen saturation in Arterial blood by Pulse oximetry 2022-12-14 10:20:00 100 /min [facility] Body height 2022-12-12 18:40:00 160 cm [facility] Body weight 2022-12-12 18:40:00 86.183 kg [facility] BMI 2022-12-12 18:40:00 33.66 kg/m2 [facility] Systolic blood pressure 2022-12-07 19:20:00 101 mm[Hg] [facility] Diastolic blood pressure 2022-12-07 19:20:00 65 mm[Hg] [facility] Heart rate 2022-12-07 19:20:00 97 /min [facility] Body temperature 2022-12-07 19:20:00 36.67 Birdie [facility] Respiratory rate 2022-12-07 19:20:00 18 /min [facility] Body height 2022-12-07 19:20:00 160 cm [facility] Body weight 2022-12-07 19:20:00 85.957 kg [facility] BMI 2022-12-07 19:20:00 33.57 kg/m2 [facility] Systolic blood pressure 2022-11-30 19:41:00 114 mm[Hg] [facility] Diastolic blood pressure 2022-11-30 19:41:00 71 mm[Hg] [facility] Heart rate 2022-11-30 19:41:00 102 /min [facility] Body temperature 2022-11-30 19:41:00 36.83 Birdie [facility] Respiratory rate 2022-11-30 19:41:00 18 /min [facility] Body height 2022-11-30 19:41:00 160 cm [facility] Body weight 2022-11-30 19:41:00 84.823 kg [facility] BMI 2022-11-30 19:41:00 33.13 kg/m2 [facility] Systolic blood pressure 2022-11-23 20:09:00 117 mm[Hg] [facility] Diastolic blood pressure 2022-11-23 20:09:00 86 mm[Hg] [facility] Heart rate 2022-11-23 20:09:00 82 /min [facility] Body temperature 2022-11-23 20:09:00 36.94 Birdie [facility] Respiratory rate 2022-11-23 20:09:00 18 /min [facility] Body height 2022-11-23 20:09:00 160 cm [facility] Body weight 2022-11-23 20:09:00 83.462 kg [facility] BMI 2022-11-23 20:09:00 32.59 kg/m2 [facility] Systolic blood pressure 2022-11-09 21:48:00 114 mm[Hg] [facility] Diastolic blood pressure 2022-11-09 21:48:00 74 mm[Hg] [facility] Heart rate 2022-11-09 21:48:00 105 /min [facility] Body temperature 2022-11-09 21:48:00 37.28 Birdie [facility] Body height 2022-11-09 21:48:00 160 cm [facility] Body weight 2022-11-09 21:48:00 81.012 kg [facility] BMI 2022-11-09 21:48:00 31.64 kg/m2 [facility] Heart rate 2022-11-05 07:15:00 88 /min [facility] Oxygen saturation in Arterial blood by Pulse oximetry 2022-11-05 07:15:00 100 /min [facility] Systolic blood pressure 2022-11-05 06:44:00 118 mm[Hg] [facility] Diastolic blood pressure 2022-11-05 06:44:00 65 mm[Hg] [facility] Body height 2022-11-05 06:44:00 160 cm [facility] Body weight 2022-11-05 06:44:00 81.33 kg [facility] BMI 2022-11-05 06:44:00 31.76 kg/m2 [facility] Systolic blood pressure 2022-10-25 20:29:00 112 mm[Hg] [facility] Diastolic blood pressure 2022-10-25 20:29:00 71 mm[Hg] [facility] Heart rate 2022-10-25 20:29:00 85 /min [facility] Body temperature 2022-10-25 20:29:00 36.83 Birdie [facility] Body height 2022-10-25 20:29:00 160 cm [facility] Body weight 2022-10-25 20:29:00 79.289 kg [facility] BMI 2022-10-25 20:29:00 30.96 kg/m2 [facility] Systolic blood pressure 2022-10-11 21:53:00 109 mm[Hg] [facility] Diastolic blood pressure 2022-10-11 21:53:00 71 mm[Hg] [facility] Heart rate 2022-10-11 21:53:00 99 /min [facility] Body temperature 2022-10-11 21:53:00 37.06 Birdie [facility] Body height 2022-10-11 21:53:00 160 cm [facility] Body weight 2022-10-11 21:53:00 76.567 kg [facility] BMI 2022-10-11 21:53:00 29.90 kg/m2 [facility] Systolic blood pressure 2022-10-09 03:02:00 125 mm[Hg] [facility] Diastolic blood pressure 2022-10-09 03:02:00 64 mm[Hg] [facility] Heart rate 2022-10-09 03:02:00 82 /min [facility] Body temperature 2022-10-09 03:02:00 37.11 Birdie [facility] Respiratory rate 2022-10-09 03:02:00 18 /min [facility] Body height 2022-10-09 03:02:00 160 cm [facility] Body weight 2022-10-09 03:02:00 77.747 kg [facility] BMI 2022-10-09 03:02:00 30.36 kg/m2 [facility] Oxygen saturation in Arterial blood by Pulse oximetry 2022-10-09 03:02:00 100 /min [facility] Systolic blood pressure 2022-09-20 20:59:00 106 mm[Hg] [facility] Diastolic blood pressure 2022-09-20 20:59:00 68 mm[Hg] [facility] Heart rate 2022-09-20 20:59:00 90 /min [facility] Body temperature 2022-09-20 20:59:00 36.83 Birdie [facility] Respiratory rate 2022-09-20 20:59:00 18 /min [facility] Body height 2022-09-20 20:59:00 160 cm [facility] Body weight 2022-09-20 20:59:00 74.39 kg [facility] BMI 2022-09-20 20:59:00 29.05 kg/m2 [facility] Systolic blood pressure 2022-08-23 16:09:00 109 mm[Hg] [place] [facility] Diastolic blood pressure 2022-08-23 16:09:00 74 mm[Hg] [facility] Heart rate 2022-08-23 16:09:00 102 /min [facility] Body temperature 2022-08-23 16:09:00 36.72 Birdie [facility] Body height 2022-08-23 16:09:00 160 cm [facility] Body weight 2022-08-23 16:09:00 71.668 kg [facility] BMI 2022-08-23 16:09:00 27.99 kg/m2 [facility] Systolic blood pressure 2022-08-21 23:35:00 112 mm[Hg] [place] Diastolic blood pressure 2022-08-21 23:35:00 76 mm[Hg] [facility] Heart rate 2022-08-21 23:35:00 95 /min [facility] Body temperature 2022-08-21 23:35:00 37.11 Birdie [facility] Respiratory rate 2022-08-21 23:35:00 17 /min [facility] Body height 2022-08-21 23:35:00 160 cm [facility] Body weight 2022-08-21 23:35:00 70.534 kg [facility] BMI 2022-08-21 23:35:00 27.55 kg/m2 [facility] Oxygen saturation in Arterial blood by Pulse oximetry 2022-08-21 23:35:00 100 /min [facility] Heart rate 2022-08-13 23:30:00 70 /min [facility] Oxygen saturation in Arterial blood by Pulse oximetry 2022-08-13 23:30:00 100 /min [facility] Systolic blood pressure 2022-08-13 23:08:00 111 mm[Hg] [facility] Diastolic blood pressure 2022-08-13 23:08:00 61 mm[Hg] [facility] Body temperature 2022-08-13 23:08:00 37.17 Ibrdie [facility] Respiratory rate 2022-08-13 23:08:00 16 /min [facility] Body weight 2022-08-13 22:36:00 70.081 kg [facility] Systolic blood pressure 2022-07-25 19:08:00 101 mm[Hg] [facility] Diastolic blood pressure 2022-07-25 19:08:00 67 mm[Hg] [facility] Heart rate 2022-07-25 19:08:00 103 /min [facility] Body temperature 2022-07-25 19:08:00 36.83 Birdie [facility] Respiratory rate 2022-07-25 19:08:00 18 /min [facility] Body height 2022-07-25 19:08:00 160 cm [facility] Body weight 2022-07-25 19:08:00 68.584 kg [facility] BMI 2022-07-25 19:08:00 26.78 kg/m2 [facility] Systolic blood pressure 2022-06-27 18:18:00 114 mm[Hg] [facility] Diastolic blood pressure 2022-06-27 18:18:00 76 mm[Hg] [facility] Heart rate 2022-06-27 18:18:00 116 /min [facility] Body temperature 2022-06-27 18:18:00 37.17 Birdie [facility] Body weight 2022-06-27 18:18:00 68.856 kg [facility] Heart rate 2022-06-25 23:56:09 107 /min [facility] Oxygen saturation in Arterial blood by Pulse oximetry 2022-06-25 23:56:09 100 /min [facility] Systolic blood pressure 2022-06-25 22:47:46 114 mm[Hg] [facility] Diastolic blood pressure 2022-06-25 22:47:46 87 mm[Hg] [facility] Respiratory rate 2022-06-25 22:47:46 17 /min [facility] Body temperature 2022-06-25 19:45:00 38.33 [facility] Body weight 2022-06-25 19:45:00 70.308 kg [facility] Procedures Procedure Date / Time Performed Performing Clinician Source ASSIGNMENT OF BENEFITS 2023-12-09 09:55:47 Docto r Unassigned, [place] [facility] POCT TEST 2023-12-09 09:41:00 Willie Jama [facility] URINALYSIS 2023-12-09 09:40:00 Tyrone Jama [facility] NOTICE OF PRIVACY PRACTICES 2023-12-09 09:30:16 Doctor Unassigned, [place] [facility] CONSENT/REFUSAL FOR DIAGNOSIS AND TREATMENT 2023-12-09 09:16:01 Doctor Unassigned, [place] [facility] ASSIGNMENT OF BENEFITS 2023-10-11 21:10:42 Docto r Unassigned, [place] [facility] CT ABDOMEN PELVIS W CONTRAST 2023-09-13 01:06:39 Anabel Card [facility] POCT TEST 2023-09-13 00:11:00 Lauro Card [facility] CBC WITH DIFF 2023-09-12 23:58:00 Anabel Card [facility] URINALYSIS 2023-09-12 23:58:00 [place], Christopher [facility] CONSENT/REFUSAL FOR DIAGNOSIS AND TREATMENT 2023-09-12 23:02:15 Doctor Unassigned, [place] [facility] POCT MOLECULAR STREP 2023-07-04 18:25:00 Benjamin Delarosa [facility] CONSENT/REFUSAL FOR DIAGNOSIS AND TREATMENT 2023-06-26 11:26:53 Doctor Unassigned, [place] [facility] CONSENT/REFUSAL FOR DIAGNOSIS AND TREATMENT 2023-06-04 02:41:10 Doctor Unassigned, [place] [facility] ASSIGNMENT OF BENEFITS 2023-05-01 02:55:53 Docto r Unassigned, [place] [facility] CONSENT/REFUSAL FOR DIAGNOSIS AND TREATMENT 2023-05-01 02:33:50 Doctor Unassigned, [place] [facility] POCT TEST 2023-03-13 05:13:00 Pepito Melendez [facility] LIPASE 2023-03-13 05:11:00 Ashley Melendez [facility] COMP. METABOLIC PANEL ([id number]) 2023-03-13 05:11:00 Ashley Melendez [facility] CBC WITH DIFF 2023-03-13 05:11:00 Ashley Melendez [facility] CONSENT/REFUSAL FOR DIAGNOSIS AND TREATMENT 2023-03-13 03:48:03 Doctor Unassigned, [place] [facility] NOTICE OF PRIVACY PRACTICES 2022-12-31 05:50:46 Doctor Unassigned, [place] [facility] CONSENT/REFUSAL FOR DIAGNOSIS AND TREATMENT 2022-12-31 05:49:45 Doctor Unassigned, [place] [facility] COMP. METABOLIC PANEL (92116) 2022-12-15 17:00:00 Hallie Melissa [facility] CBC WITH DIFF 2022-12-15 17:00:00 Hallie Melissa [facility] URINALYSIS 2022-12-15 17:00:00 Hallie Melissa [facility] CONSENT/REFUSAL FOR DIAGNOSIS AND TREATMENT 2022-12-15 16:05:55 Doctor Unassigned, [place] [facility] CBC WITH DIFF 2022-12-14 10:27:00 Melissa Pham [facility] CENTRAL NEURAXIAL BLOCK 2022-12-13 02:18:00 Jan Smith [facility] CBC WITH DIFF 2022-12-12 18:26:00 Melissa Pham [facility] HEPATITIS B SURFACE ANTIGEN 2022-12-12 18:26:00 Pham[facility]issa [facility] ADC OR JONATHAN ONLY - RPR 2022-12-12 18:26[facility]00 [facility]/2 AG-AB WITH REFLEX 2022-12-12 18:26:00 Vero [facility] HB ABO GROUPING 2022-12-12 18:15:[address] [facility] RHO (D) IMMUNE GLOBULIN 2022-12-12 18:15:00 [facility] CLC OR LCC ONLY - WET PREP 2022-12-12 17:13:00 PhamMelissa [facility] ADC ONLY - FERN TEST 2022-12-12 16:58:00 Pham [facility] CONSENT/REFUSAL FOR DIAGNOSIS AND TREATMENT 2022-12-12 16:11:08 Doctor Unassigned, [place] [facility] POCT URINALYSIS W/O SPECIFIC GRAVITY 2022-12-07 00:00:00 PhamMelissa [facility] POCT URINALYSIS W/O SPECIFIC GRAVITY 2022-11-30 00:00:00 [facility]issa [facility] >14 WEEKS US LIMITED 2022-11-23 20:52:19 Mery Lozada [facility] NON-STRESS TEST 2022-11-23 20:51:46 Sadia Lozada [facility] DSU PRE-OP 2022-11-23 06:01:00 Doctor Unass igned, [place] [facility] POCT URINALYSIS W/O SPECIFIC GRAVITY 2022-11-09 00:00:00 Vero [facility] NOTICE OF PRIVACY PRACTICES 2022-11-05 06:31:33 Doctor Unassigned, [place] [facility] CONSENT/REFUSAL FOR DIAGNOSIS AND TREATMENT 2022-11-05 06:27:01 Doctor Unassigned, [place] [facility] POCT URINALYSIS W/O SPECIFIC GRAVITY 2022-10-25 00:00:00 Mery Lozada [facility] POCT URINALYSIS W/O SPECIFIC GRAVITY 2022-10-11 00:00:00 Halima Phamen [facility] ASSIGNMENT OF BENEFITS 2022-10-09 02:33:53 Docto r Unassigned, [place] [facility] CONSENT/REFUSAL FOR DIAGNOSIS AND TREATMENT 2022-10-09 02:33:26 Doctor Unassigned, [place] [facility] POCT URINALYSIS W/O SPECIFIC GRAVITY 2022-09-20 20:58:00 Mery Lozada [facility] ASSIGNMENT OF BENEFITS 2022-09-18 16:38:14 Barb r Unassigned, [place] [facility] 1 HR GLUCOSE TOLERANCE TEST 2022-09-08 16:04:00 Melissa Pham [facility] GLUCOSE FASTING 2022-09-08 15:04:00 Halima Phamen Ad[facility] POCT URINALYSIS W/O SPECIFIC GRAVITY 2022-08-23 00:00:00 Melissa Pham [facility] POCT MOLECULAR FLU 2022-08-21 23:42:00 Unknown, Attend [facility] POCT MOLECULAR STREP 2022-08-21 23:39:00 Unknown, Atte ciprianoing [facility] CONSENT/REFUSAL FOR DIAGNOSIS AND TREATMENT 2022-08-13 22:26:15 Doctor Unassigned, [place] [facility] POCT URINALYSIS W/O SPECIFIC GRAVITY 2022-07-25 00:00:00 Melissa Pham [facility] POCT URINALYSIS W/O SPECIFIC GRAVITY 2022-06-27 00:00:00 Melissa Pham [facility] URINALYSIS 2022-06-25 21:07:00 Franny Deleon [facility] COMP. METABOLIC PANEL (36536) 2022-06-25 20:43:00 Franny Deleon [facility] CBC WITH DIFF 2022-06-25 20:43:00 Franny Deleon [facility] CONSENT/REFUSAL FOR DIAGNOSIS AND TREATMENT 2022-06-25 19:40:54 Doctor Unassigned, [place] [facility] SCANNED LAB RESULTS 2022-05-30 05:01:00 Doctor Nuzhat frairesigned, [place] [facility] Encounters Start Date/Time End Date/Time Encounter Type Admission Type Attending Clinicians Care Facility Care Department Encounter ID Source 2022-10-08 21:48:[address] [facility] PO [id number] [facility] 2021-08-30 01:29:22 Emergency [facility] [id number] [facility] 2021-08-28 09:56:44 Emergency [facility] [id number] [facility] 2021-08-28 01:56:35 Emergency [facility] [id number] [facility] 2023-12-09 03:42:00 2023-12-09 06:11:00 Emergency X ARIESTYRONE ZARATE [facility] ERT [id number] [facility] 2023-12-09 03:42:00 2023-12-09 06:11:00 Emergency Tyrone Jama [facility] 1.2.840.114 350.1.13.10 4.2.7.2.686 [id number] [facility] 2023-10-11 15:00:00 2023-10-11 15:30:00 Office Visit Melissa Pham [facility] 1.2.840.114 350.1.13.10 4.2.7.2.686 [id number] 134 [id number] [facility] 2023-10-11 15:00:00 2023-10-11 15:00:00 Outpatient R MELISSA PAHM [facility] [id number] [facility] 2023-10-11 00:00:00 2023-10-11 00:00:00 Orders Only Doctor Unassigned, [place] [facility] 1.2.840.114 350.1.13.10 4.2.7.2.686 [id number] [facility] 2023-10-03 09:30:00 2023-10-03 09:30:00 Outpatient R VERO MELISSA [facility] [id number] [facility] 2023-09-12 17:23:00 2023-09-12 20:20:00 [facility] [id number] 2023-09-12 17:23:00 2023-09-12 20:20:00 Emergency [place], [facility] 1..840.114 350.1.13.10 4.2.7.2.686 [id number] [facility] 2023-07-04 13:00:00 2023-07-04 13:38:43 Office Visit Benjamin Delarosa REPLACED BY [facility]?BRYKeith [facility] 1.2.840.114 350.1.13.10 4.2.7.2.686 [id number] [facility] 2023-07-04 09:00:00 2023-07-04 09:19:15 Outpatient R MELISSA PHAM [facility] [id number] [facility] 2023-07-04 09:00:00 2023-07-04 09:19:15 Office Visit Melissa Pham [facility] PROFESSIO [facility]AL [facility]ILD[facility] 1.2.840.114 350.1.13.10 4.2.7.2.686 [id number] 134 [id number] [facility] 2023-06-26 06:31:00 2023-06-26 07:36:00 Emergency X AMILCAR CHAVARRIA [facility] ERT [id number] [facility] 2023-06-26 06:31:00 2023-06-26 07:36:00 Emergency Yarima, [place] [facility] 1.2.840.114 350.1.13.10 4.2.7.2.686 [id number] 084 [id number] [facility] 2023-06-03 22:02:00 2023-06-04 01:21:00 Emergency X AMILCAR CHAVARRIA [facility] ERT [id number] [facility] 2023-06-03 22:02:00 2023-06-04 01:21:00 Emergency Amilcar Chavarria [facility] 1.2.840.114 350.1.13.10 4.2.7.2.686 [id number] [facility] 2023-05-07 09:00:00 2023-05-07 09:23:37 Outpatient R MELISSA PHAM [facility] [id number] [facility] 2023-05-07 09:00:00 2023-05-07 09:23:37 Office Visit Melissa Pham [facility] 1.2.840.114 350.1.13.10 4.2.7.2.686 [id number] 134 [id number] [facility] 2023-05-03 00:00:00 2023-05-03 00:00:00 Refill Melissa Pham [facility] 1.2.840.114 350.1.13.10 4.2.7.2.686 [id number] 134 [id number] [facility] 2023 21:40:00 2023 22:00:00 Emergency X SACHA AGUSTIN [facility] ERT [id number] [facility] 2023 21:40:00 2023 22:00:00 Emergency ValentinSacha russell [facility] 1.2.840.114 350.1.13.10 4.2.7.2.686 [id number] [facility] 2023 00:00:00 2023 00:00:00 Orders Only Doctor Unassigned, [place] [facility] 1.2840.114 350.1.13.10 4.2.7.2.686 [id number] [facility] 2023-04-29 00:00:00 2023-04-29 00:00:00 Refill Melissa Pham [facility] 1.840.114 350.1.13.10 4.2.7.2.686 [id number] 134 [id number] [facility] 2023-04-20 10:00:00 2023-04-20 10:00:00 Outpatient MELISSA LYNCH [facility] [id number] [facility] 2023-03-12 23:09:00 2023-03-13 02:16:00 Emergency X [facility] ERT [id number] [facility] 2023-03-12 23:09:00 2023-03-13 02:16:00 [facility] 1..840.114 350.1.13.10 4.2.7.2.686 [id number] 084 [id number] [facility] 2023-02-16 14:00:00 2023-02-16 14:30:00 Office Visit Melissa Pham [facility] 1..840.114 350.1.13.10 4.2.7.2.686 [id number] 134 [id number] [facility] 2023-02-16 14:00:00 2023-02-16 14:00:00 Outpatient MELISSA LYNCH [facility] [id number] [facility] 2023-01-25 15:00:00 2023-01-25 15:21:25 Outpatient BALBINA PATIÑO CHERYAL [facility] [id number] [facility] 2023-01-25 15:00:00 2023-01-25 15:21:25 [facility] 1..840.114 350.1.13.10 4.2.7.2.686 [id number] 134 [id number] [facility] 2023-01-04 15:30:00 2023-01-04 16:13:43 Outpatient R MELISSA PHAM [facility] [id number] [facility] 2023-01-04 15:30:00 2023-01-04 16:13:43 Routine Visit [facility] 1.2.840.114 350.1.13.10 4.2.7.2.686 [id number] 134 [id number] [facility] 2022-12-31 00:07:00 2022-12-31 00:30:00 Emergency X FRANNY DELEON [facility] ERT [id number] [facility] 2022-12-31 00:07:00 2022-12-31 00:30:00 Emergency Franny Deleon [facility] 1..840.114 350.1.13.10 4.2.7.2.686 [id number] [facility] 2022-12-22 16:00:00 2022-12-22 16:26:11 Outpatient R MAUREENBALBINA MOROCHO [facility] [id number] [facility] 2022-12-22 16:00:00 2022-12-22 16:26:11 [facility]ine [facility] 1..840.114 350.1.13.10 4.2.7.2.686 [id number] 134 [id number] [facility] 2022-12-15 10:12:00 2022-12-15 12:43:00 Emergency X HALLIE MELISSA [facility] ERT [id number] [facility] 2022-12-15 10:12:00 2022-12-15 12:43:00 Emergency Hallie Melissa [facility] 1.2.840.114 350.1.13.10 4.2.7.2.686 [id number] [facility] 2022-12-15 00:00:00 2022-12-15 00:00:00 Telephone Melissa Pham [facility] 1.2.840.114 350.1.13.10 4.2.7.2.686 [id number] 134 [id number] [facility] 2022-12-14 13:00:00 2022-12-14 13:00:00 Outpatient MERY SIMON [facility] [id number] [facility] 2022-12-12 10:21:00 2022-12-14 12:00:00 Inpatient X MELISSA PHAM [facility] PO [id number] [facility] 2022-12-12 10:21:00 2022-12-14 12:00:00 Hospital Encounter Melissa Pham [facility] 1.2.840.114 350.1.13.10 4.2.7.2.686 [id number] [facility] 2022-12-12 20:17:00 2022-12-13 09:30:00 Anesthesia Event Jan Smith [facility] 1.2.840.114 350.1.13.10 4.2.7.2.686 [id number] [facility] 2022-12-12 10:00:00 2022-12-12 10:07:45 Pizza Driver Visit Ultrasound, Adc Mfm Diamond Ortega [facility] PROFESS[facility] 1.2.840.114 350.1.13.10 4.2.7.2.686 [id number] 134 [id number] [facility] 2022-12-12 10:00:00 2022-12-12 10:00:00 Outpatient R SHAYLEE NIETO Vinny FIELDS [facility] [id number] [facility] 2022-12-07 13:00:00 2022-12-07 14:02:26 Outpatient R MELISSA PHAM [facility] [id number] [facility] 2022-12-07 13:00:00 2022-12-07 14:02:26 Routine Visit Melissa Pham [facility] PROFESSIO NAL [facility]ILDING 1.2.840.114 350.1.13.10 4.2.7.2.686 [id number] 134 [id number] [facility] 2022-11-30 13:15:00 2022-11-30 14:55:35 Outpatient R MELISSA PHAM [facility] [id number] [facility] 2022-11-30 13:15:00 2022-11-30 14:55:35 Routine Visit Mery Lozada Melissa [facility] 1.2.840.114 350.1.13.10 4.2.7.2.686 [id number] 134 [id number] [facility] 2022-11-23 15:00:00 2022-11-23 15:15:00 Pizza Driver Visit 2, Adc Lab Neville Mery [facility] 1.2.840.114 350.1.13.10 4.2.7.2.686 [id number] [facility] 2022-11-23 14:00:00 2022-11-23 14:50:53 [facility] [id number] 2022-11-23 14:00:00 2022-11-23 14:50:53 Routine Visit Neville [facility]ILD[facility] 1.2.840.114 350.1.13.10 4.2.7.2.686 [id number] 134 [id number] [facility] 2022-11-23 00:00:00 2022-11-23 00:00:00 Orders Only Doctor Unassigned, [place] [facility] 1.2840.114 350.1.13.10 4.2.7.2.686 [id number] [facility] 2022-11-14 10:00:00 2022-11-14 10:24:10 Pizza Driver Visit Ultrasound, Adc [facility] Diamond Ortega [facility] 1.2840.114 350.1.13.10 4.2.7.2.686 [id number] 134 [id number] [facility] 2022-11-14 10:00:00 2022-11-14 10:00:00 Outpatient R DIAMOND ORTEGA [facility] [id number] [facility] 2022-11-09 15:30:00 2022-11-09 16:29:39 Outpatient R MELISSA PHAM [facility] [id number] [facility] 2022-11-09 15:30:00 2022-11-09 16:29:39 Routine Visit Melissa Pham [facility] 1..840.114 350.1.13.10 4.2.7.2.686 [id number] 134 [id number] [facility] 2022-11-06 00:00:00 2022-11-06 00:00:00 Refill Melissa Pham [facility] 1.2.840.114 350.1.13.10 4.2.7.2.686 [id number] 134 [id number] [facility] 2022-11-05 00:39:00 2022-11-05 01:28:00 Outpatient P BITA FABIAN S, BITA [facility] PO [id number] [facility] 2022-11-05 00:39:00 2022-11-05 01:28:00 Hospital Encounter Zeyad wilcox, Bita [facility] 1.2.840.114 350.1.13.10 4.2.7.2.686 [id number] 083 [id number] [facility] 2022-11-05 00:00:00 2022-11-05 00:00:00 Orders Only Doctor Unassigned, [place] [facility] 1.2840.114 350.1.13.10 4.2.7.2.686 [id number] [facility] 2022-11-03 00:00:00 2022-11-03 00:00:00 Patient Secure Mariel Plaza [facility] 1.2840.114 350.1.13.10 4.2.7.2.686 [id number] 134 [id number] [facility] 2022-11-02 00:00:00 2022-11-02 00:00:00 Refill Melissa Phma [facility] 1.2840.114 350.1.13.10 4.2.7.2.686 [id number] 134 [id number] [facility] 2022-11-02 00:00:00 2022-11-02 00:00:00 Refill Mery Lozada [facility] 1.2840.114 350.1.13.10 4.2.7.2.686 [id number] 134 [id number] [facility] 2022-10-30 00:00:00 2022-10-30 00:00:00 Case Management Neville Mery [facility] 1.2840.114 350.1.13.10 4.2.7.2.686 [id number] 134 [id number] [facility] 2022-10-25 14:00:00 2022-10-25 14:51:48 Outpatient R MERY LOZADA [facility] [id number] [facility] 2022-10-25 14:00:00 2022-10-25 14:51:48 [facility] 1..840.114 350.1.13.10 4.2.7.2.686 [id number] 134 [id number] [facility] 2022-10-17 10:00:00 2022-10-17 10:30:00 Pizza Driver Visit Ultrasound, Adc [facility] Shaylee wilcox [facility] 1..840.114 350.1.13.10 4.2.7.2.686 [id number] 134 [id number] [facility] 2022-10-17 10:00:00 2022-10-17 10:00:00 Outpatient R SHAYLEE NIETO Vinny FIELDS [facility] [id number] [facility] 2022-10-11 15:45:00 2022-10-11 16:11:38 Outpatient R MELISSA PHAM [facility] [id number] [facility] 2022-10-11 15:45:00 2022-10-11 16:11:38 Routine Visit Melissa Pham Adán [facility] 1..840.114 350.1.13.10 4.2.7.2.686 [id number] 134 [id number] [facility] 2022-10-08 20:44:00 2022-10-08 21:43:00 Outpatient X EMILY DAVLIA [facility] PO [id number] [facility] 2022-10-08 20:44:00 2022-10-08 21:43:00 Emergency AdEmily taveras [facility] 1.2840.114 350.1.13.10 4.2.7.2.686 [id number] [facility] 2022-10-08 00:00:00 2022-10-08 00:00:00 Orders Only Doctor Unassigned, [place] [facility] 1.840.114 350.1.13.10 4.2.7.2.686 [id number] [facility] 2022-10-05 09:00:00 2022-10-05 09:42:31 Outpatient P WENDY GARCIA [facility] [id number] [facility] 2022-10-05 09:00:00 2022-10-05 09:42:31 Office Visit Wendy Garcia 4, [facility] Room [facility] 1.840.114 350.1.13.10 4.2.7.2.686 [id number] [facility] 2022-09-20 14:30:00 2022-09-20 15:20:43 Outpatient R NEVILLE [facility] [id number] [facility] 2022-09-20 14:30:00 2022-09-20 15:20:43 Routine Visit Mery Lozada [facility] 1.840.114 350.1.13.10 4.2.7.2.686 [id number] 134 [id number] [facility] 2022-09-20 11:15:00 2022-09-20 11:15:00 Outpatient P [facility] [id number] [facility] 2022-09-18 10:30:00 2022-09-18 13:03:40 Outpatient P SINDY YOUNG [facility] [id number] [facility] 2022-09-18 10:30:00 2022-09-18 11:00:00 Pizza Driver Visit 1, [facility] Us Room Sindy Young [facility] 1.114 350.1.13.10 4.2.7.2.686 [id number] [facility] 2022-09-18 00:00:00 2022-09-18 00:00:00 Orders Only Doctor Unassigned, [place] [facility] 1.114 350.1.13.10 4.2.7.2.686 [id number] [facility] 2022-09-11 00:00:00 2022-09-11 00:00:00 Telephone Melissa Pham [facility] BU[facility] 1.84.114 350.1.13.10 4.2.7.2.686 [id number] 134 [id number] [facility] 2022-09-08 09:15:00 2022-09-08 12:09:12 Pizza Driver Visit 2, Adc Lab Melissa Pham [facility] BUILDING 1.840.114 350.1.13.10 4.2.7.2.686 [id number] [facility] 2022-09-08 09:15:00 2022-09-08 09:15:00 Outpatient R MELISSA PHAM [facility] [id number] [facility] 2022-09-07 09:00:00 2022-09-07 09:00:00 Outpatient R [facility] [id number] [facility] 2022-09-07 00:00:00 2022-09-07 00:00:00 Refill Melissa Pham [facility] BU[facility] 1.840.114 350.1.13.10 4.2.7.2.686 [id number] 134 [id number] [facility] 2022-09-06 14:00:00 2022-09-06 14:58:12 Pizza Driver Visit 2, Adc Lab Melissa Pham [facility] BUILDING 1.2.840.114 350.1.13.10 4.2.7.2.686 [id number] [facility] 2022-09-06 14:00:00 2022-09-06 14:00:00 Outpatient R MELISSA PHAM [facility] [id number] [facility] 2022-09-06 00:00:00 2022-09-06 00:00:00 Case Management Melissa Pham [facility] 1.84.114 350.1.13.10 4.2.7.2.686 [id number] 134 [id number] [facility] 2022-08-23 11:15:00 2022-08-23 11:39:34 Outpatient R VERO [facility] [id number] [facility] 2022-08-23 11:15:00 2022-08-23 11:39:34 Routine Visit Melissa Pham [facility] 1.84.114 350.1.13.10 4.2.7.2.686 [id number] 134 [id number] [facility] 2022-08-22 00:00:00 2022-08-22 00:00:00 Letter (Out) Carmita [place] [facility] 1.840.114 350.1.13.10 4.2.7.2.686 [id number] [facility] 2022-08-21 18:40:00 2022-08-21 18:50:12 Outpatient R ADRIANA HOLT [facility] [id number] [facility] 2022-08-21 18:40:00 2022-08-21 18:50:12 Urgent Care Adriana Holt, [facility] 1.840.114 350.1.13.10 4.2.7.2.686 [id number] [facility] 2022-08-21 00:00:00 2022-08-21 00:00:00 Telephone Melissa Pham [facility] 1..840.114 350.1.13.10 4.2.7.2.686 [id number] 134 [id number] [facility] 2022-08-13 17:41:00 2022-08-13 18:55:00 Outpatient X MELISSA PHAM [facility] PO [id number] [facility] 2022-08-13 17:41:00 2022-08-13 18:55:00 Emergency Melissa Pham [facility] 1..840.114 350.1.13.10 4.2.7.2.686 [id number] [facility] 2022-08-01 13:00:00 2022-08-01 13:59:48 Outpatient MARIEL PINO SHANNON [facility] [id number] [facility] 2022-08-01 13:00:00 2022-08-01 13:59:48 Pizza [employer] Visit Ultrasound, Adc Mariel Walker [facility] 1..840.114 350.1.13.10 4.2.7.2.686 [id number] [facility] 2022-07-25 14:00:00 2022-07-25 14:49:28 Outpatient R MERY LOZADA [facility] [id number] [facility] 2022-07-25 14:00:00 2022-07-25 14:49:28 Routine Visit VeroHalimalucy Lozada [facility] 1..840.114 350.1.13.10 4.2.7.2.686 [id number] 134 [id number] [facility] 2022-07-04 08:15:00 2022-07-04 08:31:23 Outpatient R MELISSA PHAM [facility] [id number] [facility] 2022-07-04 08:15:00 2022-07-04 08:30:00 Pizza Driver Visit 2, Adc [facility] 1.2.840.114 350.1.13.10 4.2.7.2.686 [id number] [facility] 2022-06-28 00:00:00 2022-06-28 00:00:00 Telephone Constance Alonso [facility] 1.2.840.114 350.1.13.10 4.2.7.2.686 [id number] [facility] 2022-06-27 13:00:00 2022-06-27 13:15:00 Routine Visit Melissa Pham [facility] 1.2.840.114 350.1.13.10 4.2.7.2.686 [id number] 134 [id number] [facility] 2022-06-27 13:00:00 2022-06-27 13:00:00 Outpatient R MELISSA PHAM [facility] [id number] [facility] 2022-06-27 13:00:00 2022-06-27 13:00:00 Outpatient R MELISSA PHAM [facility] [id number] [facility] 2022-06-25 14:44:00 2022-06-25 18:57:00 Emergency X FRANNY DELEON [facility] ERT [id number] [facility] 2022-06-25 14:44:00 2022-06-25 18:57:00 Emergency Franny Deleon [facility] 1.2.840.114 350.1.13.10 4.2.7.2.686 [id number] [facility] 2022-06-22 00:00:00 2022-06-22 00:00:00 Telephone Melissa Pham [facility] [facility] 1.2.840.114 350.1.13.10 4.2.7.2.686 [id number] 134 [id number] [facility] 2022-06-16 22:58:00 2022-06-17 02:40:00 Emergency X HALLIE MELISSA [facility] ERT [id number] [facility] 2022-06-16 22:58:00 2022-06-17 02:40:00 Emergency Hallie Melissa S [facility] 1.2.840.114 350.1.13.10 4.2.7.2.686 [id number] [facility] 2022-06-14 00:00:00 2022-06-14 00:00:00 Telephone Mery Lozada [facility] 1.2.840.114 350.1.13.10 4.2.7.2.686 [id number] [facility] 2022-06-12 00:00:00 2022-06-12 00:00:00 Telephone Melissa Pham [facility] 1.2.840.114 350.1.13.10 4.2.7.2.686 [id number] [facility] 2022-06-07 00:00:00 2022-06-07 00:00:00 Telephone Mery Lozada [facility] 1.2.840.114 350.1.13.10 4.2.7.2.686 [id number] 134 [id number] [facility] 2022-05-30 10:30:00 2022-05-30 10:45:00 Pizza Driver Visit 2, Adc Lab Melissa Pham [facility] 1.2.840.114 350.1.13.10 4.2.7.2.686 [id number] [facility] 2022-05-30 09:45:00 2022-05-30 10:24:06 Outpatient R MERY LOZADA [facility] [id number] [facility] 2022-05-30 09:45:00 2022-05-30 10:24:06 [facility] 1.2.840.114 350.1.13.10 4.2.7.2.686 [id number] 134 [id number] [facility] 2022-05-30 00:00:00 2022-05-30 00:00:00 Orders Only Doctor Unassigned, [place] [facility] 1.2.840.114 350.1.13.10 4.2.7.2.686 [id number] [facility] 2022-05-03 14:30:00 2022-05-03 17:12:24 Outpatient R MELISSA PHAM [facility] [id number] [facility] 2022-05-03 14:30:00 2022-05-03 17:12:24 Initial Visit Melissa Pham [facility] 1.2.840.114 350.1.13.10 4.2.7.2.686 [id number] 134 [id number] [facility] 2022-05-03 00:00:00 2022-05-03 00:00:00 Patient Secure Lyn Simeon [facility] 1.2.840.114 350.1.13.10 4.2.7.2.686 [id number] [facility] 2022-04-29 16:19:00 2022-04-29 20:24:00 Emergency X STU HERRERA [facility] ERT [id number] [facility] 2022-04-29 16:19:00 2022-04-29 20:24:00 Emergency Stu Herrera [facility] 1.2.840.114 350.1.13.10 4.2.7.2.686 [id number] [facility] 2022-04-11 17:36:00 2022-04-11 17:44:00 Emergency X FRANNY DELEON [facility] ERT [id number] [facility] 2022-04-11 17:36:00 2022-04-11 17:44:00 Emergency Franny Deleon [facility] 1.2840.114 350.1.13.10 4.2.7.2.686 [id number] [facility] 2022-02-01 14:30:00 2022-02-01 14:30:00 Outpatient MERY SIMON [facility] [id number] [facility] 2022-01-28 21:43:00 2022-01-29 01:27:00 Emergency X VIRA HERRERAANNE [facility] ERT [id number] [facility] 2022-01-28 21:43:00 2022-01-29 01:27:00 Emergency Stu Herrera [facility] 1.2.840.114 350.1.13.10 4.2.7.2.686 [id number] [facility] 2022-01-25 23:40:00 2022-01-26 02:48:00 Emergency X DEIDRA ZAYNABSAVANNAH [facility] ERT [id number] [facility] 2022-01-25 23:40:00 2022-01-26 02:48:00 Emergency Amilcar Chavarria [facility] 1.2.840.114 350.1.13.10 4.2.7.2.686 [id number] [facility] 2021-11-15 14:10:00 2021-11-15 15:51:36 Office Visit [facility] Con[facility] 1.2.840.114 350.1.13.10 4.2.7.2.686 [id number] [facility] 2021-11-15 14:10:00 2021-11-15 15:51:36 Outpatient Jaswinder CONNER KAELYN [facility] [id number] [facility] 2021-11-15 14:10:00 2021-11-15 14:10:00 Outpatient R UBALDO [facility] [id number] [facility] 2021-10-12 00:00:00 2021-10-12 00:00:00 Garret Carreon [facility] 1..840.114 350.1.13.10 4.2.7.2.686 [id number] [facility] 2021-10-04 14:30:00 2021-10-04 14:30:00 Outpatient R UBALDO [facility] [id number] [facility] 2021-10-04 11:18:18 2021-10-04 11:38:18 Office Visit Kaelyn Conner [facility] 1..840.114 350.1.13.10 4.2.7.2.686 [id number] [facility] 2021-10-04 11:20:00 2021-10-04 11:20:00 Outpatient Jaswinder CONNER [facility] [id number] [facility] 2021-10-04 11:20:00 2021-10-04 11:20:00 Outpatient Jaswinder CONNER [facility] [id number] [facility] 2021-09-30 09:30:00 2021-09-30 09:30:00 Outpatient Jaswinder CONNER [facility] [id number] [facility] 2021-08-30 16:10:00 2021-08-30 16:50:59 Outpatient KAELYN ORTIZ [facility] [id number] [facility] 2021-08-30 16:10:00 2021-08-30 16:50:59 Outpatient KAELYN ORTIZ [facility] [id number] [facility] 2021-08-30 16:08:09 2021-08-30 16:50:59 Office Visit Kaelyn Conner [facility] 1.114 350.1.13.10 4.2.7.2.686 [id number] [facility] 2021-08-30 00:00:00 2021-08-30 00:00:00 Orders Only Doctor Unassigned, [place] [facility] 1.114 350.1.13.10 4.2.7.2.686 [id number] [id number] [facility] 2021-08-12 10:00:00 2021-08-12 23:59:00 Hospital Encounter Garret Diamond [facility] 1..114 350.1.13.10 4.2.7.2.686 [id number] [facility] 2021-08-12 10:00:00 2021-08-12 10:00:00 Outpatient GARRET CASTILLO HOWARD [facility] [id number] [facility] 2021-08-12 10:00:00 2021-08-12 10:00:00 Outpatient GARRET CASTILLO HOWARD [facility] [id number] [facility] 2021-08-10 09:00:00 2021-08-10 09:00:00 Outpatient R [facility] [id number] [facility] 2021-08-03 00:00:00 2021-08-03 00:00:00 Patient Outreach Radha Pereira [facility] 1.114 350.1.13.10 4.2.7.2.686 [id number] 225 [id number] [facility] 2021-08-03 00:00:00 2021-08-03 00:00:00 Patient Outreach Radha Pereira [facility] 1.2.114 350.1.13.10 4.2.7.2.686 [id number] [facility] 2021-08-02 00:00:00 2021-08-02 00:00:00 Refill Kaelyn Conner [facility] 1..114 350.1.13.10 4.2.7.2.686 [id number] [facility] 2021-08-01 15:22:51 2021-08-01 16:21:14 Office Visit Kaelyn Conner [facility] 1.2.114 350.1.13.10 4.2.7.2.686 [id number] [facility] 2021-08-01 15:40:00 2021-08-01 15:40:00 Outpatient R KAELYN CONNER [facility] [id number] [facility] 2021-07-29 00:00:00 2021-07-29 00:00:00 Telephone Francis Alvarez [facility] 1..840.114 350.1.13.10 4.2.7.2.686 [id number] [id number] [facility] 2021-07-28 14:58:46 2021-07-28 23:59:00 Hospital Encounter Francis Alvarez [facility] Building 1.2.840.114 350.1.13.10 4.2.7.2.686 [id number] [facility] 2021-07-28 15:00:00 2021-07-28 15:00:00 Outpatient R FRANCIS ALVAREZ [facility] [id number] [facility] 2021-07-28 00:00:00 2021-07-28 00:00:00 Letter (Out) [facility] 1.2.840.114 350.1.13.10 4.2.7.2.686 [id number] [id number] [facility] 2021-07-27 00:00:00 2021-07-27 00:00:00 Refill Garret Diamond [facility] 1.2.840.114 350.1.13.10 4.2.7.2.686 [id number] [facility] 2021-07-26 14:59:56 2021-07-26 16:53:26 Office Visit Garret Diamond [facility] 1.2.840.114 350.1.13.10 4.2.7.2.686 [id number] [facility] 2021-07-26 15:00:00 2021-07-26 15:00:00 Outpatient GARRET CASTILLOOCHGARRET Damon [facility] [id number] [facility] 2021-07-25 13:11:32 2021-07-25 13:35:53 Office Visit Francis Alvarez [facility] Building 1.2.840.114 350.1.13.10 4.2.7.2.686 [id number] [facility] 2021-07-25 13:00:00 2021-07-25 13:00:00 Outpatient R FRANCIS ALVAREZ [facility] [id number] [facility] 2021-07-25 07:12:00 2021-07-25 08:22:00 Emergency Iván Lima [facility] 1.2840.114 350.1.13.10 4.2.7.2.686 [id number] [facility] 2021-06-29 13:11:39 2021-06-29 14:29:09 Office Visit Kaelyn Conner [facility] 1.20.114 350.1.13.10 4.2.7.2.686 [id number] [facility] 2021-06-29 13:10:00 2021-06-29 13:10:00 Outpatient R KAELYN CONNER [facility] [id number] [facility] 2021-06-24 09:50:11 2021-06-24 10:00:11 Office Visit Nathan Crespo [facility] 1.0.114 350.1.13.10 4.2.7.2.686 [id number] [facility] 2021-06-24 09:50:11 2021-06-24 10:00:11 Office Visit Nathan Crespo [facility] 1.20.114 350.1.13.10 4.2.7.2.686 [id number] [facility] 2021-06-24 09:50:00 2021-06-24 09:50:00 Outpatient R NATHAN CRESPO [facility] [id number] [facility] 2021-06-17 00:00:00 2021-06-17 00:00:00 Telephone Mery Lozada [facility] 1.2.114 350.1.13.10 4.2.7.2.686 [id number] [facility] 2021-05-18 10:30:58 2021-05-18 10:45:18 Nurse Visit Nurse, [facility] 1.84.114 350.1.13.10 4.2.7.2.686 [id number] [facility] 2021-05-18 10:30:00 2021-05-18 10:30:00 Outpatient R [facility] [id number] [facility] 2021-04-26 13:00:00 2021-04-26 13:00:00 Outpatient THANG URBINA [facility] [id number] [facility] 2021-03-29 14:05:23 2021-03-29 14:41:24 Office Visit Mary Ann Camejo [facility] 1.114 350.1.13.10 4.2.7.2.686 [id number] [facility] 2021-03-29 14:15:00 2021-03-29 14:15:00 Outpatient R MARY ANN CAMEJO [facility] [id number] [facility] 2021-03-15 14:00:00 2021-03-15 14:00:00 Outpatient R THANG CONTRERAS [facility] [id number] [facility] 2021-02-16 15:38:47 2021-02-16 16:10:09 Office Visit Mery Lozada [facility] 1.840.114 350.1.13.10 4.2.7.2.686 [id number] [facility] 2021-02-16 15:15:00 2021-02-16 15:15:00 Outpatient [facility] [id number] [facility] 2021-02-16 00:00:00 2021-02-16 00:00:00 Orders Only Doctor Unassigned, [place] [facility] 1..114 350.1.13.10 4.2.7.2.686 [id number] [id number] [facility] 2021-02-08 13:00:00 2021-02-08 13:00:00 Outpatient R THANG CONTRERAS [facility] [id number] [facility] 2021-02-07 00:00:00 2021-02-07 00:00:00 Patient Secure Msg Doctor Unassigned, [place] [facility] 1.0.114 350.1.13.10 4.2.7.2.686 [id number] [facility] 2021-02-04 00:00:00 2021-02-04 00:00:00 Telephone Nathan Crespo [facility] 1..114 350.1.13.10 4.2.7.2.686 [id number] [facility] 2021-02-02 19:49:57 2021-02-02 21:00:11 Urgent Care Care, Julia Urgent Unknown, Attending [place] [facility] 1..114 350.1.13.10 4.2.7.2.686 [id number] [facility] 2021-02-02 19:45:00 2021-02-02 19:45:00 Outpatient R UNKNOWN, ATTENDING [facility] [id number] [facility] 2021-02-02 00:00:00 2021-02-02 00:00:00 Telephone Deya Salazar [facility] 1..114 350.1.13.10 4.2.7.2.686 [id number] [facility] 2021-01-26 23:18:00 2021-01-27 01:10:00 Emergency Amilcar Chavarria S [facility] 1..114 350.1.13.10 4.2.7.2.686 [id number] [facility] 2021-01-26 14:23:24 2021-01-26 14:43:24 Office Visit Deya Salazar [facility] 1.114 350.1.13.10 4.2.7.2.686 [id number] [facility] 2021-01-26 14:40:00 2021-01-26 14:40:00 Outpatient DEYA FIGUEROA [facility] [id number] [facility] 2021-01-18 00:00:00 2021-01-18 00:00:00 Patient Outreach Wilfrid Stone [facility] 1.114 350.1.13.10 4.2.7.2.686 [id number] [facility] 2021-01-11 13:30:00 2021-01-11 13:30:00 Outpatient THANG URBINA [facility] [id number] [facility] 2021-01-11 00:00:00 2021-01-11 00:00:00 Orders Only Doctor Unassigned, [place] [facility] 1..114 350.1.13.10 4.2.7.2.686 [id number] [facility] 2020-12-30 00:00:00 2020-12-30 00:00:00 Orders Only Doctor Unassigned, [place] [facility] 1.20.114 350.1.13.10 4.2.7.2.686 [id number] [facility] 2020-12-27 00:00:00 2020-12-27 00:00:00 Orders Only Doctor Unassigned, [place] [facility] 1.2840.114 350.1.13.10 4.2.7.2.686 [id number] [facility] 2020-12-26 00:00:00 2020-12-26 00:00:00 Orders Only Doctor Unassigned, [place] [facility] 1.2.840.114 350.1.13.10 4.2.7.2.686 [id number] [id number] [facility] 2020-12-20 00:00:00 2020-12-20 00:00:00 Orders Only Doctor Unassigned, [place] [facility] 1.2.840.114 350.1.13.10 4.2.7.2.686 [id number] [facility] 2020-12-09 00:00:00 2020-12-09 00:00:00 Orders Only Doctor Unassigned, [place] [facility] 1.2.840.114 350.1.13.10 4.2.7.2.686 [id number] [facility] 2020-12-02 00:00:00 2020-12-02 00:00:00 Telephone Nathan Crespo [facility] 1.2840.114 350.1.13.10 4.2.7.2.686 [id number] 225 [id number] [facility] 2020-11-30 00:00:00 2020-11-30 00:00:00 Telephone Kaelyn Conner [facility] 1.2840.114 350.1.13.10 4.2.7.2.686 [id number] [facility] 2020-11-29 00:00:00 2020-11-29 00:00:00 Refill Kaelyn Conner [facility] 1.2840.114 350.1.13.10 4.2.7.2.686 [id number] [facility] 2020-11-26 00:00:00 2020-11-26 00:00:00 Telephone Kaelyn Conner [facility] 1.2.840.114 350.1.13.10 4.2.7.2.686 [id number] [facility] 2020-11-15 00:00:00 2020-11-15 00:00:00 Telephone Kaelyn Conner [facility] 1.2.840.114 350.1.13.10 4.2.7.2.686 [id number] [facility] 2020-11-05 08:23:51 2020-11-05 08:43:51 Office Visit Kaelyn Conner [facility] 1.2840.114 350.1.13.10 4.2.7.2.686 [id number] [facility] 2020-11-05 08:20:00 2020-11-05 08:20:00 Outpatient R KAELYN CONNER [facility] [id number] [facility] 2020-11-05 00:00:00 2020-11-05 00:00:00 Refill Kaelyn Conner [facility] 1.840.114 350.1.13.10 4.2.7.2.686 [id number] [facility] 2020-11-04 00:00:00 2020-11-04 00:00:00 Telephone Nathan Crespo [facility] 1.2840.114 350.1.13.10 4.2.7.2.686 [id number] [facility] 2020-08-20 13:06:59 2020-08-20 13:26:59 Office Visit Deya Salazar [facility] 1.2.840.114 350.1.13.10 4.2.7.2.686 [id number] [facility] 2020-08-20 13:20:00 2020-08-20 13:20:00 Outpatient R OMAR RICHARDS [facility] [id number] [facility] 2020-08-20 00:00:00 2020-08-20 00:00:00 Orders Only Doctor Unassigned, [place] [facility] 1.2.840.114 350.1.13.10 4.2.7.2.686 [id number] [facility] 2020-01-23 13:20:00 2020-01-23 13:20:00 Outpatient R NATHAN CRESPO [facility] [id number] [facility] 2020-01-23 12:41:36 2020-01-23 12:51:36 Telemedici ne Visit Nathan Crespo [facility] 1.2.840.114 350.1.13.10 4.2.7.2.686 [id number] [facility] 2020-01-23 00:00:00 2020-01-23 00:00:00 Telephone Kaelyn Conner [facility] 1.2.840.114 350.1.13.10 4.2.7.2.686 [id number] [facility] 2020-01-23 00:00:00 2020-01-23 00:00:00 Refill Nathan Crespo [facility] 1.2.840.114 350.1.13.10 4.2.7.2.686 [id number] 225 [id number] [facility] 2020-01-08 11:03:17 2020-01-08 11:13:17 Office Visit Kaelyn Conner [facility] 1.2.840.114 350.1.13.10 4.2.7.2.686 [id number] [facility] 2020-01-08 11:00:00 2020-01-08 11:00:00 Outpatient R KAELYN CONNER [facility] [id number] [facility] 2019-12-29 00:00:00 2019-12-29 00:00:00 Telephone Nathan Crespo [facility] 1.2.840.114 350.1.13.10 4.2.7.2.686 [id number] [facility] 2019-12-18 16:07:38 2019-12-18 16:40:47 Office Visit Nathan Crespo [facility] 1.2.840.114 350.1.13.10 4.2.7.2.686 [id number] [facility] 2019-11-26 22:54:10 2019-11-27 08:34:00 Emergency Rodri Rodriguez [facility] 1.2.840.114 350.1.13.10 4.2.7.2.686 [id number] [id number] [facility] 2019-11-19 09:12:19 2019-11-19 10:15:04 Office Visit Neli Salas [facility] 1.2.840.114 350.1.13.10 4.2.7.2.686 [id number] 225 [id number] [facility] 2019-11-13 16:14:27 2019-11-13 16:43:53 Office Visit Nathan Crespo [facility] 1.2.840.114 350.1.13.10 4.2.7.2.686 [id number] 225 [id number] [facility] Results Test Description Test Time Test Comments Results Result Co mments Source [facility] [id number] 00:11:00* Test Item Value Reference Range Interpretation Comme nts POCT PREG (test code = 1605) Negative On board controls acceptable with C Line (test code = 3574) Yes POCT PREG LOT # (test code = 3575) [id number] POCT PREG TEST DATE ( test code = 3576) 01/31/2025 Lab Interpretation (test cod e = 57943-2) Normal [facility] MOLECULAR [id number] 18:33:15* Test Item Value Reference Range Interpretation Comme nts POCT Molecular Strep (test c ode = 99080-8) Negative Negative Lab Interpretation (test cod e = 73808-0) Normal [facility] MOLECULAR [id number] 18:33:15* Test Item Value Reference Range Interpretation Comme nts POCT Molecular Strep (test c ode = 26009-1) Negative Negative Lab Interpretation (test cod e = 09553-3) Normal [facility] [id number] 05:13:00* Test Item Value Reference Range Interpretation Comme nts POCT PREG (test code = 1605) Negative On board controls acceptable with C Line (test code = 3574) Yes POCT PREG LOT # (test code = 3575) [id number] POCT PREG TEST DATE ( test code = 3576) 06-05-2024 Lab Interpretation (test cod e = 67482-0) Normal [facility] IMMUNE [id number] 14:17:44* Test Item Value Reference Range Interpretation Comme nts RHIG CANDIDATE? (test code = 5055) No- see comment Patient is not a candidate for RhIg- Patient is Rh Positive.Performed at [facility] Laboratory Services - [facility] Blood [address] Free: [phone] No. [id number] [facility]Type and Screen - ONCE [id number] 19:49:52 * Test Item Value Reference Range Interpretation Comme nts ABO & RH (test code = 20) O Positive Performed at [facility] Laboratory [facility] Blood [place] [address]Toll Free: [phone] No. [id number] IAT (test code = 1185) Negative Performed at [facility] Laboratory [facility] Blood [address]Toll Free: [phone] No. [id number] [facility] URINALYSIS W/O SPECIFIC [id number] 19:39:00* Test Item Value Reference Range Interpretation Comme nts POCT PH U (test code = 3254) 7 mg/dl 5-8 POCT U LEUK EST (test code = 3263) 1+ Negative - Negative POCT U NIT (test code = 3262) trace Negative - Negati ve POCT U PROT (test code = 3259) trace Negative - Negat juan POCT U GLU (test code = 3256) negative Negative - Negati ve POCT U KETONE (test code = 3258) negative Negative - Neg ative POCT U BLD (test code = 3257) negative Negative - Negati ve [facility] URINALYSIS W/O SPECIFIC [id number] 19:41:00* Test Item Value Reference Range Interpretation Comme nts POCT PH U (test code = 3254) n/a 5-8 POCT U LEUK EST (test code = 3263) n/a Negative - Negative POCT U NIT (test code = 3262) n/a Negative - Negati ve POCT U PROT (test code = 3259) negative Negative - Negat juan POCT U GLU (test code = 3256) negative Negative - Negati ve POCT U KETONE (test code = 3258) n/a Negative - Neg ative POCT U BLD (test code = 3257) n/a Negative - Negati ve [facility] URINALYSIS W/O SPECIFIC [id number] 21:46:00* Test Item Value Reference Range Interpretation Comme nts POCT PH U (test code = 3254) n/a 5-8 POCT U LEUK EST (test code = 3263) n/a Negative - Negative POCT U NIT (test code = 3262) n/a Negative - Negati ve POCT U PROT (test code = 3259) negative Negative - Negat juan POCT U GLU (test code = 3256) negative Negative - Negati ve POCT U KETONE (test code = 3258) n/a Negative - Neg ative POCT U BLD (test code = 3257) n/a Negative - Negati ve [facility] URINALYSIS W/O SPECIFIC [id number] 20:28:00* Test Item Value Reference Range Interpretation Comme nts POCT PH U (test code = 3254) n/a 5-8 POCT U LEUK EST (test code = 3263) n/a Negative - Negative POCT U NIT (test code = 3262) n/a Negative - Negati ve POCT U PROT (test code = 3259) negative Negative - Negat jaun POCT U GLU (test code = 3256) negative Negative - Negati ve POCT U KETONE (test code = 3258) n/a Negative - Neg ative POCT U BLD (test code = 3257) n/a Negative - Negati ve [facility] URINALYSIS W/O SPECIFIC [id number] 21:51:00* Test Item Value Reference Range Interpretation Comme nts POCT PH U (test code = 3254) n/a 5-8 POCT U LEUK EST (test code = 3263) n/a Negative - Negative POCT U NIT (test code = 3262) n/a Negative - Negati ve POCT U PROT (test code = 3259) Negative Negative - Negat juan POCT U GLU (test code = 3256) Negative - Negati ve POCT U KETONE (test code = 3258) n/a Negative - Neg ative POCT U BLD (test code = 3257) n/a Negative - Negati ve [facility] URINALYSIS W/O SPECIFIC [id number] 20:58:00* Test Item Value Reference Range Interpretation Comme nts POCT PH U (test code = 3254) n/a 5-8 POCT U LEUK EST (test code = 3263) n/a Negative - Negative POCT U NIT (test code = 3262) n/a Negative - Negati ve POCT U PROT (test code = 3259) negative Negative - Negat juan POCT U GLU (test code = 3256) negative Negative - Negati ve POCT U KETONE (test code = 3258) n/a Negative - Neg ative POCT U BLD (test code = 3257) n/a Negative - Negati ve [place] [address] HR GLUCOSE TOLERANCE DDKH2539-94-78 16:59:05 * Test Item Value Reference Range Interpretation Comme nts GLUC 1 HR (test code = 1442838032) 210 mg/dL 120-170 H Lab Interpretation (test cod e = 24216-5) [facility] DFAGKWO1531-07-[facility] 16:36:02* Test Item Value Reference Range Interpretation Comme nts GLU FASTNG (test code = 1227172490) 81 mg/dL 70-110 Lab Interpretation (test cod e = 96445-1) Normal [facility] URINALYSIS W/O SPECIFIC EPTDMFI3663-14-36 16:08:00* Test Item Value Reference Range Interpretation Comme nts POCT PH U (test code = 3254) n/a 5-8 POCT U LEUK EST (test code = 3263) n/a Negative - Negative POCT U NIT (test code = 3262) n/a Negative - Negati ve POCT U PROT (test code = 3259) Negative Negative - Negat juan POCT U GLU (test code = 3256) Normal Negative - Negati ve POCT U KETONE (test code = 3258) n/a Negative - Neg ative POCT U BLD (test code = 3257) n/a Negative - Negati ve [facility] MOLECULAR VEB6830-06-61 23:53:20* Test Item Value Reference Range Interpretation Comme nts POCT Molecular FluA (test co de = 72330-0) Negative Negative POCT Molecular FluB (test co de = 82349-1) Negative Negative Lab Interpretation (test cod e = 48549-3) Normal [facility] MOLECULAR LNQUI7227-30-86 23:46:57* Test Item Value Reference Range Interpretation Comme nts POCT Molecular Strep (test c ode = 95214-2) Negative Negative Lab Interpretation (test cod e = 32773-1) Normal [facility] URINALYSIS W/O SPECIFIC DCCLUPP6836-48-20 19:13:00* Test Item Value Reference Range Interpretation Comme nts POCT PH U (test code = 3254) n/a 5-8 POCT U LEUK EST (test code = 3263) n/a Negative - Negative POCT U NIT (test code = 3262) n/a Negative - Negati ve POCT U PROT (test code = 3259) negative Negative - Negat juan POCT U GLU (test code = 3256) negative Negative - Negati ve POCT U KETONE (test code = 3258) n/a Negative - Neg ative POCT U BLD (test code = 3257) n/a Negative - Negati ve [facility] W/O SPECIFIC JGSTUNY0967-63-32 18:18:00* Test Item Value Reference Range Interpretation Comme nts POCT PH U (test code = 3254) n/a 5-8 POCT U LEUK EST (test code = 3263) n/a Negative - Negative POCT U NIT (test code = 3262) n/a Negative - Negati ve POCT U PROT (test code = 3259) Negative Negative - Negat juan POCT U GLU (test code = 3256) Normal Negative - Negati ve POCT U KETONE (test code = 3258) n/a Negative - Neg ative POCT U BLD (test code = 3257) n/a Negative - Negati ve [facility]. METABOLIC PANEL (07886)2022-06-25 21:05:32* Test Item Value Reference Range Interpretation Comme nts NA (test code = 2941683723) 135 mmol/L 135-145 K (test code = 3194151212) 3.7 mmol/L 3.5-5 CL (test code = 3621537403) 102 mmol/L 98-108 CO2 TOTAL (test code = 9510435403) 22 mmol/L 23-31 L AGAP (test code = 2606519298) 2-16 BUN (test code = 3896096193) 7 mg/dL 7-23 GLUCOSE (test code = 1768928093) 92 mg/dL 70-110 CREATININE (test code = 4325228537) 0.58 mg/dL 0.5-1.04 TOTAL BILI (test code = 2662453848) 0.3 mg/dL 0.1-1.1 CALCIUM (test code = 9732780848) 9.4 mg/dL 8.6-10.6 T PROTEIN (test code = 8612773421) 6.9 g/dL 6.3-8.2 ALBUMIN (test code = 4340803314) 4.4 g/dL 3.5-5 ALK PHOS (test code = 6161285898) 66 U/L 34-122 ALTv (test code = 1742-6) 14 U/L 5-35 AST(SGOT) (test code = 0274884102) 20 U/L 13-40 eGFR (test code = 1744919382) mL/min/1.73m2 PAOLA (test code = PAOLA) Association of Glomerular Filtration Rate (GFR) and Staging of Kidney Disease* + --+ --+ ------+| GFR (mL/min/1.73 m2) ?| With Kidney Damage ?| ?Without Kidney Damage+ --------+ --------+ +| ?>90 ?| ?Stage one ?| ? Normal ?+ ---+ ---+ -------+| ?60-89 ?| ?Stage two ?| ? Decreased GFR ? + --+ --+ ------+| ?30-59 ?| ?Stage three ?| ? Stage three ? + --+ --+ ------+| ?15-29 ?| ?Stage four ? | ? Stage four ?+ ---+ ---+ -------+| ?<15 (or dialysis) ? ?| ?Stage five ? | ? Stage five ?+ ---+ ---+ -------+ *Each stage assumes the associated GFR level has been in effect for at least three months. ?Stages 1 to 5, with or without kidney disease, indicate chronic kidney disease. Notes: Determination of stages one and two (with eGFR >59mL/min/1.73 m2) requires estimation of kidney damage for at least three months as defined by structural or functional abnormalities of the kidney, manifested by either:Pathological abnormalities or Markers of kidney damage (including abnormalities in the composition of the blood or urine or abnormalities in imaging tests). Lab Interpretation (test code = 05131-2) Abnormal [facility] WITH HJBG1571-07-09 20:54:08* Test Item Value Reference Range Interpretation Comme nts WBC (test code = 6690-2) See_Comment L [Automated [employer]] The system which generated this result transmitted reference range: 4.30 - 11.10 10*3/?L. The reference range was not used to interpret this result as normal/abnormal. RBC (test code = 789-8) See_Comment L [Automated messa ge] The system which generated this result transmitted reference range: 3.93 - 5.25 10*6/?L. The reference range was not used to interpret this result as normal/abnormal. HGB (test code = 718-7) 11.2 g/dL 11.6-15 L HCT (test code = 4544-3) 32.3 % 35.7-45.2 L MCV (test code = 787-2) 83.0 fL 80.6-95.5 MCH (test code = 785-6) 28.8 pg 25.9-32.8 MCHC (test code = 786-4) 34.7 g/dL 31.6-35.1 RDW-SD (test code = 85700-7) 38.8 fL 39-49.9 L RDW-CV (test code = 788-0) 12.7 % 12-15.5 PLT (test code = 777-3) See_Comment [Automated [employer] ge] The system which generated this result transmitted reference range: 166 - 358 10*3/?L. The reference range was not used to interpret this result as normal/abnormal. MPV (test code = 54256-9) 11.9 fL 9.5-12.9 NRBC/100 WBC (test code = 6125807260) See_Comment [Automated [employer] ssage] The system which generated this result transmitted reference range: 0.0 - 10.0 /100 WBCs. The reference range was not used to interpret this result as normal/abnormal. NRBC x10^3 (test code = 7302184061) See_Comment [Automated [employer] ge] The system which generated this result transmitted reference range: 10*3/?L. The reference range was not used to interpret this result as normal/abnormal. GRAN MAT (NEUT) % (test code = 770-8) 79.7 % IMM GRAN % (test code = 5044752172) 0.50 % LYMPH % (test code = 736-9) 6.8 % MONO % (test code = 5905-5) 13.0 % EOS % (test code = 713-8) 0.0 % BASO % (test code = 706-2) 0.0 % GRAN MAT x10^3(ANC) (test code = 0191625786) 2.94 10*3/uL 1.88-7.09 IMM GRAN x10^3 (test code = 9079214171) 0-0.06 LYMPH x10^3 (test code = 731-0) 0.25 10*3/uL 1.32-3.29 L MONO x10^3 (test code = 742-7) 0.48 10*3/uL 0.33-0.92 EOS x10^3 (test code = 711-2) 0.03-0.39 L BASO x10^3 (test code = 704-7) 0.01-0.07 Lab Interpretation (test code = 36140-4) Abnormal [facility] Notes Date/Time Note Provider Source 2023-12-09 03:25:38 hYTWgWBCc/ZtZNAjaYx1 yKXFx+n92HNcJJ vLHY1yO24Lo/nLtYELuTzr0EfThOT84172 -02-11T03:25:38 Pt arrived c/o high blood pressure at home. Pt reports BP at home was 145/105 around 0205. Pt also reports twitching in L eye and face. Pt is concerned about . Pt reports last menstrual cycle was in September. Pt took a test last week and it was negative.PMH: NonePt's BP during triage is 135/90 53344-0Abehlqsgr department Triage blnkFL9599-17-69X90:30:43Emergency department Triage noteTXT1.2.840.887655.1.13.104.2.7 .2.989088|[id number] for patient budh73657-6Uyaqjnpkq department NoteLNNARRATIVEFormatted C-CDA narrative [id number] A Diaz RNUTMBUT - [address] Hj[id number] 29VKELFHBBIRAEKUFWMPXWHN3174-54-53 T03:30:431.2.840.761317.1.72.3.15| 1.2.840.651000.1.13.104.2.7.2.7278 [id number] Maria De Jesus Arriaga RN [facility] 2023-06-26 07:33:45 PZocxiKOEundJf2d+D6L m8N7Na0GZcgk/z BSLcIHw3XzVXMBYBs3rOTiZxpiguY58262 -08-29T07:33:45 Pt given printed and verbal discharge instructions regarding viral uri, encouraged hydration.0 Prescriptions provided; 2 sent to pharmacyDiscussed ibuprofen and to take with food to avoid GI distress.Pt verbalized understanding of instructions, pt awake alert oriented, resp reg unlabored, skin w/d, color appropriate for race, moves all ext well,pt encouraged to follow up with pcp.Advised to seek medical attention for new/prolonged/worsening of symptoms,Symptoms remain the sameNo adverse reaction to meds given in ER noted upon dischargeAwake, alert oriented, resp reg unlabored, skin w/d, pt leaving amb with steady gait, in no apparent distress. 85477-1Fyjvvtuib department YumhKS6720-49-76Q84:36:12Emergency department NoteTXT1.2.840.129579.1.13.104.2.7 .2.681647|[id number] for patient hzsb25313-5VhmyQS927152460Bshfi L Barker RNUT[address] HklrOotmpdgvdFptnfibggOXLT77997368 62IBLAXSHADHWDKOBTZPJRCQ0265-65-41 T07:36:121.2.840.429563.1.72.3.15| 1.2.840.237145.1.13.104.2.7.2.7278 [id number] Cleo Love RN [facility] 2023-06-26 06:20:00 kNjUnfVXXEc9EfId35cK GRSt0kOqSWBKmj a1XHKeh1g3HNjSobLWGYps7ssT36mD2902 -08-29T06:20:00 Patient states: "I'm congested since yesterday and can't breathe, my throat hurts too." 98875-2Ekwnfcima department Triage rxlaQP3338-36-19E71:32:50[facility] Triage noteTXT1.2.840.065982.1.13.104.2.7 .2.574284|[id number] for patient qbsz54138-8Jktdyuhhs department KtykTU484949437Vkicqurk C Heredia RNUT[address]TXTX[address] 33AKMLOCVYTWTZDXKLCWAURT8500-28-74 T06:32:501.2.840.672530.1.72.3.15| 1.2.840.917938.1.13.104.2.7.2.7278 [id number] Thelma Gupta RN [facility] 2023-06-26 06:17:00 qsDe1MXG56ZYGOqvG4GJ oZR/aexjeTQbko sIXMOD/5/L8cQfSB3j2QrVISUvCuSA4956 -08-29T06:17:[address] [facility] Emergency Department NotePatient Name: Gabby WheatleyDate of : 2005 18 year old femaleTreatment Room: [facility] FT/NJJF72-48Keijkjn Record Number: [id number] Care Physician: No primary care provider on file.Patient Escorted by: Family [5]Mode of Arrival: Personal means [1]EMS Treatment Prior to ED Arrival: Travel and Exposure Screening:SymptomsDoes patient have any of these symptoms?: (not recorded)Exposure ScreeningHas patient had contact with someone with a communicable disease in the last month?: (not recorded)Diseases exposed to:: (not recorded)Is Patient ?: (not recorded)Exposure Date: (not recorded)Chief Complaint:Chief Complaint Patient presents with Cough Congestion Sore Throat History of Present Illness:Gabby Wheatley is a 18 year old femalew ho presents to the ED for evaluation of congestion, sore throat and vomitingX 2 days. Pt reports a temp of 100.4. JHas mild cough that is non productive. Took Ibuprofen yesterday for the symptoms.No wheezing. No sick contacts. LNMP about two weeks ago. No possibility of per pt. Pt has a six month old infant at home. Has a headache this AM. No body aches. Past Medical History/Immunizations:Past Medical History: Diagnosis Date ADHD Anxiety Constipation Depression Suicidal thoughts Unspecified asthma(493.90) Tetanus received in last 5 years: Unknown Allergies:No Known AllergiesPast Social History:Tobacco Use Never smoked or used smokeless tobacco. Passive Exposure: Yes Comments: parents smoke outside Vaping Use Never used Alcohol Use Never. Drug Use Never. Sexual Activity Not currently sexually active; Partners: Male; Control/Protection: None. Past Surgical History:Past Surgical History: Procedure Laterality Date CLOSE TEAR DUCT OPENING TOOTH EXTRACTION Review of Systems: Review of Systems Constitutional: Positive for chills and fever. HENT: Positive for congestion. Eyes: Negative. Respiratory: Positive for cough. Breasts: Negative. Cardiovascular: Negative. Gastrointestinal: Positive for nausea and vomiting. Genitourinary: Negative. Musculoskeletal: Positive for myalgias. Skin: Negative. Neurological: Positive for headaches. Psychiatric/Behavioral: Negative. All other systems reviewed and are negative.Endocrine: Endocrine negativePhysical Exam: ED Triage Vitals [06/26/23 0620] Weight 73.9 kg (163 lb) Actual or estimated Estimated by patient/family report Height 1.6 m (5' 3") BP 122/87 Pulse 80 Resp 15 Temp 37 ?C (98.6 ?F) Temp source Oral SpO2 98 % Measured on Room air Physical ExamVitals and nursing note reviewed. Constitutional: General: She is not in acute distress. Appearance: Normal appearance. She is well-developed and normal weight. She is not ill-appearing or toxic-appearing. HENT: Head: Normocephalic and atraumatic. Nose: Congestion present. Mouth/Throat: Mouth: Mucous membranes are moist. Pharynx: Oropharynx is clear. No oropharyngeal exudate or posterior oropharyngeal erythema. Eyes: General: No scleral icterus. Right eye: No discharge. Left eye: No discharge. Extraocular Movements: Extraocular movements intact. Conjunctiva/sclera: Conjunctivae normal. Pupils: Pupils are equal, round, and reactive to light. Neck: Thyroid: No thyromegaly. Cardiovascular: Rate and Rhythm: Normal rate and regular rhythm. Pulses: Normal pulses. Heart sounds: Normal heart sounds. No murmur heard.Pulmonary: Effort: Pulmonary effort is normal. No respiratory distress. Breath sounds: Normal breath sounds. No stridor. No wheezing or rales. Chest: Chest wall: No tenderness. Abdominal: General: Bowel sounds are normal. There is no distension. Palpations: Abdomen is soft. Tenderness: There is no abdominal tenderness. There is no right CVA tenderness, left CVA tenderness, guarding or rebound. Musculoskeletal: General: No swelling, tenderness, deformity or signs of injury. Normal range of motion. Cervical back: Normal range of motion and neck supple. No rigidity or tenderness. Right lower leg: No edema. Left lower leg: No edema. Lymphadenopathy: Cervical: No cervical adenopathy. Skin: General: Skin is warm and dry. Capillary Refill: Capillary refill takes less than 2 seconds. Coloration: Skin is not jaundiced or pale. Findings: No bruising, erythema, lesion or rash. Neurological: General: No focal deficit present. Mental Status: She is alert and oriented to person, place, and time. Sensory: No sensory deficit. Motor: No weakness or abnormal muscle tone. Coordination: Coordination normal. Gait: Gait normal. Deep Tendon Reflexes: Reflexes normal. Psychiatric: Behavior: Behavior normal. Thought Content: Thought content normal. Judgment: Judgment normal. Radiology:No orders to display Lab Results:Lab Results - No data to displayOrders and Treatments:No orders of the defined types were placed in this encounter.Orders Placed This Encounter Medications ibuprofen 800 mg tablet ondansetron (ZOFRAN) 4 mg tablet First Provider Eval:ED Events Date/Time Event User Comments 06/26/23 6788 Medical Screening Begins AMILCAR CHAVARRIA MD -- 06/26/23 0646 First Provider Evaluation AMILCAR CHAVARRIA MD -- No notes of EC Admission Criteria type on file.ED COURSEDiagnosis/Impression as of 06/26/23 07 Viral URI Procedures: ProceduresMDM:Medical Decision MakingGabby Wheatley is a 18 year old female whopresents to the ED for evaluation of URI symptoms X 2 daysProblems Addressed:Viral URI: acute illness or injury Details: Will treat symptomaticallyAmount and/or Complexity of Data ReviewedIndependent Historian: [facility] drugs.Prescription drug management. Flowsheet Documentation: Scoring Tools: No data recorded Disposition/Condition:ED Disposition ED Disposition Disch - Home Condition Stable Comment -- Discharge Medications:Patient's Medications START taking these medications IBUPROFEN 800 MG TABLET Take 1 tablet by mouth every 8 (eight) hours as needed for Pain (scale 4-6) or Temp > 38.5 C. ONDANSETRON (ZOFRAN) 4 MG TABLET Take 1 tablet by mouth every 8 (eight) hours as needed for Nausea and Vomiting (N/V). CONTINUE taking these medications which have NOT CHANGED BUPROPION SR (WELLBUTRIN SR) 100 MG SR TABLET Take 1 tablet by mouth in the morning and 1 tablet in the evening. BUSPIRONE 7.5 MG TABLET Take 1 tablet by mouth in the morning and 1 tablet in the evening. FERROUS SULFATE 325 MG (65 MG IRON) TABLET Take 1 tablet by mouth in the morning and 1 tablet in the evening. VITAMIN W/FA TABLET Take 1 tablet by mouth in the morning. START taking Modified Medications as Prescribed No medications on file STOP taking these medications No medications on file Follow-up:Electronically signed by: Amilcar Chavarria MD06/26/23700 16482-5Wlgirdynf Emergency department ReksEV3341-21-51K26:01:17Physician Emergency department NoteTXT1.2.840.815117.1.13.104.2.7 .2.413034|[id number] for patient kvua33159-6Nbmyfpsqu department NoteLNUTMBUT[address]TXTX[address] 50EFCKTCNEAFFPYPYSDBIUDF4207-62-44 T07:01:171.2.840.873349.1.72.3.15| 1.2.840.510808.1.13.104.2.7.2.7278 [id number] [facility] 2023-06-04 01:20:36 drjwCt9H96iikvge/ZaX H2J0/uKuGuJ77b yAf15MGr0r7/hxP/MHK0gUo/APi5ZE9270 -08-07T01:20:36 Pt eloped before disposition. 60361-2Tczxntfml department TkpcIG5500-63-59E50:20:51[facility] NoteTXT1.2.840.225720.1.13.104.2.7 .2.893696|[id number] for patient hutt88618-7NsqbPD748687572Uamjg A. Campbell RNUT[address]TXTX[address] 68SDKCROMYWQZDWWUIEAZIMQ9161-31-55 T01:20:511.2.840.217553.1.72.3.15| 1.2.840.479146.1.13.104.2.7.2.7278 [id number] Elise Hammonds RN [facility] 2023-06-03 21:45:00 4TXk0NJsWA44OxhBFdDg WxveT+hHQOjyhm tKFS+pGEOorozqzaapq86MUIeSvqdc4806 -08-06T21:45:00 Patient states: "I fell out of my 2 ft bed and hit the back of my head. I vomited once after the fall. I took Advil an hour ago, now pain score of 7/10." 29364-7Zwloipswq department Triage dqjcWN3889-62-65O10:02:38[facility] Triage noteTXT1.2.840.394316.1.13.104.2.7 .2.822700|[id number] for patient sfyg39607-7Nzgnezgdd department [id number] C Heredia RN[address] ObfnNwcdrbrqoVsallabnpPQAH43731542 63CUIFDYBZFSQTAOBKBLQLCT2389-04-21 T22:02:381.2.840.310431.1.72.3.15| 1.2.840.098678.1.13.104.2.7.2.7278 [id number] Thelma Gupta RN [facility]
[2024-01-05 00:11] LABS: Urine Bacteria <20 /HPF (<20); Urine RBC <5 /HPF (None Seen)
[2024-01-05 00:34] LABS: Barbiturates NEGATIVE (NEGATIVE); Benzodiazepines NEGATIVE (NEGATIVE); Cocaine NEGATIVE (NEGATIVE); METHAMPHETAM NEGATIVE (NEGATIVE); Methadone NEGATIVE (NEGATIVE); Opiates NEGATIVE (NEGATIVE); Phencyclidine NEGATIVE (NEGATIVE); THC Cannibis NEGATIVE (NEGATIVE)
--- NOTE | 2024-01-05 02:46 | ER ---
Nurse's Notes [facility] Name: Loni Bolanos Age: 18 yrs Sex: Female : 2005 Arrival Date: 01/04/2024 Time: 23:16 Bed 8 Private MD: Diagnosis: Chest pain, unspecified;Noncardiac chest pain Presentation: 01/03 23:21 Chief complaint: EMS states: toned out for chest pain and nausea while walking on the km8 treadmill at the gym. Coronavirus screen: Client denies travel out of the [place] in the last 14 days. Ebola Screen: No symptoms or risks identified at this time. Initial Sepsis Screen: Does the patient meet any 2 criteria? No. Patient's initial sepsis screen is negative. Does the patient have a suspected source of infection? No. Patient's initial sepsis screen is negative. Risk Assessment: Do you want to hurt yourself or someone else? Patient reports no desire to harm self or others. Onset of symptoms was January 04, 2024 at 23:00. 23:21 Method Of Arrival: EMS: [facility] km8 23:21 Acuity: ELLIS 3 km8 23:21 Care prior to arrival: Medication(s) given: Normal saline infusion, 250ml zofran 4 mg, km8 IV initiated. 20 GA, in the right antecubital area, Glucose check: 75. Triage Assessment: 23:23 General: Appears in no apparent distress. comfortable, Behavior is cooperative, km8 appropriate for age, anxious, crying. Pain: Complains of pain in anterior aspect of right upper chest Pain does not radiate. Pain currently is 5 out of 10 on a pain scale. Quality of pain is described as crampy, Pain began 30 min ago. Is intermittent. EENT: No signs and/or symptoms were reported regarding the EENT system. Neuro: Level of Consciousness is awake, alert, obeys commands, Oriented to person, place, time, situation, Appropriate for age. Cardiovascular: Patient's skin is warm and dry. Rhythm is regular Chest pain quality is cramping is located in right anterior chest wall began 30 minutes prior to arrival episodes are intermittent. Respiratory: Airway is patent Respiratory effort is even, unlabored, Respiratory pattern is regular, symmetrical. GI: Reports nausea. : No signs and/or symptoms were reported regarding the genitourinary system. Derm: No signs and/or symptoms reported regarding the dermatologic system. Skin is intact, is healthy with good turgor, Skin is dry, Skin is pink, warm \T\ dry. normal, Skin temperature is warm. Musculoskeletal: No signs and/or symptoms reported regarding the musculoskeletal system. Range of motion: intact in all extremities. HEALTH CARE CONSULTANT: 23:23 LMP 10/16/2023, [facility] Historical: - Allergies: 23:23 No Known Allergies; 8 - Home Meds: 23:23 None [Active]; km8 - PMHx: 23:23 None; 8 - PSHx: 23:23 None; 8 - Immunization history:: Client reports having NOT received the Covid vaccine. Flu vaccine is up to date. - Social history:: Smoking status: Reported history of juuling and/or vaping. Patient/guardian denies using alcohol, street drugs. - Family history:: not pertinent. Screenin:22 [facility] ED Fall Risk Assessment (Adult) History of falling in the last 3 months, 8 including since admission No falls in past 3 months (0 pts) Confusion or Disorientation No (0 pts) Intoxicated or Sedated No (0 pts) Impaired Gait No (0 pts) Mobility Assist Device Used No (0 pt) Altered Elimination No (0 pt) Score/Fall Risk Level 0 - 2 = Low Risk Oriented to surroundings, Maintained a safe environment, Educated pt \T\ family on fall prevention, incl call for assistance when getting out of bed, Assessed \T\ reinforced patient's understanding of fall precautions. Abuse screen: Denies threats or abuse. Denies injuries from another. Nutritional screening: No deficits noted. Tuberculosis screening: No symptoms or risk factors identified. Assessment: :22 Reassessment: see triage assessment/notes. [facility] 01/04 00:20 Reassessment: Patient and/or family updated on plan of care and expected duration. Pain ha1 level reassessed. Patient is alert, oriented x 3, equal unlabored respirations, skin warm/dry/pink. 01:21 Reassessment: Patient and/or family updated on plan of care and expected duration. Pain ha1 level reassessed. Patient is alert, oriented x 3, equal unlabored respirations, skin warm/dry/pink. Patient states feeling better. Patient states symptoms have improved. 02:50 Reassessment: Patient and/or family updated on plan of care and expected duration. Pain ha1 level reassessed. Patient is alert, oriented x 3, equal unlabored respirations, skin warm/dry/pink. Patient denies pain at this time. Patient states feeling better. Patient states symptoms have improved. Vital Signs: 01/03 23:21 BP 130 / 85; Pulse 82; Resp 18; Temp 98(O); Pulse Ox 100% on R/A; Weight 77.11 kg (R); km8 Height 5 ft. 3 in. (R); Pain 5/10; 01/04 00:00 BP 124 / 72; Pulse 69; Resp 16; Pulse Ox 100% on R/A; km8 01:00 BP 127 / 76; Pulse 67; Resp 17 S; Pulse Ox 100% on R/A; ha1 02:00 BP 113 / 69; Pulse 66; Resp 17 S; Pulse Ox 100% ; ha1 02:30 BP 115 / 73; Pulse 66; Resp 17 S; Temp 98(T); Pulse Ox 100% on R/A; ha1 03 23:21 Body Mass Index 30.11 (77.11 kg, 160.02 cm) km8 01/03 23:21 Pain Scale: Adult km8 [place] Coma Score: 01/03 23:22 Eye Response: spontaneous(4). Motor Response: obeys commands(6). Verbal Response: km8 oriented(5). Total: 15. ED Course: 23:19 Patient arrived in ED. ty 23:20 Damion Green PA is PHCP. cp 23:20 Jim Solano MD is Attending Physician. cp 23:21 Kasia Palencia, ROCHELLE is Primary Nurse. km8 23:22 Patient has correct armband on for positive identification. Bed in low position. Call km8 light in reach. Side rails up X 1. Pulse ox on. NIBP on. Warm blanket given. 23:22 Maintain EMS IV. Dressing intact. Good blood return noted. Site clean \T\ dry. Gauge \T\ km 8 site: 20 gauge right AC. 23:23 Triage completed. km8 23:23 Arm band placed on right wrist. km8 23:39 EKG done, by ED staff, reviewed by Damion ROWLAND. km8 23:59 Initial lab(s) drawn, by me, sent to lab. Urine collected: clean catch specimen, clear. km8 01/04 00:20 XRAY Chest (1 view) In Process Unspecified. EDMS 01:10 CT Head Brain wo Cont In Process Unspecified. EDMS 01:11 CT Chest For PE Angio In Process Unspecified. EDMS 02:51 No provider procedures requiring assistance completed. IV discontinued, intact, ha1 bleeding controlled, No redness/swelling at site. Pressure dressing applied. 02:53 Provided Education on: FOLLOWING WITH PCP. ha1 Administered Medications: 01:07 Drug: Potassium PO Effervescent Tablet 50 mEq PO once; dissolve in 4 ounces of water or ha1 juice Route: PO; 02:00 Follow up: Response: No adverse reaction; Marked relief of symptoms ha1 Medication: 02:53 VIS not applicable for this client. ha1 Outcome: 02:46 Discharge ordered by . sp4 02:51 Discharged to home ambulatory, with family, [facility] 02:51 Condition: stable 02:51 Discharge instructions given to patient, family, Instructed on discharge instructions, follow up and referral plans. Demonstrated understanding of instructions, follow-up care, 02:53 Patient left the ED. ha1 Signatures: Dispatcher [employer] Damion Cox PA PA cp Ayala, Heidy RN RN ha1 Jim Solano MD MD sp4 Kasia Palencia RN RN km8 Jossue [facility] [employer]: (The following items were deleted from the chart) 01:26 01:21 Reassessment: Patient and/or family updated on plan of care and expected ha1 duration. Pain level reassessed. Patient is alert, oriented x 3, equal unlabored respirations, skin warm/dry/pink. ha1
--- NOTE | 2024-01-05 02:46 | EDPHYS ---
Physician Documentation [facility] Name: Loni Bolanos Age: 18 yrs Sex: Female : 2005 Arrival Date: 01/04/2024 Time: 23:16 Bed 8 Private MD: ED Physician Jim Solano HPI: 01/03 23:28 This 18 yrs old Female presents to ER via EMS with complaints of Chest Pain. cp 23:28 The patient or guardian reports chest pain that is located primarily in the anterior cp chest wall. Onset: The symptoms/episode began/occurred just prior to arrival. The pain does not radiate. 23:28 EMS reports patient was walking on treadmill when she started having sudden chest pain cp and shortness of breath. Patient was observed to be confused and slow to respond with difficulty speaking. No observed LOC, no observed seizure activity. MANAGER QUANTITATIVE: 23:23 LMP 10/16/2023, unknown km8 Historical: - Allergies: 23:23 No Known Allergies; km8 - Home Meds: 23:23 None [Active]; km8 - PMHx: 23:23 None; km8 - PSHx: 23:23 None; km8 - Immunization history:: Client reports having NOT received the Covid vaccine. Flu vaccine is up to date. - Social history:: Smoking status: Reported history of juuling and/or vaping. Patient/guardian denies using alcohol, street drugs. - Family history:: not pertinent. ROS: 23:30 Constitutional: Negative for body aches, chills, fever, poor PO intake, cp 23:30 Cardiovascular: Positive for chest pain, cp 23:30 Respiratory: Positive for shortness of breath, 23:30 Abdomen/GI: Positive for nausea, 23:30 Back: Negative for pain at rest, pain with movement, 23:30 Neuro: Positive for near syncope, weakness, Negative for altered mental status, headache, syncope, 23:30 Constitutional: Negative for fever, chills, and weight loss, cp 23:30 All other systems are negative, Exam: 23:35 Constitutional: The patient appears in no acute distress, alert, awake, cp non-diaphoretic, non-toxic, well developed, well nourished, overweight 23:35 Head/Face: Normocephalic, atraumatic. cp 23:35 Eyes: Periorbital structures: appear normal, Pupils: equal, round, and reactive to light and accomodation, Extraocular movements: intact throughout, Conjunctiva: normal, no exudate, no injection, Sclera: no appreciated abnormality, Lids and lashes: appear normal, bilaterally, 23:35 ENT: External ear(s): are unremarkable, Nose: is normal, Mouth: Lips: moist, Oral mucosa: pink and intact, moist, Posterior pharynx: is normal, airway is patent, no erythema, no exudate, 23:35 Chest/axilla: Inspection: normal, 23:35 Cardiovascular: Rate: normal, Rhythm: regular, Heart sounds: murmur, not appreciated, Edema: is not appreciated, JVD: is not appreciated, 23:35 Respiratory: the patient does not display signs of respiratory distress, Respirations: normal, no use of accessory muscles, no retractions, labored breathing, is not present, Breath sounds: are clear throughout, no decreased breath sounds, no stridor, no wheezing, 23:35 Abdomen/GI: Inspection: abdomen appears normal, Palpation: abdomen is soft and non-tender, in all quadrants, 23:35 Back: pain, is absent, ROM is normal, 23:35 Neuro: Orientation: to person, situation, Mentation: able to follow commands, slow to respond, Motor: moves all fours, no focal deficits, 23:40 ECG was reviewed by the Attending Physician. cp 01/04 02:35 Constitutional: This is a well developed, well nourished patient who is awake, alert, sp4 and in no acute distress. Eyes: Pupils equal round and reactive to light, extra-ocular motions intact. Lids and lashes normal. Conjunctiva and sclera are not injected. Cornea within normal limits. Periorbital areas with no swelling, redness, or edema. ENT: Nares patent. No nasal discharge, no septal abnormalities noted. Tympanic membranes are normal and external auditory canals are clear. Oropharynx with no redness, swelling, or masses, exudates, or evidence of obstruction, uvula midline. Mucous membranes moist. Neck: Trachea midline, no thyromegaly or masses palpated, and no cervical lymphadenopathy. Supple, full range of motion without nuchal rigidity, or vertebral point tenderness. Chest/axilla: Normal chest wall appearance and motion. Nontender with no deformity. No lesions are appreciated. Cardiovascular: Regular rate and rhythm with a normal S1 and S2. No gallops, murmurs, or rubs. Normal PMI, no JVD. No pulse deficits. Respiratory: Lungs have equal breath sounds bilaterally, clear to auscultation and percussion. No rales, rhonchi or wheezes noted. No increased work of breathing, no retractions or nasal flaring. Abdomen/GI: Soft, with normal bowel sounds. No distension or tympany. No guarding or rebound. No evidence of tenderness throughout. Back: No spinal tenderness. No costovertebral tenderness. Skin: Warm, dry with normal turgor. Normal color with no rashes, no lesions, and no evidence of cellulitis. MS/ Extremity: Pulses equal, no cyanosis. Neurovascular intact. Full, normal range of motion. Neuro: Awake and alert, GCS 15, oriented to person, place, time, and situation. Cranial nerves II-XII grossly intact. Motor strength 5/5 in all extremities. Sensory grossly intact. Psych: Awake, alert, with orientation to person, place and time. Behavior, mood, and affect are within normal limits Vital Signs: 01/03 23:21 BP 130 / 85; Pulse 82; Resp 18; Temp 98(O); Pulse Ox 100% on R/A; Weight 77.11 kg (R); 8 Height 5 ft. 3 in. (R); Pain 5/10; 01/04 00:00 BP 124 / 72; Pulse 69; Resp 16; Pulse Ox 100% on R/A; [facility] 01:00 BP 127 / 76; Pulse 67; Resp 17 S; Pulse Ox 100% on R/A; ha1 02:00 BP 113 / 69; Pulse 66; Resp 17 S; Pulse Ox 100% ; ha1 02:30 BP 115 / 73; Pulse 66; Resp 17 S; Temp 98(T); Pulse Ox 100% on R/A; ha1 01/03 23:21 Body Mass Index 30.11 (77.11 kg, 160.02 cm) [facility] 01/03 23:21 Pain Scale: Adult [facility] Kasey Coma Score: 01/03 23:22 Eye Response: spontaneous(4). Motor Response: obeys commands(6). Verbal Response: km8 oriented(5). Total: 15. MDM: 23:20 Patient medically screened. cp 01/04 01:25 Management of patient was discussed with the following: ED attending who will accept cp patient while waiting for results of radiology studies. 02:36 ED course: EXAM DESCRIPTION: CT of the head without contrast CLINICAL HISTORY: near sp4 syncope COMPARISON: None available TECHNIQUE: Axial CT of the head obtained from the skull apex to the skull base without contrast. This exam was performed according to our departmental dose-optimization program, which includes automated exposure control, adjustment of the mA and/or kV according to patient size and/or use of iterative reconstruction technique. FINDINGS: Artifact from patient's earrings. No acute intracranial hemorrhage identified. No mass, mass effect, midline shift, or abnormal extra-axial fluid collection. No CT evidence of acute ischemic change identified, however, MRI is more sensitive in the assessment of acute ischemia. Ventricular system and sulcal spaces are normal in size and morphology. Basilar cisterns are patent. Visualized orbits and globes show no acute abnormality. No skull fracture identified. The visualized paranasal sinuses and the mastoid air cells are relatively well aerated. IMPRESSION: Mild artifact. No acute intracranial abnormality on noncontrast CT.. ED course: TECHNIQUE: CTA of the chest obtained following the administration of IV contrast. 3-D/MIP reformatted images of the chest available for evaluation. This exam was performed according to our departmental dose-optimization program, which includes automated exposure control, adjustment of the mA and/or kV according to patient size and/or use of iterative reconstruction technique. FINDINGS: Chest: Pulmonary arteries: Contrast bolus is adequate. No visualized pulmonary embolism. Thyroid gland: No abnormalities of the visualized thyroid gland. Great Vessels: Common origin of the left common carotid and brachiocephalic arteries. Thoracic Aorta: No aneurysm. No visualized dissection. Heart: No pericardial effusion. No significant coronary artery calcifications. Lymph Nodes: No enlarged mediastinal, hilar, or axillary lymph nodes identified. Esophagus: No abnormalities of the esophagus identified. Other: No additional findings. Lungs: No airspace opacities identified. Pleura: No pleural effusion or pneumothorax. Trachea/Airways: Central airways are patent. Bones: No destructive osseous lesions. Upper Abdomen: Limited images of the upper abdomen demonstrate no acute abnormality. IMPRESSION: No visualized pulmonary embolism. No acute abnormality on CT of the chest. . 02:37 ED course: EXAM DESCRIPTION: Chest Single View CLINICAL HISTORY:18 years Female, CHEST sp4 PAIN Comparison: None FINDINGS: No focal lung consolidation. No pleural effusion. No pneumothorax. Cardiomediastinal silhouette is within normal limits. No acute osseous abnormality. IMPRESSION: No acute cardiopulmonary disease. . 02:44 Differential diagnosis: acute pericarditis, anxiety, chest wall pain, esophagitis, sp4 gastritis. HEART Score: History: Slightly Suspicious (0), ECG: Normal (0), Age: < or = 45 years (0), Risk Factors: No Risk Factors Known (0), Troponin: < or = 1 x Normal Limit (0), Total Score = 0. Data reviewed: vital signs, nurses notes, lab test result(s), EKG, radiologic studies, CT scan. ED course: Workup is unremarkable patient is stable for discharge home. . 01/03 23:34 Order name: Urine Microscopic Only; Complete Time: 00:28 cp 01/03 23:34 Order name: Urine Drug Screen; Complete Time: 00:58 cp 01/03 23:34 Order name: Test, Urine; Complete Time: 00:28 cp 01/03 23:34 Order name: Basic Metabolic Panel; Complete Time: 00:58 cp 03 00:58 Interpretation: Normal except: K 3.4; CL 111. cp 01/03 23:34 Order name: CBC with Diff; Complete Time: 00:28 cp 01/04 00:28 Interpretation: Normal except: HGB 10.7; HCT 31.7; MCV 78.1; MCH 26.3; RDW 15.4. cp 01/03 23:34 Order name: D-Dimer; Complete Time: 00:28 cp 03 00:29 Interpretation: Reviewed. cp 01/03 23:34 Order name: LFT's; Complete Time: 00:58 cp 01/03 23:34 Order name: Magnesium; Complete Time: 00:58 cp 01/03 23:34 Order name: NT PRO-BNP; Complete Time: 00:58 cp 01/03 23:34 Order name: PT-INR; Complete Time: 00:28 cp 01/03 23:34 Order name: Troponin HS; Complete Time: 00:58 cp 01/03 23:34 Order name: XRAY Chest (1 view) cp 01/04 00:30 Order name: CT Head Brain wo Cont cp 01/04 00:30 Order name: CT Chest For PE Angio cp 01/03 23:25 Order name: EKG; Complete Time: 23:26 cp 01/03 23:25 Order name: EKG - Nurse/Tech; Complete Time: 23:39 cp 01/03 23:34 Order name: Cardiac monitoring; Complete Time: 23:39 cp 01/03 23:34 Order name: IV Saline Lock; Complete Time: 23:39 cp 01/03 23:34 Order name: Labs collected and sent; Complete Time: 23:59 cp 01/03 23:34 Order name: O2 Per Protocol; Complete Time: 23:39 cp 01/03 23:34 Order name: O2 Sat Monitoring; Complete Time: 23:39 cp EC/08 23:40 Rate is 76 beats/min. Rhythm is regular. MA interval is normal. QRS interval is normal. cp QT interval is normal. T waves are Inverted in lead aVR. Interpreted by me. Reviewed by me. Administered Medications: 01/04 01:07 Drug: Potassium PO Effervescent Tablet 50 mEq PO once; dissolve in 4 ounces of water or ha1 juice Route: PO; 02:00 Follow up: Response: No adverse reaction; Marked relief of symptoms ha1 Disposition: 02:46 Co-signature as Attending Physician, Jim Solano MD I agree with the assessment sp4 and plan of care. I reviewed the patient's care provided by Advanced Practice Provider \T\ agree w/ the diagnosis \T\ care plan. I personally saw the pt \T\ performed a substantive portion of the visit, incldng all aspects of the (History/Exam/Medical Decision Making). Disposition Summary: 01/05/24 02:46 Discharge Ordered Notes: Location: Home sp4 Problem: new sp4 Symptoms: have improved sp4 Condition: Stable sp4 Diagnosis - Chest pain, unspecified sp4 - Noncardiac chest pain sp4 Followup: sp4 - With: Private Physician - When: As needed - Reason: Recheck today's complaints Discharge Instructions: - Discharge Summary Sheet sp4 - Nonspecific Chest Pain, Adult, [id number] sp4 Forms: - Patient Portal Instructions sp4 Signatures: Dispatcher [employer] EDMS Damion Green PA PA cp Ayala, Heidy, RN RN ha1 Jim Solano MD MD sp4 Kasia Palencia RN RN km8 Corrections: (The following items were deleted from the chart) 20:38 02:35 Constitutional: Negative for fever, chills, and weight loss, sp4 cp 20:38 02:35 All other systems are negative, sp4 cp
[2024-01-05 04:20] VITALS: BP 115/73; TEMP 98; O2SAT 100
--- NOTE | 2024-01-05 16:40 | RAD REPORT ---
EXAM DESCRIPTION: CT - Head Brain Wo Cont - 01/05/2024 6:10 am CLINICAL HISTORY: Near syncope COMPARISON: None available TECHNIQUE: Axial CT of the head obtained from the skull apex to the skull base without contrast. Thi s exam was performed according to our departmental dose-optimization program, which includes automate d exposure control, adjustment of the mA and/or kV according to patient size and/or use of iterative reconstruction technique. FINDINGS: Artifact from patient's earrings. No acute intracranial hemorrhage identified. No mass, mass effect, midline shift, or abnormal extra-a xial fluid collection. No CT evidence of acute ischemic change identified, however, MRI is more sen sitive in the assessment of acute ischemia. Ventricular system and sulcal spaces are normal in size and morphology. Basilar cisterns are patent. Visualized orbits and globes show no acute abnormality. No skull fracture identified. The visuali zed paranasal sinuses and the mastoid air cells are relatively well aerated. IMPRESSION: Mild artifact. No acute intracranial abnormality on noncontrast CT. Electronically signed by: Vicenta Moore MD 01/05/2024 01:20 AM COILED TUBING SUPERVISOR Due to temporary technical issues with the PACS/Fluency reporting system, reports are being signed by the in house radiologists without review as a courtesy to insure prompt reporting. The interpreting radiologist is fully responsible for the content of the report.
--- NOTE | 2024-01-05 16:43 | RAD REPORT ---
EXAM DESCRIPTION: CT - Chest For Pe Angio - 01/05/2024 6:10 am CLINICAL HISTORY: Near syncope;Chest pain COMPARISON: Single view chest 01/05/2024 TECHNIQUE: CTA of the chest obtained following the administration of IV contrast. 3-D/MIP reformatte d images of the chest available for evaluation. This exam was performed according to our departmental dose-optimization program, which includes automated exposure control, adjustment of the mA and/or kV according to patient size and/or use of iterative reconstruction technique. FINDINGS: Chest: Pulmonary arteries: Contrast bolus is adequate. No visualized pulmonary embolism. Thyroid gland: No abnormalities of the visualized thyroid gland. Great Vessels: Common origin of the left common carotid and brachiocephalic arteries. Thoracic Aorta: No aneurysm. No visualized dissection. Heart: No pericardial effusion. No significant coronary artery calcifications. Lymph Nodes: No enlarged mediastinal, hilar, or axillary lymph nodes identified. Esophagus: No abnormalities of the esophagus identified. Other: No additional findings. Lungs: No airspace opacities identified. Pleura: No pleural effusion or pneumothorax. Trachea/Airways: Central airways are patent. Bones: No destructive osseous lesions. Upper Abdomen: Limited images of the upper abdomen demonstrate no acute abnormality. IMPRESSION: No visualized pulmonary embolism. No acute abnormality on CT of the chest. Electronically signed by: Vicenta Moore MD 01/05/2024 01:25 AM VULCANIZER OPERATOR Due to temporary technical issues with the PACS/Fluency reporting system, reports are being signed by the in house radiologists without review as a courtesy to insure prompt reporting. The interpreting radiologist is fully responsible for the content of the report.
--- NOTE | 2024-01-05 16:55 | RAD REPORT ---
EXAM DESCRIPTION: RAD - Chest Single View - 01/05/2024 12:18 am CLINICAL HISTORY: 18 years Female, CHEST PAIN COMPARISON: None FINDINGS: No focal lung consolidation. No pleural effusion. No pneumothorax. Cardiomediastinal silhouette is within normal limits. No acute osseous abnormality. IMPRESSION: No acute cardiopulmonary disease. Electronically signed by: Gianfranco Blue DO 01/05/2024 12:25 AM GENERATING STATION MECHANIC Due to temporary technical issues with the PACS/Fluency reporting system, reports are being signed by the in house radiologists without review as a courtesy to insure prompt reporting. The interpreting radiologist is fully responsible for the content of the report.
== END ==
LOC: ER 23:16
DX: R07.89 Other chest pain (principal)
CPT/HCPCS: 36415; 70450; 71045; 71275; 80048; 80076; 80307; 81015; 81025; 83735; 83880; 84484; 85025; 85379; 85610; 99284; Q9967

== ENCOUNTER 2025-03-18 07:06 | Emergency (ER) | payer SELFPAY ==
--- OUTSIDE RECORDS SUMMARY | 2025-03-18 07:27 | XMS REPORT | Continuity of Care Document ---
Author Name Unknown Address [address] [facility] [address] [place] [address] [facility] [place] Address [address] [facility]. [address] [place] [address] Care Team Providers Care Medical Coordinator Pesticide Use Name Role Phone Pcp, Patient Does Not Have A Primary Care Physic elsy MARY KATE JOHN Attending Clinician Unavailable MARY KATE JOHN Attending Clinician Unavailable Mary Kate John NP Attending Clinician [phone] LYN ROBERT Attending Clinician UnavailLYN Hays Attending Clinician UnavailMELISSA Reyes Attending Clinician Unavailable MELISSA PHAM Attending Clinician Unavailable ROSEANNE MCCURDY Attending Clinician Unavailable ROSEANNE MCCURDY Attending Clinician Unavailable LUCINDA BARRETT Attending Clinician Unavailable Doctor Unassigned, [place] Border Attending Clinician TYRONE Hall Attending Clinician Unavailable Tyrone Jama MD Attending Clinician [phone] ANABEL CARD Attending Clinician UnavailAnabel Marquez Attending Clinician +- [phone] Benjamin Johnson Attending Clinician [phone] BENJAMIN DELAROSA Attending Clinician Unavailable AMILCAR CHAVARRIA Attending Clinician Unavailable Amilcar Chavarria MD Attending Clinician + [phone] SACHA AGUSTIN Attending Clinician Unavailable Sacha Brunson Attending Clinician +[phone] ASHLEY MELENDEZ Attending Clinician Unavailab Ashley Mercedes MD Attending Clinician + [phone] BALBINA MATTSON Attending Clinician UnavailBALBINA Lemus Attending Clinician UnavailFRANNY Marie Attending Clinician Unavailab Franny Cheek DO Attending Clinician + [phone] HALLIE MELISSA Attending Clinician Unavailable Hallie Waggoner Attending Clinician [phone] MERY LOZADA Attending Clinician Unavailable Jan Smith MD Attending Clinician [phone] Ultrasound, [facility] Attending Clinician UnavailDiamond Hernandez MD Attending Clinician + DIAMOND ANDERSON Attending Clinician Mery Graves PA-C Attending Clinician [phone], [facility] Attending Clinician Unavailable BITA RUSSO Attending Clinician BITA West Attending Clinician Mariel Ruvalcaba RN Attending Clinician UnavailEMILY Arreola Attending Clinician Unavailable Emily Davila MD Attending Clinician [phone] WENDY GARCIA Attending Clinician Unavailable Wendy Garcia MD Attending Clinician [phone], [facility] Room Attending Clinician UnavailSINDY Higuera Attending Clinician Unavailabl e 1, [facility] Room Attending Clinician UnavailSindy Higuera MD Attending Clinician [phone] Carmita Washington RN Attending Clinician UnavailADRIANA Burciaga Attending Clinician UnavailAdriana Kinsey Attending Clinician + [phone] Unknown, Attending Attending Clinician UnavailMARIEL Rivera Attending Clinician Unavailable MARIEL STONE Attending Clinician Unavailable Chase SALDIVAR, Mariel Ewing Attending Clinician + [phone] Gavin RN, Constance Attending Clinician Unavailyue Sewell RN, Lyn Attending Clinician Unavail able STU HERRERA Attending Clinician Unavailable Javier UNHAIRING MACHINE OPERATOR, Stu Attending Clinician [phone] Ubaldo SALDIVAR, Kaelyn Ricks Attending Clinician + [phone] KAELYN OCNNER Attending Clinician Unavailable Garret Diamond MD Attending Clinician [phone] [facility], [facility] Eeg Attending Clinician Unavailable GARRET DIAMOND Attending Clinician Unavail able GARRET DIAMOND Attending Clinician Unavail able Randall RETAIL ASSOCIATE, Radha Beyer Attending Clinician + [phone] Ti SALDIVAR, Francis K.H. Attending Clinician + [phone] FRANCIS ALVAREZ.H. Attending Clinician Unavaila Iván Ortega MD Attending Clinician + [phone] Nathan Crespo MD Attending Clinician +[phone] NATHAN CRESPO Attending Clinician Unavailab dipika Nurse, [facility] Attending Clinician Un available THANG CONTRERAS Attending Clinician Unavaila Mary Ann Cuenca Attending Clinician + [phone] MARY ANN CAMEJO Attending Clinician Unavailable Care, Julia Urgent Attending Clinician Unavailable UNKNOWN, ATTENDING Attending Clinician Unavailab Deya Spears PA-C Attending Clinician [phone] DEYA SALAZAR Attending Clinician Unavailable Wilfrid Stone DO Attending Clinician [phone] OMAR RICHARDS Attending Clinician Unavailable Rodri Rodriguez MD Attending Clinician [phone] Neli Koroma Attending Clinician [phone] EMILY DAVILA Admitting Clinician Unavailable ROSEANNE MCCURDY Admitting Clinician Unavailable ANABEL CARD Admitting Clinician Unavaila ASHLEY Rider Admitting Clinician Unavailab MELISSA Alejandro Admitting Clinician Unavailable Vero SALDIVAR, Melissa Mccain Admitting Clinician [phone] BITA RUSSO Admitting Clinician Telma Davila MD, Emily Beyer Admitting Clinician STU HERRERA Admitting Clinician Unavailable AMILCAR CHAVARRIA Admitting Clinician Unavailable Payers Payer Name Policy Type Policy Number Effective Date Expirati on Date Source [employer] [place] [id number] 2022 00:00:00 [facility] MEDICAID [id number] 2020 00:00:00 [facility] CHIP [id number] 2019 00:00:00 Problems Condition Name Condition Details Condition Category Status Onset Date Resolution Date Last Treatment Date Treating Clinician Comments Source Anxiety disorder, unspecifie d type Anxiety disorder, unspecifie d type Disease Active 7-10 00:00: 00 [facility] Overweight with body mass index (BMI) of 29 to 29.9 in adult Overweight with body mass index (BMI) of 29 to 29.9 in adult Disease Active 3-30 00:00: 00 [facility] Moderate episode of recurrent major depressive disorder Moderate episode of recurrent major depressive disorder Disease Active 3-09 00:00: 00 [facility] Moderate episode of recurrent major depressive disorder Moderate episode of recurrent major depressive disorder Disease Active 3-09 00:00: 00 [facility] Migraine equivalent syndrome Migraine equivalent syndrome Disease Active 4-07 00:00: 00 [facility] Acne vulgaris Acne vulgaris Disease Active 4-07 00:00: 00 [facility] Asthma Asthma Disease Active 4-13 00:00: 00 Overview: Formattin g of this note might be different from the original. 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 History of anxiety History of anxiety Disease Resolve d 2021-0 7-06 00:00: 00 2023-05-07 00:00:00 2023-05-07 09:22:[address] [facility] Positive depression screening Positive depression screening Disease Resolve d 2022-0 3-30 00:00: 00 2023-02-16 00:00:00 2023-02-16 13:56:[address] [facility] Routine follow-up Routine follow-up Disease Resolve d 2022-0 3-30 00:00: 00 2023-02-16 00:00:00 2023-02-16 13:56:[address] [facility] History of depression History of depression Disease Resolve d 2021-0 7-06 00:00: 00 2023-02-16 00:00:00 2023-02-16 13:56:[address] [facility] Decreased movements in third trimester Decreased movements in third trimester Disease Resolve d 2022-0 1-08 00:00: 00 2023-01-04 00:00:00 2023-01-04 15:16:[address] [facility] Obesity (BMI 30-39.9) Obesity (BMI 30-39.9) Disease Resolve d 2021-1 2-28 00:00: 00 2023-01-04 00:00:00 2023-01-04 15:16:[address] [facility] Round ligament pain Round ligament pain Disease Resolve d 2021-0 9-27 00:00: 00 2023-01-04 00:00:00 2023-01-04 15:16:[address] [facility] High risk , antepartum High risk , antepartum Disease Resolve d 2021-0 7-06 00:00: 00 2023-01-04 00:00:00 2023-01-04 15:16:[address] [facility] Exposure to SARS-assoc iated coronaviru s Exposure to SARS-assoc iated coronaviru s Disease Resolve d 2020-0 4-07 00:00: 00 2023-01-04 00:00:00 2023-01-04 15:16:09 [facility] Liveborn infant, of [place] , born in hospital by vaginal delivery Liveborn , of [place] , born in hospital by vaginal delivery Disease Resolve d 2022-0 2-15 00:00: 00 2022-12-22 00:00:00 2022-12-22 16:11:21 [facility] Full-term premature rupture of membranes with onset of labor within 24 hours of rupture Full-term premature rupture of membranes with onset of labor within 24 hours of rupture Disease Resolve d 2022-0 2-14 00:00: 00 2022-12-22 00:00:00 2022-12-22 16:11:21 [facility] 39 weeks gestation of 39 weeks gestation of Disease Resolve d 2022-0 2-14 00:00: 00 2022-12-22 00:00:00 2022-12-22 16:11:21 [facility] Acute cystitis without hematuria Acute cystitis without hematuria Disease Resolve d 2020-0 4-07 00:00: 00 2022-05-03 00:00:00 2022-05-03 20:07:08 [facility] Dysuria Dysuria Disease Resolve d 2020-0 4-07 00:00: 00 2022-05-03 00:00:00 2022-05-03 20:07:13 [facility] Allergies, Adverse Reactions, Alerts Allergy Name Allergy Type Status Severity Reaction(s) Onset Date Inactive Date Treating Clinician Comments Source NO KNOWN ALLERGIE S Drug Class Active [facility] Social History Social Habit Start Date Stop Date Quantity Comments Source ASSERTION 2022-03-28 00:00:00 Not [facility] History SDOH Alcohol Comment [place] [facility] History of tobacco use Passive smoker [facility] Gender identity [facility] Alcoholic beverage intake 2025-01-03 00:00:00 2025-01-03 00:00:00 Ex-drinker (finding) [facility] Alcohol intake 2024-02-14 00:00:00 2024-02-14 00:00:00 Ex-drinker (finding) [facility] History of Social function 2023-07-04 00:00:00 2023-07-04 00:00:00 [facility] Exposure to SARS-CoV-2 (event) 2023-03-02 00:00:00 2023-03-12 23:04:00 Not sure [facility] Tobacco use and exposure 2022-06-27 00:00:00 2022-06-27 00:00:00 Smokeless tobacco non-user [facility] Tobacco Comment 2022-06-27 00:00:00 2022-06-27 00:00:00 parents smoke outside [facility] History SDOH Alcohol Frequency 2020-11-05 00:00:00 2020-11-05 00:00:00 1 [facility] History SDOH Alcohol Std Drinks 2020-11-05 00:00:00 2020-11-05 00:00:00 99 [facility] History SDOH Alcohol Binge 2020-11-05 00:00:00 2020-11-05 00:00:00 1 [facility] Sex assigned at 2003 00:00:00 2005 00:00:00 [facility] Smoking Status Start Date Stop Date Source Never smoked tobacco [facility] Medications Ordered Medication Name Filled Medication Name Start Date Stop Date Current Medication? Ordering Clinician Indication Dosage Frequency Signature (SIG) Comments Components Source ibuprofen (IBU) tablet 600 mg 02-24 03:00: 00 02-24 03:16 :00 No 600mg 600 mg, Oral, ONCE, 1 dose, On Sun02/23/25 at 2200, ADELA [facility] cefdinir (OMNICEF) capsule 300 mg 02-24 03:00: 00 02-24 03:16 :00 No 300mg 300 mg, Oral, ONCE, 1 dose, On Sun02/23/25 at 2200, ADELA, Reason for Anti-Infec tive: Documented Infection, Documented Infection Site: Urine, Duration of therapy: Once (ED) [facility] butalbital- acetaminoph en-caff (ESGIC) 50-325-40 mg tablet 1 tablet 02-24 03:00: 00 02-24 03:15 :00 No 1{tbl} 1 tablet, Oral, ONCE, 1 dose, On Sun02/23/25 at 2200, ADELA [facility] Ibuprofen 200 mg capsule 02-23 21:54: 32 02-23 00:00 :00 No Take by mouth. [facility] ibuprofen 600 mg tablet 02-23 00:00: 00 Yes [id number] 600mg Take 1 tablet by mouth every 6 (six) hours as needed for Pain (scale 1-3) or Pain (scale 4-6). [facility] cefdinir 300 mg capsule 02-23 00:00: 00 03-03 04:59 :00 Yes [id number] 300mg Take 1 capsule by mouth in the morning and 1 capsule in the evening. Do all this for 7 days. [facility] butalbital- acetaminoph en-caff 50-325-40 mg tablet 01-03 00:00: 00 Yes [id number] 1{tbl} Take 1 tablet by mouth every 6 (six) hours as needed (headache) . [facility] aspirin chewable tablet 243 mg 03-23 14:00: 00 Yes 243mg 243 mg, Oral, DAILY, First dose on Sun03/23/24 at 0900, Until Discontinu ed, Routine [facility] medroxyPROG ESTERone (PROVERA) 10 mg tablet 02-12 00:00: 00 02-23 04:59 :00 No [id number] 10mg Take 1 tablet by mouth in the morning for 10 days. [facility] Ibuprofen 200 mg capsule 2022-1014 15:29: 16 Yes Take by mouth. [facility] iopamidol (ISOVUE 370-500 mL) injection 80 mL 2022-10-16 02:00: 00 09-13 02:00 :00 No [id number] 80mL 80 mL, Intravenou s, ONCE, 1 dose, On Sun09/12/23 at 2000, Routine [facility] NaCl 0.9% (NS) bolus infusion 1,000 mL 2022-10 00:15: 00 09-13 02:06 :00 No 1000mL at 999 mL/hr, 1,000 mL, IV Infusion, ONCE, 1 dose, On Sun09/12/23 at 1815, ADELA [facility] ondansetron (ZOFRAN-ODT ) disintegrat ing tablet 4 mg 2022-10 23:59: 00 09-13 00:09 :00 No 4mg 4 mg, Oral, ONCE, 1 dose, On Sun09/12/23 at 1800, Routine [facility] ondansetron 4 mg disintegrat ing tablet 2022-10 00:00: 00 Yes [id number] 4mg Take 1 tablet by mouth every 8 (eight) hours as needed for Nausea and Vomiting (N/V). [facility] Ibuprofen 200 mg capsule 07-04 13:25: 02 Yes Take by mouth. [facility] buPROPion SR (WELLBUTRIN SR) 100 mg SR tablet 07-04 00:00: 00 Yes [id number] 100mg Take 1 tablet by mouth in the morning and 1 tablet in the evening. [facility] busPIRone 7.5 mg tablet 07-04 00:00: 00 Yes [id number] 7.5mg Take 1 tablet by mouth in the morning and 1 tablet in the evening. [facility] AZITHROMYCI N 250 mg tablet 07-04 00:00: 00 09-12 00:00 :00 No [id number] 500MG on day 1, then 250mg days 2-5 [facility] bromphenira mine-pseudo ephedrine-D M (BROMFED DM) 2-30-10 mg/5 mL syrup 07-04 00:00: 00 07-15 04:59 :00 No [id number] 10mL Take 10 mL by mouth 4 (four) times daily as needed for Congestion /Allergies for up to 10 days. [facility] ibuprofen 800 mg tablet 06-26 00:00: 00 07-04 00:00 :00 No [id number] 800mg Take 1 tablet by mouth every 8 (eight) hours as needed for Pain (scale 4-6) or Temp > 38.5 C. [facility] ondansetron (ZOFRAN) 4 mg tablet 06-26 00:00: 00 07-04 00:00 :00 No [id number] 4mg Take 1 tablet by mouth every 8 (eight) hours as needed for Nausea and Vomiting (N/V). [facility] busPIRone 7.5 mg tablet 05-07 00:00: 00 07-04 00:00 :00 No [id number] 7.5mg Take 1 tablet by mouth in the morning and 1 tablet in the evening. [facility] buPROPion SR (WELLBUTRIN SR) 100 mg SR tablet 05-07 00:00: 00 07-04 00:00 :00 No [id number] 100mg Take 1 tablet by mouth in the morning and 1 tablet in the evening. [facility] predniSONE (DELTASONE) tablet 60 mg 05-01 02:45: 00 05-01 02:45 :00 No 60mg 60 mg, Oral, ONCE, 1 dose, On Sun04/30/23 at 2145, ADELA [facility] predniSONE 20 mg tablet 04-30 00:00: 00 05-04 04:59 :00 No [id number] 40mg Take 2 tablets by mouth in the morning for 3 days. [facility] ketorolac (TORADOL) injection 30 mg 03-13 06:00: 00 03-13 05:17 :00 No 30mg 30 mg, Slow IV Push, ONCE, 1 dose, On Sun03/13/23 at 0100, ADELA [facility] NaCl 0.9% (NS) bolus infusion 1,000 mL 03-13 05:45: 00 03-13 06:59 :00 No 1000mL at 999 mL/hr, 1,000 mL, IV Infusion, ONCE, 1 dose, On Sun03/13/23 at 0045, [facility] diphenhydrA MINE (BENADRYL) injection 25 mg 03-13 05:00: 00 03-13 05:16 :00 No 25mg 25 mg, Slow IV Push, ONCE, 1 dose, On Sun03/13/23 at 0000, [facility] metoclopram nii HCl (REGLAN) injection 10 mg 03-13 05:00: 00 03-13 05:15 :00 No 10mg 10 mg, Slow IV Push, ONCE, 1 dose, On Sun03/13/23 at 0000, [facility] famotidine (PEPCID (PF)) injection 20 mg 03-13 05:00: 00 03-13 05:16 :00 No 20mg 20 mg, Slow IV Push, ONCE, 1 dose, On Sun03/13/23 at 0000, [facility] buPROPion 200 mg 12 hr tablet -21 00:00: 00 05-07 00:00 :00 No [id number] 200mg Take 1 tablet by mouth in the morning and 1 tablet in the evening. [facility] buPROPion 200 mg 12 hr tablet 30 00:00: 00 02-16 00:00 :00 No [id number] 200mg Take 1 tablet by mouth in the morning and 1 tablet in the evening. [facility] acetaminoph en (TYLENOL) tablet 650 mg 3-05 06:15: 00 12-31 06:11 :00 No 650mg 650 mg, Oral, ONCE, 1 dose, On Sun12/31/22 at 0015, [facility] buPROPion SR (WELLBUTRIN SR) 100 mg SR tablet 2-24 00:00: 00 01-25 00:00 :00 No [id number] 100mg Take 1 tablet by mouth in the morning and 1 tablet in the evening. [facility] dicyclomine (BENTYL) tablet 20 mg 12-15 17:45: 00 12-15 17:02 :00 No 20mg 20 mg, Oral, ONCE, 1 dose, On Sun12/15/22 at 1145, Routine [facility] NaCl 0.9% (NS) bolus infusion 1,000 mL 12-15 17:45: 00 12-15 18:16 :00 No 1000mL at 999 mL/hr, 1,000 mL, IV Infusion, ONCE, 1 dose, On Sun12/15/22 at 1145, STAT [facility] ondansetron (ZOFRAN (PF)) injection 4 mg 12-15 16:45: 00 12-15 17:00 :00 No 4mg 4 mg, Slow IV Push, ONCE, 1 dose, On Sun12/15/22 at 1045, ADELA [facility] dicyclomine 10 mg capsule 12-15 00:00: 00 02-16 00:00 :00 No [id number] 10mg Take 1 capsule by mouth 4 (four) times daily as needed for Abdominal pain. [facility] ondansetron 4 mg disintegrat ing tablet 12-15 00:00: 00 02-16 00:00 :00 No [id number] 4mg Take 1 tablet by mouth every 8 (eight) hours as needed for Nausea and Vomiting (N/V). [facility] topiramate 25 mg tablet 12-14 07:49: 13 12-14 00:00 :00 No 25mg Take 25 mg by mouth. [facility] 25/iron fum/folic/d [place] (-1 ORAL) 12-14 07:49: 13 12-14 00:00 :00 No Take by mouth. [facility] vitamin w/FA tablet 12-14 00:00: 00 Yes [id number] 1{tbl} Take 1 tablet by mouth in the morning. [facility] vitamin w/FA tablet 12-14 00:00: 00 07-04 00:00 :00 No [id number] 1{tbl} Take 1 tablet by mouth in the morning. [facility] ferrous sulfate 325 mg (65 mg iron) tablet 12-14 00:00: 00 07-04 00:00 :00 No [id number] 325mg Take 1 tablet by mouth in the morning and 1 tablet in the evening. [facility] docusate 100 mg capsule 12-14 00:00: 00 02-16 00:00 :00 No [id number] 200mg Take 2 capsules by mouth once daily as needed for Constipati on. [facility] ibuprofen 600 mg tablet 12-14 00:00: 00 02-16 00:00 :00 No [id number] 600mg Take 1 tablet by mouth every 6 (six) hours as needed (Pain). Take with food or milk. [facility] methylergon ovine (METHERGINE ) injection 0.2 mg 12-13 10:00: 00 12-13 09:16 :10 No .2mg 0.2 mg, Intramuscu lar, Q4H, First dose on Sun12/13/22 at 0400, Until Discontinu ed, Routine [facility] ceFAZolin (ANCEF) 2,000 mg in NaCl 0.9% (NS) 100 mL MINI-BAG 12-13 09:52: 00 12-13 10:24 :00 No 2000mg 2,000 mg, IV Piggyback, ONCE, 1 dose, On Sun12/13/22 at 0400, Administer over 30 Minutes, 100 mL
Reas on for Anti-Infec tive: Empiric Non-Surgic al Prophylaxi s
Durat ion of therapy: 72 hours [facility] tranexamic acid (CYKLOKAPRO N) 1,000 mg in NaCl 0.9% (NS) 250 mL piggyback 12-13 09:45: 00 12-13 09:16 :10 No 1000mg 1,000 mg, IV Piggyback, ONCE, 1 dose, On Sun12/13/22 at 0345, Administer over 60 Minutes, 250 mL [facility] rho(D) immune globulin (RHOGAM) syringe 300 mcg 12-13 09:16: 12 Yes 300ug 300 mcg, Intramuscu lar, ONCE, For 1 dose, Conditiona l, Routine [facility] witch Oswald (TUCKS) 50 % topical pad 12-13 09:16: 07 Yes Topical, Q4HPRN, Starting on Sun12/13/22 at 031, Until Discontinu ed, Routine, rectal/hem orrhoidal [facility] HYDROcodone -acetaminop hen (NORCO 5) 5-325 mg tablet 1 tablet 12-13 09:16: 07 Yes 1{tbl} 1 tablet, Oral, Q6HPRN, Starting on Sun12/13/22 at 031, Until Discontinu ed, Routine, Pain (scale 7-10) [facility] ibuprofen (IBU) tablet 600 mg 12-13 09:16: 07 Yes 600mg 600 mg, Oral, Q6HPRN, Starting on Sun12/13/22 at 031, Until Discontinu ed, Routine, Pain (scale 4-6) [facility] acetaminoph en (TYLENOL) tablet 650 mg 12-13 09:16: 07 Yes 650mg 650 mg, Oral, Q6HPRN, Starting on Sun12/13/22 at 031, Until Discontinu ed, Routine, Pain (scale 1-3) [facility] diphenhydrA MINE (BENADRYL) tablet 25 mg 12-13 09:16: 07 Yes 25mg 25 mg, Oral, Q6HPRN, Starting on Sun12/13/22 at 031, Until Discontinu ed, Routine, Sleep, Itching [facility] ondansetron (ZOFRAN (PF)) injection 4 mg 12-13 09:16: 07 Yes 4mg 4 mg, Slow IV Push, Q8HPRN, Starting on Sun12/13/22 at 031, Until Discontinu ed, Routine, Nausea and Vomiting (N/V) [facility] simethicone (GAS RELIEF (SIMETHICON E)) chewable tablet 160 mg 12-13 09:16: 07 Yes 160mg 160 mg, Oral, PC+HSPRN, Starting on Sun12/13/22 at 031, Until Discontinu ed, Routine, Gas [facility] docusate (COLACE) capsule 200 mg 12-13 09:16: 07 Yes 200mg 200 mg, Oral, QDAILYPRN, Starting on Sun12/13/22 at 0316, Until Discontinu ed, Routine, Constipati on [facility] magnesium hydroxide (MILK OF MAGNESIA) 400 mg/5 mL suspension 30 mL 12-13 09:16: 07 Yes 30mL 30 mL, Oral, QDAILYPRN, Starting on Sun12/13/22 at 031, Until Discontinu ed, Routine, Constipati on [facility] benzocaine- menthol (DERMOPLAST ) 20-0.5 % topical spray 12-13 09:16: 07 Yes Topical, PRN, Starting on Sun12/13/22 at 031, Until Discontinu ed, Routine, Perineum discomfort [facility] diphenhydrA MINE (BENADRYL) injection 25 mg 12-13 05:24: 19 12-13 09:16 :10 No 25mg 25 mg, Intravenou s, Q6HPRN, Starting on Sun12/12/22 at 2324, Until Sun12/13/22 at 031, Routine, Itching [facility] topiramate 25 mg tablet 12-13 03:01: 01 Yes 25mg Take 25 mg by mouth. [facility] 25/iron fum/folic/d [place] (-1 ORAL) 12-13 03:01: 01 Yes Take by mouth. [facility] fentaNYL-ro pivacaine 2 mcg/mL-0.1 % (PF) in NS 200 mL epidural infusion RTU 12-13 02:43: 00 12-13 15:36 :30 No Epidural, CONTINUOUS PRN, Starting on Sun12/12/22 at 2043, Until Sun12/13/22 at 0936, Routine, Intra-op [facility] lidocaine-e pinephrine (XYLOCAINE W/EPINEPHRI NE) 1.5 %-1:200,000 injection 12-13 02:38: 00 12-13 15:36 :30 No Intraderma l, ONCE INTRA PROCEDURE, Starting on Sun12/12/22 at 2038, Until Sun12/13/22 at 0936, Routine, Intra-op [facility] oxytocin (PITOCIN) 30 units in NS 500 mL IV infusion 12-12 22:41: 57 12-13 09:16 :10 No 2mU/min at 2-40 mL/hr, IV Infusion, TITRATE, Starting on Sun12/12/22 at 1641, Until Sun12/13/22 at 0316, ADELA [facility] proMETHazin e (PHENERGAN) 25 mg in NaCl 0.9% (NS) 50 mL IV piggyback 12-12 20:04: 17 12-13 09:16 :10 No 25mg 25 mg, IV Piggyback, Q4HPRN, Starting on Sun12/12/22 at 1404, Until Sun12/13/22 at 0316, Routine, Nausea and Vomiting (N/V) [facility] FENTanyl PF (SUBLIMAZE (PF)) injection 100 mcg 12-12 20:03: 50 12-13 09:16 :10 No 100ug 100 mcg, Slow IV Push, Q1HPRN, Starting on Sun12/12/22 at 1403, Until Sun12/13/22 at 0316, Routine, Pain (scale 4-6) [facility] lactated ringers IV infusion 500 mL 12-12 17:35: 06 12-13 09:16 :10 No 500mL at 999 mL/hr, 500 mL, IV Infusion, PRN - SEE INSTRUCTIO NS, Starting on Sun12/12/22 at 1135, Until Sun12/13/22 at 0316, Routine [facility] [id number] IV infusion 1,000 mL 12-12 17:35: 06 12-13 09:16 :10 No 1000mL at 1-125 mL/hr, IV Infusion, TITRATE, Starting on Sun12/12/22 at 1135, Until Sun12/13/22 at 0316, Routine [facility] topiramate 25 mg tablet 12-07 13:22: 36 Yes 25mg Take 25 mg by mouth. [facility] cephALEXin 500 mg capsule 12-07 00:00: 00 12-14 00:00 :00 No [id number] 500mg Take 1 capsule by mouth 4 (four) times daily for 7 days. [facility] topiramate 25 mg tablet 11-30 13:49: 43 Yes 25mg Take 25 mg by mouth. [facility] famotidine 20 mg tablet 11-09 00:00: 00 12-14 00:00 :00 No [id number] 20mg Take 1 tablet by mouth in the morning and 1 tablet in the evening. [facility] polycarboph il (FIBERCON) 625 mg tablet 11-06 00:00: 00 12-14 00:00 :00 No [id number] 625mg Take 1 tablet by mouth in the morning. [facility] docusate (COLACE) 100 mg capsule 11-06 00:00: 00 12-14 00:00 :00 No [id number] 100mg Take 1 capsule by mouth once daily as needed for Constipati on. [facility] polyethylen e glycol 3350 (MIRALAX) 17 gram/dose powder 11-06 00:00: 00 12-14 00:00 :00 No [id number] 17g Take 17 g by mouth as needed for Constipati on. [facility] ferrous sulfate (IRON, FERROUS SULFATE,) 325 mg (65 mg iron) tablet 11-06 00:00: 00 12-14 00:00 :00 No [id number] 325mg Take 1 tablet by mouth in the morning and 1 tablet in the evening. [facility] topiramate 25 mg tablet 11-05 01:37: 16 Yes 25mg Take 25 mg by mouth. [facility] 25/iron fum/folic/d [place] (-1 ORAL) 11-05 01:37: 16 Yes Take by mouth. [facility] fluconazole 200 mg tablet 10-30 00:00: 00 11-01 05:59 :00 No [id number] 200mg Take 1 tablet by mouth in the morning for 1 day. [facility] topiramate 25 mg tablet 2021-10 21:48: 41 Yes 25mg Take 25 mg by mouth. [facility] 25/iron fum/folic/d [place] (- ORAL) 2021-10 21:48: 41 Yes Take by mouth. [facility] 25/iron fum/folic/d [place] (-1 ORAL) 2021-10 15:04: 45 Yes Take by mouth. [facility] topiramate 25 mg tablet 2021-10 15:03: 21 Yes 25mg Take 25 mg by mouth. [facility] 25/iron fum/folic/d [place] (-1 ORAL) 2021-10 14:44: 38 09-20 00:00 :00 No Take by mouth. [facility] guaifenesin (COUGH SYRUP ORAL) 2021-10 14:44: 32 09-20 00:00 :00 No Take by mouth. [facility] ferrous sulfate (IRON, FERROUS SULFATE,) 325 mg (65 mg iron) tablet 2021-10 00:00: 00 11-02 00:00 :00 No [id number] 325mg Take 1 tablet by mouth in the morning and 1 tablet in the evening. [facility] guaifenesin (COUGH SYRUP ORAL) 2021-10 0 11:11: 15 Yes Take by mouth. [facility] 25/iron fum/folic/d [place] (-1 ORAL) 2021-10 0-16 19:06: 18 Yes Take by mouth. [facility] polycarboph il (FIBERCON) 625 mg tablet 07-25 00:00: 00 11-02 00:00 :00 No [id number] 625mg Take 1 tablet by mouth in the morning. [facility] docusate (COLACE) 100 mg capsule 07-25 00:00: 11-02 00:00 :00 No [id number] 100mg Take 1 capsule by mouth once daily as needed for Constipati on. [facility] polyethylen e glycol 3350 (MIRALAX) 17 gram/dose powder 07-25 00:00: 00 11-02 00:00 :00 No [id number] 17g Take 17 g by mouth as needed for Constipati on. [facility] polyethylen e glycol 3350 (MIRALAX) 17 gram powder 07-25 00:00: 00 07-25 00:00 :00 No [id number] 1{packe t} Take 1 Packet by mouth as needed for Constipati on. [facility] NaCl 0.9% (NS) bolus infusion 1,000 mL 06-25 23:30: 00 06-25 23:25 :00 No 1000mL at 999 mL/hr, 1,000 mL, IV Infusion, ONCE, 1 dose, On 06/25/22 at 1830, ADELA [facility] maalox:diph enhydrAMINE :lidocaine 2 % viscous 1:1:1 ([facility]) oral suspension 15 mL 06-25 23:30: 00 06-25 23:25 :00 No 15mL 15 mL, Oral, ONCE, 1 dose, On 06/25/22 at 1830, Routine [facility] NaCl 0.9% (NS) bolus infusion 1,000 mL 06-25 20:45: 00 06-25 22:49 :00 No 1000mL at 999 mL/hr, 1,000 mL, IV Infusion, ONCE, 1 dose, On 8/28/22 at 1545, ADELA [facility] proMETHazin e (PHENERGAN) 12.5 mg in NaCl 0.9% (NS) 50 mL IV piggyback 06-25 20:00: 00 06-25 20:45 :00 No 12.5mg 12.5 mg, IV Piggyback, ONCE, 1 dose, On Sun06/25/22 at 1500, ADELA [facility] proMETHazin e 25 mg suppository 06-25 00:00: 00 09-20 00:00 :00 No [id number] 25mg Insert 1 Suppositor y into rectum every 4 (four) hours as needed for Nausea and Vomiting (N/V). [facility] proMETHazin e 25 mg tablet 06-17 00:00: 00 Yes [id number] 25mg Take 1 tablet by mouth every 6 (six) hours as needed for Nausea and Vomiting (N/V). [facility] 25/iron fum/folic/d [place] (-1 ORAL) 05-30 09:47: 32 Yes Take by mouth. [facility] ondansetron (ZOFRAN) 4 mg tablet 3-31 00:00: 00 09-20 00:00 :00 No [id number] 4mg Take 1 tablet by mouth every 8 (eight) hours as needed for Nausea and Vomiting (N/V). [facility] topiramate 25 mg tablet 2020-10 2-15 00:00: 00 09-20 00:00 :00 No [id number] TAKE 1 TABLET BY MOUTH TWICE DAILY FOR 7 DAYS THEN TAKE 2 TABLETS BY MOUTH TWICE DAILY THEREAFTER [facility] PROAIR HFA 90 mcg/actuati on inhaler 2020-10 0-04 00:00: 00 09-20 00:00 :00 No [id number] 2{puff} Inhale 2 Puffs every 4 (four) hours as needed for Wheezing or Shortness of Breath. [facility] Immunizations Ordered Immunization Name Filled Immunization Name Date Status Comments Source Influenza Virus Vaccine Quad .5 mL IM 6+ MO 2020-11-05 00:00:00 Completed [facility] Meningococcal Polysaccharide (groups A, C, Y and W-135) conjugate vaccine (MCV4P) 2020-11-05 00:00:00 Completed [facility] Meningococcal B, OMV 2020-11-05 00:00:00 Completed [facility] Influenza Virus Vaccine Quad .5 mL IM 6+ MO 2020-11-05 00:00:00 Completed [facility] Meningococcal Polysaccharide (groups A, C, Y and W-135) conjugate vaccine (MCV4P) 2020-11-05 00:00:00 Completed [facility] Meningococcal B, OMV 2020-11-05 00:00:00 Completed [facility] Influenza Virus Vaccine Quad .5 mL IM 6+ MO 2020-11-05 00:00:00 Completed [facility] Meningococcal Polysaccharide (groups A, C, Y and W-135) conjugate vaccine (MCV4P) 2020-11-05 00:00:00 Completed [facility] Meningococcal B, OMV 2020-11-05 00:00:00 Completed [facility] Influenza Virus Vaccine Quad .5 mL IM 6+ MO 2020-11-05 00:00:00 Completed [facility] Meningococcal Polysaccharide (groups A, C, Y and W-135) conjugate vaccine (MCV4P) 2020-11-05 00:00:00 Completed [facility] Meningococcal B, OMV 2020-11-05 00:00:00 Completed [facility] Influenza Virus Vaccine Quad .5 mL IM 6+ MO 2020-11-05 00:00:00 Completed [facility] Meningococcal Polysaccharide (groups A, C, Y and W-135) conjugate vaccine (MCV4P) 2020-11-05 00:00:00 Completed [facility] Meningococcal B, OMV 2020-11-05 00:00:00 Completed [facility] Influenza Virus Vaccine Quad .5 mL IM 6+ MO 2020-11-05 00:00:00 Completed [facility] Meningococcal Polysaccharide (groups A, C, Y and W-135) conjugate vaccine (MCV4P) 2020-11-05 00:00:00 Completed [facility] Meningococcal B, OMV 2020-11-05 00:00:00 Completed [facility] Influenza Virus Vaccine Quad .5 mL IM 6+ MO 2020-11-05 00:00:00 Completed [facility] Meningococcal Polysaccharide (groups A, C, Y and W-135) conjugate vaccine (MCV4P) 2020-11-05 00:00:00 Completed [facility] Meningococcal B, OMV 2020-11-05 00:00:00 Completed [facility] Influenza Virus Vaccine Quad .5 mL IM 6+ MO 2020-11-05 00:00:00 Completed [facility] Meningococcal Polysaccharide (groups A, C, Y and W-135) conjugate vaccine (MCV4P) 2020-11-05 00:00:00 Completed [facility] Meningococcal B, OMV 2020-11-05 00:00:00 Completed [facility] Influenza Virus Vaccine Quad .5 mL IM 6+ MO 2020-11-05 00:00:00 Completed [facility] Meningococcal Polysaccharide (groups A, C, Y and W-135) conjugate vaccine (MCV4P) 2020-11-05 00:00:00 Completed [facility] Meningococcal B, OMV 2020-11-05 00:00:00 Completed [facility] Influenza Virus Vaccine Quad .5 mL IM 6+ MO 2020-11-05 00:00:00 Completed [facility] Meningococcal Polysaccharide (groups A, C, Y and W-135) conjugate vaccine (MCV4P) 2020-11-05 00:00:00 Completed [facility] Meningococcal B, OMV 2020-11-05 00:00:00 Completed [facility] Influenza Virus Vaccine Quad .5 mL IM 6+ MO 2020-11-05 00:00:00 Completed [facility] Meningococcal Polysaccharide (groups A, C, Y and W-135) conjugate vaccine (MCV4P) 2020-11-05 00:00:00 Completed [facility] Meningococcal B, OMV 2020-11-05 00:00:00 Completed [facility] Influenza Virus Vaccine Quad .5 mL IM 6+ MO 2020-11-05 00:00:00 Completed [facility] Meningococcal Polysaccharide (groups A, C, Y and W-135) conjugate vaccine (MCV4P) 2020-11-05 00:00:00 Completed [facility] Meningococcal B, OMV 2020-11-05 00:00:00 Completed [facility] Influenza Virus Vaccine Quad .5 mL IM 6+ MO 2020-11-05 00:00:00 Completed [facility] Meningococcal Polysaccharide (groups A, C, Y and W-135) conjugate vaccine (MCV4P) 2020-11-05 00:00:00 Completed [facility] Meningococcal B, OMV 2020-11-05 00:00:00 Completed [facility] Influenza Virus Vaccine Quad .5 mL IM 6+ MO 2020-11-05 00:00:00 Completed [facility] Meningococcal Polysaccharide (groups A, C, Y and W-135) conjugate vaccine (MCV4P) 2020-11-05 00:00:00 Completed [facility] Meningococcal B, OMV 2020-11-05 00:00:00 Completed [facility] Influenza Virus Vaccine Quad .5 mL IM 6+ MO 2020-11-05 00:00:00 Completed [facility] Meningococcal Polysaccharide (groups A, C, Y and W-135) conjugate vaccine (MCV4P) 2020-11-05 00:00:00 Completed [facility] Meningococcal B, OMV 2020-11-05 00:00:00 Completed [facility] Influenza Virus Vaccine Quad .5 mL IM 6+ MO 2020-11-05 00:00:00 Completed [facility] Meningococcal Polysaccharide (groups A, C, Y and W-135) conjugate vaccine (MCV4P) 2020-11-05 00:00:00 Completed [facility] Meningococcal B, OMV 2020-11-05 00:00:00 Completed [facility] Influenza Virus Vaccine Quad .5 mL IM 6+ MO 2020-11-05 00:00:00 Completed [facility] Meningococcal Polysaccharide (groups A, C, Y and W-135) conjugate vaccine (MCV4P) 2020-11-05 00:00:00 Completed [facility] Meningococcal B, OMV 2020-11-05 00:00:00 Completed [facility] Influenza Virus Vaccine Quad .5 mL IM 6+ MO 2020-11-05 00:00:00 Completed [facility] Meningococcal Polysaccharide (groups A, C, Y and W-135) conjugate vaccine (MCV4P) 2020-11-05 00:00:00 Completed [facility] Meningococcal B, OMV 2020-11-05 00:00:00 Completed [facility] Influenza Virus Vaccine Quad .5 mL IM 6+ MO 2020-11-05 00:00:00 Completed [facility] Meningococcal Polysaccharide (groups A, C, Y and W-135) conjugate vaccine (MCV4P) 2020-11-05 00:00:00 Completed [facility] Meningococcal B, OMV 2020-11-05 00:00:00 Completed [facility] Influenza Virus Vaccine Quad .5 mL IM 6+ MO 2020-11-05 00:00:00 Completed [facility] Meningococcal Polysaccharide (groups A, C, Y and W-135) conjugate vaccine (MCV4P) 2020-11-05 00:00:00 Completed [facility] Meningococcal B, OMV 2020-11-05 00:00:00 Completed [facility] Influenza Virus Vaccine Quad .5 mL IM 6+ MO 2020-11-05 00:00:00 Completed [facility] Meningococcal Polysaccharide (groups A, C, Y and W-135) conjugate vaccine (MCV4P) 2020-11-05 00:00:00 Completed [facility] Meningococcal B, OMV 2020-11-05 00:00:00 Completed [facility] Influenza Virus Vaccine Quad .5 mL IM 6+ MO 2020-11-05 00:00:00 Completed [facility] Meningococcal Polysaccharide (groups A, C, Y and W-135) conjugate vaccine (MCV4P) 2020-11-05 00:00:00 Completed [facility] Meningococcal B, OMV 2020-11-05 00:00:00 Completed [facility] Influenza Virus Vaccine Quad .5 mL IM 6+ MO 2020-11-05 00:00:00 Completed [facility] Meningococcal Polysaccharide (groups A, C, Y and W-135) conjugate vaccine (MCV4P) 2020-11-05 00:00:00 Completed [facility] Meningococcal B, OMV 2020-11-05 00:00:00 Completed [facility] Influenza Virus Vaccine Quad .5 mL IM 6+ MO 2020-11-05 00:00:00 Completed [facility] Meningococcal Polysaccharide (groups A, C, Y and W-135) conjugate vaccine (MCV4P) 2020-11-05 00:00:00 Completed [facility] Meningococcal B, OMV 2020-11-05 00:00:00 Completed [facility] Influenza Virus Vaccine Quad .5 mL IM 6+ MO 2020-11-05 00:00:00 Completed [facility] Meningococcal Polysaccharide (groups A, C, Y and W-135) conjugate vaccine (MCV4P) 2020-11-05 00:00:00 Completed [facility] Meningococcal B, OMV 2020-11-05 00:00:00 Completed [facility] Influenza Virus Vaccine Quad .5 mL IM 6+ MO 2020-11-05 00:00:00 Completed [facility] Meningococcal Polysaccharide (groups A, C, Y and W-135) conjugate vaccine (MCV4P) 2020-11-05 00:00:00 Completed [facility] Meningococcal B, OMV 2020-11-05 00:00:00 Completed [facility] Influenza Virus Vaccine Quad .5 mL IM 6+ MO 2020-11-05 00:00:00 Completed [facility] Meningococcal Polysaccharide (groups A, C, Y and W-135) conjugate vaccine (MCV4P) 2020-11-05 00:00:00 Completed [facility] Meningococcal B, OMV 2020-11-05 00:00:00 Completed [facility] Influenza Virus Vaccine Quad .5 mL IM 6+ MO 2020-11-05 00:00:00 Completed [facility] Meningococcal Polysaccharide (groups A, C, Y and W-135) conjugate vaccine (MCV4P) 2020-11-05 00:00:00 Completed [facility] Meningococcal B, OMV 2020-11-05 00:00:00 Completed [facility] Influenza Virus Vaccine Quad .5 mL IM 6+ MO 2020-11-05 00:00:00 Completed [facility] Meningococcal Polysaccharide (groups A, C, Y and W-135) conjugate vaccine (MCV4P) 2020-11-05 00:00:00 Completed [facility] Meningococcal B, OMV 2020-11-05 00:00:00 Completed [facility] Influenza Virus Vaccine Quad .5 mL IM 6+ MO 2020-11-05 00:00:00 Completed [facility] Meningococcal Polysaccharide (groups A, C, Y and W-135) conjugate vaccine (MCV4P) 2020-11-05 00:00:00 Completed [facility] Meningococcal B, OMV 2020-11-05 00:00:00 Completed [facility] Influenza Virus Vaccine Quad .5 mL IM 6+ MO 2020-11-05 00:00:00 Completed [facility] Meningococcal Polysaccharide (groups A, C, Y and W-135) conjugate vaccine (MCV4P) 2020-11-05 00:00:00 Completed [facility] Meningococcal B, OMV 2020-11-05 00:00:00 Completed [facility] Influenza Virus Vaccine Quad .5 mL IM 6+ MO 2020-11-05 00:00:00 Completed [facility] Meningococcal Polysaccharide (groups A, C, Y and W-135) conjugate vaccine (MCV4P) 2020-11-05 00:00:00 Completed [facility] Meningococcal B, OMV 2020-11-05 00:00:00 Completed [facility] Influenza Virus Vaccine Quad .5 mL IM 6+ MO 2020-11-05 00:00:00 Completed [facility] Meningococcal Polysaccharide (groups A, C, Y and W-135) conjugate vaccine (MCV4P) 2020-11-05 00:00:00 Completed [facility] Meningococcal B, OMV 2020-11-05 00:00:00 Completed [facility] Influenza Virus Vaccine Quad .5 mL IM 6+ MO 2020-11-05 00:00:00 Completed [facility] Meningococcal Polysaccharide (groups A, C, Y and W-135) conjugate vaccine (MCV4P) 2020-11-05 00:00:00 Completed [facility] Meningococcal B, OMV 2020-11-05 00:00:00 Completed [facility] Influenza Virus Vaccine Quad .5 mL IM 6+ MO 2020-11-05 00:00:00 Completed [facility] Meningococcal Polysaccharide (groups A, C, Y and W-135) conjugate vaccine (MCV4P) 2020-11-05 00:00:00 Completed [facility] Meningococcal B, OMV 2020-11-05 00:00:00 Completed [facility] Influenza Virus Vaccine Quad .5 mL IM 6+ MO 2020-11-05 00:00:00 Completed [facility] Meningococcal Polysaccharide (groups A, C, Y and W-135) conjugate vaccine (MCV4P) 2020-11-05 00:00:00 Completed [facility] Meningococcal B, V 2020-11-05 00:00:00 Completed [facility] Influenza Virus Vaccine Quad .5 mL IM 6+ MO 2020-11-05 00:00:00 Completed [facility] Meningococcal Polysaccharide (groups A, C, Y and W-135) conjugate vaccine (MCV4P) 2020-11-05 00:00:00 Completed [facility] Meningococcal B, OMV 2020-11-05 00:00:00 Completed [facility] Influenza Virus Vaccine Quad .5 mL IM 6+ MO 2020-11-05 00:00:00 Completed [facility] Meningococcal Polysaccharide (groups A, C, Y and W-135) conjugate vaccine (MCV4P) 2020-11-05 00:00:00 Completed [facility] Meningococcal B, OMV 2020-11-05 00:00:00 Completed [facility] Influenza Virus Vaccine Quad .5 mL IM 6+ MO 2020-11-05 00:00:00 Completed [facility] Meningococcal Polysaccharide (groups A, C, Y and W-135) conjugate vaccine (MCV4P) 2020-11-05 00:00:00 Completed [facility] Meningococcal B, OMV 2020-11-05 00:00:00 Completed [facility] Influenza Virus Vaccine Quad .5 mL IM 6+ MO 2020-11-05 00:00:00 Completed [facility] Meningococcal Polysaccharide (groups A, C, Y and W-135) conjugate vaccine (MCV4P) 2020-11-05 00:00:00 Completed [facility] Meningococcal B, OMV 2020-11-05 00:00:00 Completed [facility] Influenza Virus Vaccine Quad .5 mL IM 6+ MO 2020-11-05 00:00:00 Completed [facility] Meningococcal Polysaccharide (groups A, C, Y and W-135) conjugate vaccine (MCV4P) 2020-11-05 00:00:00 Completed [facility] Meningococcal B, OMV 2020-11-05 00:00:00 Completed [facility] Influenza Virus Vaccine Quad .5 mL IM 6+ MO 2020-11-05 00:00:00 Completed [facility] Meningococcal Polysaccharide (groups A, C, Y and W-135) conjugate vaccine (MCV4P) 2020-11-05 00:00:00 Completed [facility] Meningococcal B, OMV 2020-11-05 00:00:00 Completed [facility] Influenza Virus Vaccine Quad .5 mL IM 6+ MO 2020-11-05 00:00:00 Completed [facility] Meningococcal Polysaccharide (groups A, C, Y and W-135) conjugate vaccine (MCV4P) 2020-11-05 00:00:00 Completed [facility] Meningococcal B, OMV 2020-11-05 00:00:00 Completed [facility] Influenza Virus Vaccine Quad .5 mL IM 6+ MO 2020-11-05 00:00:00 Completed [facility] Meningococcal Polysaccharide (groups A, C, Y and W-135) conjugate vaccine (MCV4P) 2020-11-05 00:00:00 Completed [facility] Meningococcal B, OMV 2020-11-05 00:00:00 Completed [facility] Influenza Virus Vaccine Quad .5 mL IM 6+ MO 2020-11-05 00:00:00 Completed [facility] Meningococcal Polysaccharide (groups A, C, Y and W-135) conjugate vaccine (MCV4P) 2020-11-05 00:00:00 Completed [facility] Meningococcal B, OMV 2020-11-05 00:00:00 Completed [facility] Influenza Virus Vaccine Quad .5 mL IM 6+ MO 2020-11-05 00:00:00 Completed [facility] Meningococcal Polysaccharide (groups A, C, Y and W-135) conjugate vaccine (MCV4P) 2020-11-05 00:00:00 Completed [facility] Meningococcal B, OMV 2020-11-05 00:00:00 Completed [facility] Influenza Virus Vaccine Quad .5 mL IM 6+ MO 2020-11-05 00:00:00 Completed [facility] Meningococcal Polysaccharide (groups A, C, Y and W-135) conjugate vaccine (MCV4P) 2020-11-05 00:00:00 Completed [facility] Meningococcal B, OMV 2020-11-05 00:00:00 Completed [facility] Influenza Virus Vaccine Quad .5 mL IM 6+ MO 2020-11-05 00:00:00 Completed [facility] Meningococcal Polysaccharide (groups A, C, Y and W-135) conjugate vaccine (MCV4P) 2020-11-05 00:00:00 Completed [facility] Meningococcal B, OMV 2020-11-05 00:00:00 Completed [facility] Influenza Virus Vaccine Quad .5 mL IM 6+ MO 2020-11-05 00:00:00 Completed [facility] Meningococcal Polysaccharide (groups A, C, Y and W-135) conjugate vaccine (MCV4P) 2020-11-05 00:00:00 Completed [facility] Meningococcal B, OMV 2020-11-05 00:00:00 Completed [facility] Influenza Virus Vaccine Quad .5 mL IM 6+ MO 2020-11-05 00:00:00 Completed [facility] Meningococcal Polysaccharide (groups A, C, Y and W-135) conjugate vaccine (MCV4P) 2020-11-05 00:00:00 Completed [facility] Meningococcal B, OMV 2020-11-05 00:00:00 Completed [facility] Influenza Virus Vaccine Quad .5 mL IM 6+ MO 2020-11-05 00:00:00 Completed [facility] Meningococcal Polysaccharide (groups A, C, Y and W-135) conjugate vaccine (MCV4P) 2020-11-05 00:00:00 Completed [facility] Meningococcal B, OMV 2020-11-05 00:00:00 Completed [facility] Influenza Virus Vaccine Quad .5 mL IM 6+ MO 2020-11-05 00:00:00 Completed [facility] Meningococcal Polysaccharide (groups A, C, Y and W-135) conjugate vaccine (MCV4P) 2020-11-05 00:00:00 Completed [facility] Meningococcal B, OMV 2020-11-05 00:00:00 Completed [facility] Influenza Virus Vaccine Quad .5 mL IM 6+ MO 2020-11-05 00:00:00 Completed [facility] Meningococcal Polysaccharide (groups A, C, Y and W-135) conjugate vaccine (MCV4P) 2020-11-05 00:00:00 Completed [facility] Meningococcal B, OMV 2020-11-05 00:00:00 Completed [facility] Influenza Virus Vaccine Quad .5 mL IM 6+ MO 2020-11-05 00:00:00 Completed [facility] Meningococcal Polysaccharide (groups A, C, Y and W-135) conjugate vaccine (MCV4P) 2020-11-05 00:00:00 Completed [facility] Meningococcal B, OMV 2020-11-05 00:00:00 Completed [facility] Influenza Virus Vaccine Quad .5 mL IM 6+ MO 2020-11-05 00:00:00 Completed [facility] Meningococcal Polysaccharide (groups A, C, Y and W-135) conjugate vaccine (MCV4P) 2020-11-05 00:00:00 Completed [facility] Meningococcal B, OMV 2020-11-05 00:00:00 Completed [facility] Influenza Virus Vaccine Quad .5 mL IM 6+ MO 2020-11-05 00:00:00 Completed [facility] Meningococcal Polysaccharide (groups A, C, Y and W-135) conjugate vaccine (MCV4P) 2020-11-05 00:00:00 Completed [facility] Meningococcal B, OMV 2020-11-05 00:00:00 Completed [facility] Influenza Virus Vaccine Quad .5 mL IM 6+ MO 2020-11-05 00:00:00 Completed [facility] Meningococcal Polysaccharide (groups A, C, Y and W-135) conjugate vaccine (MCV4P) 2020-11-05 00:00:00 Completed [facility] Meningococcal B, OMV 2020-11-05 00:00:00 Completed [facility] Influenza Virus Vaccine Quad .5 mL IM 6+ MO 2020-11-05 00:00:00 Completed [facility] Meningococcal Polysaccharide (groups A, C, Y and W-135) conjugate vaccine (MCV4P) 2020-11-05 00:00:00 Completed [facility] Meningococcal B, OMV 2020-11-05 00:00:00 Completed [facility] Influenza Virus Vaccine Quad .5 mL IM 6+ MO 2020-11-05 00:00:00 Completed [facility] Meningococcal Polysaccharide (groups A, C, Y and W-135) conjugate vaccine (MCV4P) 2020-11-05 00:00:00 Completed [facility] Meningococcal B, OMV 2020-11-05 00:00:00 Completed [facility] Influenza Virus Vaccine Quad .5 mL IM 6+ MO (FLUZONE/FLULAVAL/FLU ARIX) 2020-11-05 00:00:00 Completed [facility] Meningococcal Polysaccharide (groups A, C, Y and W-135) conjugate vaccine (MCV4P) 2020-11-05 00:00:00 Completed [facility] Meningococcal B, OMV 2020-11-05 00:00:00 Completed [facility] Influenza Virus Vaccine Quad .5 mL IM 6+ MO (FLUZONE/FLULAVAL/FLU ARIX) 2020-11-05 00:00:00 Completed [facility] Meningococcal Polysaccharide (groups A, C, Y and W-135) conjugate vaccine (MCV4P) 2020-11-05 00:00:00 Completed [facility] Meningococcal B, OMV 2020-11-05 00:00:00 Completed [facility] Influenza Virus Vaccine Quad .5 mL IM 6+ MO (FLUZONE/FLULAVAL/FLU ARIX) 2020-11-05 00:00:00 Completed [facility] Meningococcal Polysaccharide (groups A, C, Y and W-135) conjugate vaccine (MCV4P) 2020-11-05 00:00:00 Completed Meningococcal B, OMV 2020-11-05 00:00:00 Completed TDAP 2014-05-18 00:00:00 Completed [facility] Meningococcal Oligosaccharide (groups A, C, Y and W-135) conjugate vaccine (MCV4O) 2014-05-18 00:00:00 Completed [facility] TDAP 2014-05-18 00:00:00 Completed [facility] Meningococcal Oligosaccharide (groups A, C, Y and W-135) conjugate vaccine (MCV4O) 2014-05-18 00:00:00 Completed [facility] TDAP 2014-05-18 00:00:00 Completed [facility] Meningococcal Oligosaccharide (groups A, C, Y and W-135) conjugate vaccine (MCV4O) 2014-05-18 00:00:00 Completed [facility] TDAP 2014-05-18 00:00:00 Completed [facility] Meningococcal Oligosaccharide (groups A, C, Y and W-135) conjugate vaccine (MCV4O) 2014-05-18 00:00:00 Completed [facility] TDAP 2014-05-18 00:00:00 Completed [facility] Meningococcal Oligosaccharide (groups A, C, Y and W-135) conjugate vaccine (MCV4O) 2014-05-18 00:00:00 Completed [facility] TDAP 2014-05-18 00:00:00 Completed [facility] Meningococcal Oligosaccharide (groups A, C, Y and W-135) conjugate vaccine (MCV4O) 2014-05-18 00:00:00 Completed [facility] TDAP 2014-05-18 00:00:00 Completed [facility] Meningococcal Oligosaccharide (groups A, C, Y and W-135) conjugate vaccine (MCV4O) 2014-05-18 00:00:00 Completed [facility] TDAP 2014-05-18 00:00:00 Completed [facility] Meningococcal Oligosaccharide (groups A, C, Y and W-135) conjugate vaccine (MCV4O) 2014-05-18 00:00:00 Completed [facility] TDAP 2014-05-18 00:00:00 Completed [facility] Meningococcal Oligosaccharide (groups A, C, Y and W-135) conjugate vaccine (MCV4O) 2014-05-18 00:00:00 Completed [facility] TDAP 2014-05-18 00:00:00 Completed [facility] Meningococcal Oligosaccharide (groups A, C, Y and W-135) conjugate vaccine (MCV4O) 2014-05-18 00:00:00 Completed [facility] TDAP 2014-05-18 00:00:00 Completed [facility] Meningococcal Oligosaccharide (groups A, C, Y and W-135) conjugate vaccine (MCV4O) 2014-05-18 00:00:00 Completed [facility] TDAP 2014-05-18 00:00:00 Completed [facility] Meningococcal Oligosaccharide (groups A, C, Y and W-135) conjugate vaccine (MCV4O) 2014-05-18 00:00:00 Completed [facility] TDAP 2014-05-18 00:00:00 Completed [facility] Meningococcal Oligosaccharide (groups A, C, Y and W-135) conjugate vaccine (MCV4O) 2014-05-18 00:00:00 Completed [facility] TDAP 2014-05-18 00:00:00 Completed [facility] Meningococcal Oligosaccharide (groups A, C, Y and W-135) conjugate vaccine (MCV4O) 2014-05-18 00:00:00 Completed [facility] TDAP 2014-05-18 00:00:00 Completed [facility] Meningococcal Oligosaccharide (groups A, C, Y and W-135) conjugate vaccine (MCV4O) 2014-05-18 00:00:00 Completed [facility] TDAP 2014-05-18 00:00:00 Completed [facility] Meningococcal Oligosaccharide (groups A, C, Y and W-135) conjugate vaccine (MCV4O) 2014-05-18 00:00:00 Completed [facility] TDAP 2014-05-18 00:00:00 Completed [facility] Meningococcal Oligosaccharide (groups A, C, Y and W-135) conjugate vaccine (MCV4O) 2014-05-18 00:00:00 Completed [facility] TDAP 2014-05-18 00:00:00 Completed [facility] Meningococcal Oligosaccharide (groups A, C, Y and W-135) conjugate vaccine (MCV4O) 2014-05-18 00:00:00 Completed [facility] TDAP 2014-05-18 00:00:00 Completed [facility] Meningococcal Oligosaccharide (groups A, C, Y and W-135) conjugate vaccine (MCV4O) 2014-05-18 00:00:00 Completed [facility] TDAP 2014-05-18 00:00:00 Completed [facility] Meningococcal Oligosaccharide (groups A, C, Y and W-135) conjugate vaccine (MCV4O) 2014-05-18 00:00:00 Completed [facility] TDAP 2014-05-18 00:00:00 Completed [facility] Meningococcal Oligosaccharide (groups A, C, Y and W-135) conjugate vaccine (MCV4O) 2014-05-18 00:00:00 Completed [facility] TDAP 2014-05-18 00:00:00 Completed [facility] Meningococcal Oligosaccharide (groups A, C, Y and W-135) conjugate vaccine (MCV4O) 2014-05-18 00:00:00 Completed [facility] TDAP 2014-05-18 00:00:00 Completed [facility] Meningococcal Oligosaccharide (groups A, C, Y and W-135) conjugate vaccine (MCV4O) 2014-05-18 00:00:00 Completed [facility] TDAP 2014-05-18 00:00:00 Completed [facility] Meningococcal Oligosaccharide (groups A, C, Y and W-135) conjugate vaccine (MCV4O) 2014-05-18 00:00:00 Completed [facility] TDAP 2014-05-18 00:00:00 Completed [facility] Meningococcal Oligosaccharide (groups A, C, Y and W-135) conjugate vaccine (MCV4O) 2014-05-18 00:00:00 Completed [facility] TDAP 2014-05-18 00:00:00 Completed [facility] Meningococcal Oligosaccharide (groups A, C, Y and W-135) conjugate vaccine (MCV4O) 2014-05-18 00:00:00 Completed [facility] TDAP 2014-05-18 00:00:00 Completed [facility] Meningococcal Oligosaccharide (groups A, C, Y and W-135) conjugate vaccine (MCV4O) 2014-05-18 00:00:00 Completed [facility] TDAP 2014-05-18 00:00:00 Completed [facility] Meningococcal Oligosaccharide (groups A, C, Y and W-135) conjugate vaccine (MCV4O) 2014-05-18 00:00:00 Completed [facility] TDAP 2014-05-18 00:00:00 Completed [facility] Meningococcal Oligosaccharide (groups A, C, Y and W-135) conjugate vaccine (MCV4O) 2014-05-18 00:00:00 Completed [facility] TDAP 2014-05-18 00:00:00 Completed [facility] Meningococcal Oligosaccharide (groups A, C, Y and W-135) conjugate vaccine (MCV4O) 2014-05-18 00:00:00 Completed [facility] TDAP 2014-05-18 00:00:00 Completed [facility] Meningococcal Oligosaccharide (groups A, C, Y and W-135) conjugate vaccine (MCV4O) 2014-05-18 00:00:00 Completed [facility] TDAP 2014-05-18 00:00:00 Completed [facility] Meningococcal Oligosaccharide (groups A, C, Y and W-135) conjugate vaccine (MCV4O) 2014-05-18 00:00:00 Completed [facility] TDAP 2014-05-18 00:00:00 Completed [facility] Meningococcal Oligosaccharide (groups A, C, Y and W-135) conjugate vaccine (MCV4O) 2014-05-18 00:00:00 Completed [facility] TDAP 2014-05-18 00:00:00 Completed [facility] Meningococcal Oligosaccharide (groups A, C, Y and W-135) conjugate vaccine (MCV4O) 2014-05-18 00:00:00 Completed [facility] TDAP 2014-05-18 00:00:00 Completed [facility] Meningococcal Oligosaccharide (groups A, C, Y and W-135) conjugate vaccine (MCV4O) 2014-05-18 00:00:00 Completed [facility] TDAP 2014-05-18 00:00:00 Completed [facility] Meningococcal Oligosaccharide (groups A, C, Y and W-135) conjugate vaccine (MCV4O) 2014-05-18 00:00:00 Completed [facility] TDAP 2014-05-18 00:00:00 Completed [facility] Meningococcal Oligosaccharide (groups A, C, Y and W-135) conjugate vaccine (MCV4O) 2014-05-18 00:00:00 Completed [facility] TDAP 2014-05-18 00:00:00 Completed [facility] Meningococcal Oligosaccharide (groups A, C, Y and W-135) conjugate vaccine (MCV4O) 2014-05-18 00:00:00 Completed [facility] TDAP 2014-05-18 00:00:00 Completed [facility] Meningococcal Oligosaccharide (groups A, C, Y and W-135) conjugate vaccine (MCV4O) 2014-05-18 00:00:00 Completed [facility] TDAP 2014-05-18 00:00:00 Completed [facility] Meningococcal Oligosaccharide (groups A, C, Y and W-135) conjugate vaccine (MCV4O) 2014-05-18 00:00:00 Completed [facility] TDAP 2014-05-18 00:00:00 Completed [facility] Meningococcal Oligosaccharide (groups A, C, Y and W-135) conjugate vaccine (MCV4O) 2014-05-18 00:00:00 Completed [facility] TDAP 2014-05-18 00:00:00 Completed [facility] Meningococcal Oligosaccharide (groups A, C, Y and W-135) conjugate vaccine (MCV4O) 2014-05-18 00:00:00 Completed [facility] TDAP 2014-05-18 00:00:00 Completed [facility] Meningococcal Oligosaccharide (groups A, C, Y and W-135) conjugate vaccine (MCV4O) 2014-05-18 00:00:00 Completed [facility] TDAP 2014-05-18 00:00:00 Completed [facility] Meningococcal Oligosaccharide (groups A, C, Y and W-135) conjugate vaccine (MCV4O) 2014-05-18 00:00:00 Completed [facility] TDAP 2014-05-18 00:00:00 Completed [facility] Meningococcal Oligosaccharide (groups A, C, Y and W-135) conjugate vaccine (MCV4O) 2014-05-18 00:00:00 Completed [facility] TDAP 2014-05-18 00:00:00 Completed [facility] Meningococcal Oligosaccharide (groups A, C, Y and W-135) conjugate vaccine (MCV4O) 2014-05-18 00:00:00 Completed [facility] TDAP 2014-05-18 00:00:00 Completed [facility] Meningococcal Oligosaccharide (groups A, C, Y and W-135) conjugate vaccine (MCV4O) 2014-05-18 00:00:00 Completed [facility] TDAP 2014-05-18 00:00:00 Completed [facility] Meningococcal Oligosaccharide (groups A, C, Y and W-135) conjugate vaccine (MCV4O) 2014-05-18 00:00:00 Completed [facility] TDAP 2014-05-18 00:00:00 Completed [facility] Meningococcal Oligosaccharide (groups A, C, Y and W-135) conjugate vaccine (MCV4O) 2014-05-18 00:00:00 Completed [facility] TDAP 2014-05-18 00:00:00 Completed [facility] Meningococcal Oligosaccharide (groups A, C, Y and W-135) conjugate vaccine (MCV4O) 2014-05-18 00:00:00 Completed [facility] TDAP 2014-05-18 00:00:00 Completed [facility] Meningococcal Oligosaccharide (groups A, C, Y and W-135) conjugate vaccine (MCV4O) 2014-05-18 00:00:00 Completed [facility] TDAP 2014-05-18 00:00:00 Completed [facility] Meningococcal Oligosaccharide (groups A, C, Y and W-135) conjugate vaccine (MCV4O) 2014-05-18 00:00:00 Completed [facility] TDAP 2014-05-18 00:00:00 Completed [facility] Meningococcal Oligosaccharide (groups A, C, Y and W-135) conjugate vaccine (MCV4O) 2014-05-18 00:00:00 Completed [facility] Meningococcal Polysaccharide (groups A, C, Y and W-135) conjugate vaccine (MCV4P) 2014-05-18 00:00:00 Completed [facility] TDAP 2014-05-18 00:00:00 Completed [facility] Meningococcal Oligosaccharide (groups A, C, Y and W-135) conjugate vaccine (MCV4O) 2014-05-18 00:00:00 Completed [facility] Meningococcal Polysaccharide (groups A, C, Y and W-135) conjugate vaccine (MCV4P) 2014-05-18 00:00:00 Completed [facility] TDAP 2014-05-18 00:00:00 Completed [facility] Meningococcal Oligosaccharide (groups A, C, Y and W-135) conjugate vaccine (MCV4O) 2014-05-18 00:00:00 Completed [facility] Meningococcal Polysaccharide (groups A, C, Y and W-135) conjugate vaccine (MCV4P) 2014-05-18 00:00:00 Completed [facility] TDAP 2014-05-18 00:00:00 Completed [facility] Meningococcal Oligosaccharide (groups A, C, Y and W-135) conjugate vaccine (MCV4O) 2014-05-18 00:00:00 Completed [facility] Meningococcal Polysaccharide (groups A, C, Y and W-135) conjugate vaccine (MCV4P) 2014-05-18 00:00:00 Completed [facility] TDAP 2014-05-18 00:00:00 Completed [facility] Meningococcal Oligosaccharide (groups A, C, Y and W-135) conjugate vaccine (MCV4O) 2014-05-18 00:00:00 Completed [facility] Meningococcal Polysaccharide (groups A, C, Y and W-135) conjugate vaccine (MCV4P) 2014-05-18 00:00:00 Completed [facility] TDAP 2014-05-18 00:00:00 Completed [facility] Meningococcal Oligosaccharide (groups A, C, Y and W-135) conjugate vaccine (MCV4O) 2014-05-18 00:00:00 Completed [facility] Meningococcal Polysaccharide (groups A, C, Y and W-135) conjugate vaccine (MCV4P) 2014-05-18 00:00:00 Completed [facility] TDAP 2014-05-18 00:00:00 Completed [facility] Meningococcal Oligosaccharide (groups A, C, Y and W-135) conjugate vaccine (MCV4O) 2014-05-18 00:00:00 Completed [facility] Meningococcal Polysaccharide (groups A, C, Y and W-135) conjugate vaccine (MCV4P) 2014-05-18 00:00:00 Completed [facility] TDAP 2014-05-18 00:00:00 Completed [facility] Meningococcal Oligosaccharide (groups A, C, Y and W-135) conjugate vaccine (MCV4O) 2014-05-18 00:00:00 Completed [facility] Meningococcal Polysaccharide (groups A, C, Y and W-135) conjugate vaccine (MCV4P) 2014-05-18 00:00:00 Completed [facility] TDAP 2014-05-18 00:00:00 Completed [facility] Meningococcal Oligosaccharide (groups A, C, Y and W-135) conjugate vaccine (MCV4O) 2014-05-18 00:00:00 Completed [facility] Meningococcal Polysaccharide (groups A, C, Y and W-135) conjugate vaccine (MCV4P) 2014-05-18 00:00:00 Completed [facility] TDAP 2014-05-18 00:00:00 Completed Meningococcal Oligosaccharide (groups A, C, Y and W-135) conjugate vaccine (MCV4O) 2014-05-18 00:00:00 Completed Meningococcal Polysaccharide (groups A, C, Y and W-135) conjugate vaccine (MCV4P) 2014-05-18 00:00:00 Completed Varicella (varivax)(chicken pox) 2011-08-16 00:00:00 Completed [facility] Varicella (varivax)(chicken pox) 2011-08-16 00:00:00 Completed [facility] Varicella (varivax)(chicken pox) 2011-08-16 00:00:00 Completed [facility] Varicella (varivax)(chicken pox) 2011-08-16 00:00:00 Completed [facility] Varicella (varivax)(chicken pox) 2011-08-16 00:00:00 Completed [facility] Varicella (varivax)(chicken pox) 2011-08-16 00:00:00 Completed [facility] Varicella (varivax)(chicken pox) 2011-08-16 00:00:00 Completed [facility] Varicella (varivax)(chicken pox) 2011-08-16 00:00:00 Completed [facility] Varicella (varivax)(chicken pox) 2011-08-16 00:00:00 Completed [facility] Varicella (varivax)(chicken pox) 2011-08-16 00:00:00 Completed [facility] Varicella (varivax)(chicken pox) 2011-08-16 00:00:00 Completed [facility] Varicella (varivax)(chicken pox) 2011-08-16 00:00:00 Completed [facility] Varicella (varivax)(chicken pox) 2011-08-16 00:00:00 Completed [facility] Varicella (varivax)(chicken pox) 2011-08-16 00:00:00 Completed [facility] Varicella (varivax)(chicken pox) 2011-08-16 00:00:00 Completed [facility] Varicella (varivax)(chicken pox) 2011-08-16 00:00:00 Completed [facility] Varicella (varivax)(chicken pox) 2011-08-16 00:00:00 Completed [facility] Varicella (varivax)(chicken pox) 2011-08-16 00:00:00 Completed [facility] Varicella (varivax)(chicken pox) 2011-08-16 00:00:00 Completed [facility] Varicella (varivax)(chicken pox) 2011-08-16 00:00:00 Completed [facility] Varicella (varivax)(chicken pox) 2011-08-16 00:00:00 Completed [facility] Varicella (varivax)(chicken pox) 2011-08-16 00:00:00 Completed [facility] Varicella (varivax)(chicken pox) 2011-08-16 00:00:00 Completed [facility] Varicella (varivax)(chicken pox) 2011-08-16 00:00:00 Completed [facility] Varicella (varivax)(chicken pox) 2011-08-16 00:00:00 Completed [facility] Varicella (varivax)(chicken pox) 2011-08-16 00:00:00 Completed [facility] Varicella (varivax)(chicken pox) 2011-08-16 00:00:00 Completed [facility] Varicella (varivax)(chicken pox) 2011-08-16 00:00:00 Completed [facility] Varicella (varivax)(chicken pox) 2011-08-16 00:00:00 Completed [facility] Varicella (varivax)(chicken pox) 2011-08-16 00:00:00 Completed [facility] Varicella (varivax)(chicken pox) 2011-08-16 00:00:00 Completed [facility] Varicella (varivax)(chicken pox) 2011-08-16 00:00:00 Completed [facility] Varicella (varivax)(chicken pox) 2011-08-16 00:00:00 Completed [facility] Varicella (varivax)(chicken pox) 2011-08-16 00:00:00 Completed [facility] Varicella (varivax)(chicken pox) 2011-08-16 00:00:00 Completed [facility] Varicella (varivax)(chicken pox) 2011-08-16 00:00:00 Completed [facility] Varicella (varivax)(chicken pox) 2011-08-16 00:00:00 Completed [facility] Varicella (varivax)(chicken pox) 2011-08-16 00:00:00 Completed [facility] Varicella (varivax)(chicken pox) 2011-08-16 00:00:00 Completed [facility] Varicella (varivax)(chicken pox) 2011-08-16 00:00:00 Completed [facility] Varicella (varivax)(chicken pox) 2011-08-16 00:00:00 Completed [facility] Varicella (varivax)(chicken pox) 2011-08-16 00:00:00 Completed [facility] Varicella (varivax)(chicken pox) 2011-08-16 00:00:00 Completed [facility] Varicella (varivax)(chicken pox) 2011-08-16 00:00:00 Completed [facility] Varicella (varivax)(chicken pox) 2011-08-16 00:00:00 Completed [facility] Varicella (varivax)(chicken pox) 2011-08-16 00:00:00 Completed [facility] Varicella (varivax)(chicken pox) 2011-08-16 00:00:00 Completed [facility] Varicella (varivax)(chicken pox) 2011-08-16 00:00:00 Completed [facility] Varicella (varivax)(chicken pox) 2011-08-16 00:00:00 Completed [facility] Varicella (varivax)(chicken pox) 2011-08-16 00:00:00 Completed [facility] Varicella (varivax)(chicken pox) 2011-08-16 00:00:00 Completed [facility] Varicella (varivax)(chicken pox) 2011-08-16 00:00:00 Completed [facility] Varicella (varivax)(chicken pox) 2011-08-16 00:00:00 Completed [facility] Varicella (varivax)(chicken pox) 2011-08-16 00:00:00 Completed [facility] Varicella (varivax)(chicken pox) 2011-08-16 00:00:00 Completed [facility] Varicella (varivax)(chicken pox) 2011-08-16 00:00:00 Completed [facility] Varicella (varivax)(chicken pox) 2011-08-16 00:00:00 Completed [facility] Varicella (varivax)(chicken pox) 2011-08-16 00:00:00 Completed [facility] Varicella (varivax)(chicken pox) 2011-08-16 00:00:00 Completed [facility] Varicella (varivax)(chicken pox) 2011-08-16 00:00:00 Completed [facility] Varicella (varivax)(chicken pox) 2011-08-16 00:00:00 Completed [facility] Varicella (varivax)(chicken pox) 2011-08-16 00:00:00 Completed [facility] DTAP 2010-04-26 00:00:00 Completed [facility] MMR 2010-04-26 00:00:00 Completed [facility] Polio (IPV/OPV) 2010-04-26 00:00:00 Completed [facility] Varicella (varivax)(chicken pox) 2010-04-26 00:00:00 Completed [facility] DTAP 2010-04-26 00:00:00 Completed [facility] MMR 2010-04-26 00:00:00 Completed [facility] Polio (IPV/OPV) 2010-04-26 00:00:00 Completed [facility] Varicella (varivax)(chicken pox) 2010-04-26 00:00:00 Completed [facility] DTAP 2010-04-26 00:00:00 Completed [facility] MMR 2010-04-26 00:00:00 Completed [facility] Polio (IPV/OPV) 2010-04-26 00:00:00 Completed [facility] Varicella (varivax)(chicken pox) 2010-04-26 00:00:00 Completed [facility] DTAP 2010-04-26 00:00:00 Completed [facility] MMR 2010-04-26 00:00:00 Completed [facility] Polio (IPV/OPV) 2010-04-26 00:00:00 Completed [facility] Varicella (varivax)(chicken pox) 2010-04-26 00:00:00 Completed [facility] DTAP 2010-04-26 00:00:00 Completed [facility] MMR 2010-04-26 00:00:00 Completed [facility] Polio (IPV/OPV) 2010-04-26 00:00:00 Completed [facility] Varicella (varivax)(chicken pox) 2010-04-26 00:00:00 Completed [facility] DTAP 2010-04-26 00:00:00 Completed [facility] MMR 2010-04-26 00:00:00 Completed [facility] Polio (IPV/OPV) 2010-04-26 00:00:00 Completed [facility] Varicella (varivax)(chicken pox) 2010-04-26 00:00:00 Completed [facility] DTAP 2010-04-26 00:00:00 Completed [facility] MMR 2010-04-26 00:00:00 Completed [facility] Polio (IPV/OPV) 2010-04-26 00:00:00 Completed [facility] Varicella (varivax)(chicken pox) 2010-04-26 00:00:00 Completed [facility] DTAP 2010-04-26 00:00:00 Completed [facility] MMR 2010-04-26 00:00:00 Completed [facility] Polio (IPV/OPV) 2010-04-26 00:00:00 Completed [facility] Varicella (varivax)(chicken pox) 2010-04-26 00:00:00 Completed [facility] DTAP 2010-04-26 00:00:00 Completed [facility] MMR 2010-04-26 00:00:00 Completed [facility] Polio (IPV/OPV) 2010-04-26 00:00:00 Completed [facility] Varicella (varivax)(chicken pox) 2010-04-26 00:00:00 Completed [facility] DTAP 2010-04-26 00:00:00 Completed [facility] MMR 2010-04-26 00:00:00 Completed [facility] Polio (IPV/OPV) 2010-04-26 00:00:00 Completed [facility] Varicella (varivax)(chicken pox) 2010-04-26 00:00:00 Completed [facility] DTAP 2010-04-26 00:00:00 Completed [facility] MMR 2010-04-26 00:00:00 Completed [facility] Polio (IPV/OPV) 2010-04-26 00:00:00 Completed [facility] Varicella (varivax)(chicken pox) 2010-04-26 00:00:00 Completed [facility] DTAP 2010-04-26 00:00:00 Completed [facility] MMR 2010-04-26 00:00:00 Completed [facility] Polio (IPV/OPV) 2010-04-26 00:00:00 Completed [facility] Varicella (varivax)(chicken pox) 2010-04-26 00:00:00 Completed [facility] DTAP 2010-04-26 00:00:00 Completed [facility] MMR 2010-04-26 00:00:00 Completed [facility] Polio (IPV/OPV) 2010-04-26 00:00:00 Completed [facility] Varicella (varivax)(chicken pox) 2010-04-26 00:00:00 Completed [facility] DTAP 2010-04-26 00:00:00 Completed [facility] MMR 2010-04-26 00:00:00 Completed [facility] Polio (IPV/OPV) 2010-04-26 00:00:00 Completed [facility] Varicella (varivax)(chicken pox) 2010-04-26 00:00:00 Completed [facility] DTAP 2010-04-26 00:00:00 Completed [facility] MMR 2010-04-26 00:00:00 Completed [facility] Polio (IPV/OPV) 2010-04-26 00:00:00 Completed [facility] Varicella (varivax)(chicken pox) 2010-04-26 00:00:00 Completed [facility] DTAP 2010-04-26 00:00:00 Completed [facility] MMR 2010-04-26 00:00:00 Completed [facility] Polio (IPV/OPV) 2010-04-26 00:00:00 Completed [facility] Varicella (varivax)(chicken pox) 2010-04-26 00:00:00 Completed [facility] DTAP 2010-04-26 00:00:00 Completed [facility] MMR 2010-04-26 00:00:00 Completed [facility] Polio (IPV/OPV) 2010-04-26 00:00:00 Completed [facility] Varicella (varivax)(chicken pox) 2010-04-26 00:00:00 Completed [facility] DTAP 2010-04-26 00:00:00 Completed [facility] MMR 2010-04-26 00:00:00 Completed [facility] Polio (IPV/OPV) 2010-04-26 00:00:00 Completed [facility] Varicella (varivax)(chicken pox) 2010-04-26 00:00:00 Completed [facility] DTAP 2010-04-26 00:00:00 Completed [facility] MMR 2010-04-26 00:00:00 Completed [facility] Polio (IPV/OPV) 2010-04-26 00:00:00 Completed [facility] Varicella (varivax)(chicken pox) 2010-04-26 00:00:00 Completed [facility] DTAP 2010-04-26 00:00:00 Completed [facility] MMR 2010-04-26 00:00:00 Completed [facility] Polio (IPV/OPV) 2010-04-26 00:00:00 Completed [facility] Varicella (varivax)(chicken pox) 2010-04-26 00:00:00 Completed [facility] DTAP 2010-04-26 00:00:00 Completed [facility] MMR 2010-04-26 00:00:00 Completed [facility] Polio (IPV/OPV) 2010-04-26 00:00:00 Completed [facility] Varicella (varivax)(chicken pox) 2010-04-26 00:00:00 Completed [facility] DTAP 2010-04-26 00:00:00 Completed [facility] MMR 2010-04-26 00:00:00 Completed [facility] Polio (IPV/OPV) 2010-04-26 00:00:00 Completed [facility] Varicella (varivax)(chicken pox) 2010-04-26 00:00:00 Completed [facility] DTAP 2010-04-26 00:00:00 Completed [facility] MMR 2010-04-26 00:00:00 Completed [facility] Polio (IPV/OPV) 2010-04-26 00:00:00 Completed [facility] Varicella (varivax)(chicken pox) 2010-04-26 00:00:00 Completed [facility] DTAP 2010-04-26 00:00:00 Completed [facility] MMR 2010-04-26 00:00:00 Completed [facility] Polio (IPV/OPV) 2010-04-26 00:00:00 Completed [facility] Varicella (varivax)(chicken pox) 2010-04-26 00:00:00 Completed [facility] DTAP 2010-04-26 00:00:00 Completed [facility] MMR 2010-04-26 00:00:00 Completed [facility] Polio (IPV/OPV) 2010-04-26 00:00:00 Completed [facility] Varicella (varivax)(chicken pox) 2010-04-26 00:00:00 Completed [facility] DTAP 2010-04-26 00:00:00 Completed [facility] MMR 2010-04-26 00:00:00 Completed [facility] Polio (IPV/OPV) 2010-04-26 00:00:00 Completed [facility] Varicella (varivax)(chicken pox) 2010-04-26 00:00:00 Completed [facility] DTAP 2010-04-26 00:00:00 Completed [facility] MMR 2010-04-26 00:00:00 Completed [facility] Polio (IPV/OPV) 2010-04-26 00:00:00 Completed [facility] Varicella (varivax)(chicken pox) 2010-04-26 00:00:00 Completed [facility] DTAP 2010-04-26 00:00:00 Completed [facility] MMR 2010-04-26 00:00:00 Completed [facility] Polio (IPV/OPV) 2010-04-26 00:00:00 Completed [facility] Varicella (varivax)(chicken pox) 2010-04-26 00:00:00 Completed [facility] DTAP 2010-04-26 00:00:00 Completed [facility] MMR 2010-04-26 00:00:00 Completed [facility] Polio (IPV/OPV) 2010-04-26 00:00:00 Completed [facility] Varicella (varivax)(chicken pox) 2010-04-26 00:00:00 Completed [facility] DTAP 2010-04-26 00:00:00 Completed [facility] MMR 2010-04-26 00:00:00 Completed [facility] Polio (IPV/OPV) 2010-04-26 00:00:00 Completed [facility] Varicella (varivax)(chicken pox) 2010-04-26 00:00:00 Completed [facility] DTAP 2010-04-26 00:00:00 Completed [facility] MMR 2010-04-26 00:00:00 Completed [facility] Polio (IPV/OPV) 2010-04-26 00:00:00 Completed [facility] Varicella (varivax)(chicken pox) 2010-04-26 00:00:00 Completed [facility] DTAP 2010-04-26 00:00:00 Completed [facility] MMR 2010-04-26 00:00:00 Completed [facility] Polio (IPV/OPV) 2010-04-26 00:00:00 Completed [facility] Varicella (varivax)(chicken pox) 2010-04-26 00:00:00 Completed [facility] DTAP 2010-04-26 00:00:00 Completed [facility] MMR 2010-04-26 00:00:00 Completed [facility] Polio (IPV/OPV) 2010-04-26 00:00:00 Completed [facility] Varicella (varivax)(chicken pox) 2010-04-26 00:00:00 Completed [facility] DTAP 2010-04-26 00:00:00 Completed [facility] MMR 2010-04-26 00:00:00 Completed [facility] Polio (IPV/OPV) 2010-04-26 00:00:00 Completed [facility] Varicella (varivax)(chicken pox) 2010-04-26 00:00:00 Completed [facility] DTAP 2010-04-26 00:00:00 Completed [facility] MMR 2010-04-26 00:00:00 Completed [facility] Polio (IPV/OPV) 2010-04-26 00:00:00 Completed [facility] Varicella (varivax)(chicken pox) 2010-04-26 00:00:00 Completed [facility] DTAP 2010-04-26 00:00:00 Completed [facility] MMR 2010-04-26 00:00:00 Completed [facility] Polio (IPV/OPV) 2010-04-26 00:00:00 Completed [facility] Varicella (varivax)(chicken pox) 2010-04-26 00:00:00 Completed [facility] DTAP 2010-04-26 00:00:00 Completed [facility] MMR 2010-04-26 00:00:00 Completed [facility] Polio (IPV/OPV) 2010-04-26 00:00:00 Completed [facility] Varicella (varivax)(chicken pox) 2010-04-26 00:00:00 Completed [facility] DTAP 2010-04-26 00:00:00 Completed [facility] MMR 2010-04-26 00:00:00 Completed [facility] Polio (IPV/OPV) 2010-04-26 00:00:00 Completed [facility] Varicella (varivax)(chicken pox) 2010-04-26 00:00:00 Completed [facility] DTAP 2010-04-26 00:00:00 Completed [facility] MMR 2010-04-26 00:00:00 Completed [facility] Polio (IPV/OPV) 2010-04-26 00:00:00 Completed [facility] Varicella (varivax)(chicken pox) 2010-04-26 00:00:00 Completed [facility] DTAP 2010-04-26 00:00:00 Completed [facility] MMR 2010-04-26 00:00:00 Completed [facility] Polio (IPV/OPV) 2010-04-26 00:00:00 Completed [facility] Varicella (varivax)(chicken pox) 2010-04-26 00:00:00 Completed [facility] DTAP 2010-04-26 00:00:00 Completed [facility] MMR 2010-04-26 00:00:00 Completed [facility] Polio (IPV/OPV) 2010-04-26 00:00:00 Completed [facility] Varicella (varivax)(chicken pox) 2010-04-26 00:00:00 Completed [facility] DTAP 2010-04-26 00:00:00 Completed [facility] MMR 2010-04-26 00:00:00 Completed [facility] Polio (IPV/OPV) 2010-04-26 00:00:00 Completed [facility] Varicella (varivax)(chicken pox) 2010-04-26 00:00:00 Completed [facility] DTAP 2010-04-26 00:00:00 Completed [facility] MMR 2010-04-26 00:00:00 Completed [facility] Polio (IPV/OPV) 2010-04-26 00:00:00 Completed [facility] Varicella (varivax)(chicken pox) 2010-04-26 00:00:00 Completed [facility] DTAP 2010-04-26 00:00:00 Completed [facility] MMR 2010-04-26 00:00:00 Completed [facility] Polio (IPV/OPV) 2010-04-26 00:00:00 Completed [facility] Varicella (varivax)(chicken pox) 2010-04-26 00:00:00 Completed [facility] DTAP 2010-04-26 00:00:00 Completed [facility] MMR 2010-04-26 00:00:00 Completed [facility] Polio (IPV/OPV) 2010-04-26 00:00:00 Completed [facility] Varicella (varivax)(chicken pox) 2010-04-26 00:00:00 Completed [facility] DTAP 2010-04-26 00:00:00 Completed [facility] MMR 2010-04-26 00:00:00 Completed [facility] Polio (IPV/OPV) 2010-04-26 00:00:00 Completed [facility] Varicella (varivax)(chicken pox) 2010-04-26 00:00:00 Completed [facility] DTAP 2010-04-26 00:00:00 Completed [facility] MMR 2010-04-26 00:00:00 Completed [facility] Polio (IPV/OPV) 2010-04-26 00:00:00 Completed [facility] Varicella (varivax)(chicken pox) 2010-04-26 00:00:00 Completed [facility] DTAP 2010-04-26 00:00:00 Completed [facility] MMR 2010-04-26 00:00:00 Completed [facility] Polio (IPV/OPV) 2010-04-26 00:00:00 Completed [facility] Varicella (varivax)(chicken pox) 2010-04-26 00:00:00 Completed [facility] DTAP 2010-04-26 00:00:00 Completed [facility] MMR 2010-04-26 00:00:00 Completed [facility] Polio (IPV/OPV) 2010-04-26 00:00:00 Completed [facility] Varicella (varivax)(chicken pox) 2010-04-26 00:00:00 Completed [facility] DTAP 2010-04-26 00:00:00 Completed [facility] MMR 2010-04-26 00:00:00 Completed [facility] Polio (IPV/OPV) 2010-04-26 00:00:00 Completed [facility] Varicella (varivax)(chicken pox) 2010-04-26 00:00:00 Completed [facility] DTAP 2010-04-26 00:00:00 Completed [facility] MMR 2010-04-26 00:00:00 Completed [facility] Polio (IPV/OPV) 2010-04-26 00:00:00 Completed [facility] Varicella (varivax)(chicken pox) 2010-04-26 00:00:00 Completed [facility] DTAP 2010-04-26 00:00:00 Completed [facility] MMR 2010-04-26 00:00:00 Completed [facility] Polio (IPV/OPV) 2010-04-26 00:00:00 Completed [facility] Varicella (varivax)(chicken pox) 2010-04-26 00:00:00 Completed [facility] DTAP 2010-04-26 00:00:00 Completed [facility] MMR 2010-04-26 00:00:00 Completed [facility] Polio (IPV/OPV) 2010-04-26 00:00:00 Completed [facility] Varicella (varivax)(chicken pox) 2010-04-26 00:00:00 Completed [facility] DTaP, Unspecified Formulation 2010-04-26 00:00:00 Completed [facility] IPV 2010-04-26 00:00:00 Completed [facility] DTAP 2010-04-26 00:00:00 Completed [facility] MMR 2010-04-26 00:00:00 Completed [facility] Polio (IPV/OPV) 2010-04-26 00:00:00 Completed [facility] Varicella (varivax)(chicken pox) 2010-04-26 00:00:00 Completed [facility] DTaP, Unspecified Formulation 2010-04-26 00:00:00 Completed [facility] IPV 2010-04-26 00:00:00 Completed [facility] DTAP 2010-04-26 00:00:00 Completed [facility] MMR 2010-04-26 00:00:00 Completed [facility] Polio (IPV/OPV) 2010-04-26 00:00:00 Completed [facility] Varicella (varivax)(chicken pox) 2010-04-26 00:00:00 Completed [facility] DTaP, Unspecified Formulation 2010-04-26 00:00:00 Completed [facility] IPV 2010-04-26 00:00:00 Completed [facility] DTAP 2010-04-26 00:00:00 Completed [facility] MMR 2010-04-26 00:00:00 Completed [facility] Polio (IPV/OPV) 2010-04-26 00:00:00 Completed [facility] Varicella (varivax)(chicken pox) 2010-04-26 00:00:00 Completed [facility] DTaP, Unspecified Formulation 2010-04-26 00:00:00 Completed [facility] IPV 2010-04-26 00:00:00 Completed [facility] DTAP 2010-04-26 00:00:00 Completed [facility] MMR 2010-04-26 00:00:00 Completed [facility] Polio (IPV/OPV) 2010-04-26 00:00:00 Completed [facility] Varicella (varivax)(chicken pox) 2010-04-26 00:00:00 Completed [facility] DTaP, Unspecified Formulation 2010-04-26 00:00:00 Completed [facility] IPV 2010-04-26 00:00:00 Completed [facility] DTAP 2010-04-26 00:00:00 Completed [facility] MMR 2010-04-26 00:00:00 Completed [facility] Polio (IPV/OPV) 2010-04-26 00:00:00 Completed [facility] Varicella (varivax)(chicken pox) 2010-04-26 00:00:00 Completed [facility] DTaP, Unspecified Formulation 2010-04-26 00:00:00 Completed [facility] IPV 2010-04-26 00:00:00 Completed [facility] DTAP 2010-04-26 00:00:00 Completed [facility] MMR 2010-04-26 00:00:00 Completed [facility] Polio (IPV/OPV) 2010-04-26 00:00:00 Completed [facility] Varicella (varivax)(chicken pox) 2010-04-26 00:00:00 Completed [facility] DTaP, Unspecified Formulation 2010-04-26 00:00:00 Completed [facility] IPV 2010-04-26 00:00:00 Completed [facility] DTAP 2010-04-26 00:00:00 Completed [facility] MMR 2010-04-26 00:00:00 Completed [facility] Polio (IPV/OPV) 2010-04-26 00:00:00 Completed [facility] Varicella (varivax)(chicken pox) 2010-04-26 00:00:00 Completed [facility] DTaP, Unspecified Formulation 2010-04-26 00:00:00 Completed [facility] IPV 2010-04-26 00:00:00 Completed [facility] DTAP 2010-04-26 00:00:00 Completed [facility] MMR 2010-04-26 00:00:00 Completed [facility] Polio (IPV/OPV) 2010-04-26 00:00:00 Completed [facility] Varicella (varivax)(chicken pox) 2010-04-26 00:00:00 Completed [facility] DTaP, Unspecified Formulation 2010-04-26 00:00:00 Completed [facility] [facility] IPV 2010-04-26 00:00:00 Completed [facility] DTAP 2010-04-26 00:00:00 Completed [facility] MMR 2010-04-26 00:00:00 Completed Polio (IPV/OPV) 2010-04-26 00:00:00 Completed Varicella (varivax)(chicken pox) 2010-04-26 00:00:00 Completed DTaP, Unspecified Formulation 2010-04-26 00:00:00 Completed [facility] IPV 2010-04-26 00:00:00 Completed DTAP 2007-06-13 00:00:00 Completed [facility] MMR 2007-06-13 00:00:00 Completed [facility] Polio (IPV/OPV) 2007-06-13 00:00:00 Completed [facility] DTAP 2007-06-13 00:00:00 Completed [facility] MMR 2007-06-13 00:00:00 Completed [facility] Polio (IPV/OPV) 2007-06-13 00:00:00 Completed [facility] DTAP 2007-06-13 00:00:00 Completed [facility] MMR 2007-06-13 00:00:00 Completed [facility] Polio (IPV/OPV) 2007-06-13 00:00:00 Completed [facility] DTAP 2007-06-13 00:00:00 Completed [facility] MMR 2007-06-13 00:00:00 Completed [facility] Polio (IPV/OPV) 2007-06-13 00:00:00 Completed [facility] DTAP 2007-06-13 00:00:00 Completed [facility] MMR 2007-06-13 00:00:00 Completed [facility] Polio (IPV/OPV) 2007-06-13 00:00:00 Completed [facility] DTAP 2007-06-13 00:00:00 Completed [facility] MMR 2007-06-13 00:00:00 Completed [facility] Polio (IPV/OPV) 2007-06-13 00:00:00 Completed [facility] DTAP 2007-06-13 00:00:00 Completed [facility] MMR 2007-06-13 00:00:00 Completed [facility] Polio (IPV/OPV) 2007-06-13 00:00:00 Completed [facility] DTAP 2007-06-13 00:00:00 Completed [facility] MMR 2007-06-13 00:00:00 Completed [facility] Polio (IPV/OPV) 2007-06-13 00:00:00 Completed [facility] DTAP 2007-06-13 00:00:00 Completed [facility] MMR 2007-06-13 00:00:00 Completed [facility] Polio (IPV/OPV) 2007-06-13 00:00:00 Completed [facility] DTAP 2007-06-13 00:00:00 Completed [facility] MMR 2007-06-13 00:00:00 Completed [facility] Polio (IPV/OPV) 2007-06-13 00:00:00 Completed [facility] DTAP 2007-06-13 00:00:00 Completed [facility] MMR 2007-06-13 00:00:00 Completed [facility] Polio (IPV/OPV) 2007-06-13 00:00:00 Completed [facility] DTAP 2007-06-13 00:00:00 Completed [facility] MMR 2007-06-13 00:00:00 Completed [facility] Polio (IPV/OPV) 2007-06-13 00:00:00 Completed [facility] DTAP 2007-06-13 00:00:00 Completed [facility] MMR 2007-06-13 00:00:00 Completed [facility] Polio (IPV/OPV) 2007-06-13 00:00:00 Completed [facility] DTAP 2007-06-13 00:00:00 Completed [facility] MMR 2007-06-13 00:00:00 Completed [facility] Polio (IPV/OPV) 2007-06-13 00:00:00 Completed [facility] DTAP 2007-06-13 00:00:00 Completed [facility] MMR 2007-06-13 00:00:00 Completed [facility] Polio (IPV/OPV) 2007-06-13 00:00:00 Completed [facility] DTAP 2007-06-13 00:00:00 Completed [facility] MMR 2007-06-13 00:00:00 Completed [facility] Polio (IPV/OPV) 2007-06-13 00:00:00 Completed [facility] DTAP 2007-06-13 00:00:00 Completed [facility] MMR 2007-06-13 00:00:00 Completed [facility] Polio (IPV/OPV) 2007-06-13 00:00:00 Completed [facility] DTAP 2007-06-13 00:00:00 Completed [facility] MMR 2007-06-13 00:00:00 Completed [facility] Polio (IPV/OPV) 2007-06-13 00:00:00 Completed [facility] DTAP 2007-06-13 00:00:00 Completed [facility] MMR 2007-06-13 00:00:00 Completed [facility] Polio (IPV/OPV) 2007-06-13 00:00:00 Completed [facility] DTAP 2007-06-13 00:00:00 Completed [facility] MMR 2007-06-13 00:00:00 Completed [facility] Polio (IPV/OPV) 2007-06-13 00:00:00 Completed [facility] DTAP 2007-06-13 00:00:00 Completed [facility] MMR 2007-06-13 00:00:00 Completed [facility] Polio (IPV/OPV) 2007-06-13 00:00:00 Completed [facility] DTAP 2007-06-13 00:00:00 Completed [facility] MMR 2007-06-13 00:00:00 Completed [facility] Polio (IPV/OPV) 2007-06-13 00:00:00 Completed [facility] DTAP 2007-06-13 00:00:00 Completed [facility] MMR 2007-06-13 00:00:00 Completed [facility] Polio (IPV/OPV) 2007-06-13 00:00:00 Completed [facility] DTAP 2007-06-13 00:00:00 Completed [facility] MMR 2007-06-13 00:00:00 Completed [facility] Polio (IPV/OPV) 2007-06-13 00:00:00 Completed [facility] DTAP 2007-06-13 00:00:00 Completed [facility] MMR 2007-06-13 00:00:00 Completed [facility] Polio (IPV/OPV) 2007-06-13 00:00:00 Completed [facility] DTAP 2007-06-13 00:00:00 Completed [facility] MMR 2007-06-13 00:00:00 Completed [facility] Polio (IPV/OPV) 2007-06-13 00:00:00 Completed [facility] DTAP 2007-06-13 00:00:00 Completed [facility] MMR 2007-06-13 00:00:00 Completed [facility] Polio (IPV/OPV) 2007-06-13 00:00:00 Completed [facility] DTAP 2007-06-13 00:00:00 Completed [facility] MMR 2007-06-13 00:00:00 Completed [facility] Polio (IPV/OPV) 2007-06-13 00:00:00 Completed [facility] DTAP 2007-06-13 00:00:00 Completed [facility] MMR 2007-06-13 00:00:00 Completed [facility] Polio (IPV/OPV) 2007-06-13 00:00:00 Completed [facility] DTAP 2007-06-13 00:00:00 Completed [facility] MMR 2007-06-13 00:00:00 Completed [facility] Polio (IPV/OPV) 2007-06-13 00:00:00 Completed [facility] DTAP 2007-06-13 00:00:00 Completed [facility] MMR 2007-06-13 00:00:00 Completed [facility] Polio (IPV/OPV) 2007-06-13 00:00:00 Completed [facility] DTAP 2007-06-13 00:00:00 Completed [facility] MMR 2007-06-13 00:00:00 Completed [facility] Polio (IPV/OPV) 2007-06-13 00:00:00 Completed [facility] DTAP 2007-06-13 00:00:00 Completed [facility] MMR 2007-06-13 00:00:00 Completed [facility] Polio (IPV/OPV) 2007-06-13 00:00:00 Completed [facility] DTAP 2007-06-13 00:00:00 Completed [facility] MMR 2007-06-13 00:00:00 Completed [facility] Polio (IPV/OPV) 2007-06-13 00:00:00 Completed [facility] DTAP 2007-06-13 00:00:00 Completed [facility] MMR 2007-06-13 00:00:00 Completed [facility] Polio (IPV/OPV) 2007-06-13 00:00:00 Completed [facility] DTAP 2007-06-13 00:00:00 Completed [facility] MMR 2007-06-13 00:00:00 Completed [facility] Polio (IPV/OPV) 2007-06-13 00:00:00 Completed [facility] DTAP 2007-06-13 00:00:00 Completed [facility] MMR 2007-06-13 00:00:00 Completed [facility] Polio (IPV/OPV) 2007-06-13 00:00:00 Completed [facility] DTAP 2007-06-13 00:00:00 Completed [facility] MMR 2007-06-13 00:00:00 Completed [facility] Polio (IPV/OPV) 2007-06-13 00:00:00 Completed [facility] DTAP 2007-06-13 00:00:00 Completed [facility] MMR 2007-06-13 00:00:00 Completed [facility] Polio (IPV/OPV) 2007-06-13 00:00:00 Completed [facility] DTAP 2007-06-13 00:00:00 Completed [facility] MMR 2007-06-13 00:00:00 Completed [facility] Polio (IPV/OPV) 2007-06-13 00:00:00 Completed [facility] DTAP 2007-06-13 00:00:00 Completed [facility] MMR 2007-06-13 00:00:00 Completed [facility] Polio (IPV/OPV) 2007-06-13 00:00:00 Completed [facility] DTAP 2007-06-13 00:00:00 Completed [facility] MMR 2007-06-13 00:00:00 Completed [facility] Polio (IPV/OPV) 2007-06-13 00:00:00 Completed [facility] DTAP 2007-06-13 00:00:00 Completed [facility] MMR 2007-06-13 00:00:00 Completed [facility] Polio (IPV/OPV) 2007-06-13 00:00:00 Completed [facility] DTAP 2007-06-13 00:00:00 Completed [facility] MMR 2007-06-13 00:00:00 Completed [facility] Polio (IPV/OPV) 2007-06-13 00:00:00 Completed [facility] DTAP 2007-06-13 00:00:00 Completed [facility] MMR 2007-06-13 00:00:00 Completed [facility] Polio (IPV/OPV) 2007-06-13 00:00:00 Completed [facility] DTAP 2007-06-13 00:00:00 Completed [facility] MMR 2007-06-13 00:00:00 Completed [facility] Polio (IPV/OPV) 2007-06-13 00:00:00 Completed [facility] DTAP 2007-06-13 00:00:00 Completed [facility] MMR 2007-06-13 00:00:00 Completed [facility] Polio (IPV/OPV) 2007-06-13 00:00:00 Completed [facility] DTAP 2007-06-13 00:00:00 Completed [facility] MMR 2007-06-13 00:00:00 Completed [facility] Polio (IPV/OPV) 2007-06-13 00:00:00 Completed [facility] DTAP 2007-06-13 00:00:00 Completed [facility] MMR 2007-06-13 00:00:00 Completed [facility] Polio (IPV/OPV) 2007-06-13 00:00:00 Completed [facility] DTAP 2007-06-13 00:00:00 Completed [facility] MMR 2007-06-13 00:00:00 Completed [facility] Polio (IPV/OPV) 2007-06-13 00:00:00 Completed [facility] DTAP 2007-06-13 00:00:00 Completed [facility] MMR 2007-06-13 00:00:00 Completed [facility] Polio (IPV/OPV) 2007-06-13 00:00:00 Completed [facility] DTAP 2007-06-13 00:00:00 Completed [facility] MMR 2007-06-13 00:00:00 Completed [facility] Polio (IPV/OPV) 2007-06-13 00:00:00 Completed [facility] DTAP 2007-06-13 00:00:00 Completed [facility] MMR 2007-06-13 00:00:00 Completed [facility] Polio (IPV/OPV) 2007-06-13 00:00:00 Completed [facility] DTaP, Unspecified Formulation 2007-06-13 00:00:00 Completed [facility] IPV 2007-06-13 00:00:00 Completed [facility] DTAP 2007-06-13 00:00:00 Completed [facility] MMR 2007-06-13 00:00:00 Completed [facility] Polio (IPV/OPV) 2007-06-13 00:00:00 Completed [facility] DTaP, Unspecified Formulation 2007-06-13 00:00:00 Completed [facility] IPV 2007-06-13 00:00:00 Completed [facility] DTAP 2007-06-13 00:00:00 Completed [facility] MMR 2007-06-13 00:00:00 Completed [facility] Polio (IPV/OPV) 2007-06-13 00:00:00 Completed [facility] DTaP, Unspecified Formulation 2007-06-13 00:00:00 Completed [facility] IPV 2007-06-13 00:00:00 Completed [facility] DTAP 2007-06-13 00:00:00 Completed [facility] MMR 2007-06-13 00:00:00 Completed [facility] Polio (IPV/OPV) 2007-06-13 00:00:00 Completed [facility] DTaP, Unspecified Formulation 2007-06-13 00:00:00 Completed [facility] IPV 2007-06-13 00:00:00 Completed [facility] DTAP 2007-06-13 00:00:00 Completed [facility] MMR 2007-06-13 00:00:00 Completed [facility] Polio (IPV/OPV) 2007-06-13 00:00:00 Completed [facility] DTaP, Unspecified Formulation 2007-06-13 00:00:00 Completed [facility] IPV 2007-06-13 00:00:00 Completed [facility] DTAP 2007-06-13 00:00:00 Completed [facility] MMR 2007-06-13 00:00:00 Completed [facility] Polio (IPV/OPV) 2007-06-13 00:00:00 Completed [facility] DTaP, Unspecified Formulation 2007-06-13 00:00:00 Completed [facility] IPV 2007-06-13 00:00:00 Completed [facility] DTAP 2007-06-13 00:00:00 Completed [facility] MMR 2007-06-13 00:00:00 Completed [facility] Polio (IPV/OPV) 2007-06-13 00:00:00 Completed [facility] DTaP, Unspecified Formulation 2007-06-13 00:00:00 Completed [facility] IPV 2007-06-13 00:00:00 Completed [facility] DTAP 2007-06-13 00:00:00 Completed [facility] MMR 2007-06-13 00:00:00 Completed [facility] Polio (IPV/OPV) 2007-06-13 00:00:00 Completed [facility] DTaP, Unspecified Formulation 2007-06-13 00:00:00 Completed [facility] IPV 2007-06-13 00:00:00 Completed [facility] DTAP 2007-06-13 00:00:00 Completed [facility] MMR 2007-06-13 00:00:00 Completed [facility] Polio (IPV/OPV) 2007-06-13 00:00:00 Completed [facility] DTaP, Unspecified Formulation 2007-06-13 00:00:00 Completed [facility] IPV 2007-06-13 00:00:00 Completed [facility] DTAP 2007-06-13 00:00:00 Completed [facility] MMR 2007-06-13 00:00:00 Completed Polio (IPV/OPV) 2007-06-13 00:00:00 Completed DTaP, Unspecified Formulation 2007-06-13 00:00:00 Completed IPV 2007-06-13 00:00:00 Completed HEPATITIS A 2006-12-10 00:00:00 Completed [facility] HEPATITIS A 2006-12-10 00:00:00 Completed [facility] HEPATITIS A 2006-12-10 00:00:00 Completed [facility] HEPATITIS A 2006-12-10 00:00:00 Completed [facility] HEPATITIS A 2006-12-10 00:00:00 Completed [facility] HEPATITIS A 2006-12-10 00:00:00 Completed [facility] HEPATITIS A 2006-12-10 00:00:00 Completed [facility] HEPATITIS A 2006-12-10 00:00:00 Completed [facility] HEPATITIS A 2006-12-10 00:00:00 Completed [facility] HEPATITIS A 2006-12-10 00:00:00 Completed [facility] HEPATITIS A 2006-12-10 00:00:00 Completed [facility] HEPATITIS A 2006-12-10 00:00:00 Completed [facility] HEPATITIS A 2006-12-10 00:00:00 Completed [facility] HEPATITIS A 2006-12-10 00:00:00 Completed [facility] HEPATITIS A 2006-12-10 00:00:00 Completed [facility] HEPATITIS A 2006-12-10 00:00:00 Completed [facility] HEPATITIS A 2006-12-10 00:00:00 Completed [facility] HEPATITIS A 2006-12-10 00:00:00 Completed [facility] HEPATITIS A 2006-12-10 00:00:00 Completed [facility] HEPATITIS A 2006-12-10 00:00:00 Completed [facility] HEPATITIS A 2006-12-10 00:00:00 Completed [facility] HEPATITIS A 2006-12-10 00:00:00 Completed [facility] HEPATITIS A 2006-12-10 00:00:00 Completed [facility] HEPATITIS A 2006-12-10 00:00:00 Completed [facility] HEPATITIS A 2006-12-10 00:00:00 Completed [facility] HEPATITIS A 2006-12-10 00:00:00 Completed [facility] HEPATITIS A 2006-12-10 00:00:00 Completed [facility] HEPATITIS A 2006-12-10 00:00:00 Completed [facility] HEPATITIS A 2006-12-10 00:00:00 Completed [facility] HEPATITIS A 2006-12-10 00:00:00 Completed [facility] HEPATITIS A 2006-12-10 00:00:00 Completed [facility] HEPATITIS A 2006-12-10 00:00:00 Completed [facility] HEPATITIS A 2006-12-10 00:00:00 Completed [facility] HEPATITIS A 2006-12-10 00:00:00 Completed [facility] HEPATITIS A 2006-12-10 00:00:00 Completed [facility] HEPATITIS A 2006-12-10 00:00:00 Completed [facility] HEPATITIS A 2006-12-10 00:00:00 Completed [facility] HEPATITIS A 2006-12-10 00:00:00 Completed [facility] HEPATITIS A 2006-12-10 00:00:00 Completed [facility] HEPATITIS A 2006-12-10 00:00:00 Completed [facility] HEPATITIS A 2006-12-10 00:00:00 Completed [facility] HEPATITIS A 2006-12-10 00:00:00 Completed [facility] HEPATITIS A 2006-12-10 00:00:00 Completed [facility] HEPATITIS A 2006-12-10 00:00:00 Completed [facility] HEPATITIS A 2006-12-10 00:00:00 Completed [facility] HEPATITIS A 2006-12-10 00:00:00 Completed [facility] HEPATITIS A 2006-12-10 00:00:00 Completed [facility] HEPATITIS A 2006-12-10 00:00:00 Completed [facility] HEPATITIS A 2006-12-10 00:00:00 Completed [facility] HEPATITIS A 2006-12-10 00:00:00 Completed [facility] HEPATITIS A 2006-12-10 00:00:00 Completed [facility] HEPATITIS A 2006-12-10 00:00:00 Completed [facility] HEPATITIS A 2006-12-10 00:00:00 Completed [facility] HEPATITIS A 2006-12-10 00:00:00 Completed [facility] HEPATITIS A 2006-12-10 00:00:00 Completed [facility] HEPATITIS A 2006-12-10 00:00:00 Completed [facility] HEPATITIS A 2006-12-10 00:00:00 Completed [facility] HEPATITIS A 2006-12-10 00:00:00 Completed [facility] HEPATITIS A 2006-12-10 00:00:00 Completed [facility] HEPATITIS A 2006-12-10 00:00:00 Completed [facility] HEPATITIS A 2006-12-10 00:00:00 Completed [facility] HEPATITIS A 2006-12-10 00:00:00 Completed HEPATITIS A 2006-04-17 00:00:00 Completed [facility] HEPATITIS A 2006-04-17 00:00:00 Completed [facility] HEPATITIS A 2006-04-17 00:00:00 Completed [facility] HEPATITIS A 2006-04-17 00:00:00 Completed [facility] HEPATITIS A 2006-04-17 00:00:00 Completed [facility] HEPATITIS A 2006-04-17 00:00:00 Completed [facility] HEPATITIS A 2006-04-17 00:00:00 Completed [facility] HEPATITIS A 2006-04-17 00:00:00 Completed [facility] HEPATITIS A 2006-04-17 00:00:00 Completed [facility] HEPATITIS A 2006-04-17 00:00:00 Completed [facility] HEPATITIS A 2006-04-17 00:00:00 Completed [facility] HEPATITIS A 2006-04-17 00:00:00 Completed [facility] HEPATITIS A 2006-04-17 00:00:00 Completed [facility] HEPATITIS A 2006-04-17 00:00:00 Completed [facility] HEPATITIS A 2006-04-17 00:00:00 Completed [facility] HEPATITIS A 2006-04-17 00:00:00 Completed [facility] HEPATITIS A 2006-04-17 00:00:00 Completed [facility] HEPATITIS A 2006-04-17 00:00:00 Completed [facility] HEPATITIS A 2006-04-17 00:00:00 Completed [facility] HEPATITIS A 2006-04-17 00:00:00 Completed [facility] HEPATITIS A 2006-04-17 00:00:00 Completed [facility] HEPATITIS A 2006-04-17 00:00:00 Completed [facility] HEPATITIS A 2006-04-17 00:00:00 Completed [facility] HEPATITIS A 2006-04-17 00:00:00 Completed [facility] HEPATITIS A 2006-04-17 00:00:00 Completed [facility] HEPATITIS A 2006-04-17 00:00:00 Completed [facility] HEPATITIS A 2006-04-17 00:00:00 Completed [facility] HEPATITIS A 2006-04-17 00:00:00 Completed [facility] HEPATITIS A 2006-04-17 00:00:00 Completed [facility] HEPATITIS A 2006-04-17 00:00:00 Completed [facility] HEPATITIS A 2006-04-17 00:00:00 Completed [facility] HEPATITIS A 2006-04-17 00:00:00 Completed [facility] HEPATITIS A 2006-04-17 00:00:00 Completed [facility] HEPATITIS A 2006-04-17 00:00:00 Completed [facility] HEPATITIS A 2006-04-17 00:00:00 Completed [facility] HEPATITIS A 2006-04-17 00:00:00 Completed [facility] HEPATITIS A 2006-04-17 00:00:00 Completed [facility] HEPATITIS A 2006-04-17 00:00:00 Completed [facility] HEPATITIS A 2006-04-17 00:00:00 Completed [facility] HEPATITIS A 2006-04-17 00:00:00 Completed [facility] HEPATITIS A 2006-04-17 00:00:00 Completed [facility] HEPATITIS A 2006-04-17 00:00:00 Completed [facility] HEPATITIS A 2006-04-17 00:00:00 Completed [facility] HEPATITIS A 2006-04-17 00:00:00 Completed [facility] HEPATITIS A 2006-04-17 00:00:00 Completed [facility] HEPATITIS A 2006-04-17 00:00:00 Completed [facility] HEPATITIS A 2006-04-17 00:00:00 Completed [facility] HEPATITIS A 2006-04-17 00:00:00 Completed [facility] HEPATITIS A 2006-04-17 00:00:00 Completed [facility] HEPATITIS A 2006-04-17 00:00:00 Completed [facility] HEPATITIS A 2006-04-17 00:00:00 Completed [facility] HEPATITIS A 2006-04-17 00:00:00 Completed [facility] HEPATITIS A 2006-04-17 00:00:00 Completed [facility] HEPATITIS A 2006-04-17 00:00:00 Completed [facility] HEPATITIS A 2006-04-17 00:00:00 Completed [facility] HEPATITIS A 2006-04-17 00:00:00 Completed [facility] HEPATITIS A 2006-04-17 00:00:00 Completed [facility] HEPATITIS A 2006-04-17 00:00:00 Completed [facility] HEPATITIS A 2006-04-17 00:00:00 Completed [facility] HEPATITIS A 2006-04-17 00:00:00 Completed [facility] HEPATITIS A 2006-04-17 00:00:00 Completed [facility] HEPATITIS A 2006-04-17 00:00:00 Completed [facility] DTAP 2004-10-06 00:00:00 Completed [facility] HIB 4 Dose Schedule 2004-10-06 00:00:00 Completed [facility] MMR 2004-10-06 00:00:00 Completed [facility] Pneumococcal 7 Conjugate, PCV7 (Prevnar7) 2004-10-06 00:00:00 Completed [facility] Varicella (varivax)(chicken pox) 2004-10-06 00:00:00 Completed [facility] DTAP 2004-10-06 00:00:00 Completed [facility] HIB 4 Dose Schedule 2004-10-06 00:00:00 Completed [facility] MMR 2004-10-06 00:00:00 Completed [facility] Pneumococcal 7 Conjugate, PCV7 (Prevnar7) 2004-10-06 00:00:00 Completed [facility] Varicella (varivax)(chicken pox) 2004-10-06 00:00:00 Completed [facility] DTAP 2004-10-06 00:00:00 Completed [facility] HIB 4 Dose Schedule 2004-10-06 00:00:00 Completed [facility] MMR 2004-10-06 00:00:00 Completed [facility] Pneumococcal 7 Conjugate, PCV7 (Prevnar7) 2004-10-06 00:00:00 Completed [facility] Varicella (varivax)(chicken pox) 2004-10-06 00:00:00 Completed [facility] DTAP 2004-10-06 00:00:00 Completed [facility] HIB 4 Dose Schedule 2004-10-06 00:00:00 Completed [facility] MMR 2004-10-06 00:00:00 Completed [facility] Pneumococcal 7 Conjugate, PCV7 (Prevnar7) 2004-10-06 00:00:00 Completed [facility] Varicella (varivax)(chicken pox) 2004-10-06 00:00:00 Completed [facility] DTAP 2004-10-06 00:00:00 Completed [facility] HIB 4 Dose Schedule 2004-10-06 00:00:00 Completed [facility] MMR 2004-10-06 00:00:00 Completed [facility] Pneumococcal 7 Conjugate, PCV7 (Prevnar7) 2004-10-06 00:00:00 Completed [facility] Varicella (varivax)(chicken pox) 2004-10-06 00:00:00 Completed [facility] DTAP 2004-10-06 00:00:00 Completed [facility] HIB 4 Dose Schedule 2004-10-06 00:00:00 Completed [facility] MMR 2004-10-06 00:00:00 Completed [facility] Pneumococcal 7 Conjugate, PCV7 (Prevnar7) 2004-10-06 00:00:00 Completed [facility] Varicella (varivax)(chicken pox) 2004-10-06 00:00:00 Completed [facility] DTAP 2004-10-06 00:00:00 Completed [facility] HIB 4 Dose Schedule 2004-10-06 00:00:00 Completed [facility] MMR 2004-10-06 00:00:00 Completed [facility] Pneumococcal 7 Conjugate, PCV7 (Prevnar7) 2004-10-06 00:00:00 Completed [facility] Varicella (varivax)(chicken pox) 2004-10-06 00:00:00 Completed [facility] DTAP 2004-10-06 00:00:00 Completed [facility] HIB 4 Dose Schedule 2004-10-06 00:00:00 Completed [facility] MMR 2004-10-06 00:00:00 Completed [facility] Pneumococcal 7 Conjugate, PCV7 (Prevnar7) 2004-10-06 00:00:00 Completed [facility] Varicella (varivax)(chicken pox) 2004-10-06 00:00:00 Completed [facility] DTAP 2004-10-06 00:00:00 Completed [facility] HIB 4 Dose Schedule 2004-10-06 00:00:00 Completed [facility] MMR 2004-10-06 00:00:00 Completed [facility] Pneumococcal 7 Conjugate, PCV7 (Prevnar7) 2004-10-06 00:00:00 Completed [facility] Varicella (varivax)(chicken pox) 2004-10-06 00:00:00 Completed [facility] DTAP 2004-10-06 00:00:00 Completed [facility] HIB 4 Dose Schedule 2004-10-06 00:00:00 Completed [facility] MMR 2004-10-06 00:00:00 Completed [facility] Pneumococcal 7 Conjugate, PCV7 (Prevnar7) 2004-10-06 00:00:00 Completed [facility] Varicella (varivax)(chicken pox) 2004-10-06 00:00:00 Completed [facility] DTAP 2004-10-06 00:00:00 Completed [facility] HIB 4 Dose Schedule 2004-10-06 00:00:00 Completed [facility] MMR 2004-10-06 00:00:00 Completed [facility] Pneumococcal 7 Conjugate, PCV7 (Prevnar7) 2004-10-06 00:00:00 Completed [facility] Varicella (varivax)(chicken pox) 2004-10-06 00:00:00 Completed [facility] DTAP 2004-10-06 00:00:00 Completed [facility] HIB 4 Dose Schedule 2004-10-06 00:00:00 Completed [facility] MMR 2004-10-06 00:00:00 Completed [facility] Pneumococcal 7 Conjugate, PCV7 (Prevnar7) 2004-10-06 00:00:00 Completed [facility] Varicella (varivax)(chicken pox) 2004-10-06 00:00:00 Completed [facility] DTAP 2004-10-06 00:00:00 Completed [facility] HIB 4 Dose Schedule 2004-10-06 00:00:00 Completed [facility] MMR 2004-10-06 00:00:00 Completed [facility] Pneumococcal 7 Conjugate, PCV7 (Prevnar7) 2004-10-06 00:00:00 Completed [facility] Varicella (varivax)(chicken pox) 2004-10-06 00:00:00 Completed [facility] DTAP 2004-10-06 00:00:00 Completed [facility] HIB 4 Dose Schedule 2004-10-06 00:00:00 Completed [facility] MMR 2004-10-06 00:00:00 Completed [facility] Pneumococcal 7 Conjugate, PCV7 (Prevnar7) 2004-10-06 00:00:00 Completed [facility] Varicella (varivax)(chicken pox) 2004-10-06 00:00:00 Completed [facility] DTAP 2004-10-06 00:00:00 Completed [facility] HIB 4 Dose Schedule 2004-10-06 00:00:00 Completed [facility] MMR 2004-10-06 00:00:00 Completed [facility] Pneumococcal 7 Conjugate, PCV7 (Prevnar7) 2004-10-06 00:00:00 Completed [facility] Varicella (varivax)(chicken pox) 2004-10-06 00:00:00 Completed [facility] DTAP 2004-10-06 00:00:00 Completed [facility] HIB 4 Dose Schedule 2004-10-06 00:00:00 Completed [facility] MMR 2004-10-06 00:00:00 Completed [facility] Pneumococcal 7 Conjugate, PCV7 (Prevnar7) 2004-10-06 00:00:00 Completed [facility] Varicella (varivax)(chicken pox) 2004-10-06 00:00:00 Completed [facility] DTAP 2004-10-06 00:00:00 Completed [facility] HIB 4 Dose Schedule 2004-10-06 00:00:00 Completed [facility] MMR 2004-10-06 00:00:00 Completed [facility] Pneumococcal 7 Conjugate, PCV7 (Prevnar7) 2004-10-06 00:00:00 Completed [facility] Varicella (varivax)(chicken pox) 2004-10-06 00:00:00 Completed [facility] DTAP 2004-10-06 00:00:00 Completed [facility] HIB 4 Dose Schedule 2004-10-06 00:00:00 Completed [facility] MMR 2004-10-06 00:00:00 Completed [facility] Pneumococcal 7 Conjugate, PCV7 (Prevnar7) 2004-10-06 00:00:00 Completed [facility] Varicella (varivax)(chicken pox) 2004-10-06 00:00:00 Completed [facility] DTAP 2004-10-06 00:00:00 Completed [facility] HIB 4 Dose Schedule 2004-10-06 00:00:00 Completed [facility] MMR 2004-10-06 00:00:00 Completed [facility] Pneumococcal 7 Conjugate, PCV7 (Prevnar7) 2004-10-06 00:00:00 Completed [facility] Varicella (varivax)(chicken pox) 2004-10-06 00:00:00 Completed [facility] DTAP 2004-10-06 00:00:00 Completed [facility] HIB 4 Dose Schedule 2004-10-06 00:00:00 Completed [facility] MMR 2004-10-06 00:00:00 Completed [facility] Pneumococcal 7 Conjugate, PCV7 (Prevnar7) 2004-10-06 00:00:00 Completed [facility] Varicella (varivax)(chicken pox) 2004-10-06 00:00:00 Completed [facility] DTAP 2004-10-06 00:00:00 Completed [facility] HIB 4 Dose Schedule 2004-10-06 00:00:00 Completed [facility] MMR 2004-10-06 00:00:00 Completed [facility] Pneumococcal 7 Conjugate, PCV7 (Prevnar7) 2004-10-06 00:00:00 Completed [facility] Varicella (varivax)(chicken pox) 2004-10-06 00:00:00 Completed [facility] DTAP 2004-10-06 00:00:00 Completed [facility] HIB 4 Dose Schedule 2004-10-06 00:00:00 Completed [facility] MMR 2004-10-06 00:00:00 Completed [facility] Pneumococcal 7 Conjugate, PCV7 (Prevnar7) 2004-10-06 00:00:00 Completed [facility] Varicella (varivax)(chicken pox) 2004-10-06 00:00:00 Completed [facility] DTAP 2004-10-06 00:00:00 Completed [facility] HIB 4 Dose Schedule 2004-10-06 00:00:00 Completed [facility] MMR 2004-10-06 00:00:00 Completed [facility] Pneumococcal 7 Conjugate, PCV7 (Prevnar7) 2004-10-06 00:00:00 Completed [facility] Varicella (varivax)(chicken pox) 2004-10-06 00:00:00 Completed [facility] DTAP 2004-10-06 00:00:00 Completed [facility] HIB 4 Dose Schedule 2004-10-06 00:00:00 Completed [facility] MMR 2004-10-06 00:00:00 Completed [facility] Pneumococcal 7 Conjugate, PCV7 (Prevnar7) 2004-10-06 00:00:00 Completed [facility] Varicella (varivax)(chicken pox) 2004-10-06 00:00:00 Completed [facility] DTAP 2004-10-06 00:00:00 Completed [facility] HIB 4 Dose Schedule 2004-10-06 00:00:00 Completed [facility] MMR 2004-10-06 00:00:00 Completed [facility] Pneumococcal 7 Conjugate, PCV7 (Prevnar7) 2004-10-06 00:00:00 Completed [facility] Varicella (varivax)(chicken pox) 2004-10-06 00:00:00 Completed [facility] DTAP 2004-10-06 00:00:00 Completed [facility] HIB 4 Dose Schedule 2004-10-06 00:00:00 Completed [facility] MMR 2004-10-06 00:00:00 Completed [facility] Pneumococcal 7 Conjugate, PCV7 (Prevnar7) 2004-10-06 00:00:00 Completed [facility] Varicella (varivax)(chicken pox) 2004-10-06 00:00:00 Completed [facility] DTAP 2004-10-06 00:00:00 Completed [facility] HIB 4 Dose Schedule 2004-10-06 00:00:00 Completed [facility] MMR 2004-10-06 00:00:00 Completed [facility] Pneumococcal 7 Conjugate, PCV7 (Prevnar7) 2004-10-06 00:00:00 Completed [facility] Varicella (varivax)(chicken pox) 2004-10-06 00:00:00 Completed [facility] DTAP 2004-10-06 00:00:00 Completed [facility] HIB 4 Dose Schedule 2004-10-06 00:00:00 Completed [facility] MMR 2004-10-06 00:00:00 Completed [facility] Pneumococcal 7 Conjugate, PCV7 (Prevnar7) 2004-10-06 00:00:00 Completed [facility] Varicella (varivax)(chicken pox) 2004-10-06 00:00:00 Completed [facility] DTAP 2004-10-06 00:00:00 Completed [facility] HIB 4 Dose Schedule 2004-10-06 00:00:00 Completed [facility] MMR 2004-10-06 00:00:00 Completed [facility] Pneumococcal 7 Conjugate, PCV7 (Prevnar7) 2004-10-06 00:00:00 Completed [facility] Varicella (varivax)(chicken pox) 2004-10-06 00:00:00 Completed [facility] DTAP 2004-10-06 00:00:00 Completed [facility] HIB 4 Dose Schedule 2004-10-06 00:00:00 Completed [facility] MMR 2004-10-06 00:00:00 Completed [facility] Pneumococcal 7 Conjugate, PCV7 (Prevnar7) 2004-10-06 00:00:00 Completed [facility] Varicella (varivax)(chicken pox) 2004-10-06 00:00:00 Completed [facility] DTAP 2004-10-06 00:00:00 Completed [facility] HIB 4 Dose Schedule 2004-10-06 00:00:00 Completed [facility] MMR 2004-10-06 00:00:00 Completed [facility] Pneumococcal 7 Conjugate, PCV7 (Prevnar7) 2004-10-06 00:00:00 Completed [facility] Varicella (varivax)(chicken pox) 2004-10-06 00:00:00 Completed [facility] DTAP 2004-10-06 00:00:00 Completed [facility] HIB 4 Dose Schedule 2004-10-06 00:00:00 Completed [facility] MMR 2004-10-06 00:00:00 Completed [facility] Pneumococcal 7 Conjugate, PCV7 (Prevnar7) 2004-10-06 00:00:00 Completed [facility] Varicella (varivax)(chicken pox) 2004-10-06 00:00:00 Completed [facility] DTAP 2004-10-06 00:00:00 Completed [facility] HIB 4 Dose Schedule 2004-10-06 00:00:00 Completed [facility] MMR 2004-10-06 00:00:00 Completed [facility] Pneumococcal 7 Conjugate, PCV7 (Prevnar7) 2004-10-06 00:00:00 Completed [facility] Varicella (varivax)(chicken pox) 2004-10-06 00:00:00 Completed [facility] DTAP 2004-10-06 00:00:00 Completed [facility] HIB 4 Dose Schedule 2004-10-06 00:00:00 Completed [facility] MMR 2004-10-06 00:00:00 Completed [facility] Pneumococcal 7 Conjugate, PCV7 (Prevnar7) 2004-10-06 00:00:00 Completed [facility] Varicella (varivax)(chicken pox) 2004-10-06 00:00:00 Completed [facility] DTAP 2004-10-06 00:00:00 Completed [facility] HIB 4 Dose Schedule 2004-10-06 00:00:00 Completed [facility] MMR 2004-10-06 00:00:00 Completed [facility] Pneumococcal 7 Conjugate, PCV7 (Prevnar7) 2004-10-06 00:00:00 Completed [facility] Varicella (varivax)(chicken pox) 2004-10-06 00:00:00 Completed [facility] DTAP 2004-10-06 00:00:00 Completed [facility] HIB 4 Dose Schedule 2004-10-06 00:00:00 Completed [facility] MMR 2004-10-06 00:00:00 Completed [facility] Pneumococcal 7 Conjugate, PCV7 (Prevnar7) 2004-10-06 00:00:00 Completed [facility] Varicella (varivax)(chicken pox) 2004-10-06 00:00:00 Completed [facility] DTAP 2004-10-06 00:00:00 Completed [facility] HIB 4 Dose Schedule 2004-10-06 00:00:00 Completed [facility] MMR 2004-10-06 00:00:00 Completed [facility] Pneumococcal 7 Conjugate, PCV7 (Prevnar7) 2004-10-06 00:00:00 Completed [facility] Varicella (varivax)(chicken pox) 2004-10-06 00:00:00 Completed [facility] DTAP 2004-10-06 00:00:00 Completed [facility] HIB 4 Dose Schedule 2004-10-06 00:00:00 Completed [facility] MMR 2004-10-06 00:00:00 Completed [facility] Pneumococcal 7 Conjugate, PCV7 (Prevnar7) 2004-10-06 00:00:00 Completed [facility] Varicella (varivax)(chicken pox) 2004-10-06 00:00:00 Completed [facility] DTAP 2004-10-06 00:00:00 Completed [facility] HIB 4 Dose Schedule 2004-10-06 00:00:00 Completed [facility] MMR 2004-10-06 00:00:00 Completed [facility] Pneumococcal 7 Conjugate, PCV7 (Prevnar7) 2004-10-06 00:00:00 Completed [facility] Varicella (varivax)(chicken pox) 2004-10-06 00:00:00 Completed [facility] DTAP 2004-10-06 00:00:00 Completed [facility] HIB 4 Dose Schedule 2004-10-06 00:00:00 Completed [facility] MMR 2004-10-06 00:00:00 Completed [facility] Pneumococcal 7 Conjugate, PCV7 (Prevnar7) 2004-10-06 00:00:00 Completed [facility] Varicella (varivax)(chicken pox) 2004-10-06 00:00:00 Completed [facility] DTAP 2004-10-06 00:00:00 Completed [facility] HIB 4 Dose Schedule 2004-10-06 00:00:00 Completed [facility] MMR 2004-10-06 00:00:00 Completed [facility] Pneumococcal 7 Conjugate, PCV7 (Prevnar7) 2004-10-06 00:00:00 Completed [facility] Varicella (varivax)(chicken pox) 2004-10-06 00:00:00 Completed [facility] DTAP 2004-10-06 00:00:00 Completed [facility] HIB 4 Dose Schedule 2004-10-06 00:00:00 Completed [facility] MMR 2004-10-06 00:00:00 Completed [facility] Pneumococcal 7 Conjugate, PCV7 (Prevnar7) 2004-10-06 00:00:00 Completed [facility] Varicella (varivax)(chicken pox) 2004-10-06 00:00:00 Completed [facility] DTAP 2004-10-06 00:00:00 Completed [facility] HIB 4 Dose Schedule 2004-10-06 00:00:00 Completed [facility] MMR 2004-10-06 00:00:00 Completed [facility] Pneumococcal 7 Conjugate, PCV7 (Prevnar7) 2004-10-06 00:00:00 Completed [facility] Varicella (varivax)(chicken pox) 2004-10-06 00:00:00 Completed [facility] DTAP 2004-10-06 00:00:00 Completed [facility] HIB 4 Dose Schedule 2004-10-06 00:00:00 Completed [facility] MMR 2004-10-06 00:00:00 Completed [facility] Pneumococcal 7 Conjugate, PCV7 (Prevnar7) 2004-10-06 00:00:00 Completed [facility] Varicella (varivax)(chicken pox) 2004-10-06 00:00:00 Completed [facility] DTAP 2004-10-06 00:00:00 Completed [facility] HIB 4 Dose Schedule 2004-10-06 00:00:00 Completed [facility] MMR 2004-10-06 00:00:00 Completed [facility] Pneumococcal 7 Conjugate, PCV7 (Prevnar7) 2004-10-06 00:00:00 Completed [facility] Varicella (varivax)(chicken pox) 2004-10-06 00:00:00 Completed [facility] DTAP 2004-10-06 00:00:00 Completed [facility] HIB 4 Dose Schedule 2004-10-06 00:00:00 Completed [facility] MMR 2004-10-06 00:00:00 Completed [facility] Pneumococcal 7 Conjugate, PCV7 (Prevnar7) 2004-10-06 00:00:00 Completed [facility] Varicella (varivax)(chicken pox) 2004-10-06 00:00:00 Completed [facility] DTAP 2004-10-06 00:00:00 Completed [facility] HIB 4 Dose Schedule 2004-10-06 00:00:00 Completed [facility] MMR 2004-10-06 00:00:00 Completed [facility] Pneumococcal 7 Conjugate, PCV7 (Prevnar7) 2004-10-06 00:00:00 Completed [facility] Varicella (varivax)(chicken pox) 2004-10-06 00:00:00 Completed [facility] DTAP 2004-10-06 00:00:00 Completed [facility] HIB 4 Dose Schedule 2004-10-06 00:00:00 Completed [facility] MMR 2004-10-06 00:00:00 Completed [facility] Pneumococcal 7 Conjugate, PCV7 (Prevnar7) 2004-10-06 00:00:00 Completed [facility] Varicella (varivax)(chicken pox) 2004-10-06 00:00:00 Completed [facility] DTAP 2004-10-06 00:00:00 Completed [facility] HIB 4 Dose Schedule 2004-10-06 00:00:00 Completed [facility] MMR 2004-10-06 00:00:00 Completed [facility] Pneumococcal 7 Conjugate, PCV7 (Prevnar7) 2004-10-06 00:00:00 Completed [facility] Varicella (varivax)(chicken pox) 2004-10-06 00:00:00 Completed [facility] DTAP 2004-10-06 00:00:00 Completed [facility] HIB 4 Dose Schedule 2004-10-06 00:00:00 Completed [facility] MMR 2004-10-06 00:00:00 Completed [facility] Pneumococcal 7 Conjugate, PCV7 (Prevnar7) 2004-10-06 00:00:00 Completed [facility] Varicella (varivax)(chicken pox) 2004-10-06 00:00:00 Completed [facility] DTAP 2004-10-06 00:00:00 Completed [facility] HIB 4 Dose Schedule 2004-10-06 00:00:00 Completed [facility] MMR 2004-10-06 00:00:00 Completed [facility] Pneumococcal 7 Conjugate, PCV7 (Prevnar7) 2004-10-06 00:00:00 Completed [facility] Varicella (varivax)(chicken pox) 2004-10-06 00:00:00 Completed [facility] DTAP 2004-10-06 00:00:00 Completed [facility] HIB 4 Dose Schedule 2004-10-06 00:00:00 Completed [facility] MMR 2004-10-06 00:00:00 Completed [facility] Pneumococcal 7 Conjugate, PCV7 (Prevnar7) 2004-10-06 00:00:00 Completed [facility] Varicella (varivax)(chicken pox) 2004-10-06 00:00:00 Completed [facility] DTAP 2004-10-06 00:00:00 Completed [facility] HIB 4 Dose Schedule 2004-10-06 00:00:00 Completed [facility] MMR 2004-10-06 00:00:00 Completed [facility] Pneumococcal 7 Conjugate, PCV7 (Prevnar7) 2004-10-06 00:00:00 Completed [facility] Varicella (varivax)(chicken pox) 2004-10-06 00:00:00 Completed [facility] DTaP, Unspecified Formulation 2004-10-06 00:00:00 Completed [facility] DTAP 2004-10-06 00:00:00 Completed [facility] HIB 4 Dose Schedule 2004-10-06 00:00:00 Completed [facility] MMR 2004-10-06 00:00:00 Completed [facility] Pneumococcal 7 Conjugate, PCV7 (Prevnar7) 2004-10-06 00:00:00 Completed [facility] Varicella (varivax)(chicken pox) 2004-10-06 00:00:00 Completed [facility] DTaP, Unspecified Formulation 2004-10-06 00:00:00 Completed [facility] DTAP 2004-10-06 00:00:00 Completed [facility] HIB 4 Dose Schedule 2004-10-06 00:00:00 Completed [facility] MMR 2004-10-06 00:00:00 Completed [facility] Pneumococcal 7 Conjugate, PCV7 (Prevnar7) 2004-10-06 00:00:00 Completed [facility] Varicella (varivax)(chicken pox) 2004-10-06 00:00:00 Completed [facility] DTaP, Unspecified Formulation 2004-10-06 00:00:00 Completed [facility] DTAP 2004-10-06 00:00:00 Completed [facility] HIB 4 Dose Schedule 2004-10-06 00:00:00 Completed [facility] MMR 2004-10-06 00:00:00 Completed [facility] Pneumococcal 7 Conjugate, PCV7 (Prevnar7) 2004-10-06 00:00:00 Completed [facility] Varicella (varivax)(chicken pox) 2004-10-06 00:00:00 Completed [facility] DTaP, Unspecified Formulation 2004-10-06 00:00:00 Completed [facility] DTAP 2004-10-06 00:00:00 Completed [facility] HIB 4 Dose Schedule 2004-10-06 00:00:00 Completed [facility] MMR 2004-10-06 00:00:00 Completed [facility] Pneumococcal 7 Conjugate, PCV7 (Prevnar7) 2004-10-06 00:00:00 Completed [facility] Varicella (varivax)(chicken pox) 2004-10-06 00:00:00 Completed [facility] DTaP, Unspecified Formulation 2004-10-06 00:00:00 Completed [facility] DTAP 2004-10-06 00:00:00 Completed [facility] HIB 4 Dose Schedule 2004-10-06 00:00:00 Completed [facility] MMR 2004-10-06 00:00:00 Completed [facility] Pneumococcal 7 Conjugate, PCV7 (Prevnar7) 2004-10-06 00:00:00 Completed [facility] Varicella (varivax)(chicken pox) 2004-10-06 00:00:00 Completed [facility] DTaP, Unspecified Formulation 2004-10-06 00:00:00 Completed [facility] DTAP 2004-10-06 00:00:00 Completed [facility] HIB 4 Dose Schedule 2004-10-06 00:00:00 Completed [facility] MMR 2004-10-06 00:00:00 Completed [facility] Pneumococcal 7 Conjugate, PCV7 (Prevnar7) 2004-10-06 00:00:00 Completed [facility] Varicella (varivax)(chicken pox) 2004-10-06 00:00:00 Completed [facility] DTaP, Unspecified Formulation 2004-10-06 00:00:00 Completed [facility] DTAP 2004-10-06 00:00:00 Completed [facility] HIB 4 Dose Schedule 2004-10-06 00:00:00 Completed [facility] MMR 2004-10-06 00:00:00 Completed [facility] Pneumococcal 7 Conjugate, PCV7 (Prevnar7) 2004-10-06 00:00:00 Completed [facility] Varicella (varivax)(chicken pox) 2004-10-06 00:00:00 Completed [facility] DTaP, Unspecified Formulation 2004-10-06 00:00:00 Completed [facility] DTAP 2004-10-06 00:00:00 Completed [facility] HIB 4 Dose Schedule 2004-10-06 00:00:00 Completed [facility] MMR 2004-10-06 00:00:00 Completed [facility] Pneumococcal 7 Conjugate, PCV7 (Prevnar7) 2004-10-06 00:00:00 Completed [facility] Varicella (varivax)(chicken pox) 2004-10-06 00:00:00 Completed [facility] DTaP, Unspecified Formulation 2004-10-06 00:00:00 Completed [facility] DTAP 2004-10-06 00:00:00 Completed HIB 4 Dose Schedule 2004-10-06 00:00:00 Completed MMR 2004-10-06 00:00:00 Completed Pneumococcal 7 Conjugate, PCV7 (Prevnar7) 2004-10-06 00:00:00 Completed Varicella (varivax)(chicken pox) 2004-10-06 00:00:00 Completed DTaP, Unspecified Formulation 2004-10-06 00:00:00 Completed DTAP 2003 00:00:00 Completed [facility] HIB 4 Dose Schedule 2003 00:00:00 Completed [facility] Hep B, Adol or Pedi Dosage 2003 00:00:00 Completed [facility] Pneumococcal 7 Conjugate, PCV7 (Prevnar7) 2003 00:00:00 Completed [facility] Polio (IPV/OPV) 2003 00:00:00 Completed [facility] DTAP 2003 00:00:00 Completed [facility] HIB 4 Dose Schedule 2003 00:00:00 Completed [facility] Hep B, Adol or Pedi Dosage 2003 00:00:00 Completed [facility] Pneumococcal 7 Conjugate, PCV7 (Prevnar7) 2003 00:00:00 Completed [facility] Polio (IPV/OPV) 2003 00:00:00 Completed [facility] DTAP 2003 00:00:00 Completed [facility] HIB 4 Dose Schedule 2003 00:00:00 Completed [facility] Hep B, Adol or Pedi Dosage 2003 00:00:00 Completed [facility] Pneumococcal 7 Conjugate, PCV7 (Prevnar7) 2003 00:00:00 Completed [facility] Polio (IPV/OPV) 2003 00:00:00 Completed [facility] DTAP 2003 00:00:00 Completed [facility] HIB 4 Dose Schedule 2003 00:00:00 Completed [facility] Hep B, Adol or Pedi Dosage 2003 00:00:00 Completed [facility] Pneumococcal 7 Conjugate, PCV7 (Prevnar7) 2003 00:00:00 Completed [facility] Polio (IPV/OPV) 2003 00:00:00 Completed [facility] DTAP 2003 00:00:00 Completed [facility] HIB 4 Dose Schedule 2003 00:00:00 Completed [facility] Hep B, Adol or Pedi Dosage 2003 00:00:00 Completed [facility] Pneumococcal 7 Conjugate, PCV7 (Prevnar7) 2003 00:00:00 Completed [facility] Polio (IPV/OPV) 2003 00:00:00 Completed [facility] DTAP 2003 00:00:00 Completed [facility] HIB 4 Dose Schedule 2003 00:00:00 Completed [facility] Hep B, Adol or Pedi Dosage 2003 00:00:00 Completed [facility] Pneumococcal 7 Conjugate, PCV7 (Prevnar7) 2003 00:00:00 Completed [facility] Polio (IPV/OPV) 2003 00:00:00 Completed [facility] DTAP 2003 00:00:00 Completed [facility] HIB 4 Dose Schedule 2003 00:00:00 Completed [facility] Hep B, Adol or Pedi Dosage 2003 00:00:00 Completed [facility] Pneumococcal 7 Conjugate, PCV7 (Prevnar7) 2003 00:00:00 Completed [facility] Polio (IPV/OPV) 2003 00:00:00 Completed [facility] DTAP 2003 00:00:00 Completed [facility] HIB 4 Dose Schedule 2003 00:00:00 Completed [facility] Hep B, Adol or Pedi Dosage 2003 00:00:00 Completed [facility] Pneumococcal 7 Conjugate, PCV7 (Prevnar7) 2003 00:00:00 Completed [facility] Polio (IPV/OPV) 2003 00:00:00 Completed [facility] DTAP 2003 00:00:00 Completed [facility] HIB 4 Dose Schedule 2003 00:00:00 Completed [facility] Hep B, Adol or Pedi Dosage 2003 00:00:00 Completed [facility] Pneumococcal 7 Conjugate, PCV7 (Prevnar7) 2003 00:00:00 Completed [facility] Polio (IPV/OPV) 2003 00:00:00 Completed [facility] DTAP 2003 00:00:00 Completed [facility] HIB 4 Dose Schedule 2003 00:00:00 Completed [facility] Hep B, Adol or Pedi Dosage 2003 00:00:00 Completed [facility] Pneumococcal 7 Conjugate, PCV7 (Prevnar7) 2003 00:00:00 Completed [facility] Polio (IPV/OPV) 2003 00:00:00 Completed [facility] DTAP 2003 00:00:00 Completed [facility] HIB 4 Dose Schedule 2003 00:00:00 Completed [facility] Hep B, Adol or Pedi Dosage 2003 00:00:00 Completed [facility] Pneumococcal 7 Conjugate, PCV7 (Prevnar7) 2003 00:00:00 Completed [facility] Polio (IPV/OPV) 2003 00:00:00 Completed [facility] DTAP 2003 00:00:00 Completed [facility] HIB 4 Dose Schedule 2003 00:00:00 Completed [facility] Hep B, Adol or Pedi Dosage 2003 00:00:00 Completed [facility] Pneumococcal 7 Conjugate, PCV7 (Prevnar7) 2003 00:00:00 Completed [facility] Polio (IPV/OPV) 2003 00:00:00 Completed [facility] DTAP 2003 00:00:00 Completed [facility] HIB 4 Dose Schedule 2003 00:00:00 Completed [facility] Hep B, Adol or Pedi Dosage 2003 00:00:00 Completed [facility] Pneumococcal 7 Conjugate, PCV7 (Prevnar7) 2003 00:00:00 Completed [facility] Polio (IPV/OPV) 2003 00:00:00 Completed [facility] DTAP 2003 00:00:00 Completed [facility] HIB 4 Dose Schedule 2003 00:00:00 Completed [facility] Hep B, Adol or Pedi Dosage 2003 00:00:00 Completed [facility] Pneumococcal 7 Conjugate, PCV7 (Prevnar7) 2003 00:00:00 Completed [facility] Polio (IPV/OPV) 2003 00:00:00 Completed [facility] DTAP 2003 00:00:00 Completed [facility] HIB 4 Dose Schedule 2003 00:00:00 Completed [facility] Hep B, Adol or Pedi Dosage 2003 00:00:00 Completed [facility] Pneumococcal 7 Conjugate, PCV7 (Prevnar7) 2003 00:00:00 Completed [facility] Polio (IPV/OPV) 2003 00:00:00 Completed [facility] DTAP 2003 00:00:00 Completed [facility] HIB 4 Dose Schedule 2003 00:00:00 Completed [facility] Hep B, Adol or Pedi Dosage 2003 00:00:00 Completed [facility] Pneumococcal 7 Conjugate, PCV7 (Prevnar7) 2003 00:00:00 Completed [facility] Polio (IPV/OPV) 2003 00:00:00 Completed [facility] DTAP 2003 00:00:00 Completed [facility] HIB 4 Dose Schedule 2003 00:00:00 Completed [facility] Hep B, Adol or Pedi Dosage 2003 00:00:00 Completed [facility] Pneumococcal 7 Conjugate, PCV7 (Prevnar7) 2003 00:00:00 Completed [facility] Polio (IPV/OPV) 2003 00:00:00 Completed [facility] DTAP 2003 00:00:00 Completed [facility] HIB 4 Dose Schedule 2003 00:00:00 Completed [facility] Hep B, Adol or Pedi Dosage 2003 00:00:00 Completed [facility] Pneumococcal 7 Conjugate, PCV7 (Prevnar7) 2003 00:00:00 Completed [facility] Polio (IPV/OPV) 2003 00:00:00 Completed [facility] DTAP 2003 00:00:00 Completed [facility] HIB 4 Dose Schedule 2003 00:00:00 Completed [facility] Hep B, Adol or Pedi Dosage 2003 00:00:00 Completed [facility] Pneumococcal 7 Conjugate, PCV7 (Prevnar7) 2003 00:00:00 Completed [facility] Polio (IPV/OPV) 2003 00:00:00 Completed [facility] DTAP 2003 00:00:00 Completed [facility] HIB 4 Dose Schedule 2003 00:00:00 Completed [facility] Hep B, Adol or Pedi Dosage 2003 00:00:00 Completed [facility] Pneumococcal 7 Conjugate, PCV7 (Prevnar7) 2003 00:00:00 Completed [facility] Polio (IPV/OPV) 2003 00:00:00 Completed [facility] DTAP 2003 00:00:00 Completed [facility] HIB 4 Dose Schedule 2003 00:00:00 Completed [facility] Hep B, Adol or Pedi Dosage 2003 00:00:00 Completed [facility] Pneumococcal 7 Conjugate, PCV7 (Prevnar7) 2003 00:00:00 Completed [facility] Polio (IPV/OPV) 2003 00:00:00 Completed [facility] DTAP 2003 00:00:00 Completed [facility] HIB 4 Dose Schedule 2003 00:00:00 Completed [facility] Hep B, Adol or Pedi Dosage 2003 00:00:00 Completed [facility] Pneumococcal 7 Conjugate, PCV7 (Prevnar7) 2003 00:00:00 Completed [facility] Polio (IPV/OPV) 2003 00:00:00 Completed [facility] DTAP 2003 00:00:00 Completed [facility] HIB 4 Dose Schedule 2003 00:00:00 Completed [facility] Hep B, Adol or Pedi Dosage 2003 00:00:00 Completed [facility] Pneumococcal 7 Conjugate, PCV7 (Prevnar7) 2003 00:00:00 Completed [facility] Polio (IPV/OPV) 2003 00:00:00 Completed [facility] DTAP 2003 00:00:00 Completed [facility] HIB 4 Dose Schedule 2003 00:00:00 Completed [facility] Hep B, Adol or Pedi Dosage 2003 00:00:00 Completed [facility] Pneumococcal 7 Conjugate, PCV7 (Prevnar7) 2003 00:00:00 Completed [facility] Polio (IPV/OPV) 2003 00:00:00 Completed [facility] DTAP 2003 00:00:00 Completed [facility] HIB 4 Dose Schedule 2003 00:00:00 Completed [facility] Hep B, Adol or Pedi Dosage 2003 00:00:00 Completed [facility] Pneumococcal 7 Conjugate, PCV7 (Prevnar7) 2003 00:00:00 Completed [facility] Polio (IPV/OPV) 2003 00:00:00 Completed [facility] DTAP 2003 00:00:00 Completed [facility] HIB 4 Dose Schedule 2003 00:00:00 Completed [facility] Hep B, Adol or Pedi Dosage 2003 00:00:00 Completed [facility] Pneumococcal 7 Conjugate, PCV7 (Prevnar7) 2003 00:00:00 Completed [facility] Polio (IPV/OPV) 2003 00:00:00 Completed [facility] DTAP 2003 00:00:00 Completed [facility] HIB 4 Dose Schedule 2003 00:00:00 Completed [facility] Hep B, Adol or Pedi Dosage 2003 00:00:00 Completed [facility] Pneumococcal 7 Conjugate, PCV7 (Prevnar7) 2003 00:00:00 Completed [facility] Polio (IPV/OPV) 2003 00:00:00 Completed [facility] DTAP 2003 00:00:00 Completed [facility] HIB 4 Dose Schedule 2003 00:00:00 Completed [facility] Hep B, Adol or Pedi Dosage 2003 00:00:00 Completed [facility] Pneumococcal 7 Conjugate, PCV7 (Prevnar7) 2003 00:00:00 Completed [facility] Polio (IPV/OPV) 2003 00:00:00 Completed [facility] DTAP 2003 00:00:00 Completed [facility] HIB 4 Dose Schedule 2003 00:00:00 Completed [facility] Hep B, Adol or Pedi Dosage 2003 00:00:00 Completed [facility] Pneumococcal 7 Conjugate, PCV7 (Prevnar7) 2003 00:00:00 Completed [facility] Polio (IPV/OPV) 2003 00:00:00 Completed [facility] DTAP 2003 00:00:00 Completed [facility] HIB 4 Dose Schedule 2003 00:00:00 Completed [facility] Hep B, Adol or Pedi Dosage 2003 00:00:00 Completed [facility] Pneumococcal 7 Conjugate, PCV7 (Prevnar7) 2003 00:00:00 Completed [facility] Polio (IPV/OPV) 2003 00:00:00 Completed [facility] DTAP 2003 00:00:00 Completed [facility] HIB 4 Dose Schedule 2003 00:00:00 Completed [facility] Hep B, Adol or Pedi Dosage 2003 00:00:00 Completed [facility] Pneumococcal 7 Conjugate, PCV7 (Prevnar7) 2003 00:00:00 Completed [facility] Polio (IPV/OPV) 2003 00:00:00 Completed [facility] DTAP 2003 00:00:00 Completed [facility] HIB 4 Dose Schedule 2003 00:00:00 Completed [facility] Hep B, Adol or Pedi Dosage 2003 00:00:00 Completed [facility] Pneumococcal 7 Conjugate, PCV7 (Prevnar7) 2003 00:00:00 Completed [facility] Polio (IPV/OPV) 2003 00:00:00 Completed [facility] DTAP 2003 00:00:00 Completed [facility] HIB 4 Dose Schedule 2003 00:00:00 Completed [facility] Hep B, Adol or Pedi Dosage 2003 00:00:00 Completed [facility] Pneumococcal 7 Conjugate, PCV7 (Prevnar7) 2003 00:00:00 Completed [facility] Polio (IPV/OPV) 2003 00:00:00 Completed [facility] DTAP 2003 00:00:00 Completed [facility] HIB 4 Dose Schedule 2003 00:00:00 Completed [facility] Hep B, Adol or Pedi Dosage 2003 00:00:00 Completed [facility] Pneumococcal 7 Conjugate, PCV7 (Prevnar7) 2003 00:00:00 Completed [facility] Polio (IPV/OPV) 2003 00:00:00 Completed [facility] DTAP 2003 00:00:00 Completed [facility] HIB 4 Dose Schedule 2003 00:00:00 Completed [facility] Hep B, Adol or Pedi Dosage 2003 00:00:00 Completed [facility] Pneumococcal 7 Conjugate, PCV7 (Prevnar7) 2003 00:00:00 Completed [facility] Polio (IPV/OPV) 2003 00:00:00 Completed [facility] DTAP 2003 00:00:00 Completed [facility] HIB 4 Dose Schedule 2003 00:00:00 Completed [facility] Hep B, Adol or Pedi Dosage 2003 00:00:00 Completed [facility] Pneumococcal 7 Conjugate, PCV7 (Prevnar7) 2003 00:00:00 Completed [facility] Polio (IPV/OPV) 2003 00:00:00 Completed [facility] DTAP 2003 00:00:00 Completed [facility] HIB 4 Dose Schedule 2003 00:00:00 Completed [facility] Hep B, Adol or Pedi Dosage 2003 00:00:00 Completed [facility] Pneumococcal 7 Conjugate, PCV7 (Prevnar7) 2003 00:00:00 Completed [facility] Polio (IPV/OPV) 2003 00:00:00 Completed [facility] DTAP 2003 00:00:00 Completed [facility] HIB 4 Dose Schedule 2003 00:00:00 Completed [facility] Hep B, Adol or Pedi Dosage 2003 00:00:00 Completed [facility] Pneumococcal 7 Conjugate, PCV7 (Prevnar7) 2003 00:00:00 Completed [facility] Polio (IPV/OPV) 2003 00:00:00 Completed [facility] DTAP 2003 00:00:00 Completed [facility] HIB 4 Dose Schedule 2003 00:00:00 Completed [facility] Hep B, Adol or Pedi Dosage 2003 00:00:00 Completed [facility] Pneumococcal 7 Conjugate, PCV7 (Prevnar7) 2003 00:00:00 Completed [facility] Polio (IPV/OPV) 2003 00:00:00 Completed [facility] DTAP 2003 00:00:00 Completed [facility] HIB 4 Dose Schedule 2003 00:00:00 Completed [facility] Hep B, Adol or Pedi Dosage 2003 00:00:00 Completed [facility] Pneumococcal 7 Conjugate, PCV7 (Prevnar7) 2003 00:00:00 Completed [facility] Polio (IPV/OPV) 2003 00:00:00 [facility] [facility] DTAP 2003 00:00:00 Completed [facility] HIB 4 Dose Schedule 2003 00:00:00 Completed [facility] Hep B, Adol or Pedi Dosage 2003 00:00:00 Completed [facility] Pneumococcal 7 Conjugate, PCV7 (Prevnar7) 2003 00:00:00 Completed [facility] Polio (IPV/OPV) 2003 00:00:00 Completed [facility] DTAP 2003 00:00:00 Completed [facility] HIB 4 Dose Schedule 2003 00:00:00 Completed [facility] Hep B, Adol or Pedi Dosage 2003 00:00:00 Completed [facility] Pneumococcal 7 Conjugate, PCV7 (Prevnar7) 2003 00:00:00 Completed [facility] Polio (IPV/OPV) 2003 00:00:00 Completed [facility] DTAP 2003 00:00:00 Completed [facility] HIB 4 Dose Schedule 2003 00:00:00 Completed [facility] Hep B, Adol or Pedi Dosage 2003 00:00:00 Completed [facility] Pneumococcal 7 Conjugate, PCV7 (Prevnar7) 2003 00:00:00 Completed [facility] Polio (IPV/OPV) 2003 00:00:00 Completed [facility] DTAP 2003 00:00:00 Completed [facility] HIB 4 Dose Schedule 2003 00:00:00 Completed [facility] Hep B, Adol or Pedi Dosage 2003 00:00:00 Completed [facility] Pneumococcal 7 Conjugate, PCV7 (Prevnar7) 2003 00:00:00 Completed [facility] Polio (IPV/OPV) 2003 00:00:00 Completed [facility] DTAP 2003 00:00:00 Completed [facility] HIB 4 Dose Schedule 2003 00:00:00 Completed [facility] Hep B, Adol or Pedi Dosage 2003 00:00:00 Completed [facility] Pneumococcal 7 Conjugate, PCV7 (Prevnar7) 2003 00:00:00 Completed [facility] Polio (IPV/OPV) 2003 00:00:00 Completed [facility] DTAP 2003 00:00:00 Completed [facility] HIB 4 Dose Schedule 2003 00:00:00 Completed [facility] Hep B, Adol or Pedi Dosage 2003 00:00:00 Completed [facility] Pneumococcal 7 Conjugate, PCV7 (Prevnar7) 2003 00:00:00 Completed [facility] Polio (IPV/OPV) 2003 00:00:00 Completed [facility] DTAP 2003 00:00:00 Completed [facility] HIB 4 Dose Schedule 2003 00:00:00 Completed [facility] Hep B, Adol or Pedi Dosage 2003 00:00:00 Completed [facility] Pneumococcal 7 Conjugate, PCV7 (Prevnar7) 2003 00:00:00 Completed [facility] Polio (IPV/OPV) 2003 00:00:00 Completed [facility] DTAP 2003 00:00:00 Completed [facility] HIB 4 Dose Schedule 2003 00:00:00 Completed [facility] Hep B, Adol or Pedi Dosage 2003 00:00:00 Completed [facility] Pneumococcal 7 Conjugate, PCV7 (Prevnar7) 2003 00:00:00 Completed [facility] Polio (IPV/OPV) 2003 00:00:00 Completed [facility] DTAP 2003 00:00:00 Completed [facility] HIB 4 Dose Schedule 2003 00:00:00 Completed [facility] Hep B, Adol or Pedi Dosage 2003 00:00:00 Completed [facility] Pneumococcal 7 Conjugate, PCV7 (Prevnar7) 2003 00:00:00 Completed [facility] Polio (IPV/OPV) 2003 00:00:00 Completed [facility] DTAP 2003 00:00:00 Completed [facility] HIB 4 Dose Schedule 2003 00:00:00 Completed [facility] Hep B, Adol or Pedi Dosage 2003 00:00:00 Completed [facility] Pneumococcal 7 Conjugate, PCV7 (Prevnar7) 2003 00:00:00 Completed [facility] Polio (IPV/OPV) 2003 00:00:00 Completed [facility] DTAP 2003 00:00:00 Completed [facility] HIB 4 Dose Schedule 2003 00:00:00 Completed [facility] Hep B, Adol or Pedi Dosage 2003 00:00:00 Completed [facility] Pneumococcal 7 Conjugate, PCV7 (Prevnar7) 2003 00:00:00 Completed [facility] Polio (IPV/OPV) 2003 00:00:00 Completed [facility] DTAP 2003 00:00:00 Completed [facility] HIB 4 Dose Schedule 2003 00:00:00 Completed [facility] Hep B, Adol or Pedi Dosage 2003 00:00:00 Completed [facility] Pneumococcal 7 Conjugate, PCV7 (Prevnar7) 2003 00:00:00 Completed [facility] Polio (IPV/OPV) 2003 00:00:00 Completed [facility] DTAP 2003 00:00:00 Completed [facility] HIB 4 Dose Schedule 2003 00:00:00 Completed [facility] Hep B, Adol or Pedi Dosage 2003 00:00:00 Completed [facility] Pneumococcal 7 Conjugate, PCV7 (Prevnar7) 2003 00:00:00 Completed [facility] Polio (IPV/OPV) 2003 00:00:00 Completed [facility] DTaP, Unspecified Formulation 2003 00:00:00 Completed [facility] IPV 2003 00:00:00 Completed [facility] DTAP 2003 00:00:00 Completed [facility] HIB 4 Dose Schedule 2003 00:00:00 Completed [facility] Hep B, Adol or Pedi Dosage 2003 00:00:00 Completed [facility] Pneumococcal 7 Conjugate, PCV7 (Prevnar7) 2003 00:00:00 Completed [facility] Polio (IPV/OPV) 2003 00:00:00 Completed [facility] DTaP, Unspecified Formulation 2003 00:00:00 Completed [facility] IPV 2003 00:00:00 Completed [facility] DTAP 2003 00:00:00 Completed [facility] HIB 4 Dose Schedule 2003 00:00:00 Completed [facility] Hep B, Adol or Pedi Dosage 2003 00:00:00 Completed [facility] Pneumococcal 7 Conjugate, PCV7 (Prevnar7) 2003 00:00:00 Completed [facility] Polio (IPV/OPV) 2003 00:00:00 Completed [facility] DTaP, Unspecified Formulation 2003 00:00:00 Completed [facility] IPV 2003 00:00:00 Completed [facility] DTAP 2003 00:00:00 Completed [facility] HIB 4 Dose Schedule 2003 00:00:00 Completed [facility] Hep B, Adol or Pedi Dosage 2003 00:00:00 Completed [facility] Pneumococcal 7 Conjugate, PCV7 (Prevnar7) 2003 00:00:00 Completed [facility] Polio (IPV/OPV) 2003 00:00:00 Completed [facility] DTaP, Unspecified Formulation 2003 00:00:00 Completed [facility] IPV 2003 00:00:00 Completed [facility] DTAP 2003 00:00:00 Completed [facility] HIB 4 Dose Schedule 2003 00:00:00 Completed [facility] Hep B, Adol or Pedi Dosage 2003 00:00:00 Completed [facility] Pneumococcal 7 Conjugate, PCV7 (Prevnar7) 2003 00:00:00 Completed [facility] Polio (IPV/OPV) 2003 00:00:00 Completed [facility] DTaP, Unspecified Formulation 2003 00:00:00 Completed [facility] IPV 2003 00:00:00 Completed [facility] DTAP 2003 00:00:00 Completed [facility] HIB 4 Dose Schedule 2003 00:00:00 Completed [facility] Hep B, Adol or Pedi Dosage 2003 00:00:00 Completed [facility] Pneumococcal 7 Conjugate, PCV7 (Prevnar7) 2003 00:00:00 Completed [facility] Polio (IPV/OPV) 2003 00:00:00 Completed [facility] DTaP, Unspecified Formulation 2003 00:00:00 Completed [facility] IPV 2003 00:00:00 Completed [facility] DTAP 2003 00:00:00 Completed [facility] HIB 4 Dose Schedule 2003 00:00:00 Completed [facility] Hep B, Adol or Pedi Dosage 2003 00:00:00 Completed [facility] Pneumococcal 7 Conjugate, PCV7 (Prevnar7) 2003 00:00:00 Completed [facility] Polio (IPV/OPV) 2003 00:00:00 Completed [facility] DTaP, Unspecified Formulation 2003 00:00:00 Completed [facility] IPV 2003 00:00:00 Completed [facility] DTAP 2003 00:00:00 Completed [facility] HIB 4 Dose Schedule 2003 00:00:00 Completed [facility] Hep B, Adol or Pedi Dosage 2003 00:00:00 Completed [facility] Pneumococcal 7 Conjugate, PCV7 (Prevnar7) 2003 00:00:00 Completed [facility] Polio (IPV/OPV) 2003 00:00:00 Completed [facility] DTaP, Unspecified Formulation 2003 00:00:00 Completed [facility] IPV 2003 00:00:00 Completed [facility] DTAP 2003 00:00:00 Completed [facility] HIB 4 Dose Schedule 2003 00:00:00 Completed [facility] Hep B, Adol or Pedi Dosage 2003 00:00:00 Completed [facility] Pneumococcal 7 Conjugate, PCV7 (Prevnar7) 2003 00:00:00 Completed [facility] Polio (IPV/OPV) 2003 00:00:00 Completed [facility] DTaP, Unspecified Formulation 2003 00:00:00 Completed [facility] IPV 2003 00:00:00 Completed [facility] DTAP 2003 00:00:00 Completed HIB 4 Dose Schedule 2003 00:00:00 Completed Hep B, Adol or Pedi Dosage 2003 00:00:00 Completed Pneumococcal 7 Conjugate, PCV7 (Prevnar7) 2003 00:00:00 Completed Polio (IPV/OPV) 2003 00:00:00 Completed DTaP, Unspecified Formulation 2003 00:00:00 Completed IPV 2003 00:00:00 Completed DTAP 2003 00:00:00 Completed [facility] HIB 4 Dose Schedule 2003 00:00:00 Completed [facility] Pneumococcal 7 Conjugate, PCV7 (Prevnar7) 2003 00:00:00 Completed [facility] Polio (IPV/OPV) 2003 00:00:00 Completed [facility] DTaP, Unspecified Formulation 2003 00:00:00 Completed [facility] IPV 2003 00:00:00 Completed [facility] DTaP, Unspecified Formulation 2003 00:00:00 Completed [facility] IPV 2003 00:00:00 Completed [facility] DTaP, Unspecified Formulation 2003 00:00:00 Completed [facility] IPV 2003 00:00:00 Completed [facility] DTaP, Unspecified Formulation 2003 00:00:00 Completed [facility] IPV 2003 00:00:00 Completed [facility] DTaP, Unspecified Formulation 2003 00:00:00 Completed [facility] IPV 2003 00:00:00 Completed [facility] DTaP, Unspecified Formulation 2003 00:00:00 Completed [facility] IPV 2003 00:00:00 Completed [facility] DTaP, Unspecified Formulation 2003 00:00:00 Completed [facility] IPV 2003 00:00:00 Completed [facility] DTaP, Unspecified Formulation 2003 00:00:00 Completed [facility] IPV 2003 00:00:00 Completed [facility] DTaP, Unspecified Formulation 2003 00:00:00 Completed [facility] IPV 2003 00:00:00 Completed [facility] DTaP, Unspecified Formulation 2003 00:00:00 Completed IPV 2003 00:00:00 Completed DTAP 2003 00:00:00 Completed [facility] HIB 4 Dose Schedule 2003 00:00:00 Completed [facility] Hep B, Adol or Pedi Dosage 2003 00:00:00 Completed [facility] Pneumococcal 7 Conjugate, PCV7 (Prevnar7) 2003 00:00:00 Completed [facility] Polio (IPV/OPV) 2003 00:00:00 Completed [facility] DTAP 2003 00:00:00 Completed [facility] HIB 4 Dose Schedule 2003 00:00:00 Completed [facility] Hep B, Adol or Pedi Dosage 2003 00:00:00 Completed [facility] Pneumococcal 7 Conjugate, PCV7 (Prevnar7) 2003 00:00:00 Completed [facility] Polio (IPV/OPV) 2003 00:00:00 Completed [facility] DTAP 2003 00:00:00 Completed [facility] HIB 4 Dose Schedule 2003 00:00:00 Completed [facility] Hep B, Adol or Pedi Dosage 2003 00:00:00 Completed [facility] Pneumococcal 7 Conjugate, PCV7 (Prevnar7) 2003 00:00:00 Completed [facility] Polio (IPV/OPV) 2003 00:00:00 Completed [facility] DTAP 2003 00:00:00 Completed [facility] HIB 4 Dose Schedule 2003 00:00:00 Completed [facility] Hep B, Adol or Pedi Dosage 2003 00:00:00 Completed [facility] Pneumococcal 7 Conjugate, PCV7 (Prevnar7) 2003 00:00:00 Completed [facility] Polio (IPV/OPV) 2003 00:00:00 Completed [facility] DTAP 2003 00:00:00 Completed [facility] HIB 4 Dose Schedule 2003 00:00:00 Completed [facility] Hep B, Adol or Pedi Dosage 2003 00:00:00 Completed [facility] Pneumococcal 7 Conjugate, PCV7 (Prevnar7) 2003 00:00:00 Completed [facility] Polio (IPV/OPV) 2003 00:00:00 Completed [facility] DTAP 2003 00:00:00 Completed [facility] HIB 4 Dose Schedule 2003 00:00:00 Completed [facility] Hep B, Adol or Pedi Dosage 2003 00:00:00 Completed [facility] Pneumococcal 7 Conjugate, PCV7 (Prevnar7) 2003 00:00:00 Completed [facility] Polio (IPV/OPV) 2003 00:00:00 Completed [facility] DTAP 2003 00:00:00 Completed [facility] HIB 4 Dose Schedule 2003 00:00:00 Completed [facility] Hep B, Adol or Pedi Dosage 2003 00:00:00 Completed [facility] Pneumococcal 7 Conjugate, PCV7 (Prevnar7) 2003 00:00:00 Completed [facility] Polio (IPV/OPV) 2003 00:00:00 Completed [facility] DTAP 2003 00:00:00 Completed [facility] HIB 4 Dose Schedule 2003 00:00:00 Completed [facility] Hep B, Adol or Pedi Dosage 2003 00:00:00 Completed [facility] Pneumococcal 7 Conjugate, PCV7 (Prevnar7) 2003 00:00:00 Completed [facility] Polio (IPV/OPV) 2003 00:00:00 Completed [facility] DTAP 2003 00:00:00 Completed [facility] HIB 4 Dose Schedule 2003 00:00:00 Completed [facility] Hep B, Adol or Pedi Dosage 2003 00:00:00 Completed [facility] Pneumococcal 7 Conjugate, PCV7 (Prevnar7) 2003 00:00:00 Completed [facility] Polio (IPV/OPV) 2003 00:00:00 Completed [facility] DTAP 2003 00:00:00 Completed [facility] HIB 4 Dose Schedule 2003 00:00:00 Completed [facility] Hep B, Adol or Pedi Dosage 2003 00:00:00 Completed [facility] Pneumococcal 7 Conjugate, PCV7 (Prevnar7) 2003 00:00:00 Completed [facility] Polio (IPV/OPV) 2003 00:00:00 Completed [facility] DTAP 2003 00:00:00 Completed [facility] HIB 4 Dose Schedule 2003 00:00:00 Completed [facility] Hep B, Adol or Pedi Dosage 2003 00:00:00 Completed [facility] Pneumococcal 7 Conjugate, PCV7 (Prevnar7) 2003 00:00:00 Completed [facility] Polio (IPV/OPV) 2003 00:00:00 Completed [facility] DTAP 2003 00:00:00 Completed [facility] HIB 4 Dose Schedule 2003 00:00:00 Completed [facility] Hep B, Adol or Pedi Dosage 2003 00:00:00 Completed [facility] Pneumococcal 7 Conjugate, PCV7 (Prevnar7) 2003 00:00:00 Completed [facility] Polio (IPV/OPV) 2003 00:00:00 Completed [facility] DTAP 2003 00:00:00 Completed [facility] HIB 4 Dose Schedule 2003 00:00:00 Completed [facility] Hep B, Adol or Pedi Dosage 2003 00:00:00 Completed [facility] Pneumococcal 7 Conjugate, PCV7 (Prevnar7) 2003 00:00:00 Completed [facility] Polio (IPV/OPV) 2003 00:00:00 Completed [facility] DTAP 2003 00:00:00 Completed [facility] HIB 4 Dose Schedule 2003 00:00:00 Completed [facility] Hep B, Adol or Pedi Dosage 2003 00:00:00 Completed [facility] Pneumococcal 7 Conjugate, PCV7 (Prevnar7) 2003 00:00:00 Completed [facility] Polio (IPV/OPV) 2003 00:00:00 Completed [facility] DTAP 2003 00:00:00 Completed [facility] HIB 4 Dose Schedule 2003 00:00:00 Completed [facility] Hep B, Adol or Pedi Dosage 2003 00:00:00 Completed [facility] Pneumococcal 7 Conjugate, PCV7 (Prevnar7) 2003 00:00:00 Completed [facility] Polio (IPV/OPV) 2003 00:00:00 Completed [facility] DTAP 2003 00:00:00 Completed [facility] HIB 4 Dose Schedule 2003 00:00:00 Completed [facility] Hep B, Adol or Pedi Dosage 2003 00:00:00 Completed [facility] Pneumococcal 7 Conjugate, PCV7 (Prevnar7) 2003 00:00:00 Completed [facility] Polio (IPV/OPV) 2003 00:00:00 Completed [facility] DTAP 2003 00:00:00 Completed [facility] HIB 4 Dose Schedule 2003 00:00:00 Completed [facility] Hep B, Adol or Pedi Dosage 2003 00:00:00 Completed [facility] Pneumococcal 7 Conjugate, PCV7 (Prevnar7) 2003 00:00:00 Completed [facility] Polio (IPV/OPV) 2003 00:00:00 Completed [facility] DTAP 2003 00:00:00 Completed [facility] HIB 4 Dose Schedule 2003 00:00:00 Completed [facility] Hep B, Adol or Pedi Dosage 2003 00:00:00 Completed [facility] Pneumococcal 7 Conjugate, PCV7 (Prevnar7) 2003 00:00:00 Completed [facility] Polio (IPV/OPV) 2003 00:00:00 Completed [facility] DTAP 2003 00:00:00 Completed [facility] HIB 4 Dose Schedule 2003 00:00:00 Completed [facility] Hep B, Adol or Pedi Dosage 2003 00:00:00 Completed [facility] Pneumococcal 7 Conjugate, PCV7 (Prevnar7) 2003 00:00:00 Completed [facility] Polio (IPV/OPV) 2003 00:00:00 Completed [facility] DTAP 2003 00:00:00 Completed [facility] HIB 4 Dose Schedule 2003 00:00:00 Completed [facility] Hep B, Adol or Pedi Dosage 2003 00:00:00 Completed [facility] Pneumococcal 7 Conjugate, PCV7 (Prevnar7) 2003 00:00:00 Completed [facility] Polio (IPV/OPV) 2003 00:00:00 Completed [facility] DTAP 2003 00:00:00 Completed [facility] HIB 4 Dose Schedule 2003 00:00:00 Completed [facility] Hep B, Adol or Pedi Dosage 2003 00:00:00 Completed [facility] Pneumococcal 7 Conjugate, PCV7 (Prevnar7) 2003 00:00:00 Completed [facility] Polio (IPV/OPV) 2003 00:00:00 Completed [facility] DTAP 2003 00:00:00 Completed [facility] HIB 4 Dose Schedule 2003 00:00:00 Completed [facility] Hep B, Adol or Pedi Dosage 2003 00:00:00 Completed [facility] Pneumococcal 7 Conjugate, PCV7 (Prevnar7) 2003 00:00:00 Completed [facility] Polio (IPV/OPV) 2003 00:00:00 Completed [facility] DTAP 2003 00:00:00 Completed [facility] HIB 4 Dose Schedule 2003 00:00:00 Completed [facility] Hep B, Adol or Pedi Dosage 2003 00:00:00 Completed [facility] Pneumococcal 7 Conjugate, PCV7 (Prevnar7) 2003 00:00:00 Completed [facility] Polio (IPV/OPV) 2003 00:00:00 Completed [facility] DTAP 2003 00:00:00 Completed [facility] HIB 4 Dose Schedule 2003 00:00:00 Completed [facility] Hep B, Adol or Pedi Dosage 2003 00:00:00 Completed [facility] Pneumococcal 7 Conjugate, PCV7 (Prevnar7) 2003 00:00:00 Completed [facility] Polio (IPV/OPV) 2003 00:00:00 Completed [facility] DTAP 2003 00:00:00 Completed [facility] HIB 4 Dose Schedule 2003 00:00:00 Completed [facility] Hep B, Adol or Pedi Dosage 2003 00:00:00 Completed [facility] Pneumococcal 7 Conjugate, PCV7 (Prevnar7) 2003 00:00:00 Completed [facility] Polio (IPV/OPV) 2003 00:00:00 Completed [facility] DTAP 2003 00:00:00 Completed [facility] HIB 4 Dose Schedule 2003 00:00:00 Completed [facility] Hep B, Adol or Pedi Dosage 2003 00:00:00 Completed [facility] Pneumococcal 7 Conjugate, PCV7 (Prevnar7) 2003 00:00:00 Completed [facility] Polio (IPV/OPV) 2003 00:00:00 Completed [facility] DTAP 2003 00:00:00 Completed [facility] HIB 4 Dose Schedule 2003 00:00:00 Completed [facility] Hep B, Adol or Pedi Dosage 2003 00:00:00 Completed [facility] Pneumococcal 7 Conjugate, PCV7 (Prevnar7) 2003 00:00:00 Completed [facility] Polio (IPV/OPV) 2003 00:00:00 Completed [facility] [facility] DTAP 2003 00:00:00 Completed [facility] HIB 4 Dose Schedule 2003 00:00:00 Completed [facility] Hep B, Adol or Pedi Dosage 2003 00:00:00 Completed [facility] Pneumococcal 7 Conjugate, PCV7 (Prevnar7) 2003 00:00:00 Completed [facility] Polio (IPV/OPV) 2003 00:00:00 Completed [facility] DTAP 2003 00:00:00 Completed [facility] HIB 4 Dose Schedule 2003 00:00:00 Completed [facility] Hep B, Adol or Pedi Dosage 2003 00:00:00 Completed [facility] Pneumococcal 7 Conjugate, PCV7 (Prevnar7) 2003 00:00:00 Completed [facility] Polio (IPV/OPV) 2003 00:00:00 Completed [facility] DTAP 2003 00:00:00 Completed [facility] HIB 4 Dose Schedule 2003 00:00:00 Completed [facility] Hep B, Adol or Pedi Dosage 2003 00:00:00 Completed [facility] Pneumococcal 7 Conjugate, PCV7 (Prevnar7) 2003 00:00:00 Completed [facility] Polio (IPV/OPV) 2003 00:00:00 Completed [facility] DTAP 2003 00:00:00 Completed [facility] HIB 4 Dose Schedule 2003 00:00:00 Completed [facility] Hep B, Adol or Pedi Dosage 2003 00:00:00 Completed [facility] Pneumococcal 7 Conjugate, PCV7 (Prevnar7) 2003 00:00:00 Completed [facility] Polio (IPV/OPV) 2003 00:00:00 Completed [facility] DTAP 2003 00:00:00 Completed [facility] HIB 4 Dose Schedule 2003 00:00:00 Completed [facility] Hep B, Adol or Pedi Dosage 2003 00:00:00 Completed [facility] Pneumococcal 7 Conjugate, PCV7 (Prevnar7) 2003 00:00:00 Completed [facility] Polio (IPV/OPV) 2003 00:00:00 Completed [facility] DTAP 2003 00:00:00 Completed [facility] HIB 4 Dose Schedule 2003 00:00:00 Completed [facility] Hep B, Adol or Pedi Dosage 2003 00:00:00 Completed [facility] Pneumococcal 7 Conjugate, PCV7 (Prevnar7) 2003 00:00:00 Completed [facility] Polio (IPV/OPV) 2003 00:00:00 Completed [facility] DTAP 2003 00:00:00 Completed [facility] HIB 4 Dose Schedule 2003 00:00:00 Completed [facility] Hep B, Adol or Pedi Dosage 2003 00:00:00 Completed [facility] Pneumococcal 7 Conjugate, PCV7 (Prevnar7) 2003 00:00:00 Completed [facility] Polio (IPV/OPV) 2003 00:00:00 Completed [facility] DTAP 2003 00:00:00 Completed [facility] HIB 4 Dose Schedule 2003 00:00:00 Completed [facility] Hep B, Adol or Pedi Dosage 2003 00:00:00 Completed [facility] Pneumococcal 7 Conjugate, PCV7 (Prevnar7) 2003 00:00:00 Completed [facility] Polio (IPV/OPV) 2003 00:00:00 Completed [facility] DTAP 2003 00:00:00 Completed [facility] HIB 4 Dose Schedule 2003 00:00:00 Completed [facility] Hep B, Adol or Pedi Dosage 2003 00:00:00 Completed [facility] Pneumococcal 7 Conjugate, PCV7 (Prevnar7) 2003 00:00:00 Completed [facility] Polio (IPV/OPV) 2003 00:00:00 Completed [facility] DTAP 2003 00:00:00 Completed [facility] HIB 4 Dose Schedule 2003 00:00:00 Completed [facility] Hep B, Adol or Pedi Dosage 2003 00:00:00 Completed [facility] Pneumococcal 7 Conjugate, PCV7 (Prevnar7) 2003 00:00:00 Completed [facility] Polio (IPV/OPV) 2003 00:00:00 Completed [facility] DTAP 2003 00:00:00 Completed [facility] HIB 4 Dose Schedule 2003 00:00:00 Completed [facility] Hep B, Adol or Pedi Dosage 2003 00:00:00 Completed [facility] Pneumococcal 7 Conjugate, PCV7 (Prevnar7) 2003 00:00:00 Completed [facility] Polio (IPV/OPV) 2003 00:00:00 Completed [facility] DTAP 2003 00:00:00 Completed [facility] HIB 4 Dose Schedule 2003 00:00:00 Completed [facility] Hep B, Adol or Pedi Dosage 2003 00:00:00 Completed [facility] Pneumococcal 7 Conjugate, PCV7 (Prevnar7) 2003 00:00:00 Completed [facility] Polio (IPV/OPV) 2003 00:00:00 Completed [facility] DTAP 2003 00:00:00 Completed [facility] HIB 4 Dose Schedule 2003 00:00:00 Completed [facility] Hep B, Adol or Pedi Dosage 2003 00:00:00 Completed [facility] Pneumococcal 7 Conjugate, PCV7 (Prevnar7) 2003 00:00:00 Completed [facility] Polio (IPV/OPV) 2003 00:00:00 Completed [facility] DTAP 2003 00:00:00 Completed [facility] HIB 4 Dose Schedule 2003 00:00:00 Completed [facility] Hep B, Adol or Pedi Dosage 2003 00:00:00 Completed [facility] Pneumococcal 7 Conjugate, PCV7 (Prevnar7) 2003 00:00:00 Completed [facility] Polio (IPV/OPV) 2003 00:00:00 Completed [facility] DTAP 2003 00:00:00 Completed [facility] HIB 4 Dose Schedule 2003 00:00:00 Completed [facility] Hep B, Adol or Pedi Dosage 2003 00:00:00 Completed [facility] Pneumococcal 7 Conjugate, PCV7 (Prevnar7) 2003 00:00:00 Completed [facility] Polio (IPV/OPV) 2003 00:00:00 Completed [facility] DTAP 2003 00:00:00 Completed [facility] HIB 4 Dose Schedule 2003 00:00:00 Completed [facility] Hep B, Adol or Pedi Dosage 2003 00:00:00 Completed [facility] Pneumococcal 7 Conjugate, PCV7 (Prevnar7) 2003 00:00:00 Completed [facility] Polio (IPV/OPV) 2003 00:00:00 Completed [facility] DTAP 2003 00:00:00 Completed [facility] HIB 4 Dose Schedule 2003 00:00:00 Completed [facility] Hep B, Adol or Pedi Dosage 2003 00:00:00 Completed [facility] Pneumococcal 7 Conjugate, PCV7 (Prevnar7) 2003 00:00:00 Completed [facility] Polio (IPV/OPV) 2003 00:00:00 Completed [facility] DTAP 2003 00:00:00 Completed [facility] HIB 4 Dose Schedule 2003 00:00:00 Completed [facility] Hep B, Adol or Pedi Dosage 2003 00:00:00 Completed [facility] Pneumococcal 7 Conjugate, PCV7 (Prevnar7) 2003 00:00:00 Completed [facility] Polio (IPV/OPV) 2003 00:00:00 Completed [facility] DTAP 2003 00:00:00 Completed [facility] HIB 4 Dose Schedule 2003 00:00:00 Completed [facility] Hep B, Adol or Pedi Dosage 2003 00:00:00 Completed [facility] Pneumococcal 7 Conjugate, PCV7 (Prevnar7) 2003 00:00:00 Completed [facility] Polio (IPV/OPV) 2003 00:00:00 Completed [facility] DTAP 2003 00:00:00 Completed [facility] HIB 4 Dose Schedule 2003 00:00:00 Completed [facility] Hep B, Adol or Pedi Dosage 2003 00:00:00 Completed [facility] Pneumococcal 7 Conjugate, PCV7 (Prevnar7) 2003 00:00:00 Completed [facility] Polio (IPV/OPV) 2003 00:00:00 Completed [facility] DTAP 2003 00:00:00 Completed [facility] HIB 4 Dose Schedule 2003 00:00:00 Completed [facility] Hep B, Adol or Pedi Dosage 2003 00:00:00 Completed [facility] Pneumococcal 7 Conjugate, PCV7 (Prevnar7) 2003 00:00:00 Completed [facility] Polio (IPV/OPV) 2003 00:00:00 Completed [facility] DTAP 2003 00:00:00 Completed [facility] HIB 4 Dose Schedule 2003 00:00:00 Completed [facility] Hep B, Adol or Pedi Dosage 2003 00:00:00 Completed [facility] Pneumococcal 7 Conjugate, PCV7 (Prevnar7) 2003 00:00:00 Completed [facility] Polio (IPV/OPV) 2003 00:00:00 Completed [facility] DTAP 2003 00:00:00 Completed [facility] HIB 4 Dose Schedule 2003 00:00:00 Completed [facility] Hep B, Adol or Pedi Dosage 2003 00:00:00 Completed [facility] Pneumococcal 7 Conjugate, PCV7 (Prevnar7) 2003 00:00:00 Completed [facility] Polio (IPV/OPV) 2003 00:00:00 Completed [facility] DTAP 2003 00:00:00 Completed [facility] HIB 4 Dose Schedule 2003 00:00:00 Completed [facility] Hep B, Adol or Pedi Dosage 2003 00:00:00 Completed [facility] Pneumococcal 7 Conjugate, PCV7 (Prevnar7) 2003 00:00:00 Completed [facility] Polio (IPV/OPV) 2003 00:00:00 Completed [facility] DTAP 2003 00:00:00 Completed [facility] HIB 4 Dose Schedule 2003 00:00:00 Completed [facility] Hep B, Adol or Pedi Dosage 2003 00:00:00 Completed [facility] Pneumococcal 7 Conjugate, PCV7 (Prevnar7) 2003 00:00:00 Completed [facility] Polio (IPV/OPV) 2003 00:00:00 Completed [facility] DTAP 2003 00:00:00 Completed [facility] HIB 4 Dose Schedule 2003 00:00:00 Completed [facility] Hep B, Adol or Pedi Dosage 2003 00:00:00 Completed [facility] Pneumococcal 7 Conjugate, PCV7 (Prevnar7) 2003 00:00:00 Completed [facility] Polio (IPV/OPV) 2003 00:00:00 Completed [facility] DTaP, Unspecified Formulation 2003 00:00:00 Completed [facility] IPV 2003 00:00:00 Completed [facility] DTAP 2003 00:00:00 Completed [facility] HIB 4 Dose Schedule 2003 00:00:00 Completed [facility] Hep B, Adol or Pedi Dosage 2003 00:00:00 Completed [facility] Pneumococcal 7 Conjugate, PCV7 (Prevnar7) 2003 00:00:00 Completed [facility] Polio (IPV/OPV) 2003 00:00:00 Completed [facility] DTaP, Unspecified Formulation 2003 00:00:00 Completed [facility] IPV 2003 00:00:00 Completed [facility] DTAP 2003 00:00:00 Completed [facility] HIB 4 Dose Schedule 2003 00:00:00 Completed [facility] Hep B, Adol or Pedi Dosage 2003 00:00:00 Completed [facility] Pneumococcal 7 Conjugate, PCV7 (Prevnar7) 2003 00:00:00 Completed [facility] Polio (IPV/OPV) 2003 00:00:00 Completed [facility] DTaP, Unspecified Formulation 2003 00:00:00 Completed [facility] IPV 2003 00:00:00 Completed [facility] DTAP 2003 00:00:00 Completed [facility] HIB 4 Dose Schedule 2003 00:00:00 Completed [facility] Hep B, Adol or Pedi Dosage 2003 00:00:00 Completed [facility] Pneumococcal 7 Conjugate, PCV7 (Prevnar7) 2003 00:00:00 Completed [facility] Polio (IPV/OPV) 2003 00:00:00 Completed [facility] DTaP, Unspecified Formulation 2003 00:00:00 Completed [facility] IPV 2003 00:00:00 Completed [facility] DTAP 2003 00:00:00 Completed [facility] HIB 4 Dose Schedule 2003 00:00:00 Completed [facility] Hep B, Adol or Pedi Dosage 2003 00:00:00 Completed [facility] Pneumococcal 7 Conjugate, PCV7 (Prevnar7) 2003 00:00:00 Completed [facility] Polio (IPV/OPV) 2003 00:00:00 Completed [facility] DTaP, Unspecified Formulation 2003 00:00:00 Completed [facility] IPV 2003 00:00:00 Completed [facility] DTAP 2003 00:00:00 Completed [facility] HIB 4 Dose Schedule 2003 00:00:00 Completed [facility] Hep B, Adol or Pedi Dosage 2003 00:00:00 Completed [facility] Pneumococcal 7 Conjugate, PCV7 (Prevnar7) 2003 00:00:00 Completed [facility] Polio (IPV/OPV) 2003 00:00:00 Completed [facility] DTaP, Unspecified Formulation 2003 00:00:00 Completed [facility] IPV 2003 00:00:00 Completed [facility] DTAP 2003 00:00:00 Completed [facility] HIB 4 Dose Schedule 2003 00:00:00 Completed [facility] Hep B, Adol or Pedi Dosage 2003 00:00:00 Completed [facility] Pneumococcal 7 Conjugate, PCV7 (Prevnar7) 2003 00:00:00 Completed [facility] Polio (IPV/OPV) 2003 00:00:00 Completed [facility] DTaP, Unspecified Formulation 2003 00:00:00 Completed [facility] IPV 2003 00:00:00 Completed [facility] DTAP 2003 00:00:00 Completed [facility] HIB 4 Dose Schedule 2003 00:00:00 Completed [facility] Hep B, Adol or Pedi Dosage 2003 00:00:00 Completed [facility] Pneumococcal 7 Conjugate, PCV7 (Prevnar7) 2003 00:00:00 Completed [facility] Polio (IPV/OPV) 2003 00:00:00 Completed [facility] DTaP, Unspecified Formulation 2003 00:00:00 Completed [facility] IPV 2003 00:00:00 Completed [facility] DTAP 2003 00:00:00 Completed [facility] HIB 4 Dose Schedule 2003 00:00:00 Completed [facility] Hep B, Adol or Pedi Dosage 2003 00:00:00 Completed [facility] Pneumococcal 7 Conjugate, PCV7 (Prevnar7) 2003 00:00:00 Completed [facility] Polio (IPV/OPV) 2003 00:00:00 Completed [facility] DTaP, Unspecified Formulation 2003 00:00:00 Completed [facility] IPV 2003 00:00:00 Completed [facility] DTAP 2003 00:00:00 Completed [facility] HIB 4 Dose Schedule 2003 00:00:00 Completed Hep B, Adol or Pedi Dosage 2003 00:00:00 Completed Pneumococcal 7 Conjugate, PCV7 (Prevnar7) 2003 00:00:00 Completed Polio (IPV/OPV) 2003 00:00:00 Completed DTaP, Unspecified Formulation 2003 00:00:00 Completed IPV 2003 00:00:00 Completed Hep B, Adol or Pedi Dosage 2003 00:00:00 Completed [facility] Hep B, Adol or Pedi Dosage 2003 00:00:00 Completed [facility] Hep B, Adol or Pedi Dosage 2003 00:00:00 Completed [facility] Hep B, Adol or Pedi Dosage 2003 00:00:00 Completed [facility] Hep B, Adol or Pedi Dosage 2003 00:00:00 Completed [facility] Hep B, Adol or Pedi Dosage 2003 00:00:00 Completed [facility] Hep B, Adol or Pedi Dosage 2003 00:00:00 Completed [facility] Hep B, Adol or Pedi Dosage 2003 00:00:00 Completed [facility] Hep B, Adol or Pedi Dosage 2003 00:00:00 Completed [facility] Hep B, Adol or Pedi Dosage 2003 00:00:00 Completed [facility] Hep B, Adol or Pedi Dosage 2003 00:00:00 Completed [facility] Hep B, Adol or Pedi Dosage 2003 00:00:00 Completed [facility] Hep B, Adol or Pedi Dosage 2003 00:00:00 Completed [facility] Hep B, Adol or Pedi Dosage 2003 00:00:00 Completed [facility] Hep B, Adol or Pedi Dosage 2003 00:00:00 Completed [facility] Hep B, Adol or Pedi Dosage 2003 00:00:00 Completed [facility] Hep B, Adol or Pedi Dosage 2003 00:00:00 Completed [facility] Hep B, Adol or Pedi Dosage 2003 00:00:00 Completed [facility] Hep B, Adol or Pedi Dosage 2003 00:00:00 Completed [facility] Hep B, Adol or Pedi Dosage 2003 00:00:00 Completed [facility] Hep B, Adol or Pedi Dosage 2003 00:00:00 Completed [facility] Hep B, Adol or Pedi Dosage 2003 00:00:00 Completed [facility] Hep B, Adol or Pedi Dosage 2003 00:00:00 Completed [facility] Hep B, Adol or Pedi Dosage 2003 00:00:00 Completed [facility] Hep B, Adol or Pedi Dosage 2003 00:00:00 Completed [facility] Hep B, Adol or Pedi Dosage 2003 00:00:00 Completed [facility] Hep B, Adol or Pedi Dosage 2003 00:00:00 Completed [facility] Hep B, Adol or Pedi Dosage 2003 00:00:00 Completed [facility] Hep B, Adol or Pedi Dosage 2003 00:00:00 Completed [facility] Hep B, Adol or Pedi Dosage 2003 00:00:00 Completed [facility] Hep B, Adol or Pedi Dosage 2003 00:00:00 Completed [facility] Hep B, Adol or Pedi Dosage 2003 00:00:00 Completed [facility] Hep B, Adol or Pedi Dosage 2003 00:00:00 Completed [facility] Hep B, Adol or Pedi Dosage 2003 00:00:00 Completed [facility] Hep B, Adol or Pedi Dosage 2003 00:00:00 Completed [facility] Hep B, Adol or Pedi Dosage 2003 00:00:00 Completed [facility] Hep B, Adol or Pedi Dosage 2003 00:00:00 Completed [facility] Hep B, Adol or Pedi Dosage 2003 00:00:00 Completed [facility] Hep B, Adol or Pedi Dosage 2003 00:00:00 Completed [facility] Hep B, Adol or Pedi Dosage 2003 00:00:00 Completed [facility] Hep B, Adol or Pedi Dosage 2003 00:00:00 Completed [facility] Hep B, Adol or Pedi Dosage 2003 00:00:00 Completed [facility] Hep B, Adol or Pedi Dosage 2003 00:00:00 Completed [facility] Hep B, Adol or Pedi Dosage 2003 00:00:00 Completed [facility] Hep B, Adol or Pedi Dosage 2003 00:00:00 Completed [facility] Hep B, Adol or Pedi Dosage 2003 00:00:00 Completed [facility] Hep B, Adol or Pedi Dosage 2003 00:00:00 Completed [facility] Hep B, Adol or Pedi Dosage 2003 00:00:00 Completed [facility] Hep B, Adol or Pedi Dosage 2003 00:00:00 Completed [facility] Hep B, Adol or Pedi Dosage 2003 00:00:00 Completed [facility] Hep B, Adol or Pedi Dosage 2003 00:00:00 Completed [facility] Hep B, Adol or Pedi Dosage 2003 00:00:00 Completed [facility] Hep B, Adol or Pedi Dosage 2003 00:00:00 Completed [facility] Hep B, Adol or Pedi Dosage 2003 00:00:00 Completed [facility] Hep B, Adol or Pedi Dosage 2003 00:00:00 Completed [facility] Hep B, Adol or Pedi Dosage 2003 00:00:00 Completed [facility] Hep B, Adol or Pedi Dosage 2003 00:00:00 Completed [facility] Hep B, Adol or Pedi Dosage 2003 00:00:00 Completed [facility] Hep B, Adol or Pedi Dosage 2003 00:00:00 Completed [facility] Hep B, Adol or Pedi Dosage 2003 00:00:00 Completed [facility] Hep B, Adol or Pedi Dosage 2003 00:00:00 Completed [facility] Hep B, Adol or Pedi Dosage 2003 00:00:00 Completed DTAP Unknown Completed [facility] HIB 4 Dose Schedule Unknown Completed [facility] Hep B, Adol or Pedi Dosage Unknown Completed [facility] MMR Unknown Completed [facility] Pneumococcal 7 Conjugate, PCV7 (Prevnar7) Unknown Completed [facility] Polio (IPV/OPV) Unknown Completed [facility] Varicella (varivax)(chicken pox) Unknown Completed [facility] HEPATITIS A Unknown Completed [facility] TDAP Unknown Completed [facility] Meningococcal Oligosaccharide (groups A, C, Y and W-135) conjugate vaccine (MCV4O) Unknown Completed [facility] Influenza Virus Vaccine Quad .5 mL IM 6+ MO (FLUZONE/FLULAVAL/FLU ARIX) Unknown Completed [facility] Meningococcal Polysaccharide (groups A, C, Y and W-135) conjugate vaccine (MCV4P) Unknown Completed [facility] Meningococcal B, OMV Unknown Completed [facility] DTaP, Unspecified Formulation Unknown Completed [facility] IPV Unknown Completed [facility] DTAP Unknown Completed [facility] HIB 4 Dose Schedule Unknown Completed [facility] Hep B, Adol or Pedi Dosage Unknown Completed [facility] MMR Unknown Completed [facility] Pneumococcal 7 Conjugate, PCV7 (Prevnar7) Unknown Completed [facility] Polio (IPV/OPV) Unknown Completed [facility] Varicella (varivax)(chicken pox) Unknown Completed [facility] HEPATITIS A Unknown Completed [facility] TDAP Unknown Completed [facility] Meningococcal Oligosaccharide (groups A, C, Y and W-135) conjugate vaccine (MCV4O) Unknown Completed [facility] Influenza Virus Vaccine Quad .5 mL IM 6+ MO (FLUZONE/FLULAVAL/FLU ARIX) Unknown Completed [facility] [facility] Meningococcal Polysaccharide (groups A, C, Y and W-135) conjugate vaccine (MCV4P) Unknown Completed [facility] Meningococcal B, OMV Unknown Completed [facility] DTaP, Unspecified Formulation Unknown Completed [facility] IPV Unknown Completed [facility] DTAP Unknown Completed [facility] HIB 4 Dose Schedule Unknown Completed [facility] Hep B, Adol or Pedi Dosage Unknown Completed [facility] MMR Unknown Completed [facility] Pneumococcal 7 Conjugate, PCV7 (Prevnar7) Unknown Completed [facility] Polio (IPV/OPV) Unknown Completed [facility] Varicella (varivax)(chicken pox) Unknown Completed [facility] HEPATITIS A Unknown Completed [facility] TDAP Unknown Completed [facility] Meningococcal Oligosaccharide (groups A, C, Y and W-135) conjugate vaccine (MCV4O) Unknown Completed [facility] Influenza Virus Vaccine Quad .5 mL IM 6+ MO (FLUZONE/FLULAVAL/FLU ARIX) Unknown Completed [facility] Meningococcal Polysaccharide (groups A, C, Y and W-135) conjugate vaccine (MCV4P) Unknown Completed [facility] Meningococcal B, OMV Unknown Completed [facility] DTaP, Unspecified Formulation Unknown Completed [facility] IPV Unknown Completed [facility] DTAP Unknown Completed [facility] HIB 4 Dose Schedule Unknown Completed [facility] Hep B, Adol or Pedi Dosage Unknown Completed [facility] MMR Unknown Completed [facility] Pneumococcal 7 Conjugate, PCV7 (Prevnar7) Unknown Completed [facility] Polio (IPV/OPV) Unknown Completed [facility] Varicella (varivax)(chicken pox) Unknown Completed [facility] HEPATITIS A Unknown Completed [facility] TDAP Unknown Completed [facility] Meningococcal Oligosaccharide (groups A, C, Y and W-135) conjugate vaccine (MCV4O) Unknown Completed [facility] Influenza Virus Vaccine Quad .5 mL IM 6+ MO (FLUZONE/FLULAVAL/FLU ARIX) Unknown Completed [facility] Meningococcal Polysaccharide (groups A, C, Y and W-135) conjugate vaccine (MCV4P) Unknown Completed [facility] Meningococcal B, OMV Unknown Completed [facility] DTaP, Unspecified Formulation Unknown Completed [facility] IPV Unknown Completed [facility] DTAP Unknown Completed [facility] HIB 4 Dose Schedule Unknown Completed [facility] Hep B, Adol or Pedi Dosage Unknown Completed [facility] MMR Unknown Completed [facility] Pneumococcal 7 Conjugate, PCV7 (Prevnar7) Unknown Completed [facility] Polio (IPV/OPV) Unknown Completed [facility] Varicella (varivax)(chicken pox) Unknown Completed [facility] HEPATITIS A Unknown Completed [facility] TDAP Unknown Completed [facility] Meningococcal Oligosaccharide (groups A, C, Y and W-135) conjugate vaccine (MCV4O) Unknown Completed [facility] Influenza Virus Vaccine Quad .5 mL IM 6+ MO (FLUZONE/FLULAVAL/FLU ARIX) Unknown Completed [facility] Meningococcal Polysaccharide (groups A, C, Y and W-135) conjugate vaccine (MCV4P) Unknown Completed [facility] Meningococcal B, OMV Unknown Completed [facility] DTaP, Unspecified Formulation Unknown Completed [facility] IPV Unknown Completed [facility] TDAP Unknown Completed [facility] Meningococcal Oligosaccharide (groups A, C, Y and W-135) conjugate vaccine (MCV4O) Unknown Completed [facility] Influenza Virus Vaccine Quad .5 mL IM 6+ MO (FLUZONE/FLULAVAL/FLU ARIX) Unknown Completed [facility] Meningococcal B, OMV Unknown Completed [facility] DTAP Unknown Completed [facility] HIB 4 Dose Schedule Unknown Completed [facility] Hep B, Adol or Pedi Dosage Unknown Completed [facility] MMR Unknown Completed [facility] Pneumococcal 7 Conjugate, PCV7 (Prevnar7) Unknown Completed [facility] Polio (IPV/OPV) Unknown Completed [facility] Varicella (varivax)(chicken pox) Unknown Completed [facility] HEPATITIS A Unknown Completed [facility] Meningococcal Polysaccharide (groups A, C, Y and W-135) conjugate vaccine (MCV4P) Unknown Completed [facility] DTaP, Unspecified Formulation Unknown Completed [facility] IPV Unknown Completed [facility] TDAP Unknown Completed [facility] Meningococcal Oligosaccharide (groups A, C, Y and W-135) conjugate vaccine (MCV4O) Unknown Completed [facility] Influenza Virus Vaccine Quad .5 mL IM 6+ MO (FLUZONE/FLULAVAL/FLU ARIX) Unknown Completed [facility] Meningococcal B, OMV Unknown Completed [facility] DTAP Unknown Completed [facility] HIB 4 Dose Schedule Unknown Completed [facility] Pneumococcal 7 Conjugate, PCV7 (Prevnar7) Unknown Completed [facility] Polio (IPV/OPV) Unknown Completed [facility] Hep B, Adol or Pedi Dosage Unknown Completed [facility] MMR Unknown Completed [facility] Varicella (varivax)(chicken pox) Unknown Completed [facility] HEPATITIS A Unknown Completed [facility] Meningococcal Polysaccharide (groups A, C, Y and W-135) conjugate vaccine (MCV4P) Unknown Completed [facility] DTaP, Unspecified Formulation Unknown Completed [facility] IPV Unknown Completed [facility] DTAP Unknown Completed [facility] HIB 4 Dose Schedule Unknown Completed [facility] Hep B, Adol or Pedi Dosage Unknown Completed [facility] MMR Unknown Completed [facility] Pneumococcal 7 Conjugate, PCV7 (Prevnar7) Unknown Completed [facility] Polio (IPV/OPV) Unknown Completed [facility] Varicella (varivax)(chicken pox) Unknown Completed [facility] HEPATITIS A Unknown Completed [facility] TDAP Unknown Completed [facility] Meningococcal Oligosaccharide (groups A, C, Y and W-135) conjugate vaccine (MCV4O) Unknown Completed [facility] Influenza Virus Vaccine Quad .5 mL IM 6+ MO (FLUZONE/FLULAVAL/FLU ARIX) Unknown Completed [facility] Meningococcal Polysaccharide (groups A, C, Y and W-135) conjugate vaccine (MCV4P) Unknown Completed [facility] Meningococcal B, OMV Unknown Completed [facility] DTaP, Unspecified Formulation Unknown Completed [facility] IPV Unknown Completed [facility] DTAP Unknown Completed [facility] HIB 4 Dose Schedule Unknown Completed [facility] Hep B, Adol or Pedi Dosage Unknown Completed [facility] MMR Unknown Completed [facility] Pneumococcal 7 Conjugate, PCV7 (Prevnar7) Unknown Completed [facility] Polio (IPV/OPV) Unknown Completed [facility] Varicella (varivax)(chicken pox) Unknown Completed [facility] HEPATITIS A Unknown Completed [facility] TDAP Unknown Completed [facility] Meningococcal Oligosaccharide (groups A, C, Y and W-135) conjugate vaccine (MCV4O) Unknown Completed [facility] Influenza Virus Vaccine Quad .5 mL IM 6+ MO (FLUZONE/FLULAVAL/FLU ARIX) Unknown Completed [facility] Meningococcal Polysaccharide (groups A, C, Y and W-135) conjugate vaccine (MCV4P) Unknown Completed [facility] Meningococcal B, OMV Unknown Completed [facility] DTaP, Unspecified Formulation Unknown Completed [facility] IPV Unknown Completed [facility] TDAP Unknown Completed [facility] Meningococcal Oligosaccharide (groups A, C, Y and W-135) conjugate vaccine (MCV4O) Unknown Completed [facility] Influenza Virus Vaccine Quad .5 mL IM 6+ MO (FLUZONE/FLULAVAL/FLU ARIX) Unknown Completed [facility] Meningococcal B, OMV Unknown Completed [facility] DTAP Unknown Completed [facility] HIB 4 Dose Schedule Unknown Completed [facility] Pneumococcal 7 Conjugate, PCV7 (Prevnar7) Unknown Completed [facility] Polio (IPV/OPV) Unknown Completed [facility] Hep B, Adol or Pedi Dosage Unknown Completed [facility] MMR Unknown Completed [facility] Varicella (varivax)(chicken pox) Unknown Completed [facility] HEPATITIS A Unknown Completed [facility] Meningococcal Polysaccharide (groups A, C, Y and W-135) conjugate vaccine (MCV4P) Unknown Completed [facility] DTaP, Unspecified Formulation Unknown Completed [facility] IPV Unknown Completed [facility] DTAP Unknown Completed [facility] HIB 4 Dose Schedule Unknown Completed [facility] Hep B, Adol or Pedi Dosage Unknown Completed [facility] MMR Unknown Completed [facility] Pneumococcal 7 Conjugate, PCV7 (Prevnar7) Unknown Completed [facility] Polio (IPV/OPV) Unknown Completed [facility] Varicella (varivax)(chicken pox) Unknown Completed [facility] HEPATITIS A Unknown Completed [facility] TDAP Unknown Completed [facility] Meningococcal Oligosaccharide (groups A, C, Y and W-135) conjugate vaccine (MCV4O) Unknown Completed [facility] Influenza Virus Vaccine Quad .5 mL IM 6+ MO (FLUZONE/FLULAVAL/FLU ARIX) Unknown Completed [facility] Meningococcal Polysaccharide (groups A, C, Y and W-135) conjugate vaccine (MCV4P) Unknown Completed [facility] Meningococcal B, OMV Unknown Completed [facility] DTaP, Unspecified Formulation Unknown Completed [facility] IPV Unknown Completed [facility] DTAP Unknown Completed [facility] HIB 4 Dose Schedule Unknown Completed [facility] Hep B, Adol or Pedi Dosage Unknown Completed [facility] MMR Unknown Completed [facility] Pneumococcal 7 Conjugate, PCV7 (Prevnar7) Unknown Completed [facility] Polio (IPV/OPV) Unknown Completed [facility] Varicella (varivax)(chicken pox) Unknown Completed [facility] HEPATITIS A Unknown Completed [facility] TDAP Unknown Completed [facility] Meningococcal Oligosaccharide (groups A, C, Y and W-135) conjugate vaccine (MCV4O) Unknown Completed [facility] Influenza Virus Vaccine Quad .5 mL IM 6+ MO (FLUZONE/FLULAVAL/FLU ARIX) Unknown Completed [facility] Meningococcal Polysaccharide (groups A, C, Y and W-135) conjugate vaccine (MCV4P) Unknown Completed [facility] Meningococcal B, OMV Unknown Completed [facility] DTaP, Unspecified Formulation Unknown Completed [facility] IPV Unknown Completed [facility] Vital Signs Vital Name Observation Time Observation Value Comments S giuseppe Systolic blood pressure 2025-02-24 03:14:34 110 mm[Hg] [facility] Diastolic blood pressure 2025-02-24 03:14:34 75 mm[Hg] [facility] Heart rate 2025-02-24 03:14:34 73 /min [facility] Body temperature 2025-02-24 03:14:34 36.72 Birdie [facility] Respiratory rate 2025-02-24 03:14:34 16 /min [facility] Oxygen saturation in Arterial blood by Pulse oximetry 2025-02-24 03:14:34 97 /min [facility] Body height 2025-02-24 01:22:00 160 cm [facility] Body weight 2025-02-24 01:22:00 77.111 kg [facility] BMI 2025-02-24 01:22:00 30.11 kg/m2 [facility] Systolic blood pressure 2024-03-23 07:35:00 111 mm[Hg] [facility] Diastolic blood pressure 2024-03-23 07:35:00 72 mm[Hg] [facility] Heart rate 2024-03-23 07:35:00 75 /min [facility] Body temperature 2024-03-23 07:35:00 36.89 Birdie [facility] Respiratory rate 2024-03-23 07:35:00 15 /min [facility] Oxygen saturation in Arterial blood by Pulse oximetry 2024-03-23 07:35:00 99 /min [facility] Body height 2024-03-23 05:53:00 160 cm [facility] Body weight 2024-03-23 05:53:00 77.111 kg [facility] BMI 2024-03-23 05:53:00 30.11 kg/m2 [facility] Systolic blood pressure 2024-02-13 16:45:00 123 mm[Hg] [facility] Diastolic blood pressure 2024-02-13 16:45:00 70 mm[Hg] [facility] Heart rate 2024-02-13 16:45:00 81 /min [facility] Body temperature 2024-02-13 16:45:00 36.83 Birdie [facility] Respiratory rate 2024-02-13 16:45:00 18 /min [facility] Body height 2024-02-13 16:45:00 160 cm [facility] Body weight 2024-02-13 16:45:00 83.553 kg [facility] BMI 2024-02-13 16:45:00 32.63 kg/m2 [facility] Systolic blood pressure 2023-12-09 09:30:00 135 mm[Hg] [facility] Diastolic blood pressure 2023-12-09 09:30:00 90 mm[Hg] [facility] Heart rate 2023-12-09 09:30:00 74 /min [facility] Body temperature 2023-12-09 09:30:00 37.11 Birdie [facility] Respiratory rate 2023-12-09 09:30:00 12 /min [facility] Body height 2023-12-09 09:30:00 160 cm [facility] Body weight 2023-12-09 09:30:00 82.419 kg [facility] BMI 2023-12-09 09:30:00 32.19 kg/m2 [facility] Oxygen saturation in Arterial blood by Pulse oximetry 2023-12-09 09:30:00 98 /min [facility] Systolic blood pressure 2023-10-11 21:28:00 115 mm[Hg] [facility] Diastolic blood pressure 2023-10-11 21:28:00 63 mm[Hg] [facility] Heart rate 2023-10-11 21:28:00 76 /min [facility] Body temperature 2023-10-11 21:28:00 36.78 Birdie [facility] Respiratory rate 2023-10-11 21:28:00 18 /min [facility] Body height 2023-10-11 21:28:00 160 cm [facility] Body weight 2023-10-11 21:28:00 78.472 kg [facility] BMI 2023-10-11 21:28:00 30.65 kg/m2 [facility] Systolic blood pressure 2023-09-13 02:00:00 113 mm[Hg] [facility] Diastolic blood pressure 2023-09-13 02:00:00 71 mm[Hg] [facility] Heart rate 2023-09-13 02:00:00 82 /min [facility] Respiratory rate 2023-09-13 02:00:00 13 /min [facility] Oxygen saturation in Arterial blood by Pulse oximetry 2023-09-13 02:00:00 99 /min [facility] Body temperature 2023-09-12 23:22:00 37.72 Birdie [facility] Body height 2023-09-12 23:22:00 160 cm [facility] Body weight 2023-09-12 23:22:00 75.524 kg [facility] BMI 2023-09-12 23:22:00 29.49 kg/m2 [facility] Systolic blood pressure 2023-07-04 18:21:00 112 mm[Hg] [facility] Diastolic blood pressure 2023-07-04 18:21:00 78 mm[Hg] [facility] Heart rate 2023-07-04 18:21:00 82 /min [facility] Body temperature 2023-07-04 18:21:00 37.11 Birdie [facility] Body height 2023-07-04 18:21:00 160 cm [facility] Body weight 2023-07-04 18:21:00 75.751 kg [facility] BMI 2023-07-04 18:21:00 29.58 kg/m2 [facility] Oxygen saturation in Arterial blood by Pulse oximetry 2023-07-04 18:21:00 99 /min [facility] Systolic blood pressure 2023-07-04 14:00:00 116 mm[Hg] [facility] Diastolic blood pressure 2023-07-04 14:00:00 76 mm[Hg] [facility] Heart rate 2023-07-04 14:00:00 71 /min [facility] Respiratory rate 2023-07-04 14:00:00 18 /min [facility] Body height 2023-07-04 14:00:00 160 cm [facility] Body weight 2023-07-04 14:00:00 76.386 kg [facility] BMI 2023-07-04 14:00:00 29.83 kg/m2 [facility] Oxygen saturation in Arterial blood by Pulse oximetry 2023-07-04 14:00:00 99 /min [facility] Systolic blood pressure 2023-06-26 11:20:00 122 mm[Hg] [facility] Diastolic blood pressure 2023-06-26 11:20:00 87 mm[Hg] [facility] Heart rate 2023-06-26 11:20:00 80 /min [facility] Body temperature 2023-06-26 11:20:00 37 Birdie [facility] Respiratory rate 2023-06-26 11:20:00 15 /min [facility] Body height 2023-06-26 11:20:00 160 cm [facility] Body weight 2023-06-26 11:20:00 73.936 kg [facility] BMI 2023-06-26 11:20:00 28.87 kg/m2 [facility] Oxygen saturation in Arterial blood by Pulse oximetry 2023-06-26 11:20:00 98 /min [facility] Systolic blood pressure 2023-06-04 02:45:00 119 mm[Hg] [facility] Diastolic blood pressure 2023-06-04 02:45:00 79 mm[Hg] [facility] Heart rate 2023-06-04 02:45:00 75 /min [facility] Body temperature 2023-06-04 02:45:00 36.94 Birdie [facility] Respiratory rate 2023-06-04 02:45:00 15 /min [facility] Body height 2023-06-04 02:45:00 160 cm [facility] Body weight 2023-06-04 02:45:00 73.936 kg [facility] BMI 2023-06-04 02:45:00 28.87 kg/m2 [facility] Oxygen saturation in Arterial blood by Pulse oximetry 2023-06-04 02:45:00 99 /min [facility] Systolic blood pressure 2023-05-07 13:59:00 107 mm[Hg] [facility] Diastolic blood pressure 2023-05-07 13:59:00 74 mm[Hg] [facility] Heart rate 2023-05-07 13:59:00 86 /min [facility] Body temperature 2023-05-07 13:59:00 36.67 Birdie [facility] Respiratory rate 2023-05-07 13:59:00 18 /min [facility] Body height 2023-05-07 13:59:00 160 cm [facility] Body weight 2023-05-07 13:59:00 72.938 kg [facility] BMI 2023-05-07 13:59:00 28.48 kg/m2 [facility] Oxygen saturation in Arterial blood by Pulse oximetry 2023-05-07 13:59:00 98 /min [facility] Systolic blood pressure 2023-05-01 02:38:00 131 mm[Hg] [facility] Diastolic blood pressure 2023-05-01 02:38:00 84 mm[Hg] [facility] Heart rate 2023-05-01 02:38:00 76 /min [facility] Body temperature 2023-05-01 02:38:00 37.28 Birdie [facility] Respiratory rate 2023-05-01 02:38:00 14 /min [facility] Body height 2023-05-01 02:38:00 160 cm [facility] Body weight 2023-05-01 02:38:00 73.074 kg [facility] BMI 2023-05-01 02:38:00 28.54 kg/m2 [facility] Oxygen saturation in Arterial blood by Pulse oximetry 2023-05-01 02:38:00 100 /min [facility] Systolic blood pressure 2023-03-13 05:19:04 121 mm[Hg] [facility] Diastolic blood pressure 2023-03-13 05:19:04 85 mm[Hg] [facility] Heart rate 2023-03-13 05:19:04 66 /min [facility] Respiratory rate 2023-03-13 05:19:04 18 /min [facility] Oxygen saturation in Arterial blood by Pulse oximetry 2023-03-13 05:19:04 99 /min [facility] Body temperature 2023-03-13 04:04:00 37.28 Birdie [facility] Body height 2023-03-13 04:04:00 160 cm [facility] Body weight 2023-03-13 04:04:00 75.751 kg [facility] BMI 2023-03-13 04:04:00 29.58 kg/m2 [facility] Systolic blood pressure 2023-02-16 19:00:00 95 mm[Hg] [facility] Diastolic blood pressure 2023-02-16 19:00:00 61 mm[Hg] [facility] Heart rate 2023-02-16 19:00:00 68 /min [facility] Body weight 2023-02-16 19:00:00 73.12 kg [facility] Systolic blood pressure 2023-01-25 20:11:00 109 mm[Hg] [facility] Diastolic blood pressure 2023-01-25 20:11:00 70 mm[Hg] [facility] Heart rate 2023-01-25 20:11:00 75 /min [facility] Respiratory rate 2023-01-25 20:11:00 18 /min [facility] Body height 2023-01-25 20:11:00 160 cm [facility] Body weight 2023-01-25 20:11:00 75.297 kg [facility] BMI 2023-01-25 20:11:00 29.41 kg/m2 [facility] Systolic blood pressure 2023-01-04 21:52:00 114 mm[Hg] [facility] Diastolic blood pressure 2023-01-04 21:52:00 73 mm[Hg] [facility] Heart rate 2023-01-04 21:52:00 79 /min [facility] Body temperature 2023-01-04 21:52:00 36.94 Birdie [facility] Body height 2023-01-04 21:52:00 160 cm [facility] Body weight 2023-01-04 21:52:00 74.299 kg [facility] BMI 2023-01-04 21:52:00 29.02 kg/m2 [facility] Systolic blood pressure 2022-12-31 05:50:00 115 mm[Hg] [facility] Diastolic blood pressure 2022-12-31 05:50:00 80 mm[Hg] [facility] Heart rate 2022-12-31 05:50:00 76 /min [facility] Body temperature 2022-12-31 05:50:00 37.22 Birdie [facility] Respiratory rate 2022-12-31 05:50:00 16 /min [facility] Body height 2022-12-31 05:50:00 160 cm [facility] Body weight 2022-12-31 05:50:00 75.751 kg [facility] BMI 2022-12-31 05:50:00 29.58 kg/m2 [facility] Oxygen saturation in Arterial blood by Pulse oximetry 2022-12-31 05:50:00 99 /min [facility] Systolic blood pressure 2022-12-22 22:08:00 107 mm[Hg] [facility] Diastolic blood pressure 2022-12-22 22:08:00 61 mm[Hg] [facility] Heart rate 2022-12-22 22:08:00 82 /min [facility] Body temperature 2022-12-22 22:08:00 36.72 Birdie [facility] Respiratory rate 2022-12-22 22:08:00 16 /min [facility] Body height 2022-12-22 22:08:00 160 cm [facility] Body weight 2022-12-22 22:08:00 75.796 kg [facility] BMI 2022-12-22 22:08:00 29.60 kg/m2 [facility] Systolic blood pressure 2022-12-15 18:00:00 129 mm[Hg] [facility] Diastolic blood pressure 2022-12-15 18:00:00 82 mm[Hg] [facility] Heart rate 2022-12-15 18:00:00 85 /[facility] 2022-12-15 18:00:00 16 /min [facility] Oxygen saturation in Arterial blood by Pulse oximetry 2022-12-15 18:00:00 97 /min [facility] Body temperature 2022-12-15 16:10:00 37.39 Birdie [facility] Body height 2022-12-15 16:10:00 160 cm [facility] Body weight 2022-12-15 16:10:00 79.833 kg [facility] BMI 2022-12-15 16:10:00 31.18 kg/m2 [facility] Systolic blood pressure 2022-12-14 13:00:00 100 mm[Hg] [facility] Diastolic blood pressure 2022-12-14 13:00:00 53 mm[Hg] [facility] Heart rate 2022-12-14 13:00:00 82 /min [facility] Body temperature 2022-12-14 13:00:00 36.78 Birdie [facility] Respiratory rate 2022-12-14 13:00:00 17 /min [facility] Oxygen saturation in Arterial blood by Pulse oximetry 2022-12-14 10:20:00 100 /min [facility] Body height 2022-12-12 18:40:00 160 cm [facility] Body weight 2022-12-12 18:40:00 86.183 kg [facility] BMI 2022-12-12 18:40:00 33.66 kg/m2 [facility] Systolic blood pressure 2022-12-07 19:20:00 101 mm[Hg] [facility] Diastolic blood pressure 2022-12-07 19:20:00 65 mm[Hg] [facility] Heart rate 2022-12-07 19:20:00 97 /min [facility] Body temperature 2022-12-07 19:20:00 36.67 Birdie [facility] Respiratory rate 2022-12-07 19:20:00 18 /min [facility] Body height 2022-12-07 19:20:00 160 cm [facility] Body weight 2022-12-07 19:20:00 85.957 kg [facility] BMI 2022-12-07 19:20:00 33.57 kg/m2 [facility] Systolic blood pressure 2022-11-30 19:41:00 114 mm[Hg] [facility] Diastolic blood pressure 2022-11-30 19:41:00 71 mm[Hg] [facility] Heart rate 2022-11-30 19:41:00 102 /min [facility] Body temperature 2022-11-30 19:41:00 36.83 Birdie [facility] Respiratory rate 2022-11-30 19:41:00 18 /min [facility] Body height 2022-11-30 19:41:00 160 cm [facility] Body weight 2022-11-30 19:41:00 84.823 kg [facility] BMI 2022-11-30 19:41:00 33.13 kg/m2 [facility] Systolic blood pressure 2022-11-23 20:09:00 117 mm[Hg] [facility] Diastolic blood pressure 2022-11-23 20:09:00 86 mm[Hg] [facility] Heart rate 2022-11-23 20:09:00 82 /min [facility] Body temperature 2022-11-23 20:09:00 36.94 Birdie [facility] Respiratory rate 2022-11-23 20:09:00 18 /min [facility] Body height 2022-11-23 20:09:00 160 cm [facility] Body weight 2022-11-23 20:09:00 83.462 kg [facility] BMI 2022-11-23 20:09:00 32.59 kg/m2 [facility] Systolic blood pressure 2022-11-09 21:48:00 114 mm[Hg] [facility] Diastolic blood pressure 2022-11-09 21:48:00 74 mm[Hg] [facility] Heart rate 2022-11-09 21:48:00 105 /min [facility] Body temperature 2022-11-09 21:48:00 37.28 Birdie [facility] Body height 2022-11-09 21:48:00 160 cm [facility] Body weight 2022-11-09 21:48:00 81.012 kg [facility] BMI 2022-11-09 21:48:00 31.64 kg/m2 [facility] Heart rate 2022-11-05 07:15:00 88 /min [facility] Oxygen saturation in Arterial blood by Pulse oximetry 2022-11-05 07:15:00 100 /min [facility] Systolic blood pressure 2022-11-05 06:44:00 118 mm[Hg] [facility] Diastolic blood pressure 2022-11-05 06:44:00 65 mm[Hg] [facility] Body height 2022-11-05 06:44:00 160 cm [facility] Body weight 2022-11-05 06:44:00 81.33 kg [facility] BMI 2022-11-05 06:44:00 31.76 kg/m2 [facility] Systolic blood pressure 2022-10-25 20:29:00 112 mm[Hg] [facility] Diastolic blood pressure 2022-10-25 20:29:00 71 mm[Hg] [facility] Heart rate 2022-10-25 20:29:00 85 /min [facility] Body temperature 2022-10-25 20:29:00 36.83 Birdie [facility] Body height 2022-10-25 20:29:00 160 cm [facility] Body weight 2022-10-25 20:29:00 79.289 kg [facility] BMI 2022-10-25 20:29:00 30.96 kg/m2 [facility] Systolic blood pressure 2022-10-11 21:53:00 109 mm[Hg] [facility] Diastolic blood pressure 2022-10-11 21:53:00 71 mm[Hg] [facility] Heart rate 2022-10-11 21:53:00 99 /min [facility] Body temperature 2022-10-11 21:53:00 37.06 Birdie [facility] Body height 2022-10-11 21:53:00 160 cm [facility] Body weight 2022-10-11 21:53:00 76.567 kg [facility] BMI 2022-10-11 21:53:00 29.90 kg/m2 [facility] Systolic blood pressure 2022-10-09 03:02:00 125 mm[Hg] [facility] Diastolic blood pressure 2022-10-09 03:02:00 64 mm[Hg] [facility] Heart rate 2022-10-09 03:02:00 82 /min [facility] Body temperature 2022-10-09 03:02:00 37.11 Birdie [facility] Respiratory rate 2022-10-09 03:02:00 18 /min [facility] Body height 2022-10-09 03:02:00 160 cm [facility] Body weight 2022-10-09 03:02:00 77.747 kg [facility] BMI 2022-10-09 03:02:00 30.36 kg/m2 [facility] Oxygen saturation in Arterial blood by Pulse oximetry 2022-10-09 03:02:00 100 /min [facility] Systolic blood pressure 2022-09-20 20:59:00 106 mm[Hg] [facility] Diastolic blood pressure 2022-09-20 20:59:00 68 mm[Hg] [facility] Heart rate 2022-09-20 20:59:00 90 /min [facility] Body temperature 2022-09-20 20:59:00 36.83 Birdie [facility] Respiratory rate 2022-09-20 20:59:00 18 /min [facility] Body height 2022-09-20 20:59:00 160 cm [facility] Body weight 2022-09-20 20:59:00 74.39 kg [facility] BMI 2022-09-20 20:59:00 29.05 kg/m2 [facility] Systolic blood pressure 2022-08-23 16:09:00 109 mm[Hg] [facility] Diastolic blood pressure 2022-08-23 16:09:00 74 mm[Hg] [facility] Heart rate 2022-08-23 16:09:00 102 /min [facility] Body temperature 2022-08-23 16:09:00 36.72 Birdie [facility] Body height 2022-08-23 16:09:00 160 cm [facility] Body weight 2022-08-23 16:09:00 71.668 kg [facility] BMI 2022-08-23 16:09:00 27.99 kg/m2 [facility] Systolic blood pressure 2022-08-21 23:35:00 112 mm[Hg] [facility] Diastolic blood pressure 2022-08-21 23:35:00 76 mm[Hg] [facility] Heart rate 2022-08-21 23:35:00 95 /min [facility] Body temperature 2022-08-21 23:35:00 37.11 Birdie [facility] Respiratory rate 2022-08-21 23:35:00 17 /min [facility] Body height 2022-08-21 23:35:00 160 cm [facility] Body weight 2022-08-21 23:35:00 70.534 kg [facility] BMI 2022-08-21 23:35:00 27.55 kg/m2 [facility] Oxygen saturation in Arterial blood by Pulse oximetry 2022-08-21 23:35:00 100 /min [facility] Heart rate 2022-08-13 23:30:00 70 /min [facility] Oxygen saturation in Arterial blood by Pulse oximetry 2022-08-13 23:30:00 100 /min [facility] Systolic blood pressure 2022-08-13 23:08:00 111 mm[Hg] [facility] Diastolic blood pressure 2022-08-13 23:08:00 61 mm[Hg] [facility] Body temperature 2022-08-13 23:08:00 37.17 Birdie [facility] Respiratory rate 2022-08-13 23:08:00 16 /min [facility] Body weight 2022-08-13 22:36:00 70.081 kg [facility] Systolic blood pressure 2022-07-25 19:08:00 101 mm[Hg] [facility] Diastolic blood pressure 2022-07-25 19:08:00 67 mm[Hg] [facility] Heart rate 2022-07-25 19:08:00 103 /min [facility] Body temperature 2022-07-25 19:08:00 36.83 Birdie [facility] Respiratory rate 2022-07-25 19:08:00 18 /min [facility] Body height 2022-07-25 19:08:00 160 cm [facility] Body weight 2022-07-25 19:08:00 68.584 kg [facility] BMI 2022-07-25 19:08:00 26.78 kg/m2 [facility] Systolic blood pressure 2022-06-27 18:18:00 114 mm[Hg] [facility] Diastolic blood pressure 2022-06-27 18:18:00 76 mm[Hg] [facility] Heart rate 2022-06-27 18:18:00 116 /min [facility] Body temperature 2022-06-27 18:18:00 37.17 Birdie [facility] Body weight 2022-06-27 18:18:00 68.856 kg [facility] Heart rate 2022-06-25 23:56:09 107 /min [facility] Oxygen saturation in Arterial blood by Pulse oximetry 2022-06-25 23:56:09 100 /min [facility] Systolic blood pressure 2022-06-25 22:47:46 114 mm[Hg] [facility] Diastolic blood pressure 2022-06-25 22:47:46 87 mm[Hg] [facility] Respiratory rate 2022-06-25 22:47:46 17 /min [facility] Body temperature 2022-06-25 19:45:00 38.33 Birdie [facility] Body weight 2022-06-25 19:45:00 70.308 kg [facility] Procedures Procedure Date / Time Performed Performing Clinician Source POCT TEST 2025-02-24 02:01:00 Mary Kate John [facility] URINALYSIS 2025-02-24 01:58:00 Mary Kate John [facility] XR CHEST 1 VW 2024-03-23 06:38:51 Roseanne Mccurdy [facility] LIPASE 2024-03-23 06:15:[address] [facility] TROPONIN I 2024-03-23 06:15:00 [facility] COMP. METABOLIC PANEL ([id number]) 2024-03-23 06:15:00 Roseanne Mccurdy [facility] CBC WITH DIFF 2024-03-23 06:15:00 Kaz [facility] URINALYSIS 2024-03-23 06:15:00 [facility] POCT TEST 2024-02-13 17:19:00 Lucinda Barrett [facility] ASSIGNMENT OF BENEFITS 2023-12-09 09:55:47 Docto r Unassigned, [place] [facility] POCT TEST 2023-12-09 09:41:00 Willie Jama [facility] URINALYSIS 2023-12-09 09:40:00 Tyrone Jama [facility] NOTICE OF PRIVACY PRACTICES 2023-12-09 09:30:16 Doctor Unassigned, [place] [facility] CONSENT/REFUSAL FOR DIAGNOSIS AND TREATMENT 2023-12-09 09:16:01 Doctor Unassigned, [place] [facility] ASSIGNMENT OF BENEFITS 2023-10-11 21:10:42 Docto r Unassigned, [place] [facility] CT ABDOMEN PELVIS W CONTRAST 2023-09-13 01:06:39 [facility] POCT TEST 2023-09-13 00:11:00 [facility] 2023-09-12 23:58:00 [facility] URINALYSIS 2023-09-12 23:58:00 Anabel Card [facility] CONSENT/REFUSAL FOR DIAGNOSIS AND TREATMENT 2023-09-12 23:02:15 Doctor Unassigned, [place] [facility] POCT MOLECULAR STREP 2023-07-04 18:25:00 Benjamin Delarosa [facility] CONSENT/REFUSAL FOR DIAGNOSIS AND TREATMENT 2023-06-26 11:26:53 Doctor Unassigned, [place] [facility] CONSENT/REFUSAL FOR DIAGNOSIS AND TREATMENT 2023-06-04 02:41:10 Doctor Unassigned, [place] [facility] ASSIGNMENT OF BENEFITS 2023-05-01 02:55:53 Docto r Unassigned, [place] [facility] CONSENT/REFUSAL FOR DIAGNOSIS AND TREATMENT 2023-05-01 02:33:50 Doctor Unassigned, [place] [facility] POCT TEST 2023-03-13 05:13:00 Pepito Melendez [facility] LIPASE 2023-03-13 05:11:00 Ashley Melendez [facility] COMP. METABOLIC PANEL ([id number]) 2023-03-13 05:11:00 Ashley Melendez [facility] CBC WITH DIFF 2023-03-13 05:11:00 Ashley Melendez [facility] CONSENT/REFUSAL FOR DIAGNOSIS AND TREATMENT 2023-03-13 03:48:03 Doctor Unassigned, [place] [facility] NOTICE OF PRIVACY PRACTICES 2022-12-31 05:50:46 Doctor Unassigned, [place] [facility] CONSENT/REFUSAL FOR DIAGNOSIS AND TREATMENT 2022-12-31 05:49:45 Doctor Unassigned, [place] [facility] COMP. METABOLIC PANEL ([id number]) 2022-12-15 17:00:00 Hallie Melissa [facility] CBC WITH DIFF 2022-12-15 17:00:00 Hallie Melissa [facility] URINALYSIS 2022-12-15 17:00:00 Hallie Melissa [facility] CONSENT/REFUSAL FOR DIAGNOSIS AND TREATMENT 2022-12-15 16:05:55 Doctor Unassigned, [place] [facility] CBC WITH DIFF 2022-12-14 10:27:00 Vero [facility] CENTRAL NEURAXIAL BLOCK 2022-12-13 02:18:00 Jan Smith [facility] CBC WITH DIFF 2022-12-12 18:26:00 Vero [facility] HEPATITIS B SURFACE ANTIGEN 2022-12-12 18:26:00 Vero [facility] ADC OR JONATHAN ONLY - RPR 2022-12-12 18:26:00 Vero [facility] HIV 1/2 AG-AB WITH REFLEX 2022-12-12 18:26:00 Vero [facility] HB ABO GROUPING 2022-12-12 18:15:00 Vero [facility] RHO (D) IMMUNE GLOBULIN 2022-12-12 18:15:00 Vero [facility] ADC CLC OR LCC ONLY - WET PREP 2022-12-12 17:13:00 Vero [facility] ONLY - FERN TEST 2022-12-12 16:58:00 Vero [facility] CONSENT/REFUSAL FOR DIAGNOSIS AND TREATMENT 2022-12-12 16:11:08 Doctor Unassigned, [place] [facility] POCT URINALYSIS W/O SPECIFIC GRAVITY 2022-12-07 00:00:00 Melissa Pham [facility] POCT URINALYSIS W/O SPECIFIC GRAVITY 2022-11-30 00:00:00 Melissa Pham [facility] >14 WEEKS US LIMITED 2022-11-23 20:52:19 Mery Lozada [facility] NON-STRESS TEST 2022-11-23 20:51:46 Sadia Lozada [facility] DSU PRE-OP 2022-11-23 06:01:00 Doctor Unass igned, [place] [facility] POCT URINALYSIS W/O SPECIFIC GRAVITY 2022-11-09 00:00:00 Melissa Pham [facility] NOTICE OF PRIVACY PRACTICES 2022-11-05 06:31:33 Doctor Unassigned, [place] [facility] CONSENT/REFUSAL FOR DIAGNOSIS AND TREATMENT 2022-11-05 06:27:01 Doctor Unassigned, [place] [facility] POCT URINALYSIS W/O SPECIFIC GRAVITY 2022-10-25 00:00:00 Mery Lozada [facility] POCT URINALYSIS W/O SPECIFIC GRAVITY 2022-10-11 00:00:00 Melissa Pham [facility] ASSIGNMENT OF BENEFITS 2022-10-09 02:33:53 Docto r Unassigned, [place] [facility] CONSENT/REFUSAL FOR DIAGNOSIS AND TREATMENT 2022-10-09 02:33:26 Doctor Unassigned, [place] [facility] POCT URINALYSIS W/O SPECIFIC GRAVITY 2022-09-20 20:58:00 Mery Lozada [facility] ASSIGNMENT OF BENEFITS 2022-09-18 16:38:14 Docto r Unassigned, [place] [facility] 1 HR GLUCOSE TOLERANCE TEST 2022-09-08 16:04:00 Melissa Pham [facility] GLUCOSE FASTING 2022-09-08 15:04:00 Melissa Pham [facility] POCT URINALYSIS W/O SPECIFIC GRAVITY 2022-08-23 00:00:00 Melissa Pham [facility] POCT MOLECULAR FLU 2022-08-21 23:42:00 Unknown, Attend ing [facility] POCT MOLECULAR STREP 2022-08-21 23:39:00 Unknown, Atte juan josé [facility] CONSENT/REFUSAL FOR DIAGNOSIS AND TREATMENT 2022-08-13 22:26:15 Doctor Unassigned, [place] [facility] POCT URINALYSIS W/O SPECIFIC GRAVITY 2022-07-25 00:00:00 Melissa Pham Adán [facility] POCT URINALYSIS W/O SPECIFIC GRAVITY 2022-06-27 00:00:00 Vero Melissa Mccain [facility] URINALYSIS 2022-06-25 21:07:00 Franny Deleon [facility] COMP. METABOLIC PANEL ([id number]) 2022-06-25 20:43:00 Franny Deleon [facility] CBC WITH DIFF 2022-06-25 20:43:00 Franny Deleon [facility] CONSENT/REFUSAL FOR DIAGNOSIS AND TREATMENT 2022-06-25 19:40:54 Doctor Unassigned, [place] [facility] SCANNED LAB RESULTS 2022-05-30 05:01:00 Doctor Nuzhat bueno, [place] [facility] Encounters Start Date/Time End Date/Time Encounter Type Admission Type Attending [facility] Care Facility Care Department Encounter ID Source 2022-10-08 21:48:54 Outpatient X [facility] PO [id number] [facility] 2021-08-30 01:29:22 Emergency [facility] [id number] [facility] 2021-08-28 09:56:44 Emergency [facility] [id number] [facility] 2021-08-28 01:56:35 Emergency [facility] [id number] [facility] 2025-02-23 20:24:00 2025-02-23 22:23:00 Emergency X MARY KATE JOHN PAMALA [facility] ERT [id number] [facility] 2025-02-23 20:24:00 2025-02-23 22:23:00 Emergency Mary Kate John [facility] [id number] 350.1.13.10 4.2.7.2.686 [id number] [facility] 2025-01-03 20:41:00 2025-01-03 21:42:00 Emergency X YESICA, LYN ROBERT, LYN [facility] ERT [id number] [facility] 2024-05-21 14:30:00 2024-05-21 14:30:00 Outpatient R MELISSA PHAM VIEN [facility] [id number] [facility] 2024-03-23 00:58:00 2024-03-23 02:44:00 [facility] ERT [id number] [facility] 2024-03-23 00:58:00 2024-03-23 02:44:[address] Emergency Rose[address] Mccurdy [facility] [id number] 350.1.13.10 4.2.7.2.686 [id number] [facility] 2024-03-05 13:30:00 2024-03-05 13:30:00 Outpatient R NENA LUCINDA [facility] [id number] [facility] 2024-02-29 00:00:00 2024-03-03 14:54:33 Telephone YanLucinda herrera [facility] [id number] 350.1.13.10 4.2.7.2.686 [id number] 134 [id number] [facility] 2024-02-29 00:00:00 2024-02-29 00:00:00 Telephone Yanalirezaare[facility]Lucinda [facility] 1.2.840.114 350.1.13.10 4.2.7.2.686 [id number] 134 [id number] [facility] 2024-02-25 00:00:00 2024-02-25 00:00:00 Telephone Lucinda Barrett [facility] 1.2.840.114 350.1.13.10 4.2.7.2.686 [id number] 134 [id number] [facility] 2024-02-22 00:00:00 2024-02-22 00:00:00 Patient Secure Msg Doctor Unassigned, [place] [facility] [id number] 350.1.13.10 4.2.7.2.686 [id number] 134 [id number] [facility] 2024-02-20 00:00:00 2024-02-20 00:00:00 Telephone Lucinda Barrett [facility] [id number] 350.1.13.10 4.2.7.2.686 [id number] 134 [id number] [facility] 2024-02-13 16:30:00 2024-02-13 16:30:00 Outpatient R LUCINDA BARRETT [facility] [id number] [facility] 2024-02-13 11:30:00 2024-02-13 12:19:17 Outpatient R NENA LUCINDA [facility] [id number] [facility] 2024-02-13 11:30:00 2024-02-13 12:19:17 Office Visit YanLucinda herrera [facility] 1.2.840.114 350.1.13.10 4.2.7.2.686 [id number] 134 [id number] [facility] 2023-12-09 03:42:00 2023-12-09 06:11:00 Emergency X TYRONE JAMA [facility] [id number] [facility] 2023-12-09 03:42:00 2023-12-09 06:11:[address] Tyrone Jama [facility] 1.0.114 350.1.13.10 4.2.7.2.686 [id number] [facility] 2023-10-11 15:00:00 2023-10-11 15:30:00 Office Visit Melissa Pham Adán [facility] 1.0.114 350.1.13.10 4.2.7.2.686 [id number] 134 [id number] [facility] 2023-10-11 15:00:00 2023-10-11 15:00:00 Outpatient R PHAM MELISSA [facility] [id number] [facility] 2023-10-11 00:00:00 2023-10-11 00:00:00 Orders Only Doctor Unassigned, [place] [facility] 1.0114 350.1.13.10 4.2.7.2.686 [id number] [facility] 2023-10-03 09:30:00 2023-10-03 09:30:00 Outpatient R VERO M[facility]ISSA [facility] [id number] [facility] 2023-09-12 17:23:00 2023-09-12 20:20:00 Emergency X [facility] E[facility] [id number] [facility] 2023-09-12 17:23:00 2023-09-12 20:20:00 [facility] 1..114 350.1.13.10 4.2.7.2.686 [id number] 084 [id number] [facility] 2023-07-04 13:00:00 2023-07-04 13:38:43 Office Visit Benjamin Delarosa [facility]BRY[facility] 1.114 350.1.13.10 4.2.7.2.686 [id number] 044 [id number] [facility] 2023-07-04 09:00:00 2023-07-04 09:19:15 Outpatient R MELISSA PHAM [facility] [id number] [facility] 2023-07-04 09:00:00 2023-07-04 09:19:15 Office Visit [facility] 1..840.114 350.1.13.10 4.2.7.2.686 [id number] 134 [id number] [facility] 2023-06-26 06:31:00 2023-06-26 07:36:00 Emergency X AMILCAR CHAVARRIA [facility] ERT [id number] [facility] 2023-06-26 06:31:00 2023-06-26 07:36:00 Emergency Amilcar Chavarria [facility] 1..840.114 350.1.13.10 4.2.7.2.686 [id number] 084 [id number] [facility] 2023-06-03 22:02:00 2023-06-04 01:21:00 Emergency X AMILCAR CHAVARRIA [facility] ERT [id number] [facility] 2023-06-03 22:02:00 2023-06-04 01:21:00 Emergency Amilcar Chavarria [facility] 1..840.114 350.1.13.10 4.2.7.2.686 [id number] 084 [id number] [facility] 2023-05-07 09:00:00 2023-05-07 09:23:37 Outpatient R MELISSA PHAM [facility] [id number] [facility] 2023-05-07 09:00:00 2023-05-07 09:23:37 Office Visit Melissa Pham [facility] BU[facility] 1..840.114 350.1.13.10 4.2.7.2.686 [id number] 134 [id number] [facility] 2023-05-03 00:00:00 2023-05-03 00:00:00 Refill Melissa Pham [facility] 1.2840.114 350.1.13.10 4.2.7.2.686 [id number] 134 [id number] [facility] 2023 21:40:00 2023 22:00:00 Emergency X SACHA AGUSTIN [facility] ERT [id number] [facility] 2023 21:40:00 2023 22:00:[address] [facility] 1.2840.114 350.1.13.10 4.2.7.2.686 [id number] 084 [id number] [facility] 2023 00:00:00 2023 00:00:00 Orders Only Doctor Unassigned, Alcan Border [facility] 1.2840.114 350.1.13.10 4.2.7.2.686 [id number] [id number] [facility] 2023-04-29 00:00:00 2023-04-29 00:00:00 Refill Melissa Pham [facility] 1.840.114 350.1.13.10 4.2.7.2.686 [id number] 134 [id number] [facility] 2023-04-20 10:00:00 2023-04-20 10:00:00 Outpatient R MELISSA PHAM [facility] [id number] [facility] 2023-03-12 23:09:00 2023-03-13 02:16:00 Emergency X ASHLEY MELENDEZ [facility] ERT [id number] [facility] 2023-03-12 23:09:00 2023-03-13 02:16:[address] Ashley Melendez [facility] 1.2.840.114 350.1.13.10 4.2.7.2.686 [id number] 084 [id number] [facility] 2023-02-16 14:00:00 2023-02-16 14:30:00 Office Visit Melissa Pham [facility] 1.2.840.114 350.1.13.10 4.2.7.2.686 [id number] 134 [id number] [facility] 2023-02-16 14:00:00 2023-02-16 14:00:00 Outpatient R MELISSA PHAM [facility] [id number] [facility] 2023-01-25 15:00:00 2023-01-25 15:21:25 Out[facility] [id number] [facility] 2023-01-25 15:00:00 2023-01-25 15:21:25 Routine Visit Balbina Mattson [facility] 1.2.840.114 350.1.13.10 4.2.7.2.686 [id number] 134 [id number] [facility] 2023-01-04 15:30:00 2023-01-04 16:13:43 Outpatient R MELISSA PHAM [facility] [id number] [facility] 2023-01-04 15:30:00 2023-01-04 16:13:43 Routine Visit Melissa Pham [facility] 1.2.840.114 350.1.13.10 4.2.7.2.686 [id number] 134 [id number] [facility] 2022-12-31 00:07:00 2022-12-31 00:30:00 Emergency X FRANNY DELEON [facility] ERT [id number] [facility] 2022-12-31 00:07:00 2022-12-31 00:30:[address]on [facility] 1.2.840.114 350.1.13.10 4.2.7.2.686 [id number] 084 [id number] [facility] 2022-12-22 16:00:00 2022-12-22 16:26:11 Outpatient R [facility]INA [facility] [id number] [facility] 2022-12-22 16:00:00 2022-12-22 16:26:11 [facility] 1.2840.114 350.1.13.10 4.2.7.2.686 [id number] 134 [id number] [facility] 2022-12-15 10:12:00 2022-12-15 12:43:00 Emergency X HALLIE MELISSA [facility] ERT [id number] [facility] 2022-12-15 10:12:00 2022-12-15 12:43:00 Emergency Hallie Melissa S [facility] 1.2.840.114 350.1.13.10 4.2.7.2.686 [id number] 084 [id number] [facility] 2022-12-15 00:00:00 2022-12-15 00:00:00 Telephone Melissa Pham [facility] 1.2.840.114 350.1.13.10 4.2.7.2.686 [id number] 134 [id number] [facility] 2022-12-14 13:00:00 2022-12-14 13:00:00 Outpatient R MERY LOZADA [facility] [id number] [facility] 2022-12-12 10:21:00 2022-12-14 12:00:00 Inpatient X MELISSA PHAM [facility] PO [id number] [facility] 2022-12-12 10:21:00 2022-12-14 12:00:00 Hospital Encounter Melissa Pham [facility] 1.2840.114 350.1.13.10 4.2.7.2.686 [id number] 083 [id number] [facility] 2022-12-12 20:17:00 2022-12-13 09:30:00 Anesthesia Event Jan Smith [facility] 1.2840.114 350.1.13.10 4.2.7.2.686 [id number] 083 [id number] [facility] 2022-12-12 10:00:00 2022-12-12 10:07:45 Hedis Review Nurse Visit Ultrasound, Adc m Shaylee wilcox Gayle [facility] 1.84.114 350.1.13.10 4.2.7.2.686 [id number] 134 [id number] [facility] 2022-12-12 10:00:00 2022-12-12 10:00:00 Outpatient R SHAYLEE Wilcox [facility] [id number] [facility] 2022-12-07 13:00:00 2022-12-07 14:02:26 Outpatient R MELISSA PHAM [facility] [id number] [facility] 2022-12-07 13:00:00 2022-12-07 14:02:26 Routine Visit [facility] 1.2840.114 350.1.13.10 4.2.7.2.686 [id number] 134 [id number] [facility] 2022-11-30 13:15:00 2022-11-30 14:55:35 Outpatient R MELISSA PHAM [facility] [id number] [facility] 2022-11-30 13:15:00 2022-11-30 14:55:35 Routine Visit Mery Lozada Melissa Pham [facility] PROFESSIO N[facility] 1.2.840.114 350.1.13.10 4.2.7.2.686 [id number] 134 [id number] [facility] 2022-11-23 15:00:00 2022-11-23 15:15:00 Hedis Review Nurse Visit 2, Adc Lab Mery Lozada [facility] 1.2.840.114 350.1.13.10 4.2.7.2.686 [id number] 353 [id number] [facility] 2022-11-23 14:00:00 2022-11-23 14:50:53 Outpatient R NEVILLE [facility] [id number] [facility] 2022-11-23 14:00:00 2022-11-23 14:50:53 Routine Visit Mery Lozada [facility] 1.2.840.114 350.1.13.10 4.2.7.2.686 [id number] 134 [id number] [facility] 2022-11-23 00:00:00 2022-11-23 00:00:00 Orders Only Doctor Unassigned, Alcan Border [facility] 1.2.840.114 350.1.13.10 4.2.7.2.686 [id number] [id number] [facility] 2022-11-14 10:00:00 2022-11-14 10:24:10 Hedis Review Nurse Visit Ultrasound, [facility] Diamond Ortega [facility] 1.2.840.114 350.1.13.10 4.2.7.2.686 [id number] 134 [id number] [facility] 2022-11-14 10:00:00 2022-11-14 10:00:00 Outpatient R DIAMOND ORTEGA [facility] [id number] [facility] 2022-11-09 15:30:00 2022-11-09 16:29:39 Outpatient R MELISSA PHAM [facility] [id number] [facility] 2022-11-09 15:30:00 2022-11-09 16:29:39 Routine Visit Melissa Pham [facility] PROFESSIO NAL [facility]ILD[facility] 1.2840.114 350.1.13.10 4.2.7.2.686 [id number] 134 [id number] [facility] 2022-11-06 00:00:00 2022-11-06 00:00:00 [facility]ill [facility] 1.2840.114 350.1.13.10 4.2.7.2.686 [id number] 134 [id number] [facility] 2022-11-05 00:39:00 2022-11-05 01:28:00 Outpatient P GRACE-CONNER S, BITA GRACE-CONNER S, BITA [facility] PO [id number] [facility] 2022-11-05 00:39:00 2022-11-05 01:28:00 Hospital Encounter Grace-Conner s, Bita [facility] 1.0.114 350.1.13.10 4.2.7.2.686 [id number] 083 [id number] [facility] 2022-11-05 00:00:00 2022-11-05 00:00:00 Orders Only Doctor Unassigned, Alcan Border [facility] 1.2840.114 350.1.13.10 4.2.7.2.686 [id number] [id number] [facility] 2022-11-03 00:00:00 2022-11-03 00:00:00 Patient Secure Mariel Hutchinson [facility] 1.2840.114 350.1.13.10 4.2.7.2.686 [id number] 134 [id number] [facility] 2022-11-02 00:00:00 2022-11-02 00:00:00 Refill Melissa Pham Adán [facility] 1.2.840.114 350.1.13.10 4.2.7.2.686 [id number] 134 [id number] [facility] 2022-11-02 00:00:00 2022-11-02 00:00:00 Refill Mery Lozada [facility] 1.2.840.114 350.1.13.10 4.2.7.2.686 [id number] 134 [id number] [facility] 2022-10-30 00:00:00 2022-10-30 00:00:00 Case Management Mery Lozada [facility] 1.2.840.114 350.1.13.10 4.2.7.2.686 [id number] 134 [id number] [facility] 2022-10-25 14:00:00 2022-10-25 14:51:48 [id number] 2022-10-25 14:00:00 2022-10-25 14:51:48 Routine Visit Mery Lozada [facility] 1.2.840.114 350.1.13.10 4.2.7.2.686 [id number] 134 [id number] [facility] 2022-10-17 10:00:00 2022-10-17 10:30:00 Hedis Review Nurse Visit Ultrasound, Adc Mfm Diamond Ortega [facility] 1.2.840.114 350.1.13.10 4.2.7.2.686 [id number] 134 [id number] [facility] 2022-10-17 10:00:00 2022-10-17 10:00:00 Outpatient R DIAMOND ORTEGA [facility] [id number] [facility] 2022-10-11 15:45:00 2022-10-11 16:11:38 Outpatient R MELISSA PHAM [facility] [id number] [facility] 2022-10-11 15:45:00 2022-10-11 16:11:38 Routine Visit Melissa Pham Adán [facility] 1.114 350.1.13.10 4.2.7.2.686 [id number] 134 [id number] [facility] 2022-10-08 20:44:00 2022-10-08 21:43:00 Outpatient X ADANUJ EMILY [facility] PO [id number] [facility] 2022-10-08 20:44:00 2022-10-08 21:43:00 Emergency Adanuj Emily Pepito [facility] 1..114 350.1.13.10 4.2.7.2.686 [id number] 083 [id number] [facility] 2022-10-08 00:00:00 2022-10-08 00:00:00 Orders Only Doctor Unassigned, Alcan Border [facility] 1.114 350.1.13.10 4.2.7.2.686 [id number] [facility] 2022-10-05 09:00:00 2022-10-05 09:42:31 Outpatient P WENDY GARCIA [facility] [id number] [facility] 2022-10-05 09:00:00 2022-10-05 09:42:31 Office Visit Wendy Garcia 4, [facility] Us Room [facility] 1.114 350.1.13.10 4.2.7.2.686 [id number] 104 [id number] [facility] 2022-09-20 14:30:00 2022-09-20 15:20:43 Outpatient R MERY LOZADA [facility] [id number] [facility] 2022-09-20 14:30:00 2022-09-20 15:20:43 Routine Visit GrabielMery shay [facility] 1.2840.114 350.1.13.10 4.2.7.2.686 [id number] 134 [id number] [facility] 2022-09-20 11:15:00 2022-09-20 11:15:00 Outpatient P [facility] [id number] [facility] 2022-09-18 10:30:00 2022-09-18 13:03:40 Outpatient P SINDY WALLER [facility] [id number] [facility] 2022-09-18 10:30:00 2022-09-18 11:00:00 Hedis Review Nurse Visit 1, [facility] Us Room Hector Callahan [facility] 1.840.114 350.1.13.10 4.2.7.2.686 [id number] [facility] 2022-09-18 00:00:00 2022-09-18 00:00:00 Orders Only Doctor Unassigned, Alcan Border [facility] 1.2.840.114 350.1.13.10 4.2.7.2.686 [id number] [id number] [facility] 2022-09-11 00:00:00 2022-09-11 00:00:00 Telephone Vero Melissa Mccain [facility] 1.20.114 350.1.13.10 4.2.7.2.686 [id number] 134 [id number] [facility] 2022-09-08 09:15:00 2022-09-08 12:09:12 Hedis Review Nurse Visit 2, Adc Lab Melissa Pham [facility] BUILDING 1.2840.114 350.1.13.10 4.2.7.2.686 [id number] 353 [id number] [facility] 2022-09-08 09:15:00 2022-09-08 09:15:00 Outpatient R MELISSA PHAM [facility] [id number] [facility] 2022-09-07 09:00:00 2022-09-07 09:00:00 Outpatient R [facility] [id number] [facility] 2022-09-07 00:00:00 2022-09-07 00:00:00 Refill Melissa Pham [facility] 1.2.840.114 350.1.13.10 4.2.7.2.686 [id number] 134 [id number] [facility] 2022-09-06 14:00:00 2022-09-06 14:58:12 Hedis Review Nurse Visit 2, Adc Lab Melissa Pham [facility] BU[facility] 1.2.840.114 350.1.13.10 4.2.7.2.686 [id number] 353 [id number] [facility] 2022-09-06 14:00:00 2022-09-06 14:00:00 Outpatient R MELISSA PHAM [facility] [id number] [facility] 2022-09-06 00:00:00 2022-09-06 00:00:00 Case Management Melissa Pham [facility] BUILDING 1.2.840.114 350.1.13.10 4.2.7.2.686 [id number] 134 [id number] [facility] 2022-08-23 11:15:00 2022-08-23 11:39:34 Outpatient R MELISSA PHAM [facility] [id number] [facility] 2022-08-23 11:15:00 2022-08-23 11:39:34 Routine Visit Melissa Pham [facility] 1.2.840.114 350.1.13.10 4.2.7.2.686 [id number] 134 [id number] [facility] 2022-08-22 00:00:00 2022-08-22 00:00:00 Letter (Out) Carmita Washington Kimberly [facility] 1.840.114 350.1.13.10 4.2.7.2.686 [id number] 019 [id number] [facility] 2022-08-21 18:40:00 2022-08-21 18:50:12 Outpatient R ADRIANA HOLT [facility] [id number] [facility] 2022-08-21 18:40:00 2022-08-21 18:50:12 Urgent Care Adriana Holt, Attending [facility] 1..840.114 350.1.13.10 4.2.7.2.686 [id number] [facility] 2022-08-21 00:00:00 2022-08-21 00:00:00 Telephone Melissa Pham [facility] 1..840.114 350.1.13.10 4.2.7.2.686 [id number] 134 [id number] [facility] 2022-08-13 17:41:00 2022-08-13 18:55:00 Outpatient X MELISSA PHAM [facility] PO [id number] [facility] 2022-08-13 17:41:00 2022-08-13 18:55:00 Emergency Melissa Pham [facility] 1.840.114 350.1.13.10 4.2.7.2.686 [id number] 083 [id number] [facility] 2022-08-01 13:00:00 2022-08-01 13:59:48 Outpatient P MARIEL STONE SHANNON [facility] [id number] [facility] 2022-08-01 13:00:00 2022-08-01 13:59:48 Hedis Review Nurse Visit Ultrasound, Adc Mariel Garcia [facility] 1.2.840.114 350.1.13.10 4.2.7.2.686 [id number] 134 [id number] [facility] 2022-07-25 14:00:00 2022-07-25 14:49:28 Outpatient R EMILYLINDSAY [facility] [id number] [facility] 2022-07-25 14:00:00 2022-07-25 14:49:28 Routine Visit Melissa Pham Emilylindsay Mery [facility] 1.2.840.114 350.1.13.10 4.2.7.2.686 [id number] 134 [id number] [facility] 2022-07-04 08:15:00 2022-07-04 08:31:23 Outpatient R VERO MELISSA [facility] [id number] [facility] 2022-07-04 08:15:00 2022-07-04 08:30:00 Hedis Review Nurse Visit 2, Adc Lab Melissa Pham [facility] BUILDING 1.2.840.114 350.1.13.10 4.2.7.2.686 [id number] 353 [id number] [facility] 2022-06-28 00:00:00 2022-06-28 00:00:00 Telephone Constance Alonso [facility] 1.2.840.114 350.1.13.10 4.2.7.2.686 [id number] [facility] 2022-06-27 13:00:00 2022-06-27 13:15:00 Routine Visit Melissa Pham [facility] BU[facility] 1.2.840.114 350.1.13.10 4.2.7.2.686 [id number] 134 [id number] [facility] 2022-06-27 13:00:00 2022-06-27 13:00:00 Outpatient R MELISSA PHAM [facility] [id number] [facility] 2022-06-27 13:00:00 2022-06-27 13:00:00 Outpatient R MELISSA PHAM [facility] [id number] [facility] 2022-06-25 14:44:00 2022-06-25 18:57:00 Emergency X FRANNY DELEON [facility] ERT [id number] [facility] 2022-06-25 14:44:00 2022-06-25 18:57:[address]on [facility] 1.2.840.114 350.1.13.10 4.2.7.2.686 [id number] [id number] [facility] 2022-06-22 00:00:00 2022-06-22 00:00:00 Telephone Melissa Pham [facility] 1.2.840.114 350.1.13.10 4.2.7.2.686 [id number] 134 [id number] [facility] 2022-06-16 22:58:00 2022-06-17 02:40:00 Emergency X MELISSAHALLIE [facility] ERT [id number] [facility] 2022-06-16 22:58:00 2022-06-17 02:40:00 Emergency Hallie Melissa Vinny [facility] 1.2.840.114 350.1.13.10 4.2.7.2.686 [id number] 084 [id number] [facility] 2022-06-14 00:00:00 2022-06-14 00:00:00 Telephone Mery Lozada [facility] 1.2.840.114 350.1.13.10 4.2.7.2.686 [id number] 134 [id number] [facility] 2022-06-12 00:00:00 2022-06-12 00:00:00 Telephone Melissa Pham [facility] 1.2.840.114 350.1.13.10 4.2.7.2.686 [id number] 134 [id number] [facility] 2022-06-07 00:00:00 2022-06-07 00:00:00 Telephone Mery Lozada [facility] 1.2.840.114 350.1.13.10 4.2.7.2.686 [id number] 134 [id number] [facility] 2022-05-30 10:30:00 2022-05-30 10:45:00 Hedis Review Nurse Visit 2, Adc Lab Melissa Pham [facility] 1.2.840.114 350.1.13.10 4.2.7.2.686 [id number] 353 [id number] [facility] 2022-05-30 09:45:00 2022-05-30 10:24:06 Outpatient R MERY LOZADA [facility] [id number] [facility] 2022-05-30 09:45:00 2022-05-30 10:24:06 Routine Visit Mery Lozada [facility] 1.2.840.114 350.1.13.10 4.2.7.2.686 [id number] 134 [id number] [facility] 2022-05-30 00:00:00 2022-05-30 00:00:00 Orders Only Doctor Unassigned, Alcan Border [facility] 1.2.840.114 350.1.13.10 4.2.7.2.686 [id number] [facility] 2022-05-03 14:30:00 2022-05-03 17:12:24 Outpatient R MELISSA PHAM [facility] [id number] [facility] 2022-05-03 14:30:00 2022-05-03 17:12:24 Initial Visit Melissa Pham [facility] NAL [facility]ILD[facility] 1.2.840.114 350.1.13.10 4.2.7.2.686 [id number] 134 [id number] [facility] 2022-05-03 00:00:00 2022-05-03 00:00:00 Patient Secure Lyn Simeon [facility] 1.2.840.114 350.1.13.10 4.2.7.2.686 [id number] 134 [id number] [facility] 2022-04-29 16:19:00 2022-04-29 20:24:00 Emergency X STU HERRERA [facility] ERT [id number] [facility] 2022-04-29 16:19:00 2022-04-29 20:24:[address] mon [facility] 1.2.840.114 350.1.13.10 4.2.7.2.686 [id number] [facility] 2022-04-11 17:36:00 2022-04-11 17:44:00 Emergency X FRANNY DELEON [facility] ERT [id number] [facility] 2022-04-11 17:36:00 2022-04-11 17:44:[address]leon [facility] 1.2.840.114 350.1.13.10 4.2.7.2.686 [id number] [facility] 2022-02-01 14:30:00 2022-02-01 14:30:00 Outpatient MERY SIMON [facility] [id number] [facility] 2022-01-28 21:43:00 2022-01-29 01:27:00 Emergency X JAVIER [facility]NER [facility] ERT [id number] [facility] 2022-01-28 21:43:00 2022-01-29 01:27:[address] [facility] 1..840.114 350.1.13.10 4.2.7.2.686 [id number] [facility] 2022-01-25 23:40:00 2022-01-26 02:48:00 Emergency X AMILCAR CHAVARRIA [facility] ERT [id number] [facility] 2022-01-25 23:40:00 2022-01-26 02:48:00 Emergency Amilcar Chavarria S [facility] 1..840.114 350.1.13.10 4.2.7.2.686 [id number] [facility] 2021-11-15 14:10:00 2021-11-15 15:51:36 Office Visit [facility] 1.840.114 350.1.13.10 4.2.7.2.686 [id number] [facility] 2021-11-15 14:10:00 2021-11-15 15:51:36 Outpatient KAELYN ORTIZ [facility] [id number] [facility] 2021-11-15 14:10:00 2021-11-15 14:10:00 Outpatient KAELYN ORTIZ [facility] [id number] [facility] 2021-10-12 00:00:00 2021-10-12 00:00:00 Garret Carreon [facility] 1..840.114 350.1.13.10 4.2.7.2.686 [id number] [facility] 2021-10-04 14:30:00 2021-10-04 14:30:00 Outpatient KAELYN ORTIZ [facility] [id number] [facility] 2021-10-04 11:18:18 2021-10-04 11:38:18 Office Visit Kaelyn Conner [facility] 1..114 350.1.13.10 4.2.7.2.686 [id number] [facility] 2021-10-04 11:20:00 2021-10-04 11:20:00 Outpatient R KAELYN CONNER [facility] [id number] [facility] 2021-10-04 11:20:00 2021-10-04 11:20:00 Outpatient R KAELYN CONNER [facility] [id number] [facility] 2021-09-30 09:30:00 2021-09-30 09:30:00 Outpatient R UBALDO [facility] [id number] [facility] 2021-08-30 16:10:00 2021-08-30 16:50:59 Outpatient R UBALDO [facility] [id number] [facility] 2021-08-30 16:10:00 2021-08-30 16:50:59 Outpatient R UBALDO [facility] [id number] [facility] 2021-08-30 16:08:09 2021-08-30 16:50:59 Office Visit Kaelyn Conner Millicent [facility] 1.114 350.1.13.10 4.2.7.2.686 [id number] 225 [id number] [facility] [facility]00 2021-08-30 00:00:00 Orders Only Doctor Unassigned, [place] [facility] 1..114 350.1.13.10 4.2.7.2.686 [id number] [id number] [facility] 2021-08-12 10:00:00 2021-08-12 23:59:00 Hospital Encounter Garret Diamond [facility] E[facility] 1..114 350.1.13.10 4.2.7.2.686 [id number] [facility] 2021-08-12 10:00:00 2021-08-12 10:00:00 Outpatient GARRET CASTILLO [facility] [id number] [facility] 2021-08-12 10:00:00 2021-08-12 10:00:00 Outpatient GARRET CASTILLO [facility] [id number] [facility] 2021-08-10 09:00:00 2021-08-10 09:00:00 Outpatient R [facility] [id number] [facility] 2021-08-03 00:00:00 2021-08-03 00:00:00 Patient Outreach [facility] 1.840.114 350.1.13.10 4.2.7.2.686 [id number] 225 [id number] [facility] 2021-08-03 00:00:00 2021-08-03 00:00:00 Patient Outreach Radha Pe[facility] 1.20.114 350.1.13.10 4.2.7.2.686 [id number] 225 [id number] [facility] 2021-08-02 00:00:00 2021-08-02 00:00:00 Refill Kaelyn Conner [facility] 1.0.114 350.1.13.10 4.2.7.2.686 [id number] 225 [id number] [facility] 2021-08-01 15:22:51 2021-08-01 16:21:14 Office Visit Kaelyn Conner [facility] 1.2840.114 350.1.13.10 4.2.7.2.686 [id number] [facility] 2021-08-01 15:40:00 2021-08-01 15:40:00 Outpatient R KAELYN CONNER [facility] [id number] [facility] 2021-07-29 00:00:00 2021-07-29 00:00:00 Telephone Francis Alvarez [facility] 1.2.840.114 350.1.13.10 4.2.7.2.686 [id number] [id number] [facility] 2021-07-28 14:58:46 2021-07-28 23:59:00 Hospital Encounter Francis Alvarez [facility] 1.2.840.114 350.1.13.10 4.2.7.2.686 [id number] [facility] 2021-07-28 15:00:00 2021-07-28 15:00:00 Outpatient R FRANCIS ALVAREZ [facility] [id number] [facility] 2021-07-28 00:00:00 2021-07-28 00:00:00 Letter (Out) Francis Alvarez [facility] 1.2.840.114 350.1.13.10 4.2.7.2.686 [id number] [id number] [facility] 2021-07-27 00:00:00 2021-07-27 00:00:00 Refill Garret Diamond [facility] 1.2.840.114 350.1.13.10 4.2.7.2.686 [id number] 092 [id number] [facility] 2021-07-26 14:59:56 2021-07-26 16:53:26 [facility] 1.2.840.114 350.1.13.10 4.2.7.2.686 [id number] 092 [id number] [facility] 2021-07-26 15:00:00 2021-07-26 15:00:00 Outpatient GARRET CASTILLO [facility] [id number] [facility] 2021-07-25 13:11:32 2021-07-25 13:35:53 [facility] 1..840.114 350.1.13.10 4.2.7.2.686 [id number] [id number] [facility] 2021-07-25 13:00:00 2021-07-25 13:00:00 Outpatient FRANCIS RENEE [facility] [id number] [facility] 2021-07-25 07:12:00 2021-07-25 08:22:00 Emergency Iván Lima [facility] 1.840.114 350.1.13.10 4.2.7.2.686 [id number] [facility] 2021-06-29 13:11:39 2021-06-29 14:29:09 Office Visit Kaelyn [facility]ner [facility] 1.84.114 350.1.13.10 4.2.7.2.686 [id number] [facility] 2021-06-29 13:10:00 2021-06-29 13:10:00 Outpatient KAELYN ORTIZ [facility] [id number] [facility] 2021-06-24 09:50:11 2021-06-24 10:00:11 Office Visit [facility] 1..114 350.1.13.10 4.2.7.2.686 [id number] [facility] 2021-06-24 09:50:11 2021-06-24 10:00:11 Office Visit Nathan [facility] 1..840.114 350.1.13.10 4.2.7.2.686 [id number] 225 [id number] [facility] 2021-06-24 09:50:00 2021-06-24 09:50:00 Outpatient R CHERIE, NATHAN [facility] [id number] [facility] 2021-06-17 00:00:00 2021-06-17 00:00:00 Telephone Neville Mery [facility] 1.2.840.114 350.1.13.10 4.2.7.2.686 [id number] [facility] 2021-05-18 10:30:58 2021-05-18 10:45:18 Nurse Visit Nurse, [facility] Neville [facility] 1..840.114 350.1.13.10 4.2.7.2.686 [id number] [facility] 2021-05-18 10:30:00 2021-05-18 10:30:00 Outpatient R [facility] [id number] [facility] 2021-04-26 13:00:00 2021-04-26 13:00:00 Outpatient R THANG CONTRERAS [facility] [id number] [facility] 2021-03-29 14:05:23 2021-03-29 14:41:24 Office Visit Mary Ann Camejo [facility] 1..840.114 350.1.13.10 4.2.7.2.686 [id number] [facility] 2021-03-29 14:15:00 2021-03-29 14:15:00 Outpatient R MARY ANN CAMEJO [facility] [id number] [facility] 2021-03-15 14:00:00 2021-03-15 14:00:00 Outpatient THANG URBINA [facility] [id number] [facility] 2021-02-16 15:38:47 2021-02-16 16:10:09 Office Visit Ama Lozadacy [facility] Bharathi Sosa [facility] 1.114 350.1.13.10 4.2.7.2.686 [id number] [facility] 2021-02-16 15:15:00 2021-02-16 15:15:00 Outpatient R MERY LOZADA [facility] [id number] [facility] 2021-02-16 00:00:00 2021-02-16 00:00:00 Orders Only Doctor Unassigned, [place] [facility] 1..114 350.1.13.10 4.2.7.2.686 [id number] [id number] [facility] 2021-02-08 13:00:00 2021-02-08 13:00:00 Outpatient THANG URBINA [facility] [id number] [facility] 2021-02-07 00:00:00 2021-02-07 00:00:00 Patient Secure Msg Doctor Unassigned, [place] [facility] 1..114 350.1.13.10 4.2.7.2.686 [id number] [facility] 2021-02-04 00:00:00 2021-02-04 00:00:00 Telephone Nathan [facility] 1..114 350.1.13.10 4.2.7.2.686 [id number] [facility] 2021-02-02 19:49:57 2021-02-02 21:00:11 Urgent Care Care, Julia Urgent Unknown, Attending Mishel [facility] 1..114 350.1.13.10 4.2.7.2.686 [id number] [facility] 2021-02-02 19:45:00 2021-02-02 19:45:00 Outpatient R JANIE, ALCIRA [facility] [id number] [facility] 2021-02-02 00:00:00 2021-02-02 00:00:00 Telephone Deya Salazar [facility] 1.2.840.114 350.1.13.10 4.2.7.2.686 [id number] 225 [id number] [facility] 2021-01-26 23:18:00 2021-01-27 01:10:00 Emergency Amilcar Chavarria [facility] 1.2.840.114 350.1.13.10 4.2.7.2.686 [id number] 084 [id number] [facility] 2021-01-26 14:23:24 2021-01-26 14:43:24 Office Visit Deya Salazar [facility] 1.2.840.114 350.1.13.10 4.2.7.2.686 [id number] [facility] 2021-01-26 14:40:00 2021-01-26 14:40:00 Outpatient R DEYA SALAZAR [facility] [id number] [facility] 2021-01-18 00:00:00 2021-01-18 00:00:00 Patient Outreach Wilfrid Stone [facility] 1.2.840.114 350.1.13.10 4.2.7.2.686 [id number] [facility] 2021-01-11 13:30:00 2021-01-11 13:30:00 Outpatient R THANG CONTRERAS [facility] [id number] [facility] 2021-01-11 00:00:00 2021-01-11 00:00:00 Orders Only Doctor Unassigned, [place] [facility] 1.2.840.114 350.1.13.10 4.2.7.2.686 [id number] [id number] [facility] 2020-12-30 00:00:00 2020-12-30 00:00:00 Orders Only Doctor Unassigned, [place] [facility] 1.2.840.114 350.1.13.10 4.2.7.2.686 [id number] [id number] [facility] 2020-12-27 00:00:00 2020-12-27 00:00:00 Orders Only Doctor Unassigned, [place] [facility] 1.2.840.114 350.1.13.10 4.2.7.2.686 [id number] [id number] [facility] 2020-12-26 00:00:00 2020-12-26 00:00:00 Orders Only Doctor Unassigned, [place] [facility] 1.2.840.114 350.1.13.10 4.2.7.2.686 [id number] [id number] [facility] 2020-12-20 00:00:00 2020-12-20 00:00:00 Orders Only Doctor Unassigned, [place] [facility] 1.2.840.114 350.1.13.10 4.2.7.2.686 [id number] [id number] [facility] 2020-12-09 00:00:00 2020-12-09 00:00:00 Orders Only Doctor Unassigned, [place] [facility] 1.2.840.114 350.1.13.10 4.2.7.2.686 [id number] [id number] [facility] 2020-12-02 00:00:00 2020-12-02 00:00:00 Telephone Nathan [facility] 1.2.840.114 350.1.13.10 4.2.7.2.686 [id number] 225 [id number] [facility] 2020-11-30 00:00:00 2020-11-30 00:00:00 Telephone Kaelyn Conner [facility] 1.2.840.114 350.1.13.10 4.2.7.2.686 [id number] [facility] 2020-11-29 00:00:00 2020-11-29 00:00:00 Refill Kaelyn Conner [facility] 1.2.840.114 350.1.13.10 4.2.7.2.686 [id number] [facility] 2020-11-26 00:00:00 2020-11-26 00:00:00 Telephone Kaelyn Conner [facility] 1.2.840.114 350.1.13.10 4.2.7.2.686 [id number] [facility] 2020-11-15 00:00:00 2020-11-15 00:00:00 Telephone Kaelyn Conner [facility] 1.2.840.114 350.1.13.10 4.2.7.2.686 [id number] [facility] 2020-11-05 08:23:51 2020-11-05 08:43:51 Office Visit Kaelyn Conner [facility] 1.2.840.114 350.1.13.10 4.2.7.2.686 [id number] [facility] 2020-11-05 08:20:00 2020-11-05 08:20:00 Outpatient R KAELYN CONNER [facility] [id number] [facility] 2020-11-05 00:00:00 2020-11-05 00:00:00 Refill Kaelyn Conner [facility] 1.2.840.114 350.1.13.10 4.2.7.2.686 [id number] [facility] 2020-11-04 00:00:00 2020-11-04 00:00:00 Telephone Nathan [facility]resp[facility] 1..114 350.1.13.10 4.2.7.2.686 [id number] [facility] 2020-08-20 13:06:59 2020-08-20 13:26:59 Office Visit Deya Salazar [facility] 1..114 350.1.13.10 4.2.7.2.686 [id number] [facility] 2020-08-20 13:20:00 2020-08-20 13:20:00 Outpatient OMAR BENDER [facility] [id number] [facility] 2020-08-20 00:00:00 2020-08-20 00:00:00 Orders Only Doctor Unassigned, [place] [facility] 1..114 350.1.13.10 4.2.7.2.686 [id number] [facility] 2020-01-23 13:20:00 2020-01-23 13:20:00 Outpatient NATHAN VILLEGAS [facility] [id number] [facility] 2020-01-23 12:41:36 2020-01-23 12:51:36 Telemedici ne Visit Nathan [facility]resp[facility] 1..114 350.1.13.10 4.2.7.2.686 [id number] 225 [id number] [facility] 2020-01-23 00:00:00 2020-01-23 00:00:00 Telephone Kaelyn Conner [facility] 1..114 350.1.13.10 4.2.7.2.686 [id number] 225 [id number] [facility] 2020-01-23 00:00:00 2020-01-23 00:00:00 Refill Cherie Nathan Salazarm Mis[facility] 1.2.840.114 350.1.13.10 4.2.7.2.686 [id number] [facility] 2020-01-08 11:03:17 2020-01-08 11:13:17 Office Visit Kaelyn Conner [facility] 1.2.840.114 350.1.13.10 4.2.7.2.686 [id number] 225 [id number] [facility] 2020-01-08 11:00:00 2020-01-08 11:00:00 Outpatient R KAELYN CONNER [facility] [id number] [facility] 2019-12-29 00:00:00 2019-12-29 00:00:00 Telephone Nathan [facility]resp[facility] 1.2.840.114 350.1.13.10 4.2.7.2.686 [id number] 225 [id number] [facility] 2019-12-18 16:07:38 2019-12-18 16:40:47 Office Visit Nathan [facility]resp[facility] 1.2.840.114 350.1.13.10 4.2.7.2.686 [id number] 225 [id number] [facility] 2019-11-26 22:54:10 2019-11-27 08:34:00 Emergency Rodri Rodriguez [facility] 1.2.840.114 350.1.13.10 4.2.7.2.686 [id number] 084 [id number] [facility] 2019-11-19 09:12:19 2019-11-19 10:15:04 Office Visit Neli Salas [facility] 1.20.114 350.1.13.10 4.2.7.2.686 [id number] 225 [id number] [facility] 2019-11-13 16:14:27 2019-11-13 16:43:53 Office Visit Nathan Cresp[facility] 1.2840.114 350.1.13.10 4.2.7.2.686 [id number] 225 [id number] [facility] Results Test Description Test Time Test Comments Results Result Co mments Source [facility] [id number] 06:54:29ORDERING PHYSICIAN: ? ROSEANNE ?KAZ HISTORY: chest pain, dizziness ? COMPARISON: 01/05/2024 FINDINGS: Single frontal view of the chest. Heart is normal in size. ?There is no pulmonary edema. There are no focalareas of consolidation. There is no pneumothorax. ?There are no pleuraleffusions. Osseous structures are unremarkable. ? Please note that chest radiography is not a sensitive modality for thedetection of masses.[facility] 2024-02-13 17:19:00* Test Item Value Reference Range Interpretation Comme nts POCT PREG (test code = 1605) Negative On board controls acceptable with C Line (test code = 3574) Yes POCT PREG LOT # (test code = 3575) POCT PREG TEST DATE ( test code = 3576) Lab Interpretation (test cod e = 09193-2) Normal [facility] [id number] 17:19:00* Test Item Value Reference Range Interpretation Comme nts POCT PREG (test code = 1605) Negative On board controls acceptable with C Line (test code = 3574) Yes POCT PREG LOT # (test code = 3575) POCT PREG TEST DATE ( test code = 3576) Lab Interpretation (test cod e = 59008-6) Normal [facility] [id number] 09:41:00* Test Item Value Reference Range Interpretation Comme nts POCT PREG (test code = 1605) Negative On board controls acceptable with C Line (test code = 3574) Yes POCT PREG LOT # (test code = 3575) [id number] POCT PREG TEST DATE ( test code = 3576) Lab Interpretation (test cod e = 77959-8) Normal [facility] [id number] 00:11:00* Test Item Value Reference Range Interpretation Comme nts POCT PREG (test code = 1605) Negative On board controls acceptable with C Line (test code = 3574) Yes POCT PREG LOT # (test code = 3575) 162483 POCT PREG TEST DATE ( test code = 3576) 01/31/2025 Lab Interpretation (test cod e = 89719-4) Normal [facility] MOLECULAR [id number] 18:33:15* Test Item Value Reference Range Interpretation Comme nts POCT Molecular Strep (test c ode = 90661-7) Negative Negative Lab Interpretation (test cod e = 94983-9) Normal [facility] MOLECULAR [id number] 18:33:15* Test Item Value Reference Range Interpretation Comme nts POCT Molecular Strep (test c ode = 88439-0) Negative Negative Lab Interpretation (test cod e = 77528-2) Normal [facility] [id number] 05:13:00* Test Item Value Reference Range Interpretation Comme nts POCT PREG (test code = 1605) Negative On board controls acceptable with C Line (test code = 3574) Yes POCT PREG LOT # (test code = 3575) 660494 POCT PREG TEST DATE ( test code = 3576) 06-05-2024 Lab Interpretation (test cod e = 83936-5) Normal [facility] (D) IMMUNE [id number] 14:17:44* Test Item Value Reference Range Interpretation Comme nts RHIG CANDIDATE? (test code = 5055) No- see comment Patient is not a candidate for RhIg- Patient is Rh Positive.Performed at [facility] Laboratory Services - [facility] Blood [address] [place] [address]Ufyz Free: [phone] No. [id number] [facility]Type and Screen - ONCE [id number] 19:49:52 * Test Item Value Reference Range Interpretation Comme nts ABO & RH (test code = 20) O Positive Performed at [facility] Laboratory [facility] Blood [address] Free: [phone] No. [id number] IAT (test code = 1185) Negative Performed at [facility] Blood [address] Free: [phone] No. [id number] [facility] URINALYSIS W/O SPECIFIC [id number] 19:39:00* Test Item Value Reference Range Interpretation [...] = 3257) negative Negative - Negati ve [facility] URINALYSIS W/O SPECIFIC [id number] 19:41:00* Test Item Value Reference Range Interpretation [...] = 3257) n/a Negative - Negati ve [facility] URINALYSIS W/O SPECIFIC [id number] 21:46:00* Test Item Value Reference Range Interpretation [...] = 3257) n/a Negative - Negati ve [facility] URINALYSIS W/O SPECIFIC [id number] 20:28:00* Test Item Value Reference Range Interpretation [...] = 3257) n/a Negative - Negati ve [facility] URINALYSIS W/O SPECIFIC [id number] 21:51:00* Test Item Value Reference Range Interpretation [...] = 3257) n/a Negative - Negati ve [facility] URINALYSIS W/O SPECIFIC [id number] 20:58:00* Test Item Value Reference Range Interpretation [...] = 3257) n/a Negative - Negati ve [facility] HR GLUCOSE TOLERANCE [id number] 16:59:05 * Test Item Value Reference Range Interpretation Comme nts GLUC 1 HR (test code = 9873300731) 210 mg/dL 120-170 H Lab Interpretation (test cod e = 71528-9) Abnormal [facility] HospitalGLU[facility]SE [id number] 16:36:02* Test Item Value Reference Range Interpretation Comme nts GLU FASTNG (test code = 4923105652) 81 mg/dL 70-110 Lab Interpretation (test cod e = 30503-3) Normal [facility] URINALYSIS W/O SPECIFIC [id number] 16:08:00* Test Item Value Reference Range Interpretation [...] = 3257) n/a Negative - Negati ve [facility] MOLECULAR [id number] 23:53:20* Test Item Value Reference Range Interpretation Comme nts POCT Molecular FluA (test co de = 60517-9) Negative Negative POCT Molecular FluB (test co de = 11429-8) Negative Negative Lab Interpretation (test cod e = 02928-2) Normal [facility] MOLECULAR [id number] 23:46:57* Test Item Value Reference Range Interpretation Comme nts POCT Molecular Strep (test c ode = 13377-7) Negative Negative Lab Interpretation (test cod e = 03793-5) Normal [facility] URINALYSIS W/O SPECIFIC [id number] 19:13:00* Test Item Value Reference Range Interpretation [...] = 3257) n/a Negative - Negati ve [facility] URINALYSIS W/O SPECIFIC [id number] 18:18:00* Test Item Value Reference Range Interpretation [...] = 3257) n/a Negative - Negati ve [facility] Hospital[facility]. METABOLIC PANEL (65492)2022-06-25 21:05:32* Test Item Value Reference Range Interpretation Comme nts NA (test code = 8688513844) 135 mmol/L 135-145 K (test code = 0665480899) 3.7 mmol/L 3.5-5 CL (test code = 8098668822) 102 mmol/L 98-108 CO2 TOTAL (test code = 4088818277) 22 mmol/L 23-31 L AGAP (test code = 9666151098) 2-16 BUN (test code = 1684237683) 7 mg/dL 7-23 GLUCOSE (test code = 2700390407) 92 mg/dL 70-110 CREATININE (test code = 8466825849) 0.58 mg/dL 0.5-1.04 TOTAL BILI (test code = 0353828015) 0.3 mg/dL 0.1-1.1 CALCIUM (test code = 2907473346) 9.4 mg/dL 8.6-10.6 T PROTEIN (test code = 3579830198) 6.9 g/dL 6.3-8.2 ALBUMIN (test code = 5656775595) 4.4 g/dL 3.5-5 ALK PHOS (test code = 8759533526) 66 U/L 34-122 ALTv (test code = 1742-6) 14 U/L 5-35 AST(SGOT) (test code = 9480643589) 20 U/L 13-40 eGFR (test code = 6764308534) mL/min/1.73m2 PAOLA (test code = PAOLA) Association [...] imaging tests). Lab Interpretation (test code = 41180-8) Abnormal [facility] WITH [id number] 20:54:08* Test Item Value Reference Range Interpretation Comme nts WBC (test code = 6690-2) See_Comment L [Automated messa ge] The system [...] 34.7 g/dL 31.6-35.1 RDW-SD (test code = 52047-6) 38.8 fL 39-49.9 L RDW-CV (test code = 788-0) 12.7 % 12-15.5 PLT (test code = 777-3) See_Comment [Automated messa ge] The system which generated this result transmitted reference range: 166 - 358 10*3/?L. The reference range was not used to interpret this result as normal/abnormal. MPV (test code = 36847-2) 11.9 fL 9.5-12.9 NRBC/100 WBC (test code = 1681003376) See_Comment [Automated [employer] ssage] The system which generated this result transmitted reference range: 0.0 - 10.0 /100 WBCs. The reference range was not used to interpret this result as normal/abnormal. NRBC x10^3 (test code = 0979019721) See_Comment [Automated messa ge] The system which generated this result transmitted reference range: 10*3/?L. The reference range was not used to interpret this result as normal/abnormal. GRAN MAT (NEUT) % (test code = 770-8) 79.7 % IMM GRAN % (test code = 8654945625) 0.50 % LYMPH % (test code = 736-9) 6.8 % MONO % (test code = 5905-5) 13.0 % EOS % (test code = 713-8) 0.0 % BASO % (test code = 706-2) 0.0 % GRAN MAT x10^3(ANC) (test code = 7377356978) 2.94 10*3/uL 1.88-7.09 IMM GRAN x10^3 (test code = 3187712330) 0-0.06 LYMPH x10^3 (test code = 731-0) 0.25 10*3/uL 1.32-3.29 L MONO x10^3 (test code = 742-7) 0.48 10*3/uL 0.33-0.92 EOS x10^3 (test code = 711-2) 0.03-0.39 L BASO x10^3 (test code = 704-7) 0.01-0.07 Lab Interpretation (test code = 77246-3) Abnormal [facility] Notes Date/Time Note Provider Source 2025-02-23 22:20:27 Pt given printed and verbal discharge instructions regarding headache, UTI. Encouraged hydration, Prescriptions provided: Omnicef, ibuprofen Discussed ibuprofen and to take with food to avoid GI distress. Pt verbalized understanding of instructions, pt awake alert oriented, resp reg unlabored, skin w/d, color appropriate for race, moves all ext well,pt encouraged to follow up with pcp. Advised to seek medical attention for new/prolonged/worsening of symptoms, Symptoms unchanged No adverse reaction to meds given in ER noted upon discharge Awake, alert oriented, resp reg unlabored, skin w/d, pt leaving amb with steady gait, in no apparent distress, accompanied by friend. Elise Hammonds RN [facility] 2025-02-23 20:49:18 Patient provided urine cup for sample. [facility] 2025-02-23 20:18:28 Patient arrived ambulatory to ED c/o bad headaches that started up a couple of days ago. States when walking she hears a swishing sound, nausea, and more forgetful. Hx of swelling of the brain about a month ago. Takes prescribed headache medication and Bumex. Tim Duvall RN [facility] 2024-03-23 02:39:20 Pt given printed and verbal discharge instructions regarding chest pain, encouraged hydration, Pt verbalized understanding of instructions, pt awake alert oriented, resp reg unlabored, skin w/d, color appropriate for race, moves all ext well,pt encouraged to follow up with pcp Advised to seek medical attention for new/prolonged/worsening of symptoms PIV d'cd, dressing to site, catheter in tact. Awake, alert oriented, resp reg unlabored, skin w/d, pt leaving amb with steady gait, in no apparent distress, Tim Duvall RN [facility] 2024-03-23 00:49:59 Pt brought in by partner. It is okay to discuss medical care in front of partner. Partner states " She is having really bad chest pain, dizziness, and swelling. I gave her something for her blood pressure. She wanted to take a shower, She got really dizzy in the shower and sat down really fast. When we were leaving the house she got dizzy and fell off the step she caught herself but still bumped her head." Pt states "it was baby Asprin" Benjamin Conklin RN [facility] 2024-03-03 14:54:15 Please see previous encounter. SUSHILA ADAME RN 03/03/2024 2:54 PM Sushila Adame RN [facility] 2024-02-29 16:20:02 Per Rich Barrett DNP- US normal. Name and verified. Pt advised of US normal. Verbalized understanding. SUSHILA ADAME RN 02/29/2024 4:21 PM Sushila Adame RN [facility] 2024-02-29 15:32:00 Pelvic US form 02/27/2024 reviewed. Normal no abnormal findings. [facility] 2024-02-29 15:02:48 Received US report from [facility] via fax. Placed on provider's desk for review. SUSHILA ADAME RN 02/29/2024 3:03 PM Sushila Adame RN [facility] 2024-02-25 13:24:24 Spoke with patient. Patient requesting outside ultrasound order to be sent to [facility] in [place]. Order faxed per patient request. Jorge Wheat RN 02/25/2024 1:24 PM Jorge Wheat RN [facility] 2024-02-25 12:21:18 Patient is requesting her order to be faxed to the free standing ultrasound clinic in [place]. Her appointment is on Sunday and she is needing it done as soon as possible. Kaelyn Whiting [facility] 2024-02-21 10:21:21 Per Rich Barrett DNP: Please let patient or her mom know that we received record from [facility] from her visit on 01/05/24. No pelvic US report was included, unsure if it was done. We received 1. CT- Head/ Brain 2. CT- Chest 3. Chest X-Ray A order for pelvic US was placed at last OV, she may proceed with that, if desired. Also please ask if she had a withdrawal bleed from the provera challenge. If she did, pelvic US is optional Thanks on for pt to return call. SUSHILA ADAME RN 02/21/2024 10:21 AM Sushila Adame RN [facility] 2024-02-20 09:37:47 Received radiology reports from [facility]. Placed on provider's desk for review. Di Geller [facility] 2023-12-09 03:25:38 Pt arrived c/o high blood pressure at home. Pt reports BP at home was 145/105 around 0205. Pt also reports twitching in L eye and face. Pt is concerned about . Pt reports last menstrual cycle was in September. Pt took a test last week and it was negative. PMH: None Pt's BP during triage is 135/90 ESSOR INSPECTOR Maria De Jesus Arriaga RN [facility] 2023-06-26 07:33:45 Formatting of this n ote might be different from the original. Pt given printed and verbal discharge instructions regarding viral uri, encouraged hydration. 0 Prescriptions provided; 2 sent to pharmacy Discussed ibuprofen and to take with food to avoid GI distress. Pt verbalized understanding of instructions, pt awake alert oriented, resp reg unlabored, skin w/d, color appropriate for race, moves all ext well,pt encouraged to follow up with pcp. Advised to seek medical attention for new/prolonged/worsening of symptoms, Symptoms remain the same No adverse reaction to meds given in ER noted upon discharge Awake, alert oriented, resp reg unlabored, skin w/d, pt leaving amb with steady gait, in no apparent distress. Cleo Love RN [facility] 2023-06-26 06:20:00 Formatting of this n ote might be different from the original. Patient states: "I'm congested since yesterday and can't breathe, my throat hurts too." Thelma Gupta RN [facility] 2023-06-26 06:17:00 Formatting of this n ote is different from the original. [facility] Emergency Department Note Patient Name: Gabby Bolanos Date of : 2005 18 year old female Treatment Room: [place] [address] Primary Care Physician: No primary care provider on file. Patient Escorted by: Family [5] Mode of Arrival: Personal means [1] EMS Treatment Prior to ED Arrival: Travel and Exposure Screening: Symptoms Does patient have any of these symptoms?: (not recorded) Exposure Screening Has patient had contact with someone with a communicable disease in the last month?: (not recorded) Diseases exposed to:: (not recorded) Is Patient ?: (not recorded) Exposure Date: (not recorded) Chief Complaint: Chief Complaint Patient presents with Cough Congestion Sore Throat History of Present Illness: Gabby Bolanos is a 18 year old femalew ho [...] this AM. No body aches. Past Medical History/Immunizations: Past Medical History: Diagnosis Date ADHD Anxiety Constipation Depression Suicidal thoughts Unspecified asthma(493.90) Tetanus received in last 5 years: Unknown Allergies: No Known Allergies Past Social History: Tobacco Use Never smoked or used smokeless tobacco. Passive Exposure: Yes Comments: parents smoke outside Vaping Use Never used Alcohol Use Never. Drug Use Never. Sexual Activity Not currently sexually active; Partners: Male; Control/Protection: None. Past Surgical History: Past Surgical History: Procedure Laterality Date CLOSE TEAR DUCT OPENING TOOTH EXTRACTION Review of Systems: Review of Systems Constitutional: Positive for chills and fever. HENT: Positive for congestion. Eyes: Negative. Respiratory: Positive for cough. Breasts: Negative. Cardiovascular: Negative. Gastrointestinal: Positive for nausea and vomiting. Genitourinary: Negative. Musculoskeletal: Positive for myalgias. Skin: Negative. Neurological: Positive for headaches. Psychiatric/Behavioral: Negative. All other systems reviewed and are negative. Endocrine: Endocrine negative Physical Exam: ED Triage Vitals [06/26/23 0620] Weight 73.9 kg (163 lb) Actual or estimated Estimated by patient/family report Height 1.6 m (5' 3") BP 122/87 Pulse 80 Resp 15 Temp 37 ?C (98.6 ?F) Temp source Oral SpO2 98 % Measured on Room air Physical Exam Vitals and nursing note reviewed. Constitutional: General: She [...] Heart sounds: Normal heart sounds. No murmur heard. Pulmonary: Effort: Pulmonary effort is normal. No respiratory [...] Content: Thought content normal. Judgment: Judgment normal. Radiology: No orders to display Lab Results: Lab Results - No data to display Orders and Treatments: No orders of the defined types were placed in this encounter. Orders Placed This Encounter Medications ibuprofen 800 mg tablet ondansetron (ZOFRAN) 4 mg tablet First Provider Eval: ED Events Date/Time Event User Comments 06/26/23 0646 Medical Screening Begins AMILCAR CHAVARRIA MD -- 06/26/23 0646 First Provider Evaluation AMILCAR CHAVARRIA MD -- No notes of EC Admission Criteria type on file. ED COURSE Diagnosis/Impression as of 06/26/23 0701 Viral URI Procedures: Procedures MDM: Medical Decision Making Gabby Bolanos is a 18 year old female whopresents to the ED for evaluation of URI symptoms X 2 days Problems Addressed: Viral URI: acute illness or injury Details: Will treat symptomatically Amount and/or Complexity of Data Reviewed Independent Historian: parent Risk OTC drugs. Prescription drug management. Flowsheet Documentation: Scoring Tools: No data recorded Disposition/Condition: ED Disposition ED Disposition Disch - Home Condition Stable Comment -- Discharge Medications: Patient's Medications START taking these medications IBUPROFEN 800 [...] taking these medications No medications on file Follow-up: Electronically signed by: Amilcar Chavarria MD 06/26/23700 T [facility] 2023-06-04 01:20:36 Formatting of this n ote might be different from the original. Pt eloped before disposition. Elise Hammonds RN [facility] 2023-06-03 21:45:00 Formatting of this n ote might be different from the original. Patient states: "I fell out of my 2 ft bed and hit the back of my head. I vomited once after the fall. I took Advil an hour ago, now pain score of 7/10." Thelma Gupta RN [facility]
[2025-03-18 07:38] LABS: Absolute Basophils 0.1 K/uL (0-0.5); Absolute Eosinophils 0.1 K/uL (0-0.5); Absolute Lymphocytes (CBC) 2.2 K/uL (0.7-4.9); Absolute Monocytes 0.6 K/uL (0.1-1.3); Absolute Neutrophil 3.6 K/uL (1.8-8.0); Basophils % 0.8 % (0-1.3); Eosinophils % 1.4 % (0-4.4); Hematocrit 35.9 % (36.0-45.0); Hemoglobin 11.8 g/dL (12.0-15.0); Lymphocytes % 34.2 % (15.3-44.8); MCH 25.8 pg (27.0-35.0); MCHC 32.8 g/dL (32.0-36.0); MCV 78.7 fL (80-100); MPV 10.6 fL (7.6-11.3); Monocytes % 8.5 % (3.3-12.3); Neutrophils % 55.1 % (41.7-73.7); Platelets 225 thou/uL (152-406); RBC Red Blood Cell Count 4.56 M/uL (3.86-4.86); Red Cell Distribution Width 15.1 % (12.1-15.2)
[2025-03-18 07:57] LABS: Specific Gravity 1.017 (1.005-1.030)
[2025-03-18 07:57] LABS: ALT/SGPT 19 U/L (13-56); AST/SGOT 15 U/L (15-37); Albumin 3.5 g/dL (3.4-5.0); Alkaline Phosphatase 72 U/L (45-117); Anion Gap 10.6 mEq/L (5.0-15.0); BUN Blood Urea Nitrogen 8 mg/dL (7-18); Bicarbonate 24 mEq/L (21-32); Bilirubin Total 0.4 mg/dL (0.2-1.0); Globulin 3.4 g/dL (2.3-3.5); Glomerular Filtration Rate 114 ml/min (=/>90); Glucose Level 92 mg/dL (74-106); Potassium 3.6 mEq/L (3.5-5.1); Protein, Total 6.9 g/dL (6.4-8.2); Sodium Level 139 mEq/L (136-145); Troponin High Sensitivity 3.5 pg/mL (<58.9)
[2025-03-18 07:58] LABS: Bilirubin Direct < 0.2 mg/dL (0-0.2); Bilirubin Indirect, Calculated 0.2 mg/dL (0.2-0.8)
--- NOTE | 2025-03-18 07:58 | RAD REPORT ---
Procedure: Chest Single View HISTORY: Chest pain COMPARISON: 2023 FINDINGS: The lungs appear clear of acute infiltrate. No significant pleural effusion noted. The heart is normal size. IMPRESSION: No acute abnormality is displayed.
--- NOTE | 2025-03-18 08:01 | RAD REPORT ---
EXAM: CT brain without contrast HISTORY: Headache COMPARISON: 2023 TECHNIQUE: Multiple contiguous axial images were obtained and a CT of the brain without contrast.. Sagittal and coronal reconstruction performed. Automated exposure control, adjustment of the mA and/or kV according to patient size, and/or iterative reconstruction. Unless otherwise specified, incidental f indings do not require dedicated imaging follow-up FINDINGS: An intracranial bleed is not seen Ventricles are normal caliber No extra-axial fluid collection noted No significant hypodensity within the brain No fluid within the visualized sinuses or mastoids noted. IMPRESSION: No acute intracranial abnormality noted. If the patient continues to have symptoms to suggest an acute intracranial abnormality then MRI of th e brain would be recommended.
[2025-03-18] MEDS ORDERED: KETOROLAC 30 MG/ML INJ ONE (08:06)
--- NOTE | 2025-03-18 08:27 | ER ---
Nurse's Notes [facility] Name: Loni Bolanos Age: 19 yrs Sex: Female : 2005 Arrival Date: 03/18/2025 Time: 07:06 Bed 19 Private MD: None, None Diagnosis: Chest pain, headache Presentation: 03/18 07:27 Chief complaint: Patient states: CP beginning last PM with a headache. Coronavirus kc6 screen: At this time, the client does not indicate any symptoms associated with coronavirus-19. Ebola Screen: No symptoms or risks identified at this time. Initial Sepsis Screen: Does the patient meet any 2 criteria? No. Patient's initial sepsis screen is negative. Does the patient have a suspected source of infection? No. Patient's initial sepsis screen is negative. Risk Assessment: Do you want to hurt yourself or someone else? Patient reports no desire to harm self or others. Onset of symptoms was March 17, 2025. 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 - Infectious Disease History:: Denies. - Social history:: Smoking status: Patient denies any tobacco usage or history of. Screenin:29 [facility] ED Fall Risk Assessment (Adult) History of falling in the last 3 months, kc6 including since admission No falls in past 3 months (0 pts) Confusion or Disorientation No (0 pts) Intoxicated or Sedated No (0 pts) Impaired Gait No (0 pts) Mobility Assist Device Used No (0 pt) Altered Elimination No (0 pt) Score/Fall Risk Level 0 - 2 = Low Risk Oriented to surroundings. Abuse screen: Denies threats or abuse. Denies injuries from another. Nutritional screening: No deficits noted. Tuberculosis screening: No symptoms or risk factors identified. Assessment: 07:59 General: Appears in no apparent distress. uncomfortable, well groomed, well developed, kc6 Behavior is cooperative, appropriate for age, crying. Pain: Complains of pain in chest Pain does not radiate. Pain began 1 day ago. Is continuous. Neuro: Level of Consciousness is awake, alert, obeys commands, Oriented to person, place, time, situation, Appropriate for age Reports headache occipital area. Cardiovascular: Reports chest pain, Heart tones S1 S2 present Capillary refill < 3 seconds Rhythm is sinus rhythm. Respiratory: Airway is patent Trachea midline Respiratory effort is even, unlabored, Respiratory pattern is regular, symmetrical. GI: No signs and/or symptoms were reported involving the gastrointestinal system. : No signs and/or symptoms were reported regarding the genitourinary system. EENT: No signs and/or symptoms were reported regarding the EENT system. Derm: No signs and/or symptoms reported regarding the dermatologic system. Skin is intact, is healthy with good turgor, Skin is pink, warm \T\ dry. Musculoskeletal: No signs and/or symptoms reported regarding the musculoskeletal system. Circulation, motion, and sensation intact. Range of motion: intact in all extremities. Vital Signs: 07:27 BP 118 / 74; Pulse 65; Resp 19 S; Temp 97.9(O); Pulse Ox 100% on R/A; Weight 77.11 kg [facility] (R); Height 5 ft. 3 in. (R); 07:27 Body Mass Index 30.11 (77.11 kg, 160.02 cm) [facility] ED Course: 07:07 Patient arrived in ED. as 07:07 None, None is Private Physician. as 07:11 Britt Hammonds, ROCHELLE is Primary Nurse. 6 07:11 Arm band placed on Patient placed in an exam room, on a stretcher. ll1 07:13 Mey Poole MD is Attending Physician. sp3 07:28 Triage completed. kc6 07:28 EKG completed in triage. Results shown to MD. kc6 07:29 Patient has correct armband on for positive identification. Bed in low position. Call [facility] light in reach. Side rails up X 1. Adult w/ patient. personnel monitor on. Pulse ox on. NIBP on. Door closed. Noise minimized. Lights dimmed. Warm blanket given. Pillow given. Verbal reassurance given. 07:29 Initial lab(s) drawn, by ED staff, sent to lab. Inserted saline lock: 20 gauge in right kc6 antecubital area, using aseptic technique. Blood collected. Flushed with 10 mL NS. Patient maintains SpO2 saturation greater than 95% on room air. 07:40 CT Head Brain wo Cont In Process Unspecified. EDMS 07:41 XRAY Chest (1 view) In Process Unspecified. EDMS 08:27 Osorio Mccullough MD is Referral Physician. sp3 08:43 No provider procedures requiring assistance completed. IV discontinued, intact, kc6 bleeding controlled, No redness/swelling at site. Pressure dressing applied. Administered Medications: 08:09 Drug: Ketorolac IVP 15 mg IVP once Route: IVP; Site: right antecubital; kc6 08:43 Follow up: Response: No adverse reaction kc6 Medication: 08:43 VIS not applicable for this client. kc6 Outcome: 08:27 Discharge ordered by . sp3 08:43 Discharged to home ambulatory, with significant other, kc6 08:43 Condition: good 08:43 Discharge instructions given to patient, significant other, Instructed on discharge instructions, follow up and referral plans. medication usage, Demonstrated understanding of instructions, follow-up care, medications, Prescriptions given X 1, 08:44 Patient left the ED. kc6 Signatures: Dispatcher [employer] Liliana Dodson as Abel Ramirez, RN RN ll1 Mey Poole MD MD sp3 Britt Hammonds RN RN kc6
--- NOTE | 2025-03-18 08:27 | EDPHYS ---
Physician Documentation [facility] Name: Loni Bolanos Age: 19 yrs Sex: Female : 2005 Arrival Date: 03/18/2025 Time: 07:06 Bed 19 Private MD: None, None ED Physician Mey Poole HPI: 03/18 07:50 This 19 yrs old Female presents to ER via Ambulatory with complaints of Chest Pain, sp3 Headache. 07:50 19-year-old female with no past medical history but possible "fluid on her brain" as sp3 she was told by other ER physician in the past now presents to the ED with chief complaint mild headache with then subsequent chest pain. Patient is a nursing home assistant administrator and one of the nurses at her place of employment took her heart rate and told her that it was elevated. Patient denies any other symptoms including fever, neck pain, neck stiffness, significant shortness of breath, back pain, abdominal pain, nausea, vomiting, diarrhea, , syncope, bleeding, melena, blood in immobilization, travel history, oral contraception, smoking, or any other signs or symptoms on ROS at this time.. COPS: 07:28 LMP 01/18/2025, unknown kc6 Historical: - Allergies: 07:28 No Known Allergies; kc6 - Home Meds: 07:28 None [Active]; kc6 - PMHx: 07:28 None; kc6 - PSHx: 07:28 None; kc6 - Immunization history:: Adult Immunizations up to date. - Infectious Disease History:: Denies. - Social history:: Smoking status: Patient denies any tobacco usage or history of. ROS: 07:51 Constitutional: Negative for fever, chills, and weight loss, Eyes: Negative for injury, sp3 pain, redness, and discharge, ENT: Negative for injury, pain, and discharge, Neck: Negative for injury, pain, and swelling, Respiratory: Negative for shortness of breath, cough, wheezing, and pleuritic chest pain, Abdomen/GI: Negative for abdominal pain, nausea, vomiting, diarrhea, and constipation, Back: Negative for injury and pain, MS/Extremity: Negative for injury and deformity, Skin: Negative for injury, rash, and discoloration, Psych: Negative for depression, anxiety, suicide ideation, homicidal ideation, and hallucinations, Allergy/Immunology: Negative for hives, rash, and allergies, Endocrine: Negative for neck swelling, polydipsia, polyuria, polyphagia, and marked weight changes, Hematologic/Lymphatic: Negative for swollen nodes, abnormal bleeding, and unusual bruising, 07:51 All other systems are negative, Exam: 07:51 Constitutional: This is a well developed, well nourished patient who is awake, alert, sp3 and in no acute distress. Head/Face: Normocephalic, atraumatic. Eyes: Pupils equal round and reactive to light, extra-ocular motions intact. Lids and lashes normal. Conjunctiva and sclera are non-icteric and not injected. Cornea within normal limits. Periorbital areas with no swelling, redness, or edema. ENT: Nares patent. No nasal discharge, no septal abnormalities noted. External auditory canals are clear. Oropharynx with no redness, swelling, or masses, exudates, or evidence of obstruction, uvula midline. Mucous membranes moist. Neck: Trachea midline, no thyromegaly or masses palpated, and no cervical lymphadenopathy. Supple, full range of motion without nuchal rigidity, or vertebral point tenderness. No Meningismus. Chest/axilla: Normal chest wall appearance and motion. Nontender with no deformity. No lesions are appreciated. Cardiovascular: Regular rate and rhythm with a normal S1 and S2. No gallops, murmurs, or rubs. Normal PMI, no JVD. No pulse deficits. Respiratory: Lungs have equal breath sounds bilaterally, clear to auscultation and percussion. No rales, rhonchi or wheezes noted. No increased work of breathing, no retractions or nasal flaring. Abdomen/GI: Soft, non-tender, with normal bowel sounds. No distension or tympany. No guarding or rebound. No evidence of tenderness throughout. Back: No spinal tenderness. No costovertebral tenderness. Full range of motion. Skin: Warm, dry with normal turgor. Normal color with no rashes, no lesions, and no evidence of cellulitis. MS/ Extremity: Pulses equal, no cyanosis. Neurovascular intact. Full, normal range of motion. Neuro: Awake and alert, GCS 15, oriented to person, place, time, and situation. Cranial nerves II-XII grossly intact. Motor strength 5/5 in all extremities. Sensory grossly intact. Cerebellar exam normal. Normal gait. Psych: Awake, alert, with orientation to person, place and time. Behavior, mood, and affect are within normal limits. 07:51 ECG was reviewed by the Attending Physician. EKG demonstrates normal sinus rhythm at 66 bpm with normal intervals, normal QRS, normal axis, normal ST/T-segment's without evidence of acute ischemia. Vital Signs: 07:27 BP 118 / 74; Pulse 65; Resp 19 S; Temp 97.9(O); Pulse Ox 100% on R/A; Weight 77.11 kg kc6 (R); Height 5 ft. 3 in. (R); 07:27 Body Mass Index 30.11 (77.11 kg, 160.02 cm) [facility] MDM: 07:13 Medical Screening Exam initiated sp3 07:52 Data reviewed: vital signs, nurses notes, lab test result(s), EKG, radiologic studies. sp3 ED course: 19-year-old female with chest pain and headache with no significant past medical history and unknown neurological diagnosis for which she is still arranging follow-up. Vital signs are completely normal. Patient is in no acute distress. EKG is normal. Differential diagnosis includes viral illness, musculoskeletal chest pain, idiopathic headache, among others. Will obtain CT scan of the head, EKG, chest x-ray, routine labs including D-dimer and troponin.. 08:26 ED course: Full workup negative including CT head. Patient improved after ketorolac. 3 Will discharge patient home on diclofenac with continued outpatient follow-up with neurology.. 03/18 07:25 Order name: Basic Metabolic Panel; Complete Time: 08:25 sp3 03/18 07:25 Order name: CBC with Diff; Complete Time: 08:25 3 03/18 07:25 Order name: D-Dimer; Complete Time: 08:25 3 03/18 07:25 Order name: LFT's; Complete Time: 08:25 3 03/18 07:25 Order name: Magnesium; Complete Time: 08:25 3 03/18 07:25 Order name: Troponin HS; Complete Time: 08:25 3 03/18 07:30 Order name: Test, Urine; Complete Time: 08:25 [facility] 03/18 07:25 Order name: XRAY Chest (1 view); Complete Time: 08:25 sp3 03/18 07:25 Order name: CT Head Brain wo Cont; Complete Time: 08:25 sp3 03/18 07:25 Order name: Cardiac monitoring; Complete Time: 07: sp3 03/18 07:25 Order name: EKG - Nurse/Tech; Complete Time: 07:27 sp3 03/18 07:25 Order name: IV Saline Lock; Complete Time: 07: sp3 03/18 07:25 Order name: Labs collected and sent; Complete Time: 07: sp3 03/18 07:25 Order name: O2 Per Protocol; Complete Time: 07: sp3 03/18 07:25 Order name: O2 Sat Monitoring; Complete Time: 07: sp3 Administered Medications: 08:09 Drug: Ketorolac IVP 15 mg IVP once Route: IVP; Site: right antecubital; kc6 08:43 Follow up: Response: No adverse reaction kc6 Disposition Summary: 03/18/25 08:27 Discharge Ordered Notes: Location: Home sp3 Condition: Stable sp3 Diagnosis - Chest pain, headache sp3 Followup: sp3 - With: Private Physician - When: Upon discharge from the Emergency Department - Reason: Continuance of care Followup: sp3 - With: Osorio Mccullough MD - When: Upon discharge from the Emergency Department - Reason: Continuance of care Discharge Instructions: - Discharge Summary Sheet sp3 - Nonspecific Chest Pain, Adult sp3 - General Headache Without Cause sp3 Forms: - Medication Reconciliation Form sp3 - Antibiotic Education sp3 - Prescription Opioid Use sp3 - Patient Portal Instructions sp3 - Leadership Thank You Letter sp3 - Work release form kc6 Prescriptions: - Diclofenac Sodium 75 mg Oral Tablet Sustained Release - take 1 tablet ORAL route 2 times per day; 30 tablet; Refills: 0, Product sp3 Selection Permitted Signatures: Dispatcher [employer] EDMey Marina MD MD sp3 Britt Hammonds RN RN kc6 Corrections: (The following items were deleted from the chart) 07:26 07:26 BASIC METABOLIC PANEL+C.LAB.BRZ ordered. EDMS EDMS 07:26 07:26 CBC+H.LAB.BRZ ordered. EDMS EDMS 07: 07:26 D-DIMER+COAG.LAB.BRZ ordered. EDMS EDMS 07:26 07:26 HEPATIC FUNCTION+C.LAB.BRZ ordered. EDMS EDMS 07: MAGNESIUM+C.LAB.BRZ ordered. EDMS EDMS 07: Troponin High Sensitivity+C.LAB.BRZ ordered. EDMS EDMS 07:26 Chest Single View+RAD.RAD.BRZ ordered. EDMS EDMS 07:26 Head Brain Wo Cont+CT.RAD.BRZ ordered. EDMS EDMS
[2025-03-18 08:58] VITALS: BP 118/74; TEMP 97.9; O2SAT 100
== END 2025-03-18 08:44 | disposition home or self-care (01) ==
LOC: ER 07:06
DX: R07.9 Chest pain, unspecified (principal); R51.9 Headache, unspecified
CPT/HCPCS: 36415; 70450; 71045; 80048; 80076; 81025; 83735; 84484; 85025; 85379; 93005